=== PATIENT | female | born 1970 | race Caucasian/White ===

== ENCOUNTER → 2019-06-20 14:32 | Outpatient (BNVA) | payer MEDICAID, SELFPAY | PROVIDERS: Family Provider Nurse Practitioner Family; PCP Nurse Practitioner Family; Visit Provider Specialist | DX: G43.719 Chronic migraine without aura, intractable, without status migrainosus (principal) | CPT/HCPCS: 99213 ==

== ENCOUNTER 2019-08-07 13:11 | Outpatient (CLI) | payer MEDICAID, SELFPAY ==
--- NOTE | 2019-08-07 09:00 | CT_ITS ---
WS: [id number] CT CERVICAL SPINE TECHNIQUE: Noncontrast CT of the cervical spine with coronal and sagittal reformatted images. CLINICAL INFORMATION: Neck pain. HX fusion/fixation COMPARISON: MRI November 17, 2018 DLP: 1461.[address] scans at [facility] use at least one of these dose optimization techniques: automat ed exposure control; mA and/or kV adjustment per patient size (includes targeted exams where dose is matched to clinical indication); or iterative reconstruction. FINDINGS: Straightening with reversal of the normal cervical lordosis. Prior postoperative changes anterior int erbody cervical fusion C6-7. No evidence of bony bridging beyond the confines of the interbody fusion graft. Mild subsidence. Hardware appears grossly intact. C2-C3: Normal. C3-C4: Slight anterolisthesis C3 on C4. Moderate right facet arthropathy. Mild right bony foraminal n arrowing. Left foramen is patent. Tiny central protrusion with mild central canal stenosis. C4-C5: No significant disc bulging. Spinal canal and foramen are patent. C5-C6: Tiny shallow central protrusion. Mild central canal stenosis. Mild facet arthropathy. Mild rig ht and no significant left foraminal narrowing. C6-C7: Postoperative changes anterior interbody cervical fusion. Mild left and no significant right f oraminal narrowing. Mild to moderate facet arthropathy. Spinal canal is patent. C7-T1: Endplate osteophytic ridging. Spinal canal and foramen are patent. Visualized posterior nasopharynx: Normal. Prevertebral soft tissues: Normal. CT/CT cervical spin wo con* [id number] IMPRESSION: 1. Straightening with slight reversal of the normal cervical lordosis. 2. Slight anterolisthesis C3 on C4 unchanged from previous. 3. Anterior interbody cervical fusion C6-C7 with mild subsidence along the int erbody fusion graft. No significant bony bridging beyond the confines of the gr aft. 4. Mild central canal stenosis C3-C4 and C5-C6. 5. Mild bony foraminal narrowing right C3-C4 and left C6-C7. 6. Moderate facet arthropathy right C3-C4.
--- NOTE | 2019-08-07 09:15 | CT_ITS ---
WS: [id number] CT LUMBAR SPINE TECHNIQUE: Noncontrast CT of the lumbar spine with coronal and sagittal reformatted images. CLINICAL INFORMATION: Low back pain COMPARISON: August 11, 2018 DLP: 1666.[address] scans at [facility] use at least one of these dose optimization techniques: automat ed exposure control; mA and/or kV adjustment per patient size (includes targeted exams where dose is matched to clinical indication); or iterative reconstruction. FINDINGS: 5 lumbar type vertebral bodies. Stable anterolisthesis L4 on L5 measuring 7 mm. Postoperative changes L4-5 pedicle screw fixation with dorsolateral bony fusion. Hardware appears intact. Disc space narro wing L4-L5 and L5-S1. L1-L2: Normal. L2-L3: No significant disc bulging. Mild facet arthropathy. Spinal canal and foramen are patent. L3-L4: Tiny left foraminal protrusion with mild left foraminal narrowing. Right foramen is patent. Mo derate facet arthropathy. Spinal canal is patent. L4-L5: Grade 1 anterolisthesis L4 on L5. Laminectomy defects. Spinal canal and foramen are patent. L5-S1: Prior postoperative changes left hemilaminectomy. Tiny shallow central protrusion. No signific ant nerve root impingement. Spinal canal and foramen are patent. Moderate facet arthropathy. IVC filter. CT/CT lumbar spine wo con* [id number] IMPRESSION: 1. Mild lumbar curve. Stable grade 1 anterolisthesis L4 on L5. 2. Postoperative changes pedicle screw fixation L4-5 with dorsolateral bony fu eliud. Hardware appears intact. 3. Tiny left foraminal protrusion L3-4 with mild left foraminal narrowing. 4. Tiny shallow central protrusion L5-S1 without significant nerve root imping ement. Spinal canal and foramen are patent. Left L5-S1 hemilaminectomy. 5. Moderate facet arthropathy L3-L5.
== END 2019-08-07 13:12 | disposition home or self-care (01) ==
LOC: RADWPI 13:13
PROVIDERS: Family Provider Nurse Practitioner Family; PCP Nurse Practitioner Family; Visit Provider Licensed Practical Nurse
DX: Z98.890 Other specified postprocedural states (principal); Z98.1 Arthrodesis status; M51.26 Other intervertebral disc displacement, lumbar region; M47.816 Spondylosis without myelopathy or radiculopathy, lumbar region
CPT/HCPCS: 72125; 72131

== ENCOUNTER → 2019-12-20 16:11 | Outpatient (BNVA) | payer MEDICAID, SELFPAY | PROVIDERS: Family Provider Nurse Practitioner Family; PCP Nurse Practitioner Family; Referring Provider Nurse Practitioner Family; Visit Provider Dermatology | DX: R21 Rash and other nonspecific skin eruption (principal); L65.8 Other specified nonscarring hair loss; F42.4 Excoriation (skin-picking) disorder | CPT/HCPCS: 11102; 88305; 99203; 99204 ==

== ENCOUNTER → 2020-01-03 14:00 | Outpatient (BNVA) | payer SELFPAY | PROVIDERS: Family Provider Nurse Practitioner Family; PCP Nurse Practitioner Family; Visit Provider Dermatology | DX: F22 Delusional disorders (principal) | CPT/HCPCS: 99213 ==

== ENCOUNTER 2020-02-20 17:56 | Emergency (ER) | payer MEDICAID, SELFPAY ==
[2020-02-20 18:00] VITALS: BP 111/76; PULSE 84; RESP 16; TEMP 36.3; O2SAT 99; BMI 26.6
[2020-02-20 20:42] LABS: Basophils # 0.1 10^3/uL (0.0-0.1); Basophils % 0.7 %; Eosinophils # 0.2 10^3/uL (0.0-0.8); Eosinophils % 2.6 %; Hematocrit 40.9 % (37.0-47.0); Hemoglobin 12.7 g/dL (11.5-15.3); Lymphocytes # 2.1 10^3/uL (0.8-4.8); Lymphocytes % 29.2 %; Mean Corpuscular HGB Conc 31.1 g/dL (30.0-36.0); Mean Corpuscular Hemoglobin 30.8 pg (28.0-34.0); Mean Platelet Volume 10.7 fL (7.4-10.4); Monocytes # 0.8 10^3/uL (0.2-0.9); Monocytes % 11.3 %; Neutrophils # 4.05 10^3/uL (1.8-7.7); Neutrophils % 55.6 %; Nucleated Red Blood Cells % 0 %; Platelet Count 269 10^3/cmm (130-400); Red Blood Count 4.13 10^6/uL (4.1-5.3); Red Cell Distribution Width 13.1 % (12.1-15.1); White Blood Count 7.3 10^3/uL (4.0-10.0)
--- NOTE | 2020-02-20 20:47 | ED_ITS ---
HPI - General Adult General: Chief complaint: General Medical Stated complaint: POSS BLOOD CLOT Time Seen by Provider: 02/20/20 20:43 Source: patient Mode of arrival: ambulatory Limitations: no limitations History of Present Illness: HPI narrative: 49-year-old female states she has a history of alpha gal along with chronic Lyme disease. Patient states she saw a new doctor this week and needed lab work on her and they called her today and informed her that her D-dimer was elevated. He told her come to ER. She states she has had no shortness of breath or chest pain. She states she does have bilateral lower leg pain but that is chronic in nature and has been going on for years and is not new. She states she currently feels at her baseline. Denies any worsening improving factors. Denies any fever cough. Associated symptoms: Deny chest pain, dyspnea, headache(s), nausea, rash or vomiting Review of Systems Const: Denies: fever(s), chills, body aches or change in appetite Eyes: Denies: blurry vision or eye discomfort ENMT: Denies: throat pain or dental pain Card: Denies: chest pain Resp: Denies: dyspnea GI: Denies: abdominal pain, nausea, vomiting or diarrhea : Denies: dysuria Musc: Denies: neck pain or back pain Skin/Breast: Denies: rash Neuro: Denies: headache(s) Psych: Denies: depression Andres/Lymph: Denies: easy bruising All/Imm: Denies: urticaria PFSH ED PFSH: Medical History Allergy to alpha-gal Cervical disc disorder with myelopathy of mid-cervical region Diabetes Spondylolisthesis of cervical region Thyroid disease Surgical History [place] filter in place 2001 H/O gastric bypass History of back surgery Dr. Richter 08/08/17 L4-L5 laminectomy/fusion/fixation 2008 [facility] Lumbar decompression History of carpal tunnel surgery of left wrist Dr. Orlando Richter 11/18/2016 History of carpal tunnel surgery of right wrist Dr. Richter 01/13/2017 History of neck surgery Dr. Richter 06/29/2018 C6-C7 ACDFF Family History Grandfather CAD (coronary artery disease) Stroke Grandmother CAD (coronary artery disease) Sister CAD (coronary artery disease) Hypertension Family/Other Cancer Mother Hypertension Father Hypertension Brother Hypertension Other Diabetes Social History Smoking and tobacco status: never smoked Alcohol intake: never Household members: family Marital status: Single Current occupational status: disabled History of recent travel: No Physical Exam Const: COMMON NORMALS: no acute distress, patient oriented x3 and healthy appearing HENMT: COMMON NORMALS: normocephalic and atraumatic HEAD & SCALP: norm ocephalic and atraumatic Eye: COMMON NORMALS: Equal, round and reactive pupils present and EOMs intact bilaterally PUPIL: Yes Equal, round and reactive pupils present Neck/C-Spine: COMMON NORMALS: full ROM and supple Chest: COMMONS NORMALS: normal inspection of the chest and normal palpation of entire chest wall Resp: COMMON NORMALS: normal respiratory effort, No retractions, No use of accessory muscles and clear to auscultation bilaterally AUSCULTATION: clear to auscultation bilaterally Cardio: COMMON NORMALS: regular rate, regular rhythm and No murmurs present (Cardio) RATE: regular rate RHYTHM: regular rhythm GI: COMMON NORMALS: Normal to inspection, nondistended, normoactive bowel sounds present, Soft to palpation, non-tender and no masses PALPATION: Yes Soft to palpation Extremity: COMMON NORMALS: normal to inspection and full ROM Neuro: COMMON NORMALS: patient oriented x3, moves all extremities and no focal motor deficits Psych: COMMON NORMALS: mental status grossly normal, Normal thought process present and cooperative THOUGHT PROCESS: Normal thought process present Skin: COMMON NORMALS: no rashes or lesions noted and no wounds GENERAL SKIN EXAM: no rashes or lesions noted Course Vital Signs: Vital signs: Vital Signs Temperature 97.3 F L 02/20/20 18:00 Pulse Rate 84 02/20/20 18:00 Respiratory Rate 18 02/20/20 21:14 Blood Pressure 111/76 02/20/20 18:00 Pulse Oximetry 99 02/20/20 18:00 MDM - General Adult MDM Narrative: Medical decision making narrative: Patient presents here wanting to have a D-dimer checked as she stated her PCP said it was elevated. She has no symptoms except for chronic leg pain and she has no leg swelling on exam. Her D-dimer here is negative she has no signs of pulmonary embolism or blood clot. Patient is stable for discharge and is to follow-up with PCP in 3 to 5 days return if worsening. She understands agrees to plan. Lab Data: Labs: Lab Results 02/20/20 02/20/20 02/20/20 Range/Units 20:18 20:18 21:04 WBC 7.3 (4.0-10.0) 10^3/ uL RBC 4.13 (4.1-5.3) 10^6/u L Hgb 12.7 (11.5-15.3) g/dL Hct 40.9 (37.0-47.0) % MCV 99.0 (81-99) fL MCH 30.8 (28.0-34.0) pg MCHC 31.1 (30.0-36.0) g/dL RDW 13.1 (12.1-15.1) % Plt Count 269 (130-400) 10^3/c mm MPV 10.7 H (7.4-10.4) fL Neut % (Auto) 55.6 % Lymph % (Auto) 29.2 % [place] % (Auto) 11.3 % Eos % (Auto) 2.6 % Baso % (Auto) 0.7 % Neut # (Auto) 4.05 (1.8-7.7) 10^3/u L Lymph # (Auto) 2.1 (0.8-4.8) 10^3/u L [place] # (Auto) 0.8 (0.2-0.9) 10^3/u L Eos # (Auto) 0.2 (0.0-0.8) 10^3/u L Baso # (Auto) 0.1 (0.0-0.1) 10^3/u L Nucleated RBC % (a uto) 0 % Nucleated RBCs # 0.0 /100WBC D-Dimer 0.33 (0-0.59) ug/mIFE U Sodium 138 (136-145) mmol/L Potassium 5.7 H (3.5-5.1) mmol/L Chloride 103 (98-107) mmol/L Carbon Dioxide 22 (22-29) mmol/L Anion Gap 18.7 (5-19) BUN 31 H (6-20) mg/dL Creatinine 1.6 H (0.5-0.9) mg/dL GFR Calculation 34.0 L (90-130) mL/min Glucose 81 (65-115) mg/dL Calculated Osmolal ity 292 (285-295) mOsm/k g Calcium 10.2 (8.5-10.5) mg/dL Total Bilirubin 0.2 (0.15-1.2) mg/dL AST 82 H (0-32) U/L ALT 59 H (0-33) U/L Alkaline Phosphata se 91 (35-105) IU/L Total Protein 6.8 (6.6-8.7) g/dL Albumin 4.4 (3.5-5.2) g/dL Globulin 2.4 (1.3-4.6) g/dL Discharge Plan Discharge Patient Disposition: Home Clinical Impression: Bilateral leg pain Condition: Stable Prescriptions: No Action venlafaxine [Effexor XR] 150 mg capsule,extended release 24hr 150 mg PO .COMPLEX RF: 0 Emgality Pen 120 mg/mL pen injector See Rx Instructions SUBCUT .COMPLEX RF: 0 lorazepam 1 mg tablet 1 mg PO TID PRNRF: 0 ranitidine HCl [Zantac] 150 mg tablet 150 mg PO DAILY RF: 0 ferrous sulfate [iron] 325 mg (65 mg iron) tablet 325 mg PO DAILY RF: 0 cholecalciferol (vitamin D3) [Vitamin D3] 2,000 unit tablet 2,000 unit PO DAILY RF: 0 levocetirizine [Xyzal] 5 mg tablet 5 mg PO BID RF: 0 tramadol 50 mg tablet 50 mg PO Q8H PRNRF: 0 aspirin [Aspir-81] 81 mg tablet,delayed release (DR/EC) 81 mg PO DAILY RF: 0 levothyroxine 50 mcg capsule 50 mcg PO DAILY RF: 0 vitamin [id number] B1 100-1 mg/mL solution See Rx Instructions IM .COMPLEX RF: 0 pantoprazole [Protonix] 40 mg tablet,delayed release (DR/EC) 40 mg PO DAILY RF: 0 metoprolol tartrate [Lopressor] 50 mg tablet 50 mg PO BID RF: 0 metformin 500 mg tablet 500 mg PO BID RF: 0 sumatriptan succinate [Imitrex] 100 mg tablet 100 mg PO Q2H PRNRF: 0 hydroxyzine pamoate [Vistaril] 25 mg capsule 25 mg PO .prn RF: 0 permethrin 5 % cream 1 applic TOPICAL Q14D Qty: 60 RF: 1 mupirocin 2 % ointment 1 applic TOPICAL BID Qty: 22 RF: 3 mupirocin 2 % ointment 1 applic TOPICAL BID Qty: 22 RF: 1 Discharge Orders: Discharge Order (Routine); Ordered 02/20/20 Ordered By: Zoe Bai Referrals: Susan Whaley [Primary Care Provider] - 1-3 days Discharge Diet: Advance as tolerated Discharge Activity: Resume usual activity Patient Instructions: Arthralgia (ED) Coding Level of Care Code ED Furnace Utility Operator for Kiet Fwd Exam Comprehensive
--- NOTE | 2020-02-20 20:47 | ECG_ITS ---
[facility] Test Date: 2020-02-20 Pat Name: Marcie Youssef Department: Room: Gender: Female [employer]: : 1970 Requested By: Zoe Bai Order Number: [id number] Dejesus MD: José Guerrero M.D. Measurements Intervals [place] Rate: 83 P: 68 SC: 150 QRS: 65 QRSD: 85 T: 50 QT: 359 QTc: 422 Interpretive Statements SINUS RHYTHM WITH SINUS ARRHYTHMIA Compared to ECG 09/30/2017 00:52:45 Sinus bradycardia no longer present Electronically Signed On 02-21-2020 9:39:35 CDT by José Guerrero M.D. [email or web address] Eclectic Edibles & [email or web address]/[id number]
[2020-02-20 20:55] LABS: Alanine Aminotransferase 59 U/L (0-33); Albumin Level 4.4 g/dL (3.5-5.2); Alkaline Phosphatase 91 IU/L (35-105); Blood Urea Nitrogen 31 mg/dL (6-20); Calcium 10.2 mg/dL (8.5-10.5); Carbon Dioxide 22 mmol/L (22-29); Chloride 103 mmol/L (98-107); Globulin 2.4 g/dL (1.3-4.6); Glucose 81 mg/dL (65-115); Osmolality Calculated 292 mOsm/kg (285-295); Sodium 138 mmol/L (136-145); Total Bilirubin 0.2 mg/dL (0.15-1.2); Total Protein 6.8 g/dL (6.6-8.7)
[2020-02-20 20:56] LABS: Anion Gap 18.7 (5-19); Aspartate Amino Transferase 82 U/L (0-32); Potassium 5.7 mmol/L (3.5-5.1)
[2020-02-20] MEDS: sodium chloride 0.9% 1,000 ML 999 ML IV (21:13)
[2020-02-20 21:14] VITALS: RESP 18
[2020-02-20 21:21] LABS: D Dimer 0.33 ug/mIFEU (0-0.59)
[2020-02-20 21:49] VITALS: RESP 18
== END 2020-02-20 21:49 | disposition home or self-care (01) ==
PROVIDERS: Emergency Provider Emergency Medicine; Family Provider Nurse Practitioner Family; PCP Nurse Practitioner Family
DX: M79.605 Pain in left leg (principal); M79.604 Pain in right leg; Z79.84 Long term (current) use of oral hypoglycemic drugs; Z79.82 Long term (current) use of aspirin; E11.9 Type 2 diabetes mellitus without complications
CPT/HCPCS: 12345; 36415; 80053; 85025; 85378; 93005; 96360; 99283; J7030

== ENCOUNTER → 2020-03-14 09:31 | Outpatient (BNVA) | payer MEDICAID, SELFPAY | PROVIDERS: Family Provider Nurse Practitioner Family; PCP Nurse Practitioner Family; Visit Provider Orthopaedic Surgery | DX: M50.020 Cervical disc disorder with myelopathy, mid-cervical region, unspecified level (principal); M47.816 Spondylosis without myelopathy or radiculopathy, lumbar region | CPT/HCPCS: 72050 ==

== ENCOUNTER → 2020-05-23 11:04 | Outpatient (BNVA) | payer MEDICAID, SELFPAY | PROVIDERS: Family Provider Nurse Practitioner Family; PCP Nurse Practitioner Family; Visit Provider Orthopaedic Surgery | DX: M53.3 Sacrococcygeal disorders, not elsewhere classified (principal); R10.2 Pelvic and perineal pain | CPT/HCPCS: 72170; 72220 ==

== ENCOUNTER → 2020-05-28 13:04 | Outpatient (BNVA) | payer MEDICAID, SELFPAY | PROVIDERS: Family Provider Nurse Practitioner Family; PCP Nurse Practitioner Family; Referring Provider Nurse Practitioner Family; Visit Provider Internal Medicine | DX: N18.32 Chronic kidney disease, stage 3b (principal); N25.81 Secondary hyperparathyroidism of renal origin | CPT/HCPCS: 99204 ==

== ENCOUNTER → 2020-06-16 15:11 | Outpatient (BNVA) | payer MEDICAID, SELFPAY | PROVIDERS: Family Provider Nurse Practitioner Family; PCP Nurse Practitioner Family; Visit Provider Orthopaedic Surgery | DX: M43.12 Spondylolisthesis, cervical region (principal); Z98.1 Arthrodesis status | CPT/HCPCS: 87635 ==

== ENCOUNTER 2020-06-23 06:19 | Day surgery (SDC) | payer MEDICAID, SELFPAY ==
[2020-06-20 11:57] VITALS: BMI 25.4
--- NOTE | 2020-06-20 12:56 | ANES.PREANE2 ---
Pre-Anesthetic Assessment Pre-Anesthetic Assessment: Height/Weight: Height 1.55 m Weight 61.235 kg Preop Diagnosis: Cervical Spondylolisthesis Proposed Procedure: Operation Date: 06/23/20 07:00 Proposed Procedures p Anterior Cervical Discectomy & Fusion C3-4 35727 [id number] [id number] M43.12(Not Applicable) - Ruiz Allen Micki, DO Was Beta Stuart taken within 24 hours: N/A Social: Social History: No alcohol and No tobacco Exam: Pre-Anes Outpt Exam: alert, oriented x 3, clear to auscultation bilaterally and regular rate & rhythm Airway: Submandibular: WNL Cervical ROM: WNL MP: 2 Dentition: False Pulmonary: Pulmonary: COPD CV/HEM: CV/HEM: Anemia GI: GI: GERD Metabolic: Metabolic: DM and Thyroid Musc/skel: Musc/skel: Lower Back Pain Neuropsych: Neuropsych: Anxiety and ACEVEDO Anesthetic Plan: ASA status: 3 Anesthesia: General PFSH Anesthesia PFSH: Medical History Allergy to alpha-gal Cervical disc disorder with myelopathy of mid-cervical region Diabetes Spondylolisthesis of cervical region Thyroid disease Surgical History [place] filter in place 2001 H/O gastric bypass History of back surgery Dr. Richter 08/08/17 L4-L5 laminectomy/fusion/fixation 2008 [facility] Lumbar decompression History of carpal tunnel surgery of left wrist Dr. Orlando Richter 11/18/2016 History of carpal tunnel surgery of right wrist Dr. Richter 01/13/2017 History of neck surgery Dr. Richter 06/29/2018 C6-C7 ACDFF Family History Grandfather CAD (coronary artery disease) Stroke Grandmother CAD (coronary artery disease) Sister CAD (coronary artery disease) Hypertension Family/Other Cancer Mother Hypertension Father Hypertension Brother Hypertension Other Diabetes Social History Smoking and tobacco status: never smoked Alcohol intake: never Household members: family Marital status: Single Current occupational status: disabled History of recent travel: No Female Reproductive History: Date of last menstrual period: 10/21/04 Data Anesthesia Cardiac Studies: No Data to Display
[2020-06-23] VITALS (11 sets, daily range): BP systolic 117–157; BP diastolic 84–96; PULSE 94–109; RESP 12–20; TEMP 36.3–36.9; O2SAT 98–100
--- NOTE | 2020-06-23 | SCC_ITS ---
Procedure Done: 1. Anterior diskectomy C3/4 2. Insertion of cage C3/4 3. Instrumentation with anterior plate from C3-4 4. Use of allograft 27.5 seconds of fluoroscopic guidance, for a cumulative dose of 1.42 mGy, was provided to Dr. Sweet by the radiology department. C-arm images of the cervical spine were saved for the patient's permanent record. [facility] PSYCHIATR[facility] CENTERMouna
--- NOTE | 2020-06-23 06:38 | P.ANESUD_ITS ---
Pre-Anesthetic Update Pre-Anesthetic Assessment: Date of Surgery/Procedure: 06/23/20 Preop Emelyn gnosis: Cervical Spondylolisthesis Proposed Procedure: Operation Date: 06/23/20 07:00 Proposed Procedures p Anterior Cervical Discectomy & Fusion C3-4 40438 [id number] M43.12(Not Applicable) - Ruiz Sweet, DO Any changes to Pre-Anesthetic Assessment?: No Last Intake: NPO > 8hrs Vitals: Temperature 98.5 F 06/23/20 06:37 Temperature Source Temporal Artery S can 06/23/20 06:37 Pulse Rate 100 06/23/20 06:37 Respiratory Rate 18 06/23/20 06:37 Blood Pressure 117/86 06/23/20 06:37 Blood Pressure Leny n 96 06/23/20 06:37 Pulse Oximetry 100 06/23/20 06:37 Oxygen Delivery Me thod 06/23/20 06:37 Exam: Pre-Anes Outpt Exam: alert, oriented x 3, clear to auscultation bilaterally and regular rate & rhythm Cardiac Studies: No Data to Display
--- NOTE | 2020-06-23 06:47 | W.PM.OPSUD ---
Surgery/Procedure H&P Update DATE OF PROCEDURE: June 23, 2020 DATE H&P PERFORMED: 05/23/20 H&P UPDATE INFORMATION: I have reviewed H&P completed within last 30 days and I have examined patient prior to procedure PREOP DIAGNOSIS: Cervical Spondylolisthesis PLANNED PROCEDURE: Operation Date: 06/23/20 07:00 Proposed Procedures p Anterior Cervical Discectomy & Fusion C3-4 [id number] M43.12(Not Applicable) - Ruiz Sweet DO
[2020-06-23] MEDS: sodium chloride 0.9% 1,000 ML 30 ML IV (07:05)
[2020-06-23 07:06] LABS: Glucose Point of Care 59 mg/dL (70-110)
[2020-06-23] MEDS: midazolam 1 mg/mL INJ 5 ML 5 MG IVP (07:18)
[2020-06-23] MEDS: dextrose 50% syringe 50 mL 25 ML IVP (07:24)
[2020-06-23 07:53] LABS: Glucose Point of Care 116 mg/dL (70-110)
--- NOTE | 2020-06-23 10:34 | XR_ITS ---
WS: [id number] C-ARM RADIOGRAPHS CERVICAL SPINE; 3 IMAGES HISTORY: ANTERIOR CERVICAL DISCECTOMY COMPARISON: 03/14/2020. Anterior cervical plate and interbody spacer have been placed at C3-4. There is an additional prior p late at C6-7. XR/XR cervical spine 3V* [id number] IMPRESSION: Intraoperative imaging during anterior cervical fusion at C3-4.
--- NOTE | 2020-06-23 10:36 | P.OP_ITS ---
Operative Report Date of procedure: June 23, 2020 Pre-op Diagnosis: Cervical Spondylolisthesis C3/4 Post-op diagnosis: same Procedure Done: 1. Anterior diskectomy C3/4 2. Insertion of cage C3/4 3. Instrumentation with anterior plate from C3-4 4. Use of allograft Surgeon: Ruiz Sweet Anesthesia: General Estimated blood loss (mL): 5 Condition: stable Disposition: PACU Procedure: The patient was taken to the operating room, where he underwent general endotracheal anesthesia without complications. He was then positioned supine on the operating table, and all areas of impingement were well padded. The arms were carefully padded and tucked at his sides. A roll was placed between the shoulder blades.. An x-ray was done to determine the appropriate level for the skin incision. The entire neck was then sterilely prepped and draped in the usual fashion. Neuromonitoring was attached prior to prepping. A transverse skin incision was made and carried down to the platysma muscle. This was then split in line with its fibers. Blunt dissection was carried down medial to the carotid sheath and lateral to the trachea and esophagus until the anterior cervical spine was visualized. A needle was placed into a disc and an x-ray was done to determine its location. The longus colli muscles were then elevated bilaterally with the electrocautery unit. Self-retaining retractors were placed deep to the longus colli muscle. Attention was brought to the C3/4 level that was confirmed on x-ray. The microscope was then brought in. A radical anterior discectomies were performed at C3/4. This included complete removal of the anterior annulus, nucleus, and posterior annulus. The posterior longitudinal ligament was removed as were the posterior osteophytes. Foraminotomies were then accomplished bilaterally. This was done using a high speed anya, kerrison rongeurs and curretes Once all of this was accomplished, the curved currette was used to check for any residual compression. The central canal was wide open as were the foramen. A high-speed bur was used to remove the cartilaginous endplates above and below the interspace. Bleeding cancellous bone was exposed. The disc space were measured and appropriate size cage were placed sterilely onto the field. Allo graft graft was packed into the cages. The cage was then placed and there was good juxtaposition against the bleeding decorticated surfaces and good distraction of each interspace. The appropriate size anterior cervical locking plate was chosen and bent into gentle lordosis. Two screws were then placed into each of the vertebral bodies at C3 and C4. There was excellent purchase. A final x-ray was done confirming good position of the hardware and Cages. The locking screws were then applied, also with excellent purchase. Following a final copious irrigation, there was good hemostasis and no dural leaks. The carotid pulse was strong. The wounds were then closed in layers using 2-0 Vicryl suture for the platysma muscle, 2-0 Vicryl suture for the subcutaneous tissue, and 4-0 monocryl suture in a subcuticular skin closure. Glue was placed followed by application of a sterile dressing. The drain was hooked to bulb suction. A soft collar was applied. The patient was then carefully returned to the supine position on his hospital bed where he was reversed and extubated and taken to the recovery room having tolerated the procedure well.
--- NOTE | 2020-06-23 10:47 | P.PCN_ITS ---
PACU note PACU note: VSS, Good respiratory effort, report to MUSIC LIBRARIAN Post-Anesthesia Exam: awake
--- NOTE | 2020-06-23 10:47 | PM.PACU ---
PACU note PACU note: VSS, Good respiratory effort, report to ELECTRIC TRUCK CRANE OPERATOR Post-Anesthesia Exam: awake
--- NOTE | 2020-06-23 10:57 | SUR.PHASEI ---
1054- ORAL AIRWAY REMOVED, SIMPLE MASK IN PLACE AT 6LPM SAT 100%
[2020-06-23] MEDS: ondansetron 2 mg/ML SDV 2 mL 4 MG IVP (10:58)
--- NOTE | 2020-06-23 11:06 | SUR.PHASEI ---
1057- PATIENT REPORTS NAUSEA, REPORTS PREVIOUS USE OF ZOFRAN WITH NO ADVERSE EFFECTS.
[2020-06-23] MEDS: HYDROcodone-acetaminophen 5-325 mg Tablet 1 TAB PO (11:55)
--- NOTE | 2020-06-23 15:46 | ANE.PACU2 ---
Inpatient post-anesthesia follow up: Airway intact: Yes Vital signs: Temperature 97.7 F Pulse Rate 101 Respiratory Rate 18 Blood Pressure 142/84 Pulse Oximetry 100 Oxygen Delivery Me thod Room Air Oxygen Flow Rate 6 Fraction of Inspir ed Oxygen Hydration adequate: Yes Nausea and vomiting: No Pain level: 3 Mental status: Baseline
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
== END 2020-06-23 13:15 | disposition home or self-care (01) ==
PROVIDERS: PCP Nurse Practitioner Family; Visit Provider Orthopaedic Surgery
PROC: 0RB30ZZ Excision of Cervical Vertebral Disc, Open Approach (ICD-10-PCS; CPT 22551; principal; 2020-06-23 07:00)
DX: M43.12 Spondylolisthesis, cervical region (principal); J44.9 Chronic obstructive pulmonary disease, unspecified; K21.9 Gastro-esophageal reflux disease without esophagitis; E11.9 Type 2 diabetes mellitus without complications; F41.9 Anxiety disorder, unspecified; Z98.84 Bariatric surgery status
CPT/HCPCS: 20930; 22551; 22845; 22853; 36416; 72040; 76000; 82962; 96374; 96375; C1713; C9359; J0330; J0690; J1100; J2250; J2405; J2704; J3010; J3490; J7030

== ENCOUNTER → 2020-08-07 15:01 | Outpatient (BNVA) | payer MEDICAID, SELFPAY | PROVIDERS: PCP Nurse Practitioner Family; Visit Provider Orthopaedic Surgery | DX: Z48.89 Encounter for other specified surgical aftercare (principal); M54.9 Dorsalgia, unspecified | CPT/HCPCS: 72040; 72110 ==

== ENCOUNTER 2020-08-19 14:36 | Outpatient (CLI) | payer MEDICAID, SELFPAY ==
--- NOTE | 2020-08-19 14:53 | MR_ITS ---
WS: [id number] MRI LUMBAR SPINE NONCONTRAST TECHNIQUE: Sagittal T1, T2 and STIR imaging. Axial T1 and T2 imaging. CLINICAL INFORMATION: Z98.890 - Other specified postprocedural states COMPARISON: CT August 07, 2019 FINDINGS: Mild lumbar curve. No acute compression. Pedicle screw fixation L4-5 laminectomy defects. No high-gra de central canal stenosis. Grade 1 anterolisthesis L4 on L5. Disc space narrowing worse L4-L5 and L5- S1. L1-L2: Normal. L2-L3: No significant disc bulging. Mild facet arthropathy. Spinal canal and foramen are patent. L3-L4: Mild annular bulging with slight effacement of the ventral thecal sac. Small left foraminal pr otrusion with mild left foraminal narrowing. Right foramen is patent. Mild facet arthropathy. L4-L5: Pedicle screw fixation with laminectomy defects. Grade 1 anterolisthesis. Spinal canal is dugan nt. Mild right bony foraminal narrowing. Left foramen is patent. L5-S1: Disc desiccation with disc space narrowing. Mild facet arthropathy. Spinal canal and foramen a re patent. Pedicle screw fixation L5. Normal bone marrow signal in the sacral bony structures. Prior extensive postoperative changes in the cervical spine with susceptibility artifact. Small right renal cysts. MR/MR lumbar spine wo con* [id number] IMPRESSION: 1. Mild lumbar curve. No acute compression. Grade 1 anterolisthesis L4 on L5. 2. Prior postoperative changes pedicle screw fixation L4-5 with dorsolateral b pedro pablo fusion. Laminectomy defects. 3. Prior left L5-S1 hemilaminectomy. 4. Mild annular bulging L3-4 with a small left foraminal protrusion. This slig htly contacts the exiting left L3 nerve root with mild left foraminal narrowing . 5. Mild right L4-5 bony foraminal narrowing. 6. Mild to moderate facet arthropathy L2-3, L3-4, and L5-S1.
== END 2020-08-19 14:37 | disposition home or self-care (01) ==
LOC: RADWPI 14:42
PROVIDERS: PCP Nurse Practitioner Family; Visit Provider Orthopaedic Surgery
DX: Z98.890 Other specified postprocedural states (principal); M47.816 Spondylosis without myelopathy or radiculopathy, lumbar region
CPT/HCPCS: 72148

== ENCOUNTER → 2020-08-21 13:50 | Outpatient (BNVA) | payer MEDICAID, SELFPAY | PROVIDERS: PCP Nurse Practitioner Family; Visit Provider Orthopaedic Surgery | DX: Z98.890 Other specified postprocedural states (principal); M50.90 Cervical disc disorder, unspecified, unspecified cervical region | CPT/HCPCS: 72040; 72110 ==

== ENCOUNTER → 2020-09-17 11:09 | Outpatient (BNVA) | payer MEDICAID, SELFPAY | PROVIDERS: PCP Nurse Practitioner Family; Visit Provider Specialist | DX: G43.711 Chronic migraine without aura, intractable, with status migrainosus (principal); F40.298 Other specified phobia | CPT/HCPCS: 99214 ==

== ENCOUNTER → 2020-09-18 15:07 | Outpatient (BNVA) | payer MEDICAID, SELFPAY | PROVIDERS: PCP Nurse Practitioner Family; Visit Provider Orthopaedic Surgery | DX: M54.2 Cervicalgia (principal); Z98.1 Arthrodesis status; M43.12 Spondylolisthesis, cervical region; Z48.89 Encounter for other specified surgical aftercare | CPT/HCPCS: 72040 ==

== ENCOUNTER → 2020-11-06 14:57 | Outpatient (BNVA) | payer MEDICAID, SELFPAY | PROVIDERS: PCP Nurse Practitioner Family; Visit Provider Orthopaedic Surgery | DX: Z48.89 Encounter for other specified surgical aftercare (principal); Z98.890 Other specified postprocedural states; M43.12 Spondylolisthesis, cervical region; M48.061 Spinal stenosis, lumbar region without neurogenic claudication | CPT/HCPCS: 72040 ==

== ENCOUNTER 2020-12-03 09:35 | Outpatient (CLI) | payer MEDICAID, SELFPAY ==
--- NOTE | 2020-12-03 09:30 | MR_ITS ---
WS: [id number] MRI LUMBAR SPINE NONCONTRAST TECHNIQUE: Sagittal T1, T2 and STIR imaging. Axial T1 and T2 imaging. CLINICAL INFORMATION: N39.41 - Urge incontinence COMPARISON: MRI August 2020 FINDINGS: Mild lumbar curve. No acute compression. Grade 1 anterolisthesis L4 on L5. Pedicle screw fixation L4- 5 with laminectomy defects. Disc space narrowing worse L4-L5 and L5-S1. Alignment is unchanged from A pril 2020. L1-L2: Normal. L2-L3: No significant disc bulging. Mild facet arthropathy. Spinal canal and foramen are patent. L3-L4: Mild annular bulging with slight effacement of ventral thecal sac. Mild facet arthropathy. Sma ll left foraminal protrusion with mild left foraminal narrowing. L4-L5: Grade [address] able. Laminectomy defects with pedicle screw fixation. Mild right and no significant left foraminal n arrowing. Spinal canal is patent. L5-S1: Disc desiccation. Osteophytic ridging. Spinal canal and foramen are patent. Mild facet arthrop athy. Small right renal cysts Overall no significant changes since August 2020 MR/MR lumbar spine wo con* [id number] IMPRESSION: 1. Mild lumbar curve. No acute compression. Pedicle screw fixation L4-5 jacy ctomy defects. This is stable from previous. Grade 1 anterolisthesis L4 on L5 i s unchanged. 2. Mild annular bulging L3-4 with slight effacement of ventral thecal sac. Mil d left L3-4 foraminal narrowing with a tiny foraminal protrusion. 3. Mild right L4-5 foraminal narrowing. 4. Mild to moderate facet arthropathy L3-L5.
--- NOTE | 2020-12-03 11:00 | MR_ITS ---
WS: [id number] MRI CERVICAL SPINE NONCONTRAST TECHNIQUE: Sagittal T1, T2 and STIR imaging. Axial T2, gradient, and fiesta imaging. CLINICAL INFORMATION: Z48.89 - Encounter for other specified surgical aftercare COMPARISON: MRI 2019 FINDINGS: Some images degraded by motion. Straightening of the normal cervical lordosis. ACDF C3-4 and C6-7 with associated susceptibility mukul fact. Straightening of the normal cervical lordosis. Cord signal is normal. No high-grade central can al narrowing. Cervical fusion at C3-C4 is new from the prior examination. Disc bulging at C5-6 appear s slightly progressed. Stable C6-7 fusion. C2-C3: Normal. C3-C4: Anterior cervical fusion new from previous. Slight anterolisthesis C3 on C4. Mild to moderate central canal stenosis with effacement of ventral thecal sac. Mild bilateral foraminal narrowing. C4-C5: Minimal disc bulging. Spinal canal and foramen are patent. Mild facet arthropathy. C5-C6: Mild disc bulging with a shallow central protrusion. Mild central canal stenosis. Slight conta ct of the cervical cord. Foramen are patent. C6-C7: Postoperative changes ACDF appears stable. Mild left and no significant right foraminal narrow ing. Spinal canal is patent. C7-T1: Normal. Visualized brain stem structures: Normal. Prevertebral soft tissues: Normal. MR/MR cervical spin wo con* [id number] IMPRESSION: 1. Straightening of the normal cervical lordosis. ACDF C3-C4 is new from previ ous with slight anterolisthesis C3 on C4. Stable C6-7 ACDF. 2. Disc bulging C5-C6 is slightly progressed with a shallow small central prot rusion with mild central canal stenosis. 3. Mild to moderate central canal narrowing C3-C4 with mild bilateral foramina l narrowing. 4. No other significant changes from previous.
== END 2020-12-03 09:36 | disposition home or self-care (01) ==
LOC: RADSHAW 09:40
PROVIDERS: PCP Nurse Practitioner Family; Visit Provider Orthopaedic Surgery
DX: Z48.89 Encounter for other specified surgical aftercare (principal); N39.41 Urge incontinence; Z98.890 Other specified postprocedural states; M50.222 Other cervical disc displacement at C5-C6 level; M51.26 Other intervertebral disc displacement, lumbar region; M47.816 Spondylosis without myelopathy or radiculopathy, lumbar region
CPT/HCPCS: 72141; 72148

== ENCOUNTER → 2021-02-13 13:09 | Outpatient (BNVA) | payer MEDICAID, SELFPAY | PROVIDERS: PCP Nurse Practitioner Family; Visit Provider Orthopaedic Surgery | DX: Z01.812 Encounter for preprocedural laboratory examination (principal); Z20.822 Contact with and (suspected) exposure to COVID-19 | CPT/HCPCS: 87635 ==

== ENCOUNTER → 2021-02-18 09:49 | Day surgery (SDC) | payer MEDICAID, SELFPAY ==
[2021-02-13 11:54] VITALS: BMI 23.0
--- NOTE | 2021-02-13 13:23 | ANES.PREANE2 ---
Pre-Anesthetic Assessment Pre-Anesthetic Assessment: Height/Weight: Height 1.52 m Weight 53.524 kg Preop Diagnosis: lumbar stenosis with neurogenic claudication Proposed Procedure: Operation Date: 02/18/21 07:00 Proposed Procedures p Posterior Lumbar Interbody Fusion L4-S1 L5-S1(Not Applicable) - Ruiz Sweet, DO Was Beta Stuart taken within 24 hours: N/A Was Clonidine taken within 24 hours: N/A Social: Social History: No alcohol and No tobacco Exam: Pre-Anes Outpt Exam: alert, oriented x 3, clear to auscultation bilaterally and regular rate & rhythm Airway: Submandibular: WNL Cervical ROM: WNL MP: 2 Dentition: False CV/HEM: CV/HEM: Anemia and HTN GI: GI: GERD Metabolic: Metabolic: DM and Thyroid Comments: Gastric sleeve Neuropsych: Neuropsych: Anxiety and ACEVEDO Anesthetic Plan: ASA status: 3 Anesthesia: General Other: A.line Risk of > 500 ml blood loss (7ml/kg in children): No PFSH Anesthesia PFSH: Medical History Allergy to alpha-gal Cervical disc disorder with myelopathy of mid-cervical region Diabetes Spondylolisthesis of cervical region Thyroid disease Surgical History [place] filter in place 2001 H/O gastric bypass History of back surgery Dr. Richter 08/08/17 L4-L5 laminectomy/fusion/fixation 2008 [facility] Lumbar decompression History of carpal tunnel surgery of left wrist Dr. Orlando Richter 11/18/2016 History of carpal tunnel surgery of right wrist Dr. Richter 01/13/[address] History of neck surgery Dr. Richter 06/29/2018 C6-C7 ACDFF Family History Grandfather CAD (coronary artery disease) Stroke Grandmother CAD (coronary artery disease) Sister CAD (coronary artery disease) Hypertension Family/Other Cancer Mother Hypertension Father Hypertension Brother Hypertension Other Diabetes Social History Smoking and tobacco status: never smoked Alcohol intake: never Household members: family Marital status: Single Current occupational status: disabled History of recent travel: No Female Reproductive History: Date of last menstrual period: 10/21/04 Data Anesthesia Cardiac Studies: No Data to Display
[2021-02-18 10:12] VITALS: BP 130/93; PULSE 86; RESP 18; TEMP 37.1; O2SAT 98
[2021-02-18 10:22] VITALS: BP 130/93; PULSE 86; RESP 18; TEMP 37.1; O2SAT 98
[2021-02-18 10:59] LABS: Glucose Point of Care 102 mg/dL (70-110)
[2021-02-18] MEDS: sodium chloride 0.9% 1,000 ML 30 ML IV (11:00)
--- NOTE | 2021-02-18 11:02 | P.ANESUD_ITS ---
Pre-Anesthetic Update Pre-Anesthetic Assessment: Date of Surgery/Procedure: 02/18/21 Preop Emelyn gnosis: lumbar stenosis with neurogenic claudication Proposed Procedure: Operation Date: 02/18/21 11:05 Proposed Procedures p Posterior Lumbar Interbody Fusion L4-S1 L5-S1(Not Applicable) - Ruiz Sweet, DO Any changes to Pre-Anesthetic Assessment?: No Last Intake: Intake Last Liquid Date 02/17/21 Last Liquid Time 23:30 Last Solid Date 02/17/21 Last Solid Time 23:30 Labs Last 48hrs: Laboratory Results - last 48 hr 02/18/21 10:54 POC Glucose 102 Vitals: Temperature 98.7 F 02/18/21 10:22 Temperature Source Temporal Artery S can 02/18/21 10:22 Pulse Rate 86 02/18/21 10:22 Respiratory Rate 18 02/18/21 10:22 Blood Pressure 130/93 02/18/21 10:22 Blood Pressure Leny n 105 02/18/21 10:22 Pulse Oximetry 98 02/18/21 10:22 Oxygen Delivery Me thod 02/18/21 10:22 Exam: Pre-Anes Outpt Exam: alert, oriented x 3, clear to auscultation bilaterally and regular rate & rhythm Other Pertinent Information: Other Pertinent Information: awaiting pharmacy approval for anesthesia drugs Cardiac Studies: No Data to Display
[2021-02-18 11:22] LABS: Basophils % 0.4 %; Eosinophils # 0.1 10^3/uL (0.0-0.8); Eosinophils % 2.2 %; Hematocrit 36.6 % (37.0-47.0); Hemoglobin 11.7 g/dL (11.5-15.3); Lymphocytes % 18.9 %; Mean Corpuscular Hemoglobin 30.2 pg (28.0-34.0); Mean Corpuscular Volume 94.3 fl (81-99); Monocytes # 0.5 10^3/uL (0.2-0.9); Monocytes % 9.9 %; Neutrophils # 3.47 10^3/uL (1.8-7.7); Neutrophils % 68.4 %; Nucleated Red Blood Cells % 0 %; Platelet Count 296 10^3/cmm (130-400); Red Blood Count 3.88 10^6/uL (4.1-5.3); Red Cell Distribution Width 11.9 % (12.1-15.1); White Blood Count 5.1 10^3/uL (4.0-10.0)
[2021-02-18 11:46] LABS: Anion Gap 14.1 (5-19); Blood Urea Nitrogen 23 mg/dL (6-20); Calcium 8.9 mg/dL (8.5-10.5); Carbon Dioxide 25 mmol/L (22-29); Chloride 103 mmol/L (98-107); Glomerular Filtration Rate 75.3 mL/min (90-130); Glucose 87 mg/dL (65-115); Osmolality Calculated 289 mOsm/kg (285-295); Potassium 4.1 mmol/L (3.5-5.1); Sodium 138 mmol/L (136-145)
--- NOTE | 2021-02-18 14:04 | PC.NURSE ---
pt discharged and is being rescheduled for a later date due to potential complications of preexisting alpha gal allergy
== END | disposition home or self-care (01) ==
PROVIDERS: PCP Nurse Practitioner Family; Visit Provider Orthopaedic Surgery
DX: Z53.9 Procedure and treatment not carried out, unspecified reason (principal); I10 Essential (primary) hypertension; E11.9 Type 2 diabetes mellitus without complications; F41.9 Anxiety disorder, unspecified; Z98.84 Bariatric surgery status; Z82.49 Family history of ischemic heart disease and other diseases of the circulatory system
CPT/HCPCS: 36415; 36416; 80048; 82962; 85025; 86850; 86900; J1100; J1170; J2405; J2704; J3010; J3490; J7030

== ENCOUNTER → 2021-02-20 16:05 | Outpatient (BNVA) | payer MEDICAID, SELFPAY | PROVIDERS: PCP Nurse Practitioner Family; Visit Provider Orthopaedic Surgery | DX: Z01.812 Encounter for preprocedural laboratory examination (principal); Z20.822 Contact with and (suspected) exposure to COVID-19 | CPT/HCPCS: 87635 ==

== ENCOUNTER 2021-02-26 13:36 | Observation (INO) | payer MEDICAID, SELFPAY ==
[2021-02-25 18:50] VITALS: BP 109/63; PULSE 62; RESP 20; TEMP 36.9; O2SAT 94
[2021-02-25 19:30] VITALS: BP 157/76; PULSE 67; RESP 19; TEMP 36.4; O2SAT 92
[2021-02-25 20:00] VITALS: BP 138/72; PULSE 81; RESP 18; TEMP 36.5; O2SAT 91
[2021-02-25 21:00] VITALS: BP 135/71; PULSE 68; RESP 19; TEMP 36.6; O2SAT 95
[2021-02-25 22:00] VITALS: BP 155/74; PULSE 64; RESP 18; TEMP 36.9; O2SAT 94
[2021-02-26] VITALS (28 sets, daily range): BP systolic 126–166; BP diastolic 63–118; PULSE 76–117; RESP 10–108; TEMP 36.2–36.9; O2SAT 94–108; BMI 22.4; BMI 15.1
--- NOTE | 2021-02-26 | SCC_ITS ---
Procedure Done: 1. L5/S1 Interbody fusion with posterolateral fusion 2. Instrumentation L3 to S1 3. Cage at L5/S1 4. Laminectomy L5 5. use of autograft from same incision 6. allograft 7. Bone marrow aspirate from right iliac crest 8. Use of computer navigation/ stereotactic of spine 9. removal of hardware from spine 35 seconds of fluoroscopic guidance, for a cumulative dose of 47.5 mGy, was provided to Dr. Sweet by the radiology department. C-arm images of the lumbar spine were saved for the patient's permanent record. BRITTON
--- NOTE | 2021-02-26 06:47 | W.PM.OPSUD ---
Surgery/Procedure H&P Update DATE OF PROCEDURE: February 26, 2021 DATE H&P PERFORMED: 02/26/21 PREOP DIAGNOSIS: Lumbar stenosis with neurogenic claudication PLANNED PROCEDURE: Operation Date: 02/26/21 07:00 Proposed Procedures p Posterior Lumbar Interbody Fusion L5-S1(Not Applicable) - Ruiz Sweet DO
--- NOTE | 2021-02-26 06:48 | PM.HP ---
Providers/Chief Complaint Primary Care Provider: Susan Whaley Chief Complaint: psf History of Present Illness Marcie Youssef is a 50 year old female evaluation of back pain. She is post operative ACDF C3/4. DOS : 06/23/20. She describes incontince of bladder that has been on going for the last two months. Patient is here today discuss her MRI. Chief Complaint: back pain Onset: 10 years Duration: years Characteristics: shooting, hot burning pain tingling Severity: 8/10 Location: low back Radiating symptoms: left leg and buttocks Aggravating factors: sitting for long periods, walking Alleviating factors: heat, ice, tylenol with no relief Neuro deficits: denies numbness, tingling, weakness, incontinence of bowel saddle anesthesia. Prior tx: injections with no relief, previous spine surgery with Dr. Richter. Review of Systems Narrative: General ROS: negative for weight changes, fever ENT ROS: negative for nasal congestion, drainage or bleeding, sore throat, dysphagia or ear pain Eyes: PERRL Hematological and Lymphatic ROS: negative for swollen glands or abnormal bleeding Endocrine ROS: negative for polyuria/polydpsia or new changes in weight Respiratory ROS: negative for cough, shortness of breath, or wheezing Cardiovascular ROS: negative for chest pain or dyspnea on exertion Gastrointestinal ROS: negative for reflux, abdominal pain, change in bowel habits, or black or bloody stools Musculoskeletal ROS: negative for back pain, neck pain, or joint pain or swelling except for current problem Neurological ROS: negative for TIA or stoke symptoms Skin: no rashes Medications/Allergies Home Medications Medication Instructions Recorded Confirmed Last Taken Type aspirin 81 mg tablet,delayed 81 mg PO DAILY PRN 06/20/19 02/13/21 Unknown History release cholecalciferol (vitamin D3) 50 See Rx Instructions .ROUTE .COMPLEX 06/20/19 02/18/21 02/09/21 History mcg (2,000 unit) tablet ferrous sulfate 325 mg (65 mg 325 mg PO DAILY 06/20/19 02/18/21 02/17/21 History iron) tablet levocetirizine 5 mg tablet 5 mg PO BEDTIME tab 06/20/19 02/18/21 02/17/21 History lorazepam 1 mg tablet 1 mg PO TID PRN 06/20/19 02/18/21 02/18/21 History tramadol 50 mg tablet 50 mg PO Q8H PRN 06/20/19 02/18/21 02/17/21 History venlafaxine 150 mg 150 mg PO DAILY 06/20/19 02/18/21 02/17/21 History capsule,extended release 24 hr metformin 500 mg tablet 500 mg PO BID tab 07/25/19 02/18/21 02/17/21 History sumatriptan succinate 100 mg tablet 100 mg PO Q2H PRN tab 07/25/19 02/13/21 06/19/20 History mupirocin 2 % topical ointment 1 applic TOPICAL BID #22 gm 01/21/20 02/18/21 02/17/21 Rx ceftriaxone 1 gram solution for 1 g IM .weekly ea 05/28/20 02/13/21 06/19/20 History injection levothyroxine 50 mcg tablet 50 mcg PO DAILY 05/28/20 02/18/21 02/18/21 History progesterone micronized 06/20/20 12/23/20 Unknown History amlodipine [Norvasc] 5 mg PO DAILY 06/23/20 02/18/21 02/17/21 History cyanocobalamin (vitamin B-12) See Rx Instructions .ROUTE .COMPLEX 06/23/20 02/18/21 02/13/21 History estradiol [Estrace] 1 mg PO DAILY 06/23/20 02/18/21 02/17/21 History oxycodone 5 mg tablet 5 mg PO Q6H PRN 7 Days #30 tab 12/05/20 02/13/21 Unknown Rx estrogen compound See Rx Instructions TOPICAL 12/23/20 02/18/21 02/17/21 Rx DIRECTED #1 applic nystatin 500,000 unit tablet unit PO DAILY tab 12/23/20 12/23/20 Unknown History testosterone compound 1% See Rx Instructions .ROUTE 12/23/20 02/18/21 02/18/21 Rx .COMPLEX #1 applic [id number] Bone growth stimulator #1 ea 02/06/21 Unknown Rx diazepam [Valium] 10 mg PO TID PRN 02/13/21 02/13/21 Unknown History Allergies Allergy/AdvReac Type Severity Reaction Status Date / Time NSAIDS (Non-Steroidal Allergy Mild Unknown Verified 02/13/21 11:37 Anti-Inflamma Sulfa (Sulfonamide Allergy Mild Unknown Verified 02/13/21 11:37 Antibiotics) Beef Containing Products Allergy ALGY-Anaphy Verified 02/13/21 11:37 laxis Pork/Porcine Containing Allergy nausea and Verified 02/13/21 11:37 Products vomiting PFSH Acute PFSH: Medical History Allergy to alpha-gal Cervical disc disorder with myelopathy of mid-cervical region Diabetes Spondylolisthesis of cervical region Thyroid disease Surgical History [facility] filter in place 2001 H/O gastric bypass History of back surgery Dr. Richter 08/08/17 L4-L5 laminectomy/fusion/fixation 2008 [facility] Lumbar decompression History of carpal tunnel surgery of left wrist Dr. Orlando Richter 11/18/2016 History of carpal tunnel surgery of right wrist Dr. Richter 01/13/[address] History of neck surgery Dr. Richter 06/29/2018 C6-C7 ACDFF Family History Grandfather CAD (coronary artery disease) Stroke Grandmother CAD (coronary artery disease) Sister CAD (coronary artery disease) Hypertension Family/Other Cancer Mother Hypertension Father Hypertension Brother Hypertension Other Diabetes Social History Smoking and tobacco status: never smoked Alcohol intake: never Household members: family Marital status: Single Current occupational status: disabled History of recent travel: No Female Reproductive History: Date of last menstrual period: 10/21/04 Physical Exam Narrative: EXAM NARRATIVE: CONSTITUTIONAL: The patient is a normal appearing [] in no apparent distress. GENERAL: Patient in no acute distress. CARDIAC: Regular rate and rhythm. CHEST: Normal inspiratory effort, normal respiratory rate. ABDOMEN: Soft and nontender. SKIN: Clear, warm and intact. NEURO?PSYCH: The patient is alert and oriented to person, place and time. Sensorv /SILT Motor StrengthShoulder abduction C5 5/5Wrist extension C6 5/5Elbow extension C7 5/5Hand Net Programmer Analyst C8 5/5Finger abduction T15/5 Radial/ Ulnar/ Median n intact LowerSensory (SILT)Motor StrengthHin flexion L2/3Ant/inner thigh 5/5Hip adduction L2/3 5/5Knee extension L4 Lat thigh, 5/5Toe dorsiflexion L5 5/5Ankle dorsiflexion L5/ [id number] flexion S1 5/5 DTRBleeps 2+Triceps 2+Brachioradialis 2+Patellar 2+Achilles 2+ MUSCULOSKELETAL: [] UPPEREXTREMITIES: The patient had full active ROM in fingers, wrist, elbow, and shoulder. The patient demonstrated ability to fully flex/extend/abduct/adduct fingers, make ok sign, cross 2nd/3rd digits, extend 1st digit fully.. Radial pulse 2+, CR<2 seconds. LOWER EXTREMITIES: Pt has full, active ROM of toes, ankle, knee, and hip. Dorsalis pedis/posterior tibialis pulses 2+, CR<2 seconds. SPINE: Skin warm, dry, intact. A&P Assessment and plan (1) Lumbar stenosis with neurogenic claudication: L4-S1 revision fusion Status: Acute Attestations Medical Necessity Statement*: failed conservative tx Coding Level of Care Code Acute Surgical Oncologist for [facility] Diagnoses Lumbar stenosis with neurogenic claudication M48.062
[2021-02-26 07:20] LABS: Glucose Point of Care 91 mg/dL (70-110)
[2021-02-26] MEDS: sodium chloride 0.9% 1,000 ML 30 ML IV (07:20)
[2021-02-26] MEDS: sodium chloride 0.9% 1,000 ML 30 ML (07:25)
[2021-02-26] MEDS: diphenhydrAMINE 50 mg/mL SDV 1mL 25 MG IVP ×2 (07:28→14:30)
--- NOTE | 2021-02-26 08:07 | P.ANESUD_ITS ---
Pre-Anesthetic Update Pre-Anesthetic Assessment: Date of Surgery/Procedure: 02/26/21 Preop Emelyn gnosis: Lumbar stenosis with neurogenic claudication Proposed Procedure: Operation Date: 02/26/21 07:00 Proposed Procedures p Posterior Lumbar Interbody Fusion L5-S1(Not Applicable) - Ruiz Sweet, DO Any changes to Pre-Anesthetic Assessment?: No Last Intake: Intake Last Liquid Date 02/25/21 Last Liquid Time 23:59 Last Solid Date 02/25/21 Last Solid Time 22:00 Labs Last 48hrs: Laboratory Results - last 48 hr 02/26/21 07:17 POC Glucose 91 Exam: Pre-Anes Outpt Exam: alert, oriented x 3, clear to auscultation bilaterally and regular rate & rhythm Other Pertinent Information: Other Pertinent Information: GETA, pretreat with benadryl Cardiac Studies: No Data to Display
[2021-02-26] MEDS: vancomycin 1,000 MG SDV 1000 MG XX (09:15)
[2021-02-26] MEDS: heparin, porcine 1,000 unit/mL INJ 10 mL 10000 UNIT XX (09:16)
--- NOTE | 2021-02-26 11:04 | XR_ITS ---
WS: [id number] Lumbar spine, C-arm fluoroscopy, 02/26/2021 Clinical Data: OR PICS Comparison: Lumbar spine, 08/21/2020. Findings: Dr. Sweet inserted bilateral pedicle screws into the lumbar spine. XR/XR lumbar spine 2-3V* [id number] Impression: Posterior lumbar fusion.
--- NOTE | 2021-02-26 11:13 | P.OP_ITS ---
Operative Report Date of procedure: February 26, 2021 Pre-op Diagnosis: Lumbar stenosis with neurogenic claudication Post-op diagnosis: same Procedure Done: 1. L5/S1 Interbody fusion with posterolateral fusion 2. Instrumentation L3 to S1 3. Cage at L5/S1 4. Laminectomy L5 5. use of autograft from same incision 6. allograft 7. Bone marrow aspirate from right iliac crest 8. Use of computer navigation/ stereotactic of spine 9. removal of hardware from spine Surgeon: Ruiz Sweet Blasting Clay Miner: Aftab Burt Blasting Clay Miner: The surgical elastic knitter hand frame, Aftab Burt, PAC was needed for his expertise under the microscope. He was important and necessary throughout the procedure to complete in a safe and timely manner. He assisted with patient positioning prepping and draping tissue retraction suctioning of the operative field protection of the dural sac and tissue closure Anesthesia: General Estimated blood loss (mL): 150 Condition: stable Disposition: PACU Procedure: Patient is brought to the operative suite. After undergoing anesthesia, the patient had neuro monitoring attached. Patient was then placed in the prone position on the Ramon table. All areas of impingement were well- padded. Patient was then prepped and draped in the normal sterile fashion. Skin incision was then made over the L3- S1 level. Subperiosteal dissection was made out to the transverse processes of L3 to S1 ala. Once the exposure was complete attention was then brought to removing the harware that is currently in. The L4 and L5 screws were identified the screw caps were removed. The jose with a connector was then removed. And then the L4 and L5 screws were removed bilaterally. 1 screws removed there felt with the pedicle feeler. And then the same length screw was placed with a 1 mm diameters increased size from Gabriela. This was done at L4 and L5 bilaterally. The attention was then brought to getting bone marrow aspirate from the right iliac crest. The [employer] bone marrow aspirate kit was used to aspirate bone marrow aspirate right iliac crest. This was done by using the sharp probe to open up the bone. Aspiration was performed and then the blunt probe was then used to dissect down to through the bone tunnel. An aspirating well drawn back a millimeter approximately 20 cc of bone marrow aspirate was used. Admixed with the allograft and autograft bone that will be used. Next attention was brought to placing the fiducial into the right iliac crest. 2 pins were placed followed by attaching the fiducial. The C-arm was then used to take imagings of the spine. This information was loaded into the computer which was linked to the fiducial. The technique for placing the pedicle screws was to use a drill followed by the gearshift probe with navigation. Followed by the ball probe to feel the superior inferior medial lateral carpenter of the pedicles. Then placement of the screws with navigation. Was done at each pedicle. Screws were placed at L3 bilaterally and S1 bilateraly. Next attention was brought to performing the laminectomy of L5. This was done using the high-speed bur Kerrisons and curettes. Once the lamina was removed and then attention was brought to performing a partial facetectomy on the contralateral side. This was done again using the high-speed bur curettes and Kerrisons. The ligamentum flavum was taken down bilaterally from L5 to S1. Attention was then brought to the facet on the ipsilateral side. The facet was taken down. The S1 nerve was decompressed as it passed around the S1 pedicle. The laminectomy was done for purposes of decompressing the nerve as well as placement of the cage. The L5 nerve was identified as it traversed through the L5/S1 foramen. The thecal sac was identified and retracted. The L5/S1 disc base was identified. Using a knife the disc base was opened. And then sequential paula were placed. The first shaver was a 6 and the last shaver was a 8. Using a pituitary and down going curette the endplates were scraped and disc material was removed from the space. Once adequate decompression of the disc base was felt to be had. Osteoamp sponge was packed into the anterior aspect of the disc base. Then a size 8 cage from [employer] was placed after packing osteoamp into the cage. While placing the cage the thecal sac and S1 nerve was protected. C arm was used to ensure that the cages placed in the appropriate position. Attention was then brought to attaching the rods to the screws placed in the L3- S1 bilaterally. Caps were torqued into position. Locking the construct in place. Wound was copiously irrigated and then attention was brought to decorticating the facets and transverse processes laterally. Bone that was taken down from the lamina was used along with osteoamp fibers and sponges were packed into the lateral gutters along the facet joints. This was done bilaterally. Wound was then closed in a layered fashion starting with the thoracolumbar fascia. 0-vicryl was used the sub cutaneous tissue was closed with 2-0 vicryl and skin with 4-0 monocryl. Glue was then used to seal the skin and a steril dressing was applied. Patient was then placed in the supine position. The en dotracheal tube was removed and patient was transferred to the PACU in stable condition.
--- NOTE | 2021-02-26 11:23 | PM.HP ---
Providers/Chief Complaint Primary Care Provider: Susan Whaley Chief Complaint: psf History of Present Illness Marcie Youssef is a 50 year old female with history of chronic low back pain who presented today for surgery for revision of L4 S1 secondary to lumbar stenosis with claudication. I am being consulted for medical management secondary to diabetes, chronic kidney disease, and other medical problems. Review of Systems General: Reports: ROS unobtainable due to mental status (Patient directly postoperative, still with some effects of sedation) Medications/Allergies Home Medications Medication Instructions Recorded Confirmed Last Taken Type aspirin 81 mg tablet,delayed 81 mg PO DAILY PRN 06/20/19 02/26/21 02/19/21 History release cholecalciferol (vitamin D3) 50 See Rx Instructions .ROUTE .COMPLEX 06/20/19 02/26/21 02/25/21 History mcg (2,000 unit) tablet ferrous sulfate 325 mg (65 mg 325 mg PO DAILY 06/20/19 02/26/21 02/25/21 History iron) tablet levocetirizine 5 mg tablet 5 mg PO BEDTIME tab 06/20/19 02/26/21 02/25/21 History lorazepam 1 mg tablet 1 mg PO TID PRN 06/20/19 02/26/21 02/26/21 History tramadol 50 mg tablet 50 mg PO Q8H PRN 06/20/19 02/26/21 02/17/21 History venlafaxine 150 mg 150 mg PO DAILY 06/20/19 02/26/21 02/24/21 History capsule,extended release 24 hr metformin 500 mg tablet 500 mg PO BID tab 07/25/19 02/26/21 02/25/21 History sumatriptan succinate 100 mg tablet 100 mg PO Q2H PRN tab 07/25/19 02/26/21 06/19/20 History mupirocin 2 % topical ointment 1 applic TOPICAL BID #22 gm 01/21/20 02/26/21 02/25/21 Rx levothyroxine 50 mcg tablet 50 mcg PO DAILY 05/28/20 02/26/21 02/25/21 History progesterone micronized 06/20/20 12/23/20 Unknown History amlodipine [Norvasc] 5 mg PO DAILY 06/23/20 02/26/21 02/25/21 History cyanocobalamin (vitamin B-12) See Rx Instructions .ROUTE .COMPLEX 06/23/20 02/26/21 02/19/21 History estradiol [Estrace] 1 mg PO DAILY 06/23/20 02/26/21 02/25/21 History oxycodone 5 mg tablet 5 mg PO Q6H PRN 7 Days #30 tab 12/05/20 02/26/21 02/25/21 Rx estrogen compound See Rx Instructions TOPICAL 12/23/20 02/26/21 02/25/21 Rx DIRECTED #1 applic nystatin 500,000 unit tablet 500,000 unit PO DAILY tab 12/23/20 02/26/21 02/25/21 History testosterone compound 1% See Rx Instructions .ROUTE 12/23/20 02/26/21 02/18/21 Rx .COMPLEX #1 applic E0748 Bone growth stimulator #1 ea 02/06/21 Unknown Rx diazepam [Valium] 10 mg PO TID PRN 02/13/21 02/26/21 02/12/21 History Allergies Allergy/AdvReac Type Severity Reaction Status Date / Time NSAIDS (Non-Steroidal Allergy Mild Unknown Verified 02/26/21 07:09 Anti-Inflamma Sulfa (Sulfonamide Allergy Mild Unknown Verified 02/26/21 07:09 Antibiotics) Beef Containing Products Allergy ALGY-Anaphy Verified 02/26/21 07:09 laxis Pork/Porcine Containing Allergy nausea and Verified 02/26/21 07:09 Products vomiting PFSH Acute PFSH: Medical History (Updated 02/26/21 @ 11:26 by Rafat Ward MD) 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 Richter 08/08/17 L4-L5 laminectomy/fusion/fixation 2008 [facility] Lumbar decompression History of carpal tunnel surgery of left wrist Dr. Orlando Richter 11/18/2016 History of carpal tunnel surgery of right wrist Dr. Richter 01/13/[address] neck surgery [address] Richter 06/29/2018 C6-C7 ACDFF Family History Grandfather CAD (coronary artery disease) Stroke Grandmother CAD (coronary artery disease) Sister CAD (coronary artery disease) Hypertension Family/Other Cancer Mother Hypertension Father Hypertension Brother Hypertension Other Diabetes Social History Smoking and tobacco status: never smoked Alcohol intake: never Household members: family Marital status: Single Current occupational status: disabled History of recent travel: No Female Reproductive History: Date of last menstrual period: 10/21/04 Vitals/I&O/Wt 02/25/21 02/26/21 02/26/21 22:59 06:59 14:59 Intake Total 1050 / 1050 Balance 1050 / 1050 Weight last 48 hrs Weight 52.163 kg Physical Exam Narrative: EXAM NARRATIVE: General exam is a sedated female, no distress HEENT: Pupils equally round. Oropharynx with oral airway N. Neck is supple no lymphadenopathy, thyromegaly Cardiovascular regular rate and rhythm, no murmur Lungs clear no wheezing or crackles Abdomen is soft, abdominal binder in place Extremities no cyanosis clubbing or edema, cap refill brisk Neurologic: Currently sedated but no obvious focal deficits Skin some areas of scarring on her upper extremities most consistent with neurodermatitis. Urinary Catheter Management^: Gabriel: Cath Placed During This Visit: yes, but has since been removed by the nurse Urinary Catheter Date of Insertion: 02/26/21 Urinary Catheter Time of Insertion: 08:00 Date Urinary Catheter Removed: 02/26/21 Time Urinary Catheter Discontinued: 11:22 Data Other data: Recent laboratory reviewed, done preoperatively. No obvious concerns. EKG preoperative sinus arrhythmia, heart rate of 83, normal axis and normal EKG. A&P Assessment and plan (1) Lumbar stenosis with neurogenic claudication: Status post revision and fusion L4 S1. No complications during surgery. Estimated blood loss around 150 cc. Primary management per orthopedic spine surgery Status: Acute (2) Diabetes: Hold Metformin currently Sliding scale, mild Consistent carb diet, will have to make adjustments secondary to alpha gal Status: Acute (3) Thyroid disease: Continue thyroid hormone Status: Acute (4) Chronic kidney disease, stage 3b: Creatinine normal. This is the best it has been in quite some time. Avoid renal toxic medication. Status: Acute Additional A&P Information Full code Ginax for DVT prophylaxis Thank you for this consultation. Attestations Medical Necessity Statement*: As per primary Time Spent in Patient Care: Greater than 35 minutes Coding Level of Care Code Acute Rest Room Maid for Chg Fwd Diagnoses Lumbar stenosis with neurogenic claudication M48.062 Diabetes E11.9 Thyroid disease E07.9 Chronic kidney disease, stage 3b N18.32
[2021-02-26] MEDS: fentaNYL 50 mcg/mL INJ 2mL IVP ×2 (11:43→11:48)
[2021-02-26] MEDS: morphine 4 mg/mL SDV 1 mL 2 MG IVP ×5 (11:53→12:30)
--- NOTE | 2021-02-26 12:26 | ANE.PACU2 ---
Inpatient post-anesthesia follow up: Airway intact: Yes Vital signs: Temperature 97.2 F Pulse Rate 101 Respiratory Rate 16 Blood Pressure 133/82 Pulse Oximetry 100 Oxygen Delivery Me thod Room Air Oxygen Flow Rate Fraction of Inspir ed Oxygen Hydration adequate: Yes Nausea and vomiting: No Pain level: 4 Mental status: Baseline
[2021-02-26] MEDS: ondansetron 2 mg/ML SDV 2 mL 4 MG IVP (12:55)
[2021-02-26] MEDS: diphenhydrAMINE 50 mg/mL SDV 1mL 12.5 MG IVP (13:00)
[2021-02-26] MEDS: lactated ringers 1,000 ML 90 ML IV (15:43)
[2021-02-26] MEDS: oxyCODONE-APAP 5-325 mg Tablet PO ×2 (15:57→21:53)
[2021-02-26 17:23] LABS: Glucose Point of Care 143 mg/dL (70-110)
[2021-02-26] MEDS: insulin lispro 100 unit/1 mL SUBCUT ×2 (17:52→21:04)
[2021-02-26] MEDS: TRAMadol 50 mg Tablet PO (17:52)
[2021-02-26] MEDS: mupirocin oint 22 gm 1 APPLIC TOPICAL (17:53)
[2021-02-26] MEDS: docusate sodium 100 mg Capsule PO (17:53)
[2021-02-26] MEDS: acetaminophen 325 mg Tablet 650 MG PO ×2 (19:07→23:54)
[2021-02-26 20:51] LABS: Glucose Point of Care 196 mg/dL (70-110)
[2021-02-26] MEDS: LORazepam 1 mg Tablet PO (21:54)
[2021-02-27] VITALS (15 sets, daily range): BP systolic 114–147; BP diastolic 68–98; PULSE 91–164; RESP 16–24; TEMP 36.5–37; O2SAT 94–100
[2021-02-27] MEDS: TRAMadol 50 mg Tablet 100 MG PO ×3 (01:50→18:28)
[2021-02-27] MEDS: lactated ringers 1,000 ML 90 ML IV ×2 (01:51→15:58)
[2021-02-27] MEDS: oxyCODONE 5 mg IR Tab/Cap PO ×4 (03:38→23:38)
[2021-02-27] MEDS: ondansetron 2 mg/ML SDV 2 mL 4 MG IVP ×2 (03:51→13:39)
[2021-02-27] MEDS: LORazepam 1 mg Tablet PO ×2 (04:22→10:55)
[2021-02-27] MEDS: HYDROmorphone 1 mg/mL INJ 1 mL IVP ×5 (05:00→20:10)
[2021-02-27] MEDS: enoxaparin 40 mg/0.4 mL Syringe SUBCUT (05:21)
[2021-02-27 07:16] LABS: Glucose Point of Care 109 mg/dL (70-110)
--- NOTE | 2021-02-27 07:34 | PM.PN ---
Subjective Subjective: Interval history: Pod 1 Patient reports having a difficult night with pain but is under control and appears comfortable this morning. She is walking the halls walking to the bathroom and indicates that her leg pain is changed and improved. She denies any chest pain shortness of breath or headaches. Vitals/I&O/Wt Last Vital Signs Temp 98.6 F 02/27/21 07:29 Pulse 100 02/27/21 07:29 Resp 16 02/27/21 07:29 BP 136/82 02/27/21 07:29 Pulse Ox 97 02/27/21 07:29 02/26/21 02/27/21 02/27/21 22:59 06:59 14:59 Intake Total 60 / 1610 1212 / 2822 Output Total 350 / 800 1125 / 1925 Balance -290 / 810 87 / 897 Weight last 48 hrs Weight 108 lb 9.6 oz Weight 115 lb Physical Exam Narrative: EXAM NARRATIVE: She is alert oriented x3 with good general appearance appears comfortable this morning. Wiggles all digits they are warm to the touch dorsalis pedis posterior pulses are palpable calves are supple. Incision clean and dry. Hemovac present Urinary Catheter Management^: Gabriel: Cath Placed During This Visit: yes, but has since been removed by the nurse Urinary Catheter Date of Insertion: 02/26/21 Urinary Catheter Time of Insertion: 08:00 Date Urinary Catheter Removed: 02/26/21 Time Urinary Catheter Discontinued: 11:22 A&P Assessment and plan (1) Status post lumbar spinal fusion: Encourage her to continue walking program with no bending lifting or twisting. Recommend discontinuing the Hemovac drain. Encourage her to ice her back. Work towards sending her home this evening with oxycodone and Ativan. We will see her back in the office in 1 week's time for reevaluation. She will call if she is having problems. Status: Acute Attestations Medical Necessity Statement*: Revision Lumbar Fusion with hopes of going home later today Coding Level of Care Code Acute Gate Services Supervisor for Kiet Pardo Diagnoses Status post lumbar spinal fusion Z98.1
--- NOTE | 2021-02-27 08:29 | P.DS_ITS ---
Discharge Providers Date of Admission: 02/26/21 13:36 Date of Discharge: February 27, 2021 Attending Provider at Admission: Ruiz Sweet DO Attending Provider at Discharge: Ruiz Sweet DO Primary Care Provider: Susan Whaley Diagnoses at Discharge Discharge Diagnosis (1) Status post lumbar spinal fusion: Status: Acute Reason for Visit Reason for Visit: psf Hospital Course Hospital Course Patient is admitted on 02/26/2021 for a revision L3-S1 posterior spine fusion. She will be discharged on 02/27/2021. Her hospital course was uneventful Physical Exam Urinary Catheter Management^: Gabriel: Cath Placed During This Visit: yes, but has since been removed by the nurse Urinary Catheter Date of Insertion: 02/26/21 Urinary Catheter Time of Insertion: 08:00 Date Urinary Catheter Removed: 02/26/21 Time Urinary Catheter Discontinued: 11:22 Discharge Data Data Completed and Pending: Completed Studies During Hospitalization Category Date Time Status XR lumbar spine 2 -3V* 29627 Routine Exams 02/26/21 11:04 Completed Labs from last 24 hours 02/27/21 02/26/21 02/26/21 06:37 20:43 17:19 POC Glucose 109 196 H 143 H Antibody Screen 02/26/21 07:34 POC Glucose Antibody Screen Negative Vitals: Last Vital Signs Temp 98.6 F 02/27/21 07:29 Pulse 100 02/27/21 07:29 Resp 16 02/27/21 07:29 BP 136/82 02/27/21 07:29 Pulse Ox 97 02/27/21 07:29 Discharge Plan Discharge Patient Disposition: Home Condition: Stable Prescriptions: New oxycodone 10 mg tablet,oral only,ext.rel.12 hr 10 mg PO Q12H 7 Days Qty: 14 RF: 0 oxycodone 5 mg tablet 5 - 10 mg PO Q4H PRN (Reason: pain) 7 Days Qty: 40 RF: 0 Continued venlafaxine [Effexor XR] 150 mg capsule,extended release 24hr 150 mg PO DAILY RF: 0 lorazepam 1 mg tablet 1 mg PO TID PRN (Reason: Anxiety) RF: 0 ferrous sulfate [iron] 325 mg (65 mg iron) tablet 325 mg PO DAILY RF: 0 cholecalciferol (vitamin D3) [Vitamin D3] 2,000 unit tablet See Rx Instructions .ROUTE .COMPLEX RF: 0 levocetirizine [Xyzal] 5 mg tablet 5 mg PO BEDTIME RF: 0 tramadol 50 mg tablet 50 mg PO Q8H PRN (Reason: Pain) RF: 0 aspirin [Aspir-81] 81 mg tablet,delayed release (DR/EC) 81 mg PO DAILY PRN (Reason: Analgesia) RF: 0 metformin 500 mg tablet 500 mg PO BID RF: 0 sumatriptan succinate [Imitrex] 100 mg tablet 100 mg PO Q2H PRN (Reason: Headache) RF: 0 mupirocin 2 % ointment 1 applic TOPICAL BID Qty: 22 RF: 1 levothyroxine [Synthroid] 50 mcg tablet 50 mcg PO DAILY RF: 0 testosterone compound 1% cream See Rx Instructions .ROUTE .COMPLEX Qty: 1 RF: 0 estrogen compound See Rx Instructions topical DIRECTED Qty: 1 RF: 0 oxycodone 5 mg tablet 5 mg PO Q6H PRN (Reason: pain) 7 Days Qty: 30 RF: 0 (DME) E0748 Bone growth stimulator See Rx Instructions .Route .MEDSUPPLY Qty: 1 RF: 0 progesterone micronized RF: 0 amlodipine [Norvasc] 5 mg tablet 5 mg PO DAILY RF: 0 estradiol [Estrace] 1 mg tablet 1 mg PO DAILY RF: 0 cyanocobalamin (vitamin B-12) 1,000 mcg/mL solution See Rx Instructions .ROUTE .COMPLEX RF: 0 nystatin 500,000 unit tablet 500,000 unit PO DAILY RF: 0 diazepam [Valium] 5 mg tablet 10 mg PO TID PRN (Reason: anxiety) RF: 0 carisoprodol 350 mg 350 mg PO BID RF: 0 Discharge Orders: Discharge Order (Routine); Ordered 02/27/21 Ordered By: Ruiz Sweet Discharge Diet: Advance as tolerated Discharge Activity: Limit activity as instructed Patient Instructions: Diabetes and Diet, Oxycodone, Rapid Release (By mouth), Oxycodone, Slow Release (By mouth), Lumbar Spinal Fusion (DC), Opioid Safety Activity Restrictions/Additional Instructions: Thank you for [facility] for your care! The following is a list of instructions, from your provider, to follow upon your discharge to ensure you have the optimal recovery from your recent injury orsurgery. Follow-up care is a duff part of your treatment and safety. Be sure to make and go to all appointments, and call your doctor if you are having problems. If you do not already have a follow-up appointment made, call Dr. Sweet office in the next 1-3 days to make follow up appointment for 1 weeks at [phone]. It is also a good idea to know your test results and keep a list of the medicines you take. Medications will be prescribed for you at your provider's discretion. These medications are to be used as instructed; if they are taken more often that prescribed they will not be refilled early and in most cases will not be refilled at all. > When a refill is needed,you should contact phill case 2-3 business days before your prescription runs out. Medications will NOT be refilled by electronics maintenance technician providers after hours! > Many pain medications contain Tylenol (Acetaminophen). Do not consume more than 4,000 mg of Tylenol per day in total with any combination ofmedications. > Pain medications can cause constipation. Please use an over the counter stool softener as directed, while taking pain medications. Consulty our local pharmacist with questions or recommendations on stool softeners. If constipation persists, contact our office or your primary care provider. > While under our care,you are not to receive pain medications or other controlled substances from any other provider unless our office is notified and approves. Any attempts to do so will result in refusal to prescribe any further pain medications and possible dismissal from our practice. ? Keep dressing on at all times until seen in clinic in 1 week ? Walking is essential for the healing process after surgery. We would like you to slowly advance your walking. This should be done on relativel y flat clear ground (inside or out) or can be done on a treadmill. Remember this goal does not have to happen all at once, slowly increase your distance and duration. This can be broken into more more than one walk per day as tolerated. Patients who walk as directed after surgery rarely require Physical Therapy. In the unlikely event this issue arises your provider will direct hospital staff to make the appropriate arrangements. ? No lifting over 5 pounds {a gallon of milk) or bending/twisting until further notice. Each of these activities places an unnecessary amount of stress onto the body and can impede the delicate healing process. > Instead of bending at the waist, keep your back straight and bend at the knees. > Instead of twisting your torso, keep your back straight and turn your entire body with your feet. ? You may sleep in any position which makes you comfortable. Many patients find comfort sleeping in a reclining chair. It is not abnormal to have difficulty sleeping for the first several weeks following your surgery. We recommend trying Benadry! or Tylenol PM as directed to help with your sleeping difficulties. Both medications are over the counter and available withoutprescription. ? NO SMOKING!!! Smoking dramatically increases the probability of developing postoperative wound infections. ? Common complaints after lumbar and/or thoracic spine surgery include, but are not limited to: numbness and/or tingling in the legs, pain around the incision and surrounding tissues, muscle spasms, or stiffness of the middle to low back. Contact our office if these symptoms persist or if an acute change occurs. ? No driving for the first 3-5days, and not while taking narcotics [] until seen at your follow-up appointment and cleared. There are no restrictions for riding on short trips, however if you take a longer trip, arrangements should be made to make regular stops to get out of the vehicle and stretch . ? Swelling is an unfortunate event that will take place with any surgery and is the primary source of your postoperative discomfort. While walking and regular approved activities helps control inflammation, there are additional steps you can take to minimizeswelling. > Place ice over the surgical site and surrounding tissue for twenty minutes, followed by applying a low/medium heat (heating pad) for an additional twenty minutes every 1-2 hours as needed for painrelief. > You may use of over the counter anti-inflammatory medications (Ibuprofen, Motrin, Aleve, Advil, etc) as directed on the package label. These types of medicines wm significantly reduce the amount of discomfort you experience after surgery from swelling. It should be noted that if you have and allergy to any of these medications, or a history of ulcers or kidney disease you should consult you primary care provider prior to starting these medications. Discharge Attestations Time Spent in Discharge Care*: less than 30 min Quality Metrics Clinical Quality Measures During this hospital stay, did patient experience: None Coding Level of Care Code Acute g [facility] note Diagnoses Status post lumbar spinal fusion Z98.1
[2021-02-27] MEDS: docusate sodium 100 mg Capsule PO ×2 (09:08→17:14)
[2021-02-27] MEDS: amlodipine 5 mg Tablet PO (09:08)
[2021-02-27] MEDS: levothyroxine 50 mcg Tablet PO (09:08)
[2021-02-27] MEDS: ferrous sulfate EC 325 mg Tablet PO (09:08)
[2021-02-27] MEDS: mupirocin oint 22 gm 1 APPLIC TOPICAL ×2 (09:09→17:14)
--- NOTE | 2021-02-27 10:44 | PC.NUTR ---
Nutrition note: Received call from dietary staff stating pt reports following a gluten-free diet. No consult received for this pt, but noted alpha-gal allergy. Have added gluten free diet and No red meat to dietary plan. Recommend changing actual diet order in EMR.
[2021-02-27 12:05] LABS: Glucose Point of Care 162 mg/dL (70-110)
[2021-02-27] MEDS: acetaminophen 325 mg Tablet 650 MG PO (12:39)
[2021-02-27] MEDS: insulin lispro 100 unit/1 mL SUBCUT ×2 (12:40→18:29)
--- NOTE | 2021-02-27 13:50 | PC.CHAP ---
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 [] Patient/Family/Request visit [] Outpatient visit [] Follow-up visit [] Physician referral [] Code/Alert [xx] Routine visit [] Staff referral [] Actively dying [] Patient sleeping [] Family support [] [] Out of room [] Palliative care [] [] Receiving care in room [] Pre-surgical visit [] Trauma [] Long length of stay [] ICU visit [] Other: Relational/Emotional Strength [xx] Patient feels connected with others/family/visitors/staff [] Distress [] Loneliness/isolation [] Abandonment Spirituality of Patient [xx] Person of Hillary [] Attends Moravian of their Hillary [xx] Believes in Prayer [] Reads Bible or Jew materials [] There are Spiritual issues to be addressed 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 [xx] Prayer [xx] Active listening [] Non-anxious presence [] Spiritual/emotional support [] Crisis/trauma care [] Spiritual counseling [] Bereavement support [] Provided bereavement packet [] Provided Bible/devotional materials [] Provided toy/stuffed animal, coloring book to patient or family member [] Provided Communion [] Anointing/[place] [] Salvation [x] Completed spiritual assessment [] Other: Impact on Illness or Injury [] Angry [] Fearful [xx] Anxious [xx] Often cries [] Exhaustion [] Unable to work [] Unable to attend rastafarian [xx] Unable to walk/stand [] Unable to read [] Unable to drive [] Unable to eat/drink [xx] Unable to sleep [] Unable to be with family [] Patient intubated [] Other: Summary Patient was in extreme pain from yesterday's spinal surgery and can't stop crying from the pain. Nurses arrived with more meds, pain bandage and to help her get more comfortable in a chair. Patient is in great need of sympathy, empathy and compassion which the nurses were great in providing. 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 Her crying subsided soon after the nurses and I left her room. Time spent with patient 8 minutes
[2021-02-27] MEDS: diazePAM 5 mg Tablet 10 MG PO ×2 (14:55→23:38)
[2021-02-27 18:02] LABS: Glucose Point of Care 156 mg/dL (70-110)
[2021-02-27 21:09] LABS: Glucose Point of Care 111 mg/dL (70-110)
[2021-02-28] VITALS (7 sets, daily range): BP systolic 128–134; BP diastolic 75–84; PULSE 106–126; RESP 16–20; TEMP 36.4–36.9; O2SAT 94–100
[2021-02-28] MEDS: HYDROmorphone 1 mg/mL INJ 1 mL IVP (01:22)
[2021-02-28] MEDS: lactated ringers 1,000 ML 90 ML IV (02:06)
[2021-02-28] MEDS: acetaminophen 325 mg Tablet 650 MG PO (04:25)
[2021-02-28] MEDS: enoxaparin 40 mg/0.4 mL Syringe SUBCUT (05:47)
[2021-02-28] MEDS: oxyCODONE 5 mg IR Tab/Cap PO ×2 (05:50→11:56)
[2021-02-28 06:49] LABS: Glucose Point of Care 126 mg/dL (70-110)
[2021-02-28] MEDS: mupirocin oint 22 gm 1 APPLIC TOPICAL (08:33)
[2021-02-28] MEDS: estradiol 1 mg Tablet PO (08:33)
[2021-02-28] MEDS: ferrous sulfate EC 325 mg Tablet PO (08:33)
[2021-02-28] MEDS: docusate sodium 100 mg Capsule PO (08:33)
[2021-02-28] MEDS: levothyroxine 50 mcg Tablet PO (08:33)
[2021-02-28] MEDS: amlodipine 5 mg Tablet PO (08:33)
[2021-02-28] MEDS: TRAMadol 50 mg Tablet 100 MG PO (10:08)
[2021-02-28] MEDS: diazePAM 5 mg Tablet 10 MG PO (10:58)
[2021-02-28] MEDS: lanolin oint 7 gm 1 APPLIC TOPICAL (13:06)
== END 2021-02-28 13:36 | disposition home or self-care (01) ==
LOC: MEDSURG 13:36
PROVIDERS: Admitting Provider Orthopaedic Surgery; PCP Nurse Practitioner Family; Visit Provider Orthopaedic Surgery
PROC: (CPT 22612; principal; 2021-02-26 07:00)
DX: M48.062 Spinal stenosis, lumbar region with neurogenic claudication (principal); R32 Unspecified urinary incontinence; E11.22 Type 2 diabetes mellitus with diabetic chronic kidney disease; N18.32 Chronic kidney disease, stage 3b; E03.9 Hypothyroidism, unspecified; Z98.1 Arthrodesis status; F32.A Depression, unspecified; F41.9 Anxiety disorder, unspecified; Z79.84 Long term (current) use of oral hypoglycemic drugs; Z79.82 Long term (current) use of aspirin; Z79.891 Long term (current) use of opiate analgesic
CPT/HCPCS: 20930; 20936; 20939; 22614; 22633; 22842; 22853; 61783; 63047; 36415; 36416; 51702; 72100; 76000; 82962; 86850; 86900; 96372; 97116; 97161; 97530; C1713; G0378; J0690; J1170; J1200; J1644; J1650; J1815; J2270; J2405; J3010; J3370; J7030; J8499

== ENCOUNTER → 2021-03-26 15:52 | Outpatient (BNVA) | payer MEDICAID, SELFPAY | PROVIDERS: PCP Nurse Practitioner Family; Visit Provider Orthopaedic Surgery | DX: M48.062 Spinal stenosis, lumbar region with neurogenic claudication (principal) | CPT/HCPCS: 72100 ==

== ENCOUNTER → 2021-05-12 15:45 | Outpatient (BNVA) | payer MEDICAID, SELFPAY | PROVIDERS: PCP Nurse Practitioner Family; Visit Provider Orthopaedic Surgery | DX: Z98.1 Arthrodesis status (principal); M43.26 Fusion of spine, lumbar region | CPT/HCPCS: 72100 ==

== ENCOUNTER → 2021-06-18 16:03 | Outpatient (BNVA) | payer MEDICAID, SELFPAY | PROVIDERS: PCP Nurse Practitioner Family; Visit Provider Orthopaedic Surgery | DX: Z98.1 Arthrodesis status (principal) | CPT/HCPCS: 72100 ==

== ENCOUNTER 2021-07-15 14:17 | Outpatient (CLI) | payer MEDICAID, SELFPAY | END 2021-07-15 14:18 | disposition home or self-care (01) | LOC: LAB 14:21 | PROVIDERS: PCP Nurse Practitioner Family; Visit Provider Surgery | DX: R19.7 Diarrhea, unspecified (principal); Z11.52 Encounter for screening for COVID-19 | CPT/HCPCS: 83630; 87177; 87209; 87493; 87506 ==

== ENCOUNTER → 2021-07-16 10:41 | Outpatient (BNVA) | payer MEDICAID, SELFPAY | PROVIDERS: PCP Nurse Practitioner Family; Visit Provider Orthopaedic Surgery | DX: M50.020 Cervical disc disorder with myelopathy, mid-cervical region, unspecified level (principal); Z98.1 Arthrodesis status | CPT/HCPCS: 72050 ==

== ENCOUNTER 2021-08-26 06:18 | Day surgery (SDC) | payer MEDICAID, SELFPAY ==
[2021-08-24 13:49] VITALS: BMI 20.2
[2021-08-26 06:41] VITALS: BP 126/88; PULSE 114; RESP 20; TEMP 36.9; O2SAT 100
[2021-08-26] MEDS: sodium chloride 0.9% 1,000 ML 30 ML IV (07:10)
--- NOTE | 2021-08-26 07:20 | ANES.PREANE2 ---
Pre-Anesthetic Assessment Height/Weight: Height 1.55 m Weight 48.534 kg Temp Pulse Resp BP Pulse Ox 98.5 F 114 H 20 H 126/88 100 08/26/21 06:41 08/26/21 06:41 08/26/21 06:41 08/26/21 06:41 08/26/21 06:41 Preop Diagnosis: upper gi symptoms Operation Date: 08/26/21 07:30 Proposed Procedures p Colonoscopy 24904/r19.7/r63.4/r11.2/r10.9(Not Applicable) - Rad Duque MD s EGD(Not Applicable) - Rad Duque MD Was Beta Stuart taken within 24 hours: N/A Was Clonidine taken within 24 hours: N/A Last intake: Intake Last Liquid Date 08/25/21 Last Liquid Time 20:00 Last Solid Date 08/24/21 Last Solid Time 19:00 Social No alcohol and No tobacco THC Exam alert, oriented x 3, clear to auscultation bilaterally and regular rate & rhythm Airway Submandibular: within normal limits Cervical ROM: within normal limits Mallampati: Class II Dentition: false History/ROS No significant history except as noted and No significant complaints Pulmonary None reported CV/HEM Deep Vein Thrombosis Mcleod filter None reported Hepatic Hepatitis GI Gastroesophageal Reflux Disease (Hx gastric bypass) Metabolic Diabetes Mellitus and Thyroid Disease Musc/skel Lower Back Pain and Osteoarthritis/DJD Neuropsych Anxiety Anesthetic Plan ASA status: 3 Anesthesia: Anesthesia Evaluation and MAC Risk of > 500 ml blood loss (7ml/kg in children): No Medications/Allergies Home Medications Medication Instructions Recorded Confirmed Last Taken Type aspirin 81 mg tablet,delayed 81 mg PO DAILY PRN 06/20/19 08/26/21 08/25/21 History release (Aspir-) cholecalciferol (vitamin D3) 50 See Rx Instructions .ROUTE .COMPLEX 06/20/19 08/26/21 08/25/21 History mcg (2,000 unit) tablet (Vitamin D3) ferrous sulfate 325 mg (65 mg 325 mg PO DAILY 06/20/19 08/26/21 08/25/21 History iron) tablet (iron) levocetirizine 5 mg tablet (Xyzal) 5 mg PO BEDTIME tab 06/20/19 08/26/21 08/25/21 History lorazepam 1 mg tablet 1 mg PO TID PRN 06/20/19 08/26/21 08/26/21 History venlafaxine 150 mg 150 mg PO DAILY 06/20/19 08/26/21 08/25/21 History capsule,extended release 24 hr (Effexor XR) metformin 500 mg tablet 500 mg PO BID tab 07/25/19 08/26/21 08/25/21 History sumatriptan succinate 100 mg 100 mg PO Q2H PRN tab 07/25/19 08/26/21 08/25/21 History tablet (Imitrex) mupirocin 2 % topical ointment 1 applic TOPICAL BID #22 gm 01/21/20 08/26/21 08/25/21 Rx levothyroxine 50 mcg tablet 50 mcg PO DAILY 05/28/20 08/26/21 08/26/21 History (Synthroid) progesterone micronized 06/20/20 07/16/21 08/25/21 History amlodipine 5 mg tablet (Norvasc) 5 mg PO DAILY 06/23/20 08/26/21 08/25/21 History cyanocobalamin (vitamin B-12) See Rx Instructions .ROUTE .COMPLEX 06/23/20 08/26/21 08/25/21 History 1,000 mcg/mL injection solution estradiol 1 mg tablet (Estrace) 1 mg PO DAILY 06/23/20 08/26/21 08/25/21 History estrogen compound See Rx Instructions TOPICAL 12/23/20 08/26/21 08/25/21 Rx DIRECTED #1 applic nystatin 500,000 unit tablet 500,000 unit PO DAILY tab 12/23/20 08/26/21 08/25/21 History testosterone compound 1% See Rx Instructions .ROUTE 12/23/20 08/26/21 08/25/21 Rx .COMPLEX #1 applic E0748 Bone growth stimulator #1 ea 02/06/21 08/26/21 08/25/21 Rx diazepam 5 mg tablet (Valium) 10 mg PO TID PRN 02/13/21 08/26/21 08/25/21 History carisoprodol 350 mg PO BID 02/26/21 08/26/21 08/25/21 History tramadol 50 mg tablet 50 mg PO Q6H PRN #40 tab 02/17/22 04/20/22 04/19/22 Rx diazepam 5 mg tablet (Valium) 5 mg PO BID PRN 14 Days #14 tab 08/18/21 08/26/21 08/25/21 Rx oxycodone 5 mg tablet 5 mg PO Q4H PRN 7 Days #40 tab 08/25/21 08/26/21 08/25/21 Rx Allergies Allergy/AdvReac Type Severity Reaction Status Date / Time NSAIDS (Non-Steroidal Allergy Mild Unknown Verified 08/26/21 06:32 Anti-Inflamma Sulfa (Sulfonamide Allergy Mild Unknown Verified 08/26/21 06:32 Antibiotics) Beef Containing Products Allergy ALGY-Anaphy Verified 08/26/21 06:32 laxis Pork/Porcine Containing Allergy nausea and Verified 08/26/21 06:32 Products vomiting Current Medications Generic Name Dose Route Start Last Admin Trade Name Freq PRN Reason Stop Dose Admin Sodium Chloride 1,000 mls @ 30 mls/hr 08/26/21 06:30 08/26/21 07:10 Sodium Chloride 0.9% IV 08/27/21 06:29 30 mls/hr .Q24H PAUL Administration PFSH Anesthesia Medical History Allergy to alpha-gal Cervical disc disorder with myelopathy of mid-cervical region Chronic kidney disease, stage 3b Chronic migraine without aura, intractable, with status migrainosus Depression with anxiety Diabetes Hypothyroidism Spondylolisthesis of cervical region Thyroid disease Surgical History Mcleod filter in place 2001 H/O gastric bypass History of back surgery Dr. Richter 08/08/17 L4-L5 laminectomy/fusion/fixation 2008 [facility] Lumbar decompression History of carpal tunnel surgery of left wrist Dr. Orlando Richter 11/18/2016 History of carpal tunnel surgery of right wrist Dr. Richter 01/13/2017 History of colonoscopy 2018 History of esophagogastroduodenoscopy (EGD) 2018 History of neck surgery Dr. Richter 06/29/2018 C6-C7 ACDFF Hx of hysterectomy Family History Grandfather CAD (coronary artery disease) Stroke Grandmother CAD (coronary artery disease) Sister CAD (coronary artery disease) Hypertension Family/Other Cancer Mother Hypertension Father Hypertension Brother Hypertension Other Diabetes Social History Smoking and tobacco status: never smoked Alcohol intake: never Household members: family Marital status: Single Current occupational status: disabled History of recent travel: No Female Reproductive History Date of last menstrual period: 10/21/04 Data Anesthesia Cardiac Studies: No Data to Display
--- NOTE | 2021-08-26 07:30 | W.PM.OPSFHP ---
Same Day Surgery H&P Indication for Procedure/HPI DATE OF PROCEDURE: August 26, 2021 CHIEF COMPLAINT/INDICATIONFOR SURGICAL PROCEDURE: egd/colon PREOP DIAGNOSIS: upper gi symptoms PLANNED PROCEDURE: Operation Date: 08/26/21 07:30 Proposed Procedures p Colonoscopy 18726/r19.7/r63.4/r11.2/r10.9(Not Applicable) - Rad Duque MD s EGD(Not Applicable) - Rad Duque MD Medications/Allergies* Home Medications Medication Instructions Recorded Confirmed Type aspirin 81 mg tablet,delayed 81 mg PO DAILY PRN 06/20/19 08/26/21 History release (Aspir-) cholecalciferol (vitamin D3) 50 See Rx Instructions .ROUTE .COMPLEX 06/20/19 08/26/21 History mcg (2,000 unit) tablet (Vitamin D3) ferrous sulfate 325 mg (65 mg 325 mg PO DAILY 06/20/19 08/26/21 History iron) tablet (iron) levocetirizine 5 mg tablet (Xyzal) 5 mg PO BEDTIME tab 06/20/19 08/26/21 History lorazepam 1 mg tablet 1 mg PO TID PRN 06/20/19 08/26/21 History venlafaxine 150 mg 150 mg PO DAILY 06/20/19 08/26/21 History capsule,extended release 24 hr (Effexor XR) metformin 500 mg tablet 500 mg PO BID tab 07/25/19 08/26/21 History sumatriptan succinate 100 mg 100 mg PO Q2H PRN tab 07/25/19 08/26/21 History tablet (Imitrex) levothyroxine 50 mcg tablet 50 mcg PO DAILY 05/28/20 08/26/21 History (Synthroid) progesterone micronized 06/20/20 07/16/21 History amlodipine 5 mg tablet (Norvasc) 5 mg PO DAILY 06/23/20 08/26/21 History cyanocobalamin (vitamin B-12) See Rx Instructions .ROUTE .COMPLEX 06/23/20 08/26/21 History 1,000 mcg/mL injection solution estradiol 1 mg tablet (Estrace) 1 mg PO DAILY 06/23/20 08/26/21 History nystatin 500,000 unit tablet 500,000 unit PO DAILY tab 12/23/20 08/26/21 History diazepam 5 mg tablet (Valium) 10 mg PO TID PRN 02/13/21 08/26/21 History carisoprodol 350 mg PO BID 02/26/21 08/26/21 History Allergies/Adverse Reactions Allergy/AdvReac Type Severity Reaction Status Date / Time NSAIDS (Non-Steroidal Allergy Mild Unknown Verified 08/26/21 06:32 Anti-Inflamma Sulfa (Sulfonamide Allergy Mild Unknown Verified 08/26/21 06:32 Antibiotics) Beef Containing Products Allergy ALGY-Anaphy Verified 08/26/21 06:32 laxis Pork/Porcine Containing Allergy nausea and Verified 08/26/21 06:32 Products vomiting Current Medications: Generic Name Dose Route Start Last Admin Trade Name Freq PRN Reason Stop Dose Admin Sodium Chloride 1,000 mls @ 30 mls/hr 08/26/21 06:30 08/26/21 07:10 Sodium Chloride 0.9% IV 08/27/21 06:29 30 mls/hr .Q24H PAUL Administration Pertinent History/Comorbid Conditions* Medical History (Updated 07/16/21 @ 11:03 by Ruiz Sweet DO) Allergy to alpha-gal Cervical disc disorder with myelopathy of mid-cervical region Chronic kidney disease, stage 3b Chronic migraine without aura, intractable, with status migrainosus Depression with anxiety Diabetes Hypothyroidism Spondylolisthesis of cervical region Thyroid disease Surgical History (Updated 07/13/21 @ 10:50 by Rad Duque MD) Maribel filter in place 2001 H/O gastric bypass History of back surgery Dr. Richter 08/08/17 L4-L5 laminectomy/fusion/fixation 2008 [facility] Lumbar decompression History of carpal tunnel surgery of left wrist Dr. Orlando Richter 11/18/2016 History of carpal tunnel surgery of right wrist Dr. Richter 01/13/2017 History of colonoscopy 2018 History of esophagogastroduodenoscopy (EGD) 2018 History of neck surgery Dr. 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
[2021-08-26 07:55] VITALS: BP 104/78; PULSE 108; RESP 16; TEMP 36.8; O2SAT 97
[2021-08-26 08:12] VITALS: BP 100/76; PULSE 104; RESP 18; O2SAT 99
--- NOTE | 2021-08-26 17:37 | ANE.PACU2 ---
Inpatient post-anesthesia follow up: Airway intact: Yes Vital signs: Temperature 98.3 F Pulse Rate 104 Respiratory Rate 18 Blood Pressure 100/76 Pulse Oximetry 99 Oxygen Delivery Me thod Room Air Oxygen Flow Rate Fraction of Inspir ed Oxygen Hydration adequate: Yes Nausea and vomiting: No Pain level: 1 Mental status: Baseline
== END 2021-08-26 08:50 | disposition home or self-care (01) ==
PROVIDERS: PCP Nurse Practitioner Family; Visit Provider Surgery
PROC: 0DJD8ZZ Inspection of Lower Intestinal Tract, Via Natural or Artificial Opening Endoscopic (ICD-10-PCS; CPT 45378; principal; 2021-08-26 07:30)
PROC: 0DJ08ZZ Inspection of Upper Intestinal Tract, Via Natural or Artificial Opening Endoscopic (ICD-10-PCS; CPT 43235; 2021-08-26 07:30)
DX: R19.7 Diarrhea, unspecified (principal); R63.4 Abnormal weight loss; R11.2 Nausea with vomiting, unspecified; R10.9 Unspecified abdominal pain; K63.89 Other specified diseases of intestine; Z98.84 Bariatric surgery status; K52.9 Noninfective gastroenteritis and colitis, unspecified; Z86.718 Personal history of other venous thrombosis and embolism; Z86.19 Personal history of other infectious and parasitic diseases; K21.9 Gastro-esophageal reflux disease without esophagitis; M19.90 Unspecified osteoarthritis, unspecified site; F41.9 Anxiety disorder, unspecified; Z79.82 Long term (current) use of aspirin; Z79.84 Long term (current) use of oral hypoglycemic drugs; E11.22 Type 2 diabetes mellitus with diabetic chronic kidney disease; N18.32 Chronic kidney disease, stage 3b; Z82.49 Family history of ischemic heart disease and other diseases of the circulatory system; Z83.3 Family history of diabetes mellitus
CPT/HCPCS: 43235; 45380; 82274; 83630; 87493; 87506; 88305; J0330; J1100; J1200; J2704; J7030

== ENCOUNTER → 2021-09-08 10:50 | Outpatient (BNVA) | payer MEDICAID, SELFPAY | PROVIDERS: PCP Nurse Practitioner Family; Visit Provider Surgery | DX: A04.72 Enterocolitis due to Clostridium difficile, not specified as recurrent (principal) | CPT/HCPCS: 99212 ==

== ENCOUNTER → 2021-10-27 13:20 | Outpatient (BNVA) | payer MEDICAID, SELFPAY | PROVIDERS: PCP Nurse Practitioner Family; Visit Provider Orthopaedic Surgery | DX: M47.22 Other spondylosis with radiculopathy, cervical region (principal) | CPT/HCPCS: 99214 ==

== ENCOUNTER → 2021-11-19 10:19 | Outpatient (BNVA) | payer MEDICAID, SELFPAY | PROVIDERS: PCP Nurse Practitioner Family; Visit Provider Orthopaedic Surgery | DX: M54.2 Cervicalgia (principal) | CPT/HCPCS: 99214 ==

== ENCOUNTER 2021-12-03 22:43 | Emergency (ER) | payer MEDICAID, SELFPAY ==
[2021-12-03 23:04] VITALS: BP 141/95; PULSE 104; RESP 18; TEMP 36.6; O2SAT 100; BMI 21.7
--- NOTE | 2021-12-04 00:12 | ECG_ITS ---
[facility] Test Date: 2021-12-03 Pat Name: Marcie Youssef Department: Room: Gender: Female General Studies Program Chair: : 1970 Requested By: Zoe Bai Order Number: [id number] Anjelica MD: Carol Wiggins M.D. Measurements Intervals [place] Rate: 106 P: 67 [place]: 140 QRS: 63 QRSD: 84 T: 47 QT: 336 QTc: 447 Interpretive Statements SINUS TACHYCARDIA NONSPECIFIC T-WAVE ABNORMALITY Compared to ECG 02/20/2020 20:51:52 T-wave abnormality now present Sinus rhythm no longer present Sinus arrhythmia no longer present Electronically Signed On 12-04-2021 10:33:29 CDT by Carol Wiggins M.D. [email or web address]
--- NOTE | 2021-12-04 00:12 | XRR_ITS ---
PROCEDURE INFORMATION: Exam: XR Chest Exam date and time: 12/04/2021 1:48 AM Age: 51 years old Clinical indication: Chest pressure; Prior surgery; Surgery type: Cervial fusion. Gastric bypass. Patient HX: C/O chest pain with dyspnea. ; Additional info: Cp TECHNIQUE: Imaging protocol: Radiologic exam of the chest. Views: 1 view. COMPARISON: CR Chest 1 [place] [id number] 09/29/2017 7:21 PM FINDINGS: Lungs: There are normal lung volumes without interstitial or airspace opacities. Unchanged left lower lobe 1 x 1.2 cm calcified granuloma is seen. Pleural spaces: There are no pleural effusions or pneumothorax. Heart/Mediastinum: The heart size is normal. The mediastinal contour is normal. The trachea is in the midline. Bones/joints: No acute abnormalities. The patient is status post prior lower cervical disc fusion. Unchanged multiple surgical clips are seen in the visualized upper abdomen. XR/XR chest 1V portable [id number] IMPRESSION: No chest radiographic evidence of acute cardiopulmonary disease.
--- NOTE | 2021-12-04 02:04 | W.ED.GENADLT ---
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 States her symptoms have improved slightly she denies any chest pain denies any worsening improving factors denies any vomiting or diarrhea. Patient is in no distress at this time. Associated symptoms: Reports dyspnea; Deny chest pain, headache(s), nausea or vomiting Review of Systems Const: Denies: fever(s), chills, body aches or change in appetite Eyes: Denies: blurry vision or eye discomfort ENMT: Denies: throat pain or dental pain Card: Denies: chest pain Resp: Reports: dyspnea GI: Denies: abdominal pain, nausea, vomiting or diarrhea : Denies: dysuria Musc: Denies: neck pain or back pain Skin/Breast: Reports: pruritus Neuro: Denies: headache(s) Psych: Denies: depression Andres/Lymph: Denies: easy bruising All/Imm: Denies: urticaria PFSH ED PFSH: Medical History Allergy to alpha-gal C. difficile diarrhea Cervical disc disorder with myelopathy of mid-cervical region Chronic kidney disease, stage 3b Chronic migraine without aura, intractable, with status migrainosus Depression with anxiety Diabetes Hypothyroidism Spondylolisthesis of cervical region Thyroid disease Surgical History Katherin filter in place 2001 H/O gastric bypass History of back surgery Dr. Richter 08/08/17 L4-L5 laminectomy/fusion/fixation 2008 [facility] Lumbar decompression History of carpal tunnel surgery of left wrist Dr. Orlando Richter 11/18/2016 History of carpal tunnel surgery of right wrist Dr. Richter 01/13/2017 History of colonoscopy 2018 History of esophagogastroduodenoscopy (EGD) (08/26/21) [address] History of neck surgery Dr. Richter 06/29/2018 C6-C7 ACDFF Hx of hysterectomy Status post colonoscopy (08/26/21) Family History Grandfather CAD (coronary artery disease) Stroke Grandmother CAD (coronary artery disease) Sister CAD (coronary artery disease) Hypertension Family/Other Cancer Mother Hypertension Father Hypertension Brother Hypertension Other Diabetes Social History Smoking and tobacco status: never smoked Alcohol intake: never Household members: family Marital status: Single Current occupational status: disabled History of recent travel: No Female Reproductive History: Date of last menstrual period: 10/21/04 Physical Exam Const: COMMON NORMALS: no acute distress, patient oriented x3 and healthy appearing HENMT: COMMON NORMALS: normocephalic and atraumatic HEAD & SCALP: normocephalic and atraumatic Eye: COMMON NORMALS: Equal, round and reactive pupils present and EOMs intact bilaterally PUPIL: Yes Equal, round and reactive pupils present Neck/C-Spine: COMMON NORMALS: full ROM and supple Chest: COMMONS NORMALS: normal inspection of the chest and normal palpation of entire chest wall Resp: COMMON NORMALS: normal respiratory effort, No retractions, No use of accessory muscles and clear to auscultation bilaterally AUSCULTATION: clear to auscultation bilaterally Cardio: COMMON NORMALS: regular rate, regular rhythm and No murmurs present (Cardio) RATE: regular rate RHYTHM: regular rhythm GI: COMMON NORMALS: Normal to inspection, nondistended, normoactive bowel sounds present, Soft to palpation, non-tender and no masses PALPATION: Yes Soft to palpation Extremity: COMMON NORMALS: normal to inspection and full ROM Neuro: COMMON NORMALS: patient oriented x3, moves all extremities and no focal motor deficits Psych: COMMON NORMALS: mental status grossly normal, Normal thought process present and cooperative THOUGHT PROCESS: Normal thought process present Skin: COMMON NORMALS: no rashes or lesions noted and no wounds GENERAL SKIN EXAM: no rashes or lesions noted Course Vital Signs: Vital signs: Vital Signs Temperature 97.9 F 12/03/21 23:04 Pulse Rate 100 12/04/21 02:37 Respiratory Rate 15 12/04/21 02:37 Blood Pressure 155/94 12/04/21 02:37 Pulse Oximetry 100 12/04/21 02:37 Oxygen Delivery Me thod 12/03/21 23:04 [facility] - General Adult Medical Decision Making Patient presents here with allergic reaction likely from exposure to the chemical cleaning she is well-appearing here blood work is all normal she is stable for discharge at this time. Lab Data : 12/04/21 02:45 12/04/21 02:45 Radiology Impressions Chest X-Ray 12/04/21 00:12 IMPRESSION: No chest radiographic evidence of acute cardiopulmonary disease. Laboratory Results WBC 6.7 10^3/uL (4.0-10.0) 12/04/21 02:45 RBC 3.85 10^6/uL (4.1-5.3) L 12/04/21 02:45 Hgb 10.9 g/dL (11.5-15.3) L 12/04/21 02:45 Hct 34.1 % (37.0-47.0) L 12/04/21 02:45 MCV 88.6 fl (81-99) 12/04/21 02:45 MCH 28.3 pg (28.0-34.0) 12/04/21 02:45 MCHC 32.0 g/dL (30.0-36.0) 12/04/21 02:45 RDW 14.2 % (12.1-15.1) 12/04/21 02:45 Plt Count 329 10^3/cmm (130-400) 12/04/21 02:45 MPV 9.7 fL (7.4-10.4) 12/04/21 02:45 Neut % (Auto) 70.2 % 12/04/21 02:45 Lymph % (Auto) 19.4 % 12/04/21 02:45 [place] % (Auto) 7.2 % 12/04/21 02:45 Eos % (Auto) 2.5 % 12/04/21 02:45 Baso % (Auto) 0.6 % 12/04/21 02:45 Neut # (Auto) 4.70 10^3/uL (1.8-7.7) 12/04/21 02:45 Lymph # (Auto) 1.3 10^3/uL (0.8-4.8) 12/04/21 02:45 [place] # (Auto) 0.5 10^3/uL (0.2-0.9) 12/04/21 02:45 Eos # (Auto) 0.2 10^3/uL (0.0-0.8) 12/04/21 02:45 Baso # (Auto) 0.0 10^3/uL (0.0-0.1) 12/04/21 02:45 Nucleated RBC % (auto) 0 % 12/04/21 02:45 Nucleated RBCs # 0.0 /100WBC 12/04/21 02:45 Sodium 139 mmol/L (136-145) 12/04/21 02:45 Potassium 3.4 mmol/L (3.5-5.1) L 12/04/21 02:45 Chloride 105 mmol/L (98-107) 12/04/21 02:45 Carbon Dioxide 24 mmol/L (22-29) 12/04/21 02:45 Anion Gap 13.4 (5-19) 12/04/21 02:45 BUN 18 mg/dL (6-20) 12/04/21 02:45 Creatinine 0.9 mg/dL (0.5-0.9) 12/04/21 02:45 GFR Calculation 65.5 mL/min (90-130) L 12/04/21 02:45 Glucose 100 mg/dL (65-115) 12/04/21 02:45 Calculated Osmolality 290 mOsm/kg (285-295) 12/04/21 02:45 Calcium 8.7 mg/dL (8.5-10.5) 12/04/21 02:45 Total Bilirubin 0.2 mg/dL (0.15-1.2) 12/04/21 02:45 AST 24 U/L (0-32) 12/04/21 02:45 ALT 20 U/L (0-33) 12/04/21 02:45 Alkaline Phosphatase 99 IU/L (35-105) 12/04/21 02:45 Troponin T Baseline 11 ng/L (0-10) H 12/04/21 02:45 Total Protein 6.2 g/dL (6.6-8.7) L 12/04/21 02:45 Albumin 3.7 g/dL (3.5-5.2) 12/04/21 02:45 Globulin 2.5 g/dL (1.3-4.6) 12/04/21 02:45 SARS-CoV-2 Ag (Rapid) Negative (Negative) 12/04/21 02:45 Discharge Plan Discharge Patient Disposition: Home Clinical Impression: Allergic reaction Qualifiers: Encounter type: initial encounter Qualified Code(s): T78.40XA - Allergy, unspecified, initial encounter Condition: Stable Prescriptions: No Action venlafaxine [Effexor XR] 150 mg capsule,extended release 24hr 150 mg PO DAILY lorazepam 1 mg tablet 1 mg PO TID ferrous sulfate [iron] 325 mg (65 mg iron) tablet 325 mg PO DAILY cholecalciferol (vitamin D3) [Vitamin D3] 2,000 unit tablet See Rx Instructions .ROUTE .COMPLEX Rx Instructions: 2,000 unit orally each week levocetirizine [Xyzal] 5 mg tablet 5 mg PO BEDTIME aspirin [Aspir-81] 81 mg tablet,delayed release (DR/EC) 81 mg PO DAILY PRN (Reason: Analgesia) metformin 500 mg tablet 500 mg PO BID mupirocin 2 % ointment 1 applic TOPICAL BID Qty: 22 1RF levothyroxine [Synthroid] 50 mcg tablet 50 mcg PO DAILY testosterone compound 1% cream See Rx Instructions .ROUTE .COMPLEX Qty: 1 0RF Rx Instructions: 1 click on days 1-25 of the month estrogen compound See Rx Instructions topical DIRECTED Qty: 1 0RF Rx Instructions: 1 click at bedtime on days 1-25 of the month topical as directed; 1 click at bedtime on days 1-25 of the month (DME) [id number] Bone growth stimulator See Rx Instructions .Route .MEDSUPPLY Qty: 1 0RF Rx Instructions: As directed nystatin 500,000 unit tablet 500,000 unit PO TID 14 Days Qty: 42 0RF oxycodone 5 mg tablet 5 mg PO Q4H PRN (Reason: pain) 7 Days Qty: 40 0RF tramadol 50 mg tablet 50 mg PO Q6H PRN (Reason: Pain) Qty: 40 0RF progesterone micronized 1 gel PO DAILY amlodipine [Norvasc] 5 mg tablet 5 mg PO DAILY cyanocobalamin (vitamin B-12) 1,000 mcg/mL solution See Rx Instructions .ROUTE .COMPLEX Rx Instructions: injection EVERY WEEK diazepam [Valium] 5 mg tablet 10 mg PO TID PRN (Reason: anxiety) carisoprodol 350 mg 350 mg PO BID hydroxyzine pamoate 50 mg capsule 50 mg PO TID lovastatin 20 mg tablet 20 mg PO DAILY Probiotic 3 billion cell Capsule 3,000 mmu cells PO DAILY Rx Instructions: administer with a meal promethazine 25 mg Tablet 25 mg PO QID PRN (Reason: Nausea) Singulair 10 mg Tablet 10 mg PO DAILY azithromycin 250 mg Tablet 250 mg PO BID Rx Instructions: start on day 2 of therapy Ceftin 125 mg/5 mL Suspension For Reconstitution 125 mg PO DIRECTED Rx Instructions: injection given with B-12 on Fridays Discharge Orders: Discharge ED (Routine); Ordered 12/04/21 Ordered By: Zoe Bai Referrals: Susan Whaley [Primary Care Provider] - Discharge Diet: Advance as tolerated Discharge Activity: Resume usual activity Patient Instructions: General Allergic Reaction (ED) Coding Level of Care Code ED Laboratory Animal Care Veterinarian for Kiet Fwd Exam Comprehensive
--- NOTE | 2021-12-04 02:12 | ECG_ITS ---
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 Measurements Intervals [place] Rate: 76 P: 75 DE: 139 QRS: 71 QRSD: 86 T: 59 QT: 385 QTc: 435 Interpretive Statements SINUS RHYTHM Compared to ECG 12/03/2021 23:15:52 Sinus tachycardia no longer present T-wave abnormality no longer present Electronically Signed On 12-04-2021 10:36:21 CDT by Carol Wiggins M.D. [id number]
[2021-12-04 02:37] VITALS: BP 155/94; PULSE 100; RESP 15; O2SAT 100
[2021-12-04] MEDS: diphenhydrAMINE 50 mg/mL SDV 1mL IVP (02:40)
[2021-12-04 03:01] LABS: Basophils % 0.6 %; Eosinophils # 0.2 10^3/uL (0.0-0.8); Eosinophils % 2.5 %; Hematocrit 34.1 % (37.0-47.0); Hemoglobin 10.9 g/dL (11.5-15.3); Lymphocytes # 1.3 10^3/uL (0.8-4.8); Lymphocytes % 19.4 %; Mean Corpuscular Hemoglobin 28.3 pg (28.0-34.0); Mean Corpuscular Volume 88.6 fl (81-99); Mean Platelet Volume 9.7 fL (7.4-10.4); Monocytes # 0.5 10^3/uL (0.2-0.9); Monocytes % 7.2 %; Neutrophils % 70.2 %; Nucleated Red Blood Cells % 0 %; Platelet Count 329 10^3/cmm (130-400); Red Blood Count 3.85 10^6/uL (4.1-5.3); Red Cell Distribution Width 14.2 % (12.1-15.1); White Blood Count 6.7 10^3/uL (4.0-10.0)
[2021-12-04 03:13] LABS: Alanine Aminotransferase 20 U/L (0-33); Albumin Level 3.7 g/dL (3.5-5.2); Alkaline Phosphatase 99 IU/L (35-105); Anion Gap 13.4 (5-19); Aspartate Amino Transferase 24 U/L (0-32); Blood Urea Nitrogen 18 mg/dL (6-20); Calcium 8.7 mg/dL (8.5-10.5); Carbon Dioxide 24 mmol/L (22-29); Chloride 105 mmol/L (98-107); Globulin 2.5 g/dL (1.3-4.6); Glomerular Filtration Rate 65.5 mL/min (90-130); Glucose 100 mg/dL (65-115); Osmolality Calculated 290 mOsm/kg (285-295); Potassium 3.4 mmol/L (3.5-5.1); Sodium 139 mmol/L (136-145); Total Bilirubin 0.2 mg/dL (0.15-1.2); Total Protein 6.2 g/dL (6.6-8.7)
[2021-12-04 03:14] LABS: Troponin(5th) Baseline 11 ng/L (0-10)
[2021-12-04 03:23] LABS: SARS Covid-2 Antigen Negative (Negative)
[2021-12-04 03:34] VITALS: BP 149/90; PULSE 100; RESP 16; O2SAT 98
== END 2021-12-04 03:36 | disposition home or self-care (01) ==
PROVIDERS: Emergency Provider Emergency Medicine; PCP Nurse Practitioner Family
DX: T78.40XA Allergy, unspecified, initial encounter (principal); Z79.82 Long term (current) use of aspirin; Z79.84 Long term (current) use of oral hypoglycemic drugs; E11.22 Type 2 diabetes mellitus with diabetic chronic kidney disease; N18.32 Chronic kidney disease, stage 3b; Z20.822 Contact with and (suspected) exposure to COVID-19
CPT/HCPCS: 71045; 80053; 84484; 85025; 87426; 93005; 96374; 99285; J1200

== ENCOUNTER 2021-12-04 16:29 | Inpatient (IN) | payer MEDICAID, SELFPAY ==
[2021-12-02 12:07] VITALS: BMI 21.7
[2021-12-02 12:54] LABS: Basophils % 0.4 %; Eosinophils # 0.2 10^3/uL (0.0-0.8); Hemoglobin 11.9 g/dL (11.5-15.3); Lymphocytes # 0.8 10^3/uL (0.8-4.8); Lymphocytes % 14.3 %; Mean Corpuscular HGB Conc 31.3 g/dL (30.0-36.0); Mean Corpuscular Hemoglobin 28.3 pg (28.0-34.0); Mean Corpuscular Volume 90.3 fl (81-99); Mean Platelet Volume 9.9 fL (7.4-10.4); Monocytes # 0.4 10^3/uL (0.2-0.9); Monocytes % 6.7 %; Neutrophils # 3.96 10^3/uL (1.8-7.7); Neutrophils % 75.4 %; Nucleated Red Blood Cells % 0 %; Platelet Count 336 10^3/cmm (130-400); Red Blood Count 4.21 10^6/uL (4.1-5.3); Red Cell Distribution Width 14.3 % (12.1-15.1); White Blood Count 5.3 10^3/uL (4.0-10.0)
[2021-12-02 13:30] LABS: Anion Gap 15.7 (5-19); Blood Urea Nitrogen 20 mg/dL (6-20); Calcium 9.4 mg/dL (8.5-10.5); Carbon Dioxide 26 mmol/L (22-29); Chloride 104 mmol/L (98-107); Glucose 168 mg/dL (65-115); Osmolality Calculated 298 mOsm/kg (285-295); Potassium 4.7 mmol/L (3.5-5.1); Sodium 141 mmol/L (136-145)
--- NOTE | 2021-12-02 14:48 | ANES.PREANE2 ---
Pre-Anesthetic Assessment Height/Weight: Height 1.55 m Weight 52.163 kg Preop Diagnosis: Cervical spondylosis with radiculopathy Operation Date: 12/04/21 09:55 Proposed Procedures p Spinal Fusion Posterior Spinal Fusion C2-T2 W/DECOMPRESSION C3-C7 98172/2260/64970U1/47948M6/27076/95152/M47.22(Not Applicable) - Ruiz Sweet, DO Familial anesthetic complications: none Was Beta Stuart taken within 24 hours: N/A Was Clonidine taken within 24 hours: N/A Social No alcohol and No tobacco Uses cannabis Exam alert, oriented x 3, clear to auscultation bilaterally and regular rate & rhythm Airway Submandibular: within normal limits Cervical ROM: Other (Pain in flexion ) Mallampati: Class I Dentition: false Pulmonary Asthma [place] filter filter Hoarseness Odynophagia CV/HEM METS > 4 Chronic Renal Failure Secondary hyperparathyroidism Hepatic None reported GI Gastroesophageal Reflux Disease and Hiatal Hernia S/P gastric bypass Metabolic Diabetes Mellitus and Thyroid Disease Musc/skel Osteoarthritis/DJD (Chronic cervical pain ) Neuropsych Anxiety, Depression and Headache Lumbar stenosis with claudication Anesthetic Plan ASA status: 3 Anesthesia: Anesthesia Evaluation and General Other: We discussed risk and benefits of general anesthesia including PONV, sore throat (sometimes severe), corneal abrasion, positioning and peripheral nerve injuries, life threatening allergic reaction, post operative ICU admission requiring prolonged intubation, aspiration, stroke, heart attack, , and rare incidences of recall. Patient consents to proceed with general anesthesia. Plan GETA possible arterial line Risk of > 500 ml blood loss (7ml/kg in children): No Other Pertinent Information Hx of alpha syndrome Medications/Allergies Home Medications Medication Instructions Recorded Confirmed Last Taken Type aspirin 81 mg tablet,delayed 81 mg PO DAILY PRN Analgesia 06/20/19 12/02/21 08/25/21 History release (Aspir-) cholecalciferol (vitamin D3) 50 See Rx Instructions .Route .COMPLEX 06/20/19 12/02/21 11/30/21 History mcg (2,000 unit) tablet (Vitamin D3) ferrous sulfate 325 mg (65 mg 325 mg PO DAILY 06/20/19 12/02/21 08/25/21 History iron) tablet (iron) levocetirizine 5 mg tablet (Xyzal) 5 mg PO BEDTIME 06/20/19 12/02/2108/25/22 History lorazepam 1 mg tablet 1 mg PO TID 06/20/19 12/02/21 08/26/21 History venlafaxine 150 mg 150 mg PO DAILY 06/20/19 12/02/21 08/25/21 History capsule,extended release 24 hr (Effexor XR) metformin 500 mg tablet 500 mg PO BID 07/25/19 12/02/21 08/25/21 History mupirocin 2 % topical ointment 1 applic topical BID #22 grams 01/21/20 12/02/21 08/25/21 Rx levothyroxine 50 mcg tablet 50 mcg PO DAILY 05/28/20 12/02/21 08/26/21 History (Synthroid) progesterone micronized 1 gel PO DAILY 06/20/20 12/02/21 08/25/21 History amlodipine 5 mg tablet (Norvasc) 5 mg PO DAILY 06/23/20 12/02/21 08/25/21 History cyanocobalamin (vitamin B-12) See Rx Instructions .Route .COMPLEX 06/23/20 12/02/21 11/27/21 History 1,000 mcg/mL injection solution estrogen compound See Rx Instructions topical 12/23/20 12/02/21 08/25/21 Rx DIRECTED #1 applic testosterone compound 1% See Rx Instructions .Route 12/23/20 12/02/21 08/25/21 Rx .COMPLEX #1 applic [id number] Bone growth stimulator #1 ea 02/06/21 11/19/21 08/25/21 Rx diazepam 5 mg tablet (Valium) 10 mg PO TID PRN anxiety 02/13/21 12/02/21 08/25/21 History carisoprodol 350 mg PO BID 02/26/21 12/02/21 08/25/21 History nystatin 500,000 unit tablet 500,000 unit PO TID 14 days #42 08/27/21 12/02/21 Unknown Rx tabs oxycodone 5 mg tablet 5 mg PO Q4H PRN pain 7 days #40 09/10/21 12/02/21 Unknown Rx tabs tramadol 50 mg tablet 50 mg PO Q6H PRN Pain #40 tabs 09/16/21 12/02/21 Unknown Rx azithromycin 250 mg tablet 250 mg PO BID 12/02/21 12/02/21 Unknown History cefuroxime axetil 125 mg/5 mL oral 125 mg PO DIRECTED 12/02/21 12/02/21 Unknown History suspension hydroxyzine pamoate 50 mg capsule 50 mg PO TID 12/02/21 12/02/21 Unknown History lactobacillus combination no.4 3 3,000 mmu cells PO DAILY 12/02/21 12/02/21 Unknown History billion cell capsule (Probiotic) lovastatin 20 mg tablet 20 mg PO DAILY 12/02/21 12/02/21 Unknown History montelukast 10 mg tablet 10 mg PO DAILY 12/02/21 12/02/21 Unknown History (Singulair) promethazine 25 mg tablet 25 mg PO QID PRN Nausea 12/02/21 12/02/21 Unknown History Allergies Allergy/AdvReac Type Severity Reaction Status Date / Time NSAIDS (Non-Steroidal Allergy Mild Unknown Verified 12/02/21 11:56 Anti-Inflamma Sulfa (Sulfonamide Allergy Mild Unknown Verified 12/02/21 11:56 Antibiotics) Beef Containing Products Allergy ALGY-Anaphy Verified 12/02/21 11:56 laxis Pork/Porcine Containing Allergy nausea and Verified 12/02/21 11:56 Products vomiting PFSH Anesthesia Medical History Allergy to alpha-gal C. difficile diarrhea Cervical disc disorder with myelopathy of mid-cervical region Chronic kidney disease, stage 3b Chronic migraine without aura, intractable, with status migrainosus Depression with anxiety Diabetes Hypothyroidism Spondylolisthesis of cervical region Thyroid disease Surgical History Katherin filter in place 2001 H/O gastric bypass History of back surgery Dr. Richter 08/08/17 L4-L5 laminectomy/fusion/fixation 2008 [facility] Lumbar decompression History of carpal tunnel surgery of left wrist Dr. Orlando Richter 11/18/2016 History of carpal tunnel surgery of right wrist Dr. Richter 01/13/2017 History of colonoscopy 2018 History of esophagogastroduodenoscopy (EGD) (08/26/21) [address] History of neck surgery Dr. Richter 06/29/2018 C6-C7 ACDFF Hx of hysterectomy Status post colonoscopy (08/26/21) Family History Grandfather CAD (coronary artery disease) Stroke Grandmother CAD (coronary artery disease) Sister CAD (coronary artery disease) Hypertension Family/Other Cancer Mother Hypertension Father Hypertension Brother Hypertension Other Diabetes Social History Smoking and tobacco status: never smoked Alcohol intake: never Household members: family Marital status: Single Current occupational status: disabled History of recent travel: No Female Reproductive History Date of last menstrual period: 10/21/04 Data Anesthesia : 12/02/21 12:30 12/02/21 12:30 Short CBC 12/02/21 Range/Units 12:30 WBC 5.3 (4.0-10.0) 10^3/uL Hgb 11.9 (11.5-15.3) g/dL Hct 38.0 (37.0-47.0) % MCV 90.3 (81-99) fl Plt Count 336 (130-400) 10^3/cmm Neut % (Auto) 75.4 % Neut # (Auto) 3.96 (1.8-7.7) 10^3/uL BMP 12/02/21 12:30 Sodium 141 Potassium 4.7 Chloride 104 Carbon Dioxide 26 BUN 20 Creatinine 1.0 H Glucose 168 H Calcium 9.4 Cardiac Studies: No Data to Display
[2021-12-04] VITALS (24 sets, daily range): BP systolic 111–178; BP diastolic 68–97; PULSE 60–104; RESP 7–20; TEMP 36.6–37.2; O2SAT 94–100; BMI 21.9
--- NOTE | 2021-12-04 | XR_ITS ---
WS: [id number] Exam: XR cervical spine 1V [id number] Date/Time of Exam: 12/04/2021 2:19 PM Reason For Exam: OR PICS Intraoperative AP and lateral C-arm images of the cervical spine are submitted for evaluation. Anterior fusion with plate and screw fixation again noted at C3-4 and C6-7. Additional pedicle screws have been placed from C2 to T3. Surgical retractors are noted in the posterior soft tissues. An endo tracheal tube is seen in the airway. No other significant finding on this limited study.
--- NOTE | 2021-12-04 | SCC_ITS ---
Procedure done: 1. C2-T2 posterior spine fusion 2. C2 - T2 instrumentation 3. C3/4 laminectomy with partial facetectomies 4. C4/5 laminectomy with partial facetectomies 5. C5/6 laminectomy with partial facetectomies 6. C6/7 laminectomy with partial facetectomies 7. C7T1 laminectomy with partial facetectomies 8. use of autograft 9. Use of autograft 45.3 seconds of fluoroscopic guidance, for a cumulative dose of 3.14 mGy, was provided to Dr. Sweet by the radiology department. C-arm images of the cervical spine were saved for the patient's permanent record. [facility]
--- NOTE | 2021-12-04 08:00 | P.ANESUD_ITS ---
Pre-Anesthetic Update Pre-Anesthetic Assessment: Date of Surgery/Procedure: 12/04/21 Preop Emelyn gnosis: Cervical spondylosis with radiculopathy Proposed Procedure: Operation Date: 12/04/21 09:55 Proposed Procedures p Spinal Fusion Posterior Spinal Fusion C2-T2 W/DECOMPRESSION C3-C7 [id number]/M47.22(Not Applicable) - Ruiz Sweet, Changes from Pre-Anesthetic Assessment: Seen in ED for allergic reaction, no SOB or other allergic symptoms today . Labs Last 48hrs: Short CBC 12/02/21 Range/Units 12:30 WBC 5.3 (4.0-10.0) 10^3/ uL Hgb 11.9 (11.5-15.3) g/dL Hct 38.0 (37.0-47.0) % MCV 90.3 (81-99) fl Plt Count 336 (130-400) 10^3/c mm Neut % (Auto) 75.4 % Neut # (Auto) 3.96 (1.8-7.7) 10^3/u L BMP 12/02/21 12:30 Sodium 141 Potassium 4.7 Chloride 104 Carbon Dioxide 26 BUN 20 Creatinine 1.0 H Glucose 168 H Calcium 9.4 Exam: Pre-Anes Outpt Exam: alert, oriented x 3, clear to auscultation bilaterally and regular rate & rhythm Cardiac Studies: No Data to Display
[2021-12-04 09:44] LABS: Glucose Point of Care 104 mg/dL (70-110)
[2021-12-04] MEDS: sodium chloride 0.9% 1,000 ML 30 ML IV (09:57)
[2021-12-04] MEDS: scopolamine 1.5 Patch 1 PATCH TRANSDERMA (09:58)
--- NOTE | 2021-12-04 10:37 | W.PM.OPSUD ---
Surgery/Procedure H&P Update DATE OF PROCEDURE: December 04, 2021 DATE H&P PERFORMED: 11/19/21 H&P UPDATE INFORMATION: I have reviewed H&P completed within last 30 days, I have examined patient prior to procedure and No changes to prior documentation PREOP DIAGNOSIS: Cervical spondylosis with radiculopathy PLANNED PROCEDURE: Operation Date: 12/04/21 09:55 Proposed Procedures p Spinal Fusion Posterior Spinal Fusion C2-T2 W/DECOMPRESSION C3-C7 [id number]/M47.22(Not Applicable) - Ruiz Sweet DO
[2021-12-04] MEDS: ceFAZolin 2,000 MG in sodium chloride 0.9% (plus) 50 ML 100 MG IV ×2 (10:46→18:34)
[2021-12-04] MEDS: vancomycin 1,000 MG SDV 1000 MG XX (12:19)
--- NOTE | 2021-12-04 12:31 | PC.NURSE ---
CALLED AND LEFT VOICEMAIL UPDATE OF PROCEDURE STARTING AND PT'S VSS.
--- NOTE | 2021-12-04 14:19 | XR_ITS ---
WS: [id number] Exam: XR cervical spine 1V [id number] Date/Time of Exam: 12/04/2021 2:19 PM Reason For Exam: OR PICS Intraoperative AP and lateral C-arm images of the cervical spine are submitted for evaluation. Anterior fusion with plate and screw fixation again noted at C3-4 and C6-7. Additional pedicle screws have been placed from C2 to T3. Surgical retractors are noted in the posterior soft tissues. An endo tracheal tube is seen in the airway. No other significant finding on this limited study.
--- NOTE | 2021-12-04 15:12 | P.OP_ITS ---
Operative Report Date of procedure: December 04, 2021 Pre-op diagnosis: Preop Diagnosis Cervical spondylosis with radiculopathy Post-op diagnosis: same Procedure done: 1. C2-T2 posterior spine fusion 2. C2 - T2 instrumentation 3. C3/4 laminectomy with partial facetectomies 4. C4/5 laminectomy with partial facetectomies 5. C5/6 laminectomy with partial facetectomies 6. C6/7 laminectomy with partial facetectomies 7. C7T1 laminectomy with partial facetectomies 8. use of autograft 9. Use of autograft Surgeon: Ruiz Sweet Acoustic Intelligence Specialist: Aftab Burt Acoustic Intelligence Specialist: The certified surgical assistant, Aftab Burt, PAC was needed for his expertise under the microscope. He was important and necessary throughout the procedure to complete in a safe and timely manner. He assisted with patient positioning prepping and draping tissue retraction suctioning of the operative field protection of the dural sac and tissue closure Estimated blood loss (mL): 250 Procedure: 1. C2-T2 posterior spine fusion 2. C2 - T2 instrumentation 3. C3/4 laminectomy with partial facetectomies 4. C4/5 laminectomy with partial facetectomies 5. C5/6 laminectomy with partial facetectomies 6. C6/7 laminectomy with partial facetectomies 7. C7T1 laminectomy with partial facetectomies 8. use of autograft 9. Use of autograft After undergoing anesthesia neuro monitoring lines were hooked up there is no issues with the neuro monitoring throughout the entire case. Patient was then flipped into the prone position all areas impingement were well-padded. Patient was then prepped and draped in the normal sterile fashion. It was made from C2 down to T2. Subperiosteal dissection was made out to the lateral masses of C2- C7. And then out to the transverse processes of T1 and T2. Once exposure was complete attention was brought to placing screws. Attention was first brought to the C2 pars screws. Using C-arm imaging a high- speed bur was then used to start the pest control pilot hole. And then going to millimeter increments a drill was used to play screws. A size 18 screws placed in the left side and a size 22 screws placed in the right side. Next attention was brought to placing lateral mass screws. Lateral mass screws were placed at C3-C6. Technique for placing was to use a high-speed bur for the pest control pilot hole. And then using a drill drill was set at 12 and 40 mm screws were used. The drill was aimed at the upper outer quadrant of the lateral mass. There were to facilitate missing the vertebral artery. The high-speed drill was first used to start a pest control pilot hole in the center position of the lateral mass. Then a drill was used to drill the hole set at 12 mm up into the upper outer corner of the lateral mass. And then a pedicle feeler was used to review and ensure that there was no breach of the bone. And then a size 14 lateral mass screw was placed. This was repeated bilaterally at C3, C4, C5, and C6. Next attention was placed on getting pedicle screws in the T1 and T2. AP fluoroscopy was brought in and the pedicles were identified. A high-speed bur was used at the upper outer corner of the pedicles and then the awl was used. Followed by the pedicle feeler followed by placing the screws. 24 mm screws were placed at T1 bilaterally and 30 mm screws were placed bilaterally at T2. Attension was brought to performing the laminectomy C7. And partial facetectomies. This was done using a high-speed bur. The lamina C7 was cut bilaterally with a high-speed bur. And then the then the ligamentum flavum was taken down inferiorly. And then the C7-T1 facet joint was taken down medially with a Kerrison rongeur. And the facet was felt to be adequate decompressed and the curved curette was used to feel that the nerve roots were completely free going out the C8 nerve root was completely free bilaterally. Attension was brought to performing the laminectomy C6. And partial facetectomies. This was done using a high-speed bur. The lamina C6 was cut bilaterally with a high-speed bur. And then the then the ligamentum flavum was taken down inferiorly. And then the C6/7 facet joint was taken down medially with a Kerrison rongeur. And the facet was felt to be adequate decompressed and the curved curette was used to feel that the nerve roots were completely free going out the C7 nerve root was completely free bilaterally. Attension was brought to performing the laminectomy C5. And partial facetectomies. This was done using a high-speed bur. The lamina C5/6 was cut bilaterally with a high-speed bur. And then the then the ligamentum flavum was taken down inferiorly. And then the C5/6 facet joint was taken down medially with a Kerrison rongeur. And the facet was felt to be adequate decompressed and the curved curette was used to feel that the nerve roots were completely free going out the C6 nerve root was completely free bilaterally. Attension was brought to performing the laminectomy C4. And partial facetectomies. This was done using a high-speed bur. The lamina C4 was cut bilaterally with a high-speed bur. And then the then the ligamentum flavum was taken down inferiorly. And then the C4/5 facet joint was taken down medially with a Kerrison rongeur. And the facet was felt to be adequate decompressed and the curved curette was used to feel that the nerve roots were completely free going out the C5 nerve root was completely free bilaterally. Attension was brought to performing the laminectomy C3. And partial facetectomies. This was done using a high-speed bur. The lamina C3 was cut bilaterally with a high-speed bur. And then the then the ligamentum flavum was taken down inferiorly. And then the C3/4 facet joint was taken down medially with a Kerrison rongeur. And the facet was felt to be adequate decompressed and the curved curette was used to feel that the nerve roots were completely free going out the C4 nerve root was completely free bilaterally. Once all the laminectomies were completed. The edges were clean and double checked. Wound was irrigated. And then the lateral masses and lamina of T1 into were decorticated. This was decorticated from C2 down to T2. And then the autograft from the laminectomies were packed in the lateral gutters along with the [employer] bone graft. Once all the graft was packed then the retractors were removed and vancomycin powder was placed along with deep drain. The wound was then closed in layered fashion with 0 Vicryl 2-0 Vicryl and Monocryl suture. Sterile dressings were applied and patient was transferred to the PACU in stable condition.
[2021-12-04] MEDS: fentaNYL 50 mcg/mL INJ 2mL IVP ×2 (15:14→15:33)
[2021-12-04] MEDS: acetaminophen 1,000 MG/100 ML PIGGYBACK 400 MG IV (15:42)
[2021-12-04] MEDS: magnesium sulfate premix 2 GM/50 ML PIGGYBACK IV (15:44)
[2021-12-04] MEDS: HYDROmorphone 1 mg/mL INJ 1 mL 0.5 MG IVP ×2 (15:49→16:00)
--- NOTE | 2021-12-04 16:09 | ANE.PACU2 ---
Inpatient post-anesthesia follow up: Airway intact: Yes Vital signs: Temperature 98.1 F Pulse Rate 63 Respiratory Rate 20 Blood Pressure 158/89 Pulse Oximetry 100 Oxygen Delivery Me thod Room Air Oxygen Flow Rate 8 Fraction of Inspir ed Oxygen Hydration adequate: Yes Nausea and vomiting: No Pain level: 4 Mental status: Baseline
[2021-12-04] MEDS: morphine 4 mg/mL SDV 1 mL IVP (16:40)
[2021-12-04] MEDS: lactated ringers 1,000 ML 90 ML IV (16:40)
[2021-12-04] MEDS: HYDROcodone-acetaminophen 10-325 mg Tablet PO (16:41)
[2021-12-04] MEDS: docusate sodium 100 mg Capsule PO (18:36)
[2021-12-04] MEDS: diphenhydrAMINE 25 mg Capsule PO (18:36)
[2021-12-04] MEDS: metformin 500 mg Tablet PO (18:36)
[2021-12-04] MEDS: ketorolac 30 mg/mL INJ IVP (18:38)
[2021-12-04] MEDS: mupirocin oint 22 gm 1 APPLIC TOPICAL (18:39)
[2021-12-04] MEDS: hyDROXYzine 25 mg Capsule 50 MG PO (21:12)
[2021-12-04] MEDS: LORazepam 1 mg Tablet PO (21:12)
[2021-12-04] MEDS: oxyCODONE 5 mg IR Tab/Cap PO (23:16)
[2021-12-05] VITALS (12 sets, daily range): BP systolic 111–160; BP diastolic 68–93; PULSE 62–109; RESP 13–18; TEMP 36.8–37.2; O2SAT 96–100
[2021-12-05] MEDS: ceFAZolin 2,000 MG in sodium chloride 0.9% (plus) 50 ML 100 MG IV ×2 (03:30→11:31)
[2021-12-05] MEDS: acetaminophen 325 mg Tablet 650 MG PO (03:49)
[2021-12-05] MEDS: ketorolac 30 mg/mL INJ IVP (03:50)
[2021-12-05] MEDS: lactated ringers 1,000 ML 90 ML IV ×2 (04:35→15:42)
[2021-12-05] MEDS: levothyroxine 50 mcg Tablet PO (07:55)
[2021-12-05] MEDS: montelukast sodium 10 mg Tablet PO (07:55)
[2021-12-05] MEDS: venlafaxine ER (24HR) 150 mg Capsule PO (07:55)
[2021-12-05] MEDS: LORazepam 1 mg Tablet PO ×3 (07:56→20:28)
[2021-12-05] MEDS: atorvastatin 40 mg Tablet 20 MG PO (07:56)
[2021-12-05] MEDS: amlodipine 5 mg Tablet PO (07:57)
[2021-12-05] MEDS: hyDROXYzine 25 mg Capsule 50 MG PO ×3 (07:57→20:27)
[2021-12-05] MEDS: oxyCODONE 5 mg IR Tab/Cap PO (07:58)
[2021-12-05] MEDS: metformin 500 mg Tablet PO ×2 (07:59→17:38)
[2021-12-05] MEDS: ferrous sulfate EC 325 mg Tablet PO (07:59)
[2021-12-05] MEDS: docusate sodium 100 mg Capsule PO ×2 (07:59→17:38)
[2021-12-05] MEDS: mupirocin oint 22 gm 1 APPLIC TOPICAL ×2 (08:05→17:40)
--- NOTE | 2021-12-05 09:00 | P.PN_ITS ---
Subjective Subjective: Patient rates her pain as a 9 out of 10. Which is good for her. This point she is resting in bed. I helped her take her call off surgically. She can take the collar off while she eats. Vitals/I&O/Wt Last Vital Signs Temp 98.4 F 12/05/21 07:32 Pulse 75 12/05/21 07:32 Resp 18 12/05/21 07:58 BP 148/80 12/05/21 07:32 Pulse Ox 100 12/05/21 07:32 O2 Del Method 12/05/21 07:32 O2 Flow Rate 8 12/04/21 15:55 12/04/21 12/05/21 12/05/21 22:59 06:59 14:59 Intake Total 2380 / 2403.333 1110 / 3513.333 Output Total 1180 / 1180 300 / 1480 Balance 1200 / 1223.333 810 / 2033.333 Weight last 48 hrs Weight 116 lb 3.2 oz Physical Exam Narrative: Sitting in bed eating breakfast. I help to take the collar off the wound is dry through the dressing. Urinary Catheter Management: Gabriel: Cath Placed During This Visit: yes Reason for Continuing Indwelling Catheter: Perioperative Use in Selected Surgeries Urinary Catheter Date of Insertion: 12/04/21 Urinary Catheter Time of Insertion: 10:55 Data : 12/02/21 12:30 12/02/21 12:30 A&P Assessment and plan (1) Encounter for postoperative care: Patient is postop day #1 from a C2-T2 posterior spine fusion. It is okay for her to take her collar off in bed to eat she should wear it when she is up and about. She should work with physical therapy. Anticipate discharge planning for Tuesday. Status: Acute Attestations Medical Necessity Statement*: Pain control Coding Level of Care Code Acute Wood Last Maker for Kiet Pardo Diagnoses Encounter for postoperative care Z48.89
[2021-12-05] MEDS: oxyCODONE 10 mg ER (12 HR) Tablet PO ×2 (09:59→17:38)
[2021-12-05] MEDS: ondansetron 2 mg/ML SDV 2 mL 4 MG IVP (10:00)
[2021-12-05] MEDS: morphine 4 mg/mL SDV 1 mL IVP ×3 (11:23→20:24)
[2021-12-05] MEDS: diazePAM 5 mg Tablet 10 MG PO (17:43)
[2021-12-05] MEDS: promethazine 25 mg Tablet PO (20:47)
[2021-12-06] VITALS (11 sets, daily range): BP systolic 128–160; BP diastolic 71–94; PULSE 91–116; RESP 14–20; TEMP 35.8–36.8; O2SAT 97–99
--- NOTE | 2021-12-06 01:27 | PC.NURSE ---
pt pill bag pt had been acting erratic all shift. getting out of bed while hooked to iv, stretching the tubing taunt, and having forgotten she was connected to it when reminded. pt would speak with nurse in a rambling pressured manner with eyelids half open about subjects of no relevance to what she had been asked after stating yes/no. pt would continue to ask for pain/anxiety medication before it was due and then complaining as to the scheduling of the prn medications. nurse was notified by lorrainee that while doing vs she found a pill bottle cap on the floor, this nurse went to pt room and found a medium sized purse filled with different prescription bottles. on the top of the pile of bottles was one empty bottle with the lid missing, which was a bottle of 50mg tramadol. nurse informed pt that bag would be placed in the locked pyxis for safety and as this nurse was leaving the room pt asked to see the purse again, when asked for what, pt stated so i can take a benadryl . this nurse informed pt that home medications could not be taken without being approved and on the pt mar. pt stated that she knew that and then commenced to ramble on about a man in [place] who almost drowned after falling out of his canoe. this nurse went through the pt bag for inventory and assessment and found one bottle of Soma 350mg BID 60 count that was filled 11/14/21 which was empty, one bottle of tramadol 50mg 1-2 tabs TID prn 180 count that was filled 11/14/21 which was empty, and one bottle of lorazepam 1mg TID prn 90 count that was filled 11/14/21 which was empty. pt meds labeled and locked in pyxis, will continue to monitor.
[2021-12-06] MEDS: diazePAM 5 mg Tablet 10 MG PO ×3 (03:14→22:40)
[2021-12-06] MEDS: morphine 4 mg/mL SDV 1 mL IVP ×4 (03:16→20:48)
[2021-12-06] MEDS: lactated ringers 1,000 ML 90 ML IV ×2 (04:10→15:08)
[2021-12-06] MEDS: promethazine 25 mg Tablet PO (07:46)
[2021-12-06] MEDS: amlodipine 5 mg Tablet PO (09:05)
[2021-12-06] MEDS: atorvastatin 40 mg Tablet 20 MG PO (09:05)
[2021-12-06] MEDS: docusate sodium 100 mg Capsule PO ×2 (09:06→18:05)
[2021-12-06] MEDS: hyDROXYzine 25 mg Capsule 50 MG PO ×3 (09:06→20:37)
[2021-12-06] MEDS: ferrous sulfate EC 325 mg Tablet PO (09:06)
[2021-12-06] MEDS: levothyroxine 50 mcg Tablet PO (09:07)
[2021-12-06] MEDS: oxyCODONE 10 mg ER (12 HR) Tablet PO ×2 (09:07→18:06)
[2021-12-06] MEDS: LORazepam 1 mg Tablet PO ×3 (09:07→20:37)
[2021-12-06] MEDS: montelukast sodium 10 mg Tablet PO (09:07)
[2021-12-06] MEDS: metformin 500 mg Tablet PO ×2 (09:07→18:05)
[2021-12-06] MEDS: venlafaxine ER (24HR) 150 mg Capsule PO (09:08)
[2021-12-06] MEDS: mupirocin oint 22 gm 1 APPLIC TOPICAL ×2 (09:11→18:07)
[2021-12-06] MEDS: acetaminophen 325 mg Tablet 650 MG PO (11:58)
--- NOTE | 2021-12-06 15:33 | P.PN_ITS ---
Subjective Subjective: I woke patient up and said she was sleeping very well so I let her go back to sleep. Vitals/I&O/Wt Last Vital Signs Temp 98.3 F 12/06/21 15:00 Pulse 112 H 12/06/21 15:00 Resp 14 12/06/21 15:00 BP 128/84 12/06/21 15:00 Pulse Ox 98 12/06/21 15:00 O2 Del Method 12/06/21 15:00 O2 Flow Rate 8 12/06/21 08:00 12/06/21 12/06/21 12/06/21 06:59 14:59 22:59 Intake Total 1201.5 / 3551.5 987 / 987 Output Total 700 / 1945 Balance 501.5 / 1606.5 987 / 987 Weight last 48 hrs Weight 116 lb 3.2 oz Physical Exam Narrative: Resting comfortably in bed Urinary Catheter Management: Gabriel: Cath Placed During This Visit: yes Reason for Continuing Indwelling Catheter: Perioperative Use in Selected Surgeries Urinary Catheter Date of Insertion: 12/04/21 Urinary Catheter Time of Insertion: 10:55 Data : 12/02/21 12:30 12/02/21 12:30 A&P Assessment and plan (1) Encounter for postoperative care: Postop day #2 for posterior cervical fusion. This point plan will be discharge planning for tomorrow. Status: Acute Attestations Medical Necessity Statement*: Pain control Coding Level of Care Code Acute Supervisor Assembly Stock for Kiet Pardo Diagnoses Encounter for postoperative care Z48.89
[2021-12-07] VITALS: BP 134/87; PULSE 105; RESP 14; TEMP 36.8; O2SAT 98
[2021-12-07] MEDS: lactated ringers 1,000 ML 90 ML IV (01:51)
[2021-12-07 02:47] VITALS: RESP 24
[2021-12-07] MEDS: morphine 4 mg/mL SDV 1 mL IVP (02:47)
[2021-12-07] MEDS: acetaminophen 325 mg Tablet 650 MG PO (02:54)
[2021-12-07] MEDS: ondansetron 2 mg/ML SDV 2 mL 4 MG IVP (03:02)
[2021-12-07 04:00] VITALS: BP 143/83; PULSE 85; RESP 17; TEMP 36.4; O2SAT 97
[2021-12-07] MEDS: promethazine 25 mg Tablet PO (06:25)
--- NOTE | 2021-12-07 06:52 | PM.PN ---
Subjective Subjective: POD 1 Patient resting comfortably. Denies any arm pain. Reports neck pain. Denies any shortness of breath chest pain. Vitals/I&O/Wt Last Vital Signs Temp 97.5 F L 12/07/21 04:00 Pulse 85 12/07/21 04:00 Resp 17 12/07/21 04:00 BP 143/83 12/07/21 04:00 Pulse Ox 97 12/07/21 04:00 O2 Del Method 12/06/21 15:00 O2 Flow Rate 8 12/06/21 08:00 12/06/21 12/06/21 12/07/21 14:59 22:59 06:59 Intake Total 240 / 240 1467 / 1707 964.5 / 2671.5 Output Total 1575 / 1575 30 / 1605 60 / 1665 Balance -1335 / -1335 1437 / 102 904.5 / 1006.5 Physical Exam Narrative: Patient is alert and oriented x3 with a good general appearance normal mood and affect. Moderately tender with palpation about the incisional site. Incision appears to be healing nicely without signs of erythema or drainage. No signs of infection. Good motor strength throughout both upper extremities. Appears to fire in all motor groups with 5/5 strength. Hands are warm good cap refill in all digits. Normal sensation to light touch in all dermatomal areas. Urinary Catheter Management: Gabriel: Cath Placed During This Visit: yes Reason for Continuing Indwelling Catheter: Perioperative Use in Selected Surgeries Urinary Catheter Date of Insertion: 12/04/21 Urinary Catheter Time of Insertion: 10:55 Data : 12/02/21 12:30 12/02/21 12:30 A&P Assessment and plan (1) Encounter for postoperative care: Discontinue Hemovac drain. Physical therapy to mobilize. Discharge home this morning. Continue incentive spirometry at home. We will see her back in the office in 1 week's time for wound check. No bending lifting or twisting. 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
[2021-12-07 08:00] VITALS: BP 139/89; PULSE 106; RESP 16; TEMP 36.8; O2SAT 97
[2021-12-07 08:01] VITALS: RESP 16
[2021-12-07] MEDS: docusate sodium 100 mg Capsule PO (08:01)
[2021-12-07] MEDS: levothyroxine 50 mcg Tablet PO (08:01)
[2021-12-07] MEDS: atorvastatin 40 mg Tablet 20 MG PO (08:01)
[2021-12-07] MEDS: montelukast sodium 10 mg Tablet PO (08:01)
[2021-12-07] MEDS: venlafaxine ER (24HR) 150 mg Capsule PO (08:01)
[2021-12-07] MEDS: hyDROXYzine 25 mg Capsule 50 MG PO (08:01)
[2021-12-07] MEDS: ferrous sulfate EC 325 mg Tablet PO (08:01)
[2021-12-07] MEDS: LORazepam 1 mg Tablet PO (08:01)
[2021-12-07] MEDS: oxyCODONE 10 mg ER (12 HR) Tablet PO (08:01)
[2021-12-07] MEDS: amlodipine 5 mg Tablet PO (08:02)
[2021-12-07] MEDS: metformin 500 mg Tablet PO (08:02)
[2021-12-07] MEDS: mupirocin oint 22 gm 1 APPLIC TOPICAL (08:15)
--- NOTE | 2021-12-08 16:21 | P.DS_ITS ---
Discharge Providers Date of Admission: 12/04/21 16:29 Date of Discharge: December 07, 2021 Attending Provider at Admission: Ruiz Sweet DO Attending Provider at Discharge: Ruiz Sweet DO Primary Care Provider: Susan Whaley Diagnoses at Discharge Discharge Diagnosis (1) Encounter for postoperative care: Status: Acute (2) Status post cervical spinal fusion: Status: Acute Reason for Visit Reason for Visit: C2-T2 SPF W/DECOMPRESION C3-C7 Hospital Course Hospital Course uneventful Physical Exam Urinary Catheter Management: Gabriel: Cath Placed During This Visit: yes Reason for Continuing Indwelling Catheter: Perioperative Use in Selected Surgeries Urinary Catheter Date of Insertion: 12/04/21 Urinary Catheter Time of Insertion: 10:55 Discharge Data Studies Completed and Pending Completed Studies During Hospitalization Category Date Time Status XR cervical spine 3V* [id number] Routine Exams 12/04/21 Completed Laboratory Results WBC 5.3 10^3/uL (4.0-10.0) 12/02/21 12:30 RBC 4.21 10^6/uL (4.1-5.3) 12/02/21 12:30 Hgb 11.9 g/dL (11.5-15.3) 12/02/21 12:30 Hct 38.0 % (37.0-47.0) 12/02/21 12:30 MCV 90.3 fl (81-99) 12/02/21 12:30 MCH 28.3 pg (28.0-34.0) 12/02/21 12:30 MCHC 31.3 g/dL (30.0-36.0) 12/02/21 12:30 RDW 14.3 % (12.1-15.1) 12/02/21 12:30 Plt Count 336 10^3/cmm (130-400) 12/02/21 12:30 MPV 9.9 fL (7.4-10.4) 12/02/21 12:30 Neut % (Auto) 75.4 % 12/02/21 12:30 Lymph % (Auto) 14.3 % 12/02/21 12:30 [place] % (Auto) 6.7 % 12/02/21 12:30 Eos % (Auto) 3.0 % 12/02/21 12:30 Baso % (Auto) 0.4 % 12/02/21 12:30 Neut # (Auto) 3.96 10^3/uL (1.8-7.7) 12/02/21 12:30 Lymph # (Auto) 0.8 10^3/uL (0.8-4.8) 12/02/21 12:30 [place] # (Auto) 0.4 10^3/uL (0.2-0.9) 12/02/21 12:30 Eos # (Auto) 0.2 10^3/uL (0.0-0.8) 12/02/21 12:30 Baso # (Auto) 0.0 10^3/uL (0.0-0.1) 12/02/21 12:30 Nucleated RBC % (auto) 0 % 12/02/21 12:30 Nucleated RBCs # 0.0 /100WBC 12/02/21 12:30 Sodium 141 mmol/L (136-145) 12/02/21 12:30 Potassium 4.7 mmol/L (3.5-5.1) 12/02/21 12:30 Chloride 104 mmol/L (98-107) 12/02/21 12:30 Carbon Dioxide 26 mmol/L (22-29) 12/02/21 12:30 Anion Gap 15.7 (5-19) 12/02/21 12:30 BUN 20 mg/dL (6-20) 12/02/21 12:30 Creatinine 1.0 mg/dL (0.5-0.9) H 12/02/21 12:30 GFR Calculation 58.0 mL/min (90-130) L 12/02/21 12:30 Glucose 168 mg/dL (65-115) H 12/02/21 12:30 POC Glucose 104 mg/dL (70-110) 12/04/21 09:42 Calculated Osmolality 298 mOsm/kg (285-295) H 12/02/21 12:30 Calcium 9.4 mg/dL (8.5-10.5) 12/02/21 12:30 Vitals Last Vital Signs Temp 98.3 F 12/07/21 08:00 Pulse 106 H 12/07/21 08:00 Resp 16 12/07/21 08:01 BP 139/89 12/07/21 08:00 Pulse Ox 97 12/07/21 08:00 O2 Del Method 12/07/21 08:00 O2 Flow Rate 8 12/07/21 08:00 Discharge Plan Discharge Patient Disposition: Home Condition: Stable Prescriptions: New OxyContin 10 mg tablet,oral only,ext.rel.12 hr 10 mg PO Q12H 7 Days Qty: 14 0RF Continued lorazepam 1 mg tablet 1 mg PO TID ferrous sulfate [iron] 325 mg (65 mg iron) tablet 325 mg PO DAILY levocetirizine [Xyzal] 5 mg tablet 5 mg PO BEDTIME metformin 500 mg tablet 500 mg PO DAILY mupirocin 2 % ointment 1 applic TOPICAL BID Qty: 22 1RF levothyroxine [Synthroid] 50 mcg tablet 50 mcg PO DAILY testosterone compound 1% cream See Rx Instructions .ROUTE .COMPLEX Qty: 1 0RF Rx Instructions: 1 click on days -25 of the month estrogen compound See Rx Instructions topical DIRECTED Qty: 1 0RF Rx Instructions: 1 click at bedtime on days -25 of the month topical as directed; 1 click at bedtime on days -25 of the month ([facility] [place]) [id number] Bone growth stimulator See Rx Instructions .Route .MEDSUPPLY Qty: 1 0RF Rx Instructions: As directed nystatin 500,000 unit tablet 500,000 unit PO TID 14 Days Qty: 42 0RF oxycodone 5 mg tablet 5 mg PO Q4H PRN (Reason: pain) 7 Days Qty: 40 0RF tramadol 50 mg tablet 50 mg PO Q6H PRN (Reason: Pain) Qty: 40 0RF progesterone micronized 1 gel PO DAILY amlodipine [Norvasc] 5 mg tablet 5 mg PO DAILY cyanocobalamin (vitamin B-12) 1,000 mcg/mL solution See Rx Instructions .ROUTE .COMPLEX Rx Instructions: injection EVERY WEEK diazepam [Valium] 5 mg tablet 10 mg PO TID PRN (Reason: anxiety) carisoprodol 350 mg Tablet 350 mg PO BID Qty: 0 hydroxyzine pamoate 50 mg capsule 50 mg PO QID PRN (Reason: Anxiety) lovastatin 20 mg tablet 20 mg PO DAILY Probiotic 3 billion cell Capsule 3,000 mmu cells PO DAILY Rx Instructions: administer with a meal promethazine 25 mg Tablet 25 mg PO QID PRN (Reason: Nausea) montelukast [Singulair] 10 mg Tablet 10 mg PO DAILY azithromycin 250 mg Tablet 500 mg PO DAILY Rx Instructions: start on day 2 of therapy cefuroxime axetil 125 mg/5 mL Suspension For Reconstitution 125 mg PO DIRECTED Rx Instructions: injection given with B-12 on Fridays aspirin 81 mg Tablet,Chewable 81 mg PO DAILY Vitamin D2 1,250 mcg (50,000 unit) Capsule 50,000 unit PO Q7D Rx Instructions: On Tuesday venlafaxine 75 mg Tablet Extended Release 24hr 75 mg PO DAILY baclofen 10 mg Tablet 10 mg PO BID No Action oxycodone 5 mg tablet 5 mg PO Q4H PRN (Reason: pain) 7 Days Qty: 42 0RF Discharge Orders: Discharge Order (Routine); Ordered 12/07/21 Ordered By: Aftab Burt Other Ambulatory Orders: DME: Cane/ Crutches (Order) Location: None Selected Ordered By: Ruiz Sweet Referrals: Ruiz Sweet, [Physician] - 12/15/21 9:15 am Discharge Diet: Advance as tolerated Discharge Activity: Limit activity as instructed Patient Instructions: Oxycodone, Rapid Release (By mouth), Oxycodone, Slow Release (By mouth), Anterior Posterior Spinal Fusion (DC), Opioid Safety Activity Restrictions/Additional Instructions: Thank you for choosing [facility] for your care! The following is a list of instructions, from your provider, to follow upon your discharge to ensure you have the optimal recovery from your recent injury or surgery. Posterior cervical fusion: What to Expect at Home Your Recovery Follow-up care is a duff part of your treatment and safety. Be sure to make and go to all appointments, and call your doctor if you are having problems. If you do not already have a follow-up appointment made, call office in the next 1-3 days to make follow up appointment for 1 weeks at [phone]. It is also a good idea to know your test results and keep a list of the medicines you take. You can expect your neck to feel stiff or sore after surgery. This should improve in the weeks after surgery. But it may take 4 to 6 months for you to get better completely. You may have trouble sitting or standing in one position for very long and may need pain medicine in the weeks after your surgery. It may take 4 to 6 weeks to get back to your usual activities, but it may depend on what kind of surgery you had. Your throat will feel sore and it may be difficult to swallow for the first 3 days after your surgery. As long as you can get liquids down without difficulty, this should slowly improve, otherwise call our office or seek medical attention if it becomes increasingly difficult to get anything down including liquids. Avoid hot liquids for first 3-5 days. Soothing foods/liquids such as jello, pudding, and luke warm soups are recommended until swallowing improves. Staying elevated will also help, it's advised you keep propped up at while sleeping to help reduce the swelling. You may use an ice pack directly on your incision or around it on the front of your neck, using a cloth to protect your skin; and a heating pad to the back of your neck as needed. Do not use over the counter anti-inflammatory medications (Ibuprofen, Motrin, Aleve, Advil, etc) Taking these meds after having a fusion can delay fusion rates, we recommend you avoid them for the first 3 [address] your surgery[address]. Sweet may advise you to work with a physical therapist to strengthen the muscles around your neck and back - this will be discussed at your follow - up appointments. The pain or numbness you were having in your arms before surgery should get better or go away completely. This care sheet gives you a general idea about how long it will take for you to recover. But each person recovers at a different pace. Follow the steps below to get better as quickly as possible. How can you care for yourself at home? Activity ? Rest when you feel tired. Getting enough sleep will help you recover. ? Try to walk each day. Start by walking a little more than you did the day before. Bit by bit, increase the amount you walk. Walking boosts blood flow and helps prevent pneumonia and constipation. Walking may also decrease your muscle soreness after surgery. ? No lifting anything that is more that 5 pounds. This may include heavy grocery bags and milk containers, a heavy briefcase or backpack, cat litter or dog food bags, a child, or a vacuum tank cleaner. ? Avoid strenuous activities, such as bicycle riding, jogging, weightlifting, or aerobic exercise, until your doctor says it is okay. ? Do not drive until your follow-up visit after your surgery, or until your doctor says it isokay. ? Avoid taking long car trips for 2 to 4 weeks after surgery. Your neck may become tired and painful from sitting too long in one position. ? You will probably need to take 4 to 6 weeks off from work. It depends on the type of work you do and how you feel. ? You may have sex as soon as you feel able, but avoid positions that put stress on your neck or cause pain. Diet ? You can eat your normal diet. If your stomach is upset, try bland, low-fat foods like plain rice, broiled chicken, toast, and yogurt ? Drink plenty of fluids. If you have kidney, heart, or liver disease and have to limit fluids, talk with your doctor before you increase the amount of fluids you drink. ? You may notice that your bowel movements are not regular right after your surgery. This is common. Try to avoid constipation and straining with bowel movements. You may want to take a fiber supplement every day. If you have not h ad a bowel movement after a couple of days, ask your doctor about taking a mild laxative. Medicines ? Take pain medicines exactly as directed. 1. If Dr. Sweet gave you a prescription medicine for pain, take lt as prescribed. 2. Do not take two or more pain medicines at the same time unless the doctor told you to. Many pain medicines have acetaminophen, which is Tylenol. Too much acetaminophen {Tylenol) can be harmful. 3. If you think your pain pill is making you sick to your stomach: 4. Take your pills after meals (unless your doctor has told you not to). 5. Ask your Dr. for a different pain pill. Incisioncare ? Remove your dressing 48 hours after your surgery. Ok to shower and get the incision wet. Do not overtly wash your incision. When done, pad dry, leave open to air thereafter. Avoid creams and ointments directly on your incision. ? Your sutures in the incision will dissolve and fall out on their own. ? Keep the area clean and dry. You may cover it with a gauze bandage if it weeps or rubs against clothing; if you choose to do this, change the dressing everyday. Other instructions ? Use a heating pad, hot water bottle, or gentle massage on your back to reduce stiffness. Avoid putting heat on your incision When should you call for help? ? Call 911 anytime you think you may need emergency care. For example, call if: ? You pass out (lose consciousness). ? You have sudden chest pain and shortness of breath, or you cough upblood. ? You cannot swallow. ? You have severe pain in your neck or back. ? Call your Dr. or seek immediate medical care if: ? You have pain that does not get better after you take pain pills. ? You have loose stitches, or your incision comes open. ? You have blood or fluid draining from the incision. ? You have signs of infection, such as: 1. Increased pain, swelling, warmth, or redness. 2. Red streaks leading from the site. 3. Pus draining from the site. 4. Swollen lymph nodes in your neck or armpits. 5. A fever. ? You have severe pain in your arms. ? You have new or increased weakness or numbness in your arms. ? Watch closely for any changes in your health, and be sure to contact your doctor if: ? You do not have a bowel movement after taking a laxative. Discharge Attestations Time Spent in Discharge Care*: less than 30 min Quality Metrics Clinical Quality Measures [ No reported AMI, CVA or VTE this stay] Coding Level of Care Code Acute Chg FW DC note Diagnoses Encounter for postoperative care Z48.89 Status post cervical spinal fusion Z98.1
== END 2021-12-07 10:30 | disposition home or self-care (01) | DRG 460 ==
LOC: MEDSURG 16:54
PROVIDERS: Anesthesiology; Admitting Provider Orthopaedic Surgery; PCP Nurse Practitioner Family; Visit Provider Orthopaedic Surgery
PROC: 0RG6071 Fusion of Thoracic Vertebral Joint with Autologous Tissue Substitute, Posterior Approach, Posterior Column, Open Approach (ICD-10-PCS; principal; 2021-12-04 09:55)
DX: M47.22 Other spondylosis with radiculopathy, cervical region (principal); E11.22 Type 2 diabetes mellitus with diabetic chronic kidney disease; N18.32 Chronic kidney disease, stage 3b; Z88.2 Allergy status to sulfonamides; Z88.8 Allergy status to other drugs, medicaments and biological substances; Z79.82 Long term (current) use of aspirin; Z79.891 Long term (current) use of opiate analgesic; F41.8 Other specified anxiety disorders; E03.9 Hypothyroidism, unspecified; Z98.1 Arthrodesis status; Z98.84 Bariatric surgery status; Z79.84 Long term (current) use of oral hypoglycemic drugs
CPT/HCPCS: 36415; 36416; 51702; 72020; 72040; 76000; 80048; 82962; 85025; 97116; 97161; 97530; 97760; C1713; J1100; J1170; J1200; J1885; J2250; J2270; J2405; J2704; J2710; J3010; J3370; J3475; J3490; J7030; L0174; Q0169

== ENCOUNTER → 2021-12-15 09:38 | Outpatient (BNVA) | payer MEDICAID, SELFPAY | PROVIDERS: PCP Nurse Practitioner Family; Visit Provider Orthopaedic Surgery | DX: Z47.89 Encounter for other orthopedic aftercare (principal); Z98.1 Arthrodesis status | CPT/HCPCS: 99024 ==

== ENCOUNTER → 2022-01-14 10:02 | Outpatient (BNVA) | payer MEDICAID, SELFPAY | PROVIDERS: PCP Nurse Practitioner Family; Visit Provider Orthopaedic Surgery | DX: Z98.1 Arthrodesis status (principal) | CPT/HCPCS: 72040; 99024; 99214 ==

== ENCOUNTER → 2022-02-18 15:38 | Outpatient (BNVA) | payer MEDICAID, SELFPAY | PROVIDERS: PCP Nurse Practitioner Family; Visit Provider Orthopaedic Surgery | DX: Z47.89 Encounter for other orthopedic aftercare (principal); Z98.1 Arthrodesis status | CPT/HCPCS: 72040; 99024; 99213 ==

== ENCOUNTER 2022-03-01 11:36 | Emergency (ER) | payer MEDICAID, SELFPAY ==
[2022-03-01 11:38] VITALS: BP 161/98; PULSE 109; RESP 18; O2SAT 97; BMI 20.9
--- NOTE | 2022-03-01 11:53 | W.ED.ABDPA2 ---
HPI - Abdominal Pain General: Chief Complaint: Abdominal Pain Stated Complaint: abdominal pain Time Seen by Provider: 03/01/22 11:38 History of Present Illness: 51-year-old female who presents with right lower quadrant abdominal pain.. Patient reports that the pain started throughout the night last night and is just worsened. Patient reports she had a painful bowel movement. Patient reports that she passed some gas and got little bit better. She has some nausea but no vomiting. She denies any fevers, chills or dysuria. Associated Symptoms: Reports constipation and nausea; Denies chills, fever(s) and vomiting Related Data: Date of Last Menstrual Period: 10/21/04 Review of Systems Const: Denies: fever(s) or chills Card: Denies: chest pain or palpitations Resp: Denies: productive cough or stridor GI: Reports: abdominal pain, nausea and constipation; Denies: vomiting : Denies: flank pain or difficulty voiding Skin/Breast: Denies: rash or pruritus Neuro: Denies: headache(s) or dizziness PFSH ED PFSH: Medical History Allergy to alpha-gal C. difficile diarrhea Cervical disc disorder with myelopathy of mid-cervical region Chronic kidney disease, stage 3b Chronic migraine without aura, intractable, with status migrainosus Depression with anxiety Diabetes Hypothyroidism Spondylolisthesis of cervical region Thyroid disease Surgical History [place] filter in place 2001 H/O gastric bypass History of back surgery Dr. Richter 08/08/17 L4-L5 laminectomy/fusion/fixation 2008 [facility] Lumbar decompression History of carpal tunnel surgery of left wrist Dr. Orlando Richter 11/18/2016 History of carpal tunnel surgery of right wrist Dr. Richter 01/13/2017 History of colonoscopy 2018 History of esophagogastroduodenoscopy (EGD) (08/26/21) [address] History of neck surgery Dr. Richter 06/29/2018 C6-C7 ACDFF Hx of hysterectomy Status post colonoscopy (08/26/21) Family History Grandfather CAD (coronary artery disease) Stroke Grandmother CAD (coronary artery disease) Sister CAD (coronary artery disease) Hypertension Family/Other Cancer Mother Hypertension Father Hypertension Brother Hypertension Other Diabetes Social History Smoking and tobacco status: never smoked Alcohol intake: never Household members: family Marital status: Single Current occupational status: disabled History of recent travel: No Female Reproductive History: Date of last menstrual period: 10/21/04 Physical Exam Const: COMMON NORMALS: patient oriented x3 GENERAL APPEARANCE: cooperative and frail appearing HENMT: HEAD & SCALP: normal to inspection Chest: CHEST: Yes Symmetrical chest wall rise Resp: COMMON NORMALS: normal respiratory effort and No use of accessory muscles EFFORT & INSPECTION: Yes able to speak in complete sentences Cardio: COMMON NORMALS: regular rhythm RATE: tachycardic RHYTHM: regular rhythm GI: PALPATION: Yes Tenderness to palpation present (GI) Details: RLQ and Yes Guarding due to palpation present (GI) in the RLQ Extremity: COMMON NORMALS: full ROM and capillary refill normal Neuro: COMMON NORMALS: patient oriented x3, no focal motor deficits and no sensory deficits noted Psych: COMMON NORMALS: mental status grossly normal, cooperative and speech normal SPEECH: Yes normal speech Skin: COMMON NORMALS: no rashes or lesions noted GENERAL SKIN EXAM: no rashes or lesions noted Course Vital Signs: Vital signs: Vital Signs Pulse Rate 109 H 03/01/22 16:35 Respiratory Rate 14 03/01/22 16:35 Blood Pressure 133/71 03/01/22 16:35 Pulse Oximetry 97 03/01/22 16:35 Oxygen Delivery Me thod 03/01/22 13:12 MDM - Abdominal Pain Medical Decision Making Patient's symptoms are consistent with significant fecal retention. Patient is on opioids and is only been taking Dulcolax once daily. Discussed findings with patient. Recommend she take MiraLAX 3-4 times daily. Patient stable and discharged home Lab Data : 03/01/22 12:00 03/01/22 12:00 Labs/Radiology: Radiology Impressions Abdomen/Pelvis CT 03/01/22 12:53 IMPRESSION: 1. Marked fecal retention and constipation throughout the colon but most significant in the distal colon. 2. Normal appendix. 3. Fluid filled small bowel loops in the LEFT abdomen but no obstructive pattern at this time. 4. Prior gastric bypass and prior hysterectomy. 5. No free air. No free fluid. Laboratory Results WBC 4.7 10^3/uL (4.0-10.0) 03/01/22 12:00 RBC 3.63 10^6/uL (4.1-5.3) L 03/01/22 12:00 Hgb 9.9 g/dL (11.5-15.3) L 03/01/22 12:00 Hct 32.4 % (37.0-47.0) L 03/01/22 12:00 MCV 89.3 fl (81-99) 03/01/22 12:00 MCH 27.3 pg (28.0-34.0) L 03/01/22 12:00 MCHC 30.6 g/dL (30.0-36.0) 03/01/22 12:00 RDW 14.3 % (12.1-15.1) 03/01/22 12:00 Plt Count 439 10^3/cmm (130-400) H 03/01/22 12:00 MPV 9.5 fL (7.4-10.4) 03/01/22 12:00 Neut % (Auto) 69.6 % 03/01/22 12:00 Lymph % (Auto) 16.3 % 03/01/22 12:00 Gregg % (Auto) 10.3 % 03/01/22 12:00 Eos % (Auto) 2.8 % 03/01/22 12:00 Baso % (Auto) 0.6 % 03/01/22 12:00 Neut # (Auto) 3.25 10^3/uL (1.8-7.7) 03/01/22 12:00 Lymph # (Auto) 0.8 10^3/uL (0.8-4.8) 03/01/22 12:00 Gregg # (Auto) 0.5 10^3/uL (0.2-0.9) 03/01/22 12:00 Eos # (Auto) 0.1 10^3/uL (0.0-0.8) 03/01/22 12:00 Baso # (Auto) 0.0 10^3/uL (0.0-0.1) 03/01/22 12:00 Nucleated RBC % (auto) 0 % 03/01/22 12:00 Nucleated RBCs # 0.0 /100WBC 03/01/22 12:00 Sodium 137 mmol/L (136-145) 03/01/22 12:00 Potassium 4.5 mmol/L (3.5-5.1) 03/01/22 12:00 Chloride 105 mmol/L (98-107) 03/01/22 12:00 Carbon Dioxide 24 mmol/L (22-29) 03/01/22 12:00 Anion Gap 12.5 (5-19) 03/01/22 12:00 BUN 22 mg/dL (6-20) H 03/01/22 12:00 Creatinine 0.8 mg/dL (0.5-0.9) 03/01/22 12:00 GFR Calculation 75.0 mL/min (90-130) L 03/01/22 12:00 Glucose 100 mg/dL (65-115) 03/01/22 12:00 Calculated Osmolality 287 mOsm/kg (285-295) 03/01/22 12:00 Calcium 8.9 mg/dL (8.5-10.5) 03/01/22 12:00 Magnesium 1.6 mg/dL (1.7-2.3) L 03/01/22 12:00 Total Bilirubin 0.2 mg/dL (0.15-1.2) 03/01/22 12:00 AST 22 U/L (0-32) 03/01/22 12:00 ALT 20 U/L (0-33) 03/01/22 12:00 Alkaline Phosphatase 124 U/L (35-105) H 03/01/22 12:00 C-Reactive Protein 3.0 mg/L (0.0-4.9) 03/01/22 12:00 Total Protein 6.6 g/dL (6.6-8.7) 03/01/22 12:00 Albumin 3.3 g/dL (3.5-5.2) L 03/01/22 12:00 Globulin 3.3 g/dL (1.3-4.6) 03/01/22 12:00 Lipase 27 U/L (13-60) 03/01/22 12:00 HCG, Qual Negative (Negative) 03/01/22 12:35 Urine Color Yellow (Yellow) 03/01/22 12:35 Urine Appearance Clear (CLEAR) 03/01/22 12:35 Urine pH 5 (5-7) 03/01/22 12:35 Ur Specific [place] 1.015 (1.005-1.030) 03/01/22 12:35 Urine Protein Trace (Negative) 03/01/22 12:35 Urine Glucose (UA) Norm (Normal) 03/01/22 12:35 Urine Ketones Negative (Negative) 03/01/22 12:35 Urine Blood Neg (Negative) 03/01/22 12:35 Urine Nitrate Negative (Negative) 03/01/22 12:35 Urine Bilirubin Neg (Negative) 03/01/22 12:35 Urine Urobilinogen Neg mg/dL (Negative) 03/01/22 12:35 Ur Leukocyte Esterase Negative (Negative) 03/01/22 12:35 Urine RBC Rare /hpf (0-2) 03/01/22 12:35 Urine WBC None /hpf (0-5) 03/01/22 12:35 Ur Squamous Epith Cells 0-4 /hpf (0-5) H 03/01/22 12:35 Amorphous Sediment Not Reportable 03/01/22 12:35 Urine Bacteria None /hpf (NONE) 03/01/22 12:35 Discharge Plan Discharge Patient Disposition: Home Clinical Impression: Constipation by delayed colonic transit Condition: Stable Prescriptions: No Action lorazepam 1 mg tablet 1 mg PO TID levocetirizine [Xyzal] 5 mg tablet 5 mg PO BEDTIME mupirocin 2 % ointment 1 applic TOPICAL BID Qty: 22 1RF testosterone compound 1% cream See Rx Instructions .ROUTE .COMPLEX Qty: 1 0RF Rx Instructions: 1 click on days 1-25 of the month estrogen compound See Rx Instructions topical DIRECTED Qty: 1 0RF Rx Instructions: 1 click at bedtime on days 1-25 of the month topical as directed; 1 click at bedtime on days 1-25 of the month oxycodone-acetaminophen 2.5-325 mg tablet 1 tab PO Q6H PRN (Reason: pain) 7 Days Qty: 30 0RF oxycodone 5 mg tablet 5 mg PO Q4H PRN (Reason: pain) 7 Days Qty: 40 0RF (DME) [id number] Bone growth stimulator See Rx Instructions .Route .MEDSUPPLY Qty: 1 0RF Rx Instructions: As directed nystatin 500,000 unit tablet 500,000 unit PO TID 14 Days Qty: 42 0RF tramadol 50 mg tablet 50 mg PO Q6H PRN (Reason: Pain) Qty: 40 0RF hydrocodone-acetaminophen 5-325 mg tablet 1 tab PO Q4H PRN (Reason: pain) 7 Days Qty: 40 0RF amlodipine [Norvasc] 5 mg tablet 5 mg PO DAILY cyanocobalamin (vitamin B-12) 1,000 mcg/mL solution See Rx Instructions .ROUTE .COMPLEX Rx Instructions: injection EVERY WEEK diazepam [Valium] 5 mg tablet 10 mg PO TID PRN (Reason: anxiety) carisoprodol 350 mg Tablet 350 mg PO BID Qty: 0 hydroxyzine pamoate 50 mg capsule 50 mg PO QID PRN (Reason: Anxiety) lovastatin 20 mg tablet 20 mg PO DAILY Probiotic 3 billion cell Capsule 3,000 mmu cells PO DAILY Rx Instructions: administer with a meal promethazine 25 mg Tablet 25 mg PO QID PRN (Reason: Nausea) montelukast [Singulair] 10 mg Tablet 10 mg PO DAILY cefuroxime axetil 125 mg/5 mL Suspension For Reconstitution 125 mg PO DIRECTED Rx Instructions: injection given with B-12 on Fridays aspirin 81 mg Tablet,Chewable 81 mg PO DAILY ergocalciferol (vitamin D2) [Vitamin D2] 1,250 mcg (50,000 unit) Capsule 50,000 unit PO Q7D Rx Instructions: On Tuesday baclofen 10 mg Tablet 10 mg PO BID levothyroxine 137 mcg tablet 137 mcg PO DAILY pantoprazole 40 mg tablet,delayed release (DR/EC) 40 mg PO DAILY estradiol 0.5 mg Tablet 0.5 mg PO DAILY Discharge Orders: Discharge ED (Routine); Ordered 03/01/22 Ordered By: Adria Tafoya Referrals: Susan Whaley [Primary Care Provider] - Discharge Diet: Advance as tolerated Discharge Activity: Resume usual activity Patient Instructions: Opioid Safety, Pain Management Activity Restrictions/Additional Instructions: MiraLAX 1 capful 4 times daily until soft daily stool then as needed for daily soft stool Increase your fiber in your diet Increase your activity. Follow-up with your primary care provider if symptoms or not improved over the next 3 to 4 days. Coding Level of Care Code ED Security Flex Utility Officer for Chg Fwd Exam Comprehensive
[2022-03-01 12:14] VITALS: RESP 14
[2022-03-01 12:14] LABS: Basophils % 0.6 %; Eosinophils # 0.1 10^3/uL (0.0-0.8); Eosinophils % 2.8 %; Hematocrit 32.4 % (37.0-47.0); Hemoglobin 9.9 g/dL (11.5-15.3); Lymphocytes # 0.8 10^3/uL (0.8-4.8); Lymphocytes % 16.3 %; Mean Corpuscular HGB Conc 30.6 g/dL (30.0-36.0); Mean Corpuscular Hemoglobin 27.3 pg (28.0-34.0); Mean Corpuscular Volume 89.3 fl (81-99); Mean Platelet Volume 9.5 fL (7.4-10.4); Monocytes # 0.5 10^3/uL (0.2-0.9); Monocytes % 10.3 %; Neutrophils # 3.25 10^3/uL (1.8-7.7); Neutrophils % 69.6 %; Nucleated Red Blood Cells % 0 %; Platelet Count 439 10^3/cmm (130-400); Red Blood Count 3.63 10^6/uL (4.1-5.3); Red Cell Distribution Width 14.3 % (12.1-15.1); White Blood Count 4.7 10^3/uL (4.0-10.0)
[2022-03-01] MEDS: fentaNYL 50 mcg/mL INJ 2mL IVP ×2 (12:14→14:45)
[2022-03-01] MEDS: sodium chloride 0.9% 1,000 ML 999 ML IV (12:14)
[2022-03-01] MEDS: ondansetron 2 mg/ML SDV 2 mL 4 MG IVP (12:14)
[2022-03-01 12:37] LABS: Alanine Aminotransferase 20 U/L (0-33); Albumin Level 3.3 g/dL (3.5-5.2); Alkaline Phosphatase 124 U/L (35-105); Anion Gap 12.5 (5-19); Aspartate Amino Transferase 22 U/L (0-32); Blood Urea Nitrogen 22 mg/dL (6-20); Calcium 8.9 mg/dL (8.5-10.5); Carbon Dioxide 24 mmol/L (22-29); Chloride 105 mmol/L (98-107); Globulin 3.3 g/dL (1.3-4.6); Glucose 100 mg/dL (65-115); Lipase 27 U/L (13-60); Magnesium 1.6 mg/dL (1.7-2.3); Osmolality Calculated 287 mOsm/kg (285-295); Potassium 4.5 mmol/L (3.5-5.1); Sodium 137 mmol/L (136-145); Total Bilirubin 0.2 mg/dL (0.15-1.2); Total Protein 6.6 g/dL (6.6-8.7)
[2022-03-01 12:47] LABS: HCG Qualitative Urine. Negative (Negative)
[2022-03-01 12:50] LABS: Add Urine Microscopic? YES; Bilirubin Urine Neg (Negative); Blood Urine Neg (Negative); Glucose Urine UA Norm (Normal); Ketones Urine Negative (Negative); Leukocyte Esterase Urine Negative (Negative); Nitrate Urine Negative (Negative); Protein Urine Trace (Negative); Specific Gravity, Urine 1.015 (1.005-1.030); Urine Appearance Clear (CLEAR); Urine Color Yellow (Yellow); Urobilinogen Urine Neg (Negative); pH Urine 5 (5-7)
--- NOTE | 2022-03-01 12:53 | CT_ITS ---
WS: [id number] CT ABDOMEN AND PELVIS WITH CONTRAST HISTORY: RIGHT lower quadrant and abdominal pain. TECHNIQUE: Imaging performed of the abdomen and pelvis with IV contrast. Single phase imaging of the abdomen. Coronal and sagittal reformats are submitted. All CT scans at [facility] use at [address] one of these dose optimization techniques: automated exposure control; mA and/or kV adjustment per patient size (includes targeted exams where dose is matched to clinical indication); or iterative re construction. IV CONTRAST: Omnipaque 350; 75 mL IV. Oral contrast: No DLP: 467.60 mGy.cm COMPARISON: 08/03/2015 Lower thorax: Lung bases are clear. Heart is normal size. Postsurgical changes near the GE junction f rom a gastric bypass. Liver/biliary system: Normal size with no intrahepatic dilatation. Gallbladder: Status post cholecystectomy. Pancreas: Atrophied pancreas. No duct dilatation. Pancreas is poorly visualized. Spleen: Granulomatous. Normal size. Adrenal glands: Normal. Right kidney: Lobulated cortex. No obstruction. Left kidney: Lobulated cortex. No obstruction. Aorta: Mild atherosclerosis with no aneurysm. Mild narrowing of the celiac axis. IVC filter. Lymphadenopathy: None. Free fluid: None. GI tract: Gastric bypass changes. Small bowel loops in the LEFT lower quadrant and pelvis are mildly fluid distended with mild wall thickening. No obstructive pattern. Diffuse fecal retention and consti pation. The appendix is nearly completely visualized and normal. Abdominal wall: Unremarkable abdominal wall. No hernia. Pelvis: Nondistended urinary bladder. Prior hysterectomy. Bones: L4 anterolisthesis by 5 mm. Posterior fusion hardware from L3 to S1. Focal osteonecrosis RIGHT femoral head. CT/CT abdomen pelvis w con* [id number] IMPRESSION: 1. Marked fecal retention and constipation throughout the colon but most signi ficant in the distal colon. 2. Normal appendix. 3. Fluid filled small bowel loops in the LEFT abdomen but no obstructive patte rn at this time. 4. Prior gastric bypass and prior hysterectomy. 5. No free air. No free fluid.
[2022-03-01 13:00] LABS: Add Urine Culture? No; RBC Urine RARE /hpf (0-2); Squamous Epithelial Cell Urine 0-4 /hpf (0-5)
[2022-03-01 13:12] VITALS: BP 133/71; PULSE 109; RESP 14; O2SAT 97
[2022-03-01] MEDS: iohexol 350 mg/mL 100 mL Btl IV (15:02)
[2022-03-01] MEDS: lactulose oral liq 20 gm/30 mL UDC 30 GM PO (16:34)
[2022-03-01] MEDS: ketorolac 30 mg/mL INJ 15 MG IVP (16:34)
[2022-03-01 16:35] VITALS: BP 133/71; PULSE 109; RESP 14; O2SAT 97
== END 2022-03-01 16:36 | disposition home or self-care (01) ==
PROVIDERS: Emergency Provider Student in an Organized Health Care Education/Training Program; PCP Nurse Practitioner Family
DX: K59.01 Slow transit constipation (principal); Z79.82 Long term (current) use of aspirin; E11.22 Type 2 diabetes mellitus with diabetic chronic kidney disease; N18.32 Chronic kidney disease, stage 3b
CPT/HCPCS: 74177; 80053; 81001; 81025; 83690; 83735; 85025; 86140; 96361; 96374; 96375; 96376; 99285; J1885; J2405; J3010; J7030; Q9967

== ENCOUNTER → 2022-03-05 08:01 | Outpatient (BNVA) | payer MEDICAID, SELFPAY | PROVIDERS: PCP Nurse Practitioner Family; Visit Provider Surgery | DX: K59.00 Constipation, unspecified (principal) | CPT/HCPCS: 99213 ==

== ENCOUNTER → 2022-03-09 08:59 | Outpatient (BNVA) | payer MEDICAID, SELFPAY | PROVIDERS: PCP Nurse Practitioner Family; Visit Provider Orthopaedic Surgery | DX: Z47.89 Encounter for other orthopedic aftercare (principal); Z98.1 Arthrodesis status | CPT/HCPCS: 72040; 99024; 99213 ==

== ENCOUNTER 2022-03-12 11:44 | Outpatient (CLI) | payer MEDICAID, SELFPAY ==
--- NOTE | 2022-03-12 12:00 | MM_ITS ---
WS: [id number] Bilateral screening 3D tomosynthesis digital mammogram, 03/12/2022 Clinical Data: SCREENING Comparison: 06/29/2017. Findings: The breast parenchymal pattern shows fat replacement. No spiculated masses or clustered calcification s are seen. There are no secondary signs of carcinoma. The left breast is smaller than the right [address] [place] MM/[place] [id number] Impression: 1. Negative bilateral mammogram unchanged. 2. Recommend annual screening mammograms. BIRADS: 1-Negative FOLLOW UP: 1 Year Follow-up The CAD installment account checker was used.
== END 2022-03-12 11:45 | disposition home or self-care (01) ==
LOC: RAD 11:44
PROVIDERS: PCP Nurse Practitioner Family; Visit Provider Nurse Practitioner Family
DX: Z12.31 Encounter for screening mammogram for malignant neoplasm of breast (principal)
CPT/HCPCS: 77063; 77067

== ENCOUNTER 2022-03-18 06:00 | Outpatient (RCR) | payer MEDICAID, SELFPAY | END 2022-04-07 23:59 | disposition home or self-care (01) | LOC: SPT 06:00 | PROVIDERS: PCP Nurse Practitioner Family; Visit Provider Orthopaedic Surgery | DX: M54.2 Cervicalgia (principal); G89.29 Other chronic pain | CPT/HCPCS: 97110; 97161 ==

== ENCOUNTER → 2022-04-06 14:34 | Outpatient (BNVA) | payer MEDICAID, SELFPAY | PROVIDERS: PCP Nurse Practitioner Family; Visit Provider Surgery | DX: K59.00 Constipation, unspecified (principal) | CPT/HCPCS: 99213 ==

== ENCOUNTER 2022-04-08 06:00 | Outpatient (RCR) | payer MEDICAID, SELFPAY | END 2022-05-08 23:59 | disposition home or self-care (01) | LOC: SPT 06:00 | PROVIDERS: PCP Nurse Practitioner Family; Visit Provider Orthopaedic Surgery | DX: M54.2 Cervicalgia (principal); G89.29 Other chronic pain | CPT/HCPCS: 97110 ==

== ENCOUNTER 2022-05-09 06:00 | Outpatient (RCR) | payer MEDICAID, SELFPAY | END 2022-06-08 23:59 | disposition home or self-care (01) | LOC: SPT 06:00 | PROVIDERS: PCP Nurse Practitioner Family; Visit Provider Orthopaedic Surgery | DX: M54.2 Cervicalgia (principal); G89.29 Other chronic pain | CPT/HCPCS: 97110 ==

== ENCOUNTER → 2022-05-18 11:13 | Outpatient (BNVA) | payer MEDICAID, SELFPAY | PROVIDERS: PCP Nurse Practitioner Family; Visit Provider Surgery | DX: K59.00 Constipation, unspecified (principal); R11.0 Nausea; R10.9 Unspecified abdominal pain | CPT/HCPCS: 99213 ==

== ENCOUNTER → 2022-06-29 15:52 | Outpatient (BNVA) | payer MEDICAID, SELFPAY | PROVIDERS: PCP Nurse Practitioner Family; Visit Provider Orthopaedic Surgery | DX: Z98.1 Arthrodesis status (principal); Z47.89 Encounter for other orthopedic aftercare | CPT/HCPCS: 72040; 99213 ==

== ENCOUNTER → 2022-07-13 11:41 | Outpatient (BNVA) | payer MEDICAID, SELFPAY | PROVIDERS: PCP Nurse Practitioner Family; Visit Provider Surgery | DX: R10.31 Right lower quadrant pain (principal); Z98.890 Other specified postprocedural states | CPT/HCPCS: 99024 ==

== ENCOUNTER → 2022-08-04 10:34 | Outpatient (BNVA) | payer MEDICAID, SELFPAY | PROVIDERS: PCP Nurse Practitioner Family; Visit Provider Internal Medicine Rheumatology | DX: R76.8 Other specified abnormal immunological findings in serum (principal); M19.90 Unspecified osteoarthritis, unspecified site; Z79.899 Other long term (current) drug therapy; M19.071 Primary osteoarthritis, right ankle and foot; M47.892 Other spondylosis, cervical region; M19.041 Primary osteoarthritis, right hand; M19.042 Primary osteoarthritis, left hand; F22 Delusional disorders | CPT/HCPCS: 36415; 72040; 73070; 73130; 73562; 73630; 80076; 81001; 82310; 82565; 82570; 83735; 84132; 84156; 85025; 85651; 86140; 86200; 86431; 99204 ==

== ENCOUNTER 2022-10-10 11:29 | Emergency (ER) | payer MEDICAID, SELFPAY ==
[2022-10-10 11:39] VITALS: BP 125/87; PULSE 99; RESP 18; TEMP 37.3; O2SAT 97
--- NOTE | 2022-10-10 12:07 | ED_ITS ---
HPI - Extremity Problem General: Chief complaint: Extremity Problem,Nontraumatic Stated complaint: body rash, nausea Time Seen by Provider: 10/10/22 11:43 History of Present Illness: Patient is a 51-year-old female that presents to the emergency department with concerns for parasites in her skin. Patient states that she has had this skin eruption for 4-6 years. She is currently seen a specialist but is not satisfied with his recommendations Patient has a diagnosis of delusions of parasitosis. Associated symptoms: Reports rash; Deny chest pain or fever(s) Review of Systems General: Reports: 10 or more systems reviewed and unremarkable except in HPI and below Const: Denies: fever(s), chills, change in appetite, change in weight, fatigue or malaise Eyes: Denies: change in vision, eye discomfort, eye discharge or eye redness ENMT: Denies: throat pain, enlarged tonsils, odynophagia, hoarseness, ear or mastoid pain, ear discharge, change in hearing, tinnitus, nasal discharge, nasal congestion, post nasal drip or sinus pain Card: Denies: chest pain, palpitations, irregular heart rhythm, edema, dyspnea on exertion, orthopnea or leg pain with exertion Resp: Denies: dyspnea, productive cough, non-productive cough, wheezing, stridor or chest congestion GI: Denies: abdominal pain, nausea, vomiting, dysphagia, diarrhea, constipation, bloating, GI cramping or hematochezia : Denies: flank pain, difficulty voiding, dysuria, urinary frequency, urinary urgency, urinary hesitancy, oliguria or hematuria Musc: Denies: neck pain, back pain, extremity pain, joint pain, joint swelling, joint redness, joint warmth or muscle weakness Skin/Breast: Reports: rash and pruritus; Denies: erythema, photosensitivity or new lesions Neuro: Denies: headache(s), numbness in extremities, weakness in extremities, sensory changes, lack of coordination, difficulty walking, frequent falls, dizziness, confusion, Slurred speech present, difficulty communicating thoughts, seizure-like activity or involuntary movements Endo: Denies: polyuria, polydipsia or tired all the time Andres/Lymph: Denies: easy bruising or easy bleeding PFS ED PFSH: Medical History Allergy to alpha-gal C. difficile diarrhea Cervical disc disorder with myelopathy of mid-cervical region Chronic idiopathic constipation Chronic kidney disease, stage 3b Chronic migraine without aura, intractable, with status migrainosus Delusions of parasitosis Depression with anxiety Diabetes Hypothyroidism Inflammatory arthritis Osteoarthritis of hands, bilateral Positive ANTONETTE (antinuclear antibody) Spondylolisthesis of cervical region Thyroid disease Surgical History [place] filter in place 2001 H/O gastric bypass History of back surgery Dr. Richter 08/08/17 L4-L5 laminectomy/fusion/fixation 2008 [facility] Lumbar decompression History of carpal tunnel surgery of left wrist Dr. Orlando Richter 11/18/2016 History of carpal tunnel surgery of right wrist Dr. Richter 01/13/2017 History of colonoscopy 2018 History of esophagogastroduodenoscopy (EGD) (08/26/21) [address] History of neck surgery Dr. Richter 06/29/2018 C6-C7 ACDFF Hx of hernia repair Hx of hysterectomy Status post colonoscopy (08/26/21) Family History Grandfather CAD (coronary artery disease) Stroke Grandmother CAD (coronary artery disease) Sister CAD (coronary artery disease) Hypertension Family/Other Cancer Mother Hypertension Father Hypertension Brother Hypertension Other Diabetes Social History Smoking and tobacco status: never smoked Alcohol intake: never Substance/Drug Use: never Household members: family Marital status: Single Current occupational status: disabled Physical Exam Const: COMMON NORMALS: no acute distress, patient oriented x3 and alert GENERAL APPEARANCE: cooperative ORIENTATION/CONSCIOUSNESS: Yes awake, Yes oriented to person, Yes oriented to place and Yes oriented to time HENMT: COMMON NORMALS: normocephalic and atraumatic HEAD & SCALP: normocephalic and atraumatic FACE & SINUS: normal facial exam MOUTH: Normal oral and palatal mucosa present THROAT: posterior oropharynx normal Eye: COMMON NORMALS: Equal, round and reactive pupils present, EOMs intact bilaterally, conjunctivae normal and no scleral icterus GENERAL EYE: appearance normal, both eyes and all related structures ALIGNMENT: Yes alignment normal PERIORBITAL: periorbital findings normal CONJUNCTIVA: Yes conjunctivae normal PUPIL: Yes Equal, round and reactive pupils present Neck/C-Spine: COMMON NORMALS: full ROM GENERAL: Yes normal visual inspection Lymph: LYMPHATIC: no lymphadenopathy noted Chest: COMMONS NORMALS: normal inspection of the chest Breast/axilla inspection: Yes no chest deformity, asymmetry, normal contours, no nodules, masses, tenderness Resp: COMMON NORMALS: normal respiratory effort, No retractions, No use of accessory muscles and clear to auscultation bilaterally EFFORT & INSPECTION: Yes able to speak in complete sentences and Yes symmetric chest movement AUSCULTATION: clear to auscultation bilaterally Cardio: COMMON NORMALS: regular rate, regular rhythm and Peripheral pulses 2+ throughout RATE: regular rate RHYTHM: regular rhythm PERIPHERAL PULSES: Peripheral pulses 2+ throughout GI: COMMON NORMALS: Normal to inspection, nondistended, normoactive bowel sounds present, Soft to palpation, non-tender and No hepatosplenomegaly present INSPECTION: Yes normal to inspection AUSCULTATION: Yes normoactive bowel sounds PALPATION: Yes Soft to palpation and Yes No hepatosplenomegaly present RECTAL EXAM: deferred Extremity: COMMON NORMALS: normal to inspection GENERAL: Yes normal exam except as noted Neuro: COMMON NORMALS: patient oriented x3 SENSORIUM/ORIENTATION: Yes alert, Yes oriented to person, Yes oriented to place and Yes oriented to time CRANIAL NERVES: Yes CN normal except as noted Psych: COMMON NORMALS: mental status grossly normal, Normal thought process present, cooperative, activity/motor behavior normal, denies homicidal ideation and denies suicidal ideation THOUGHT PROCESS: Normal thought process present Skin: COMMON NORMALS: no rashes or lesions noted, no wounds and turgor normal GENERAL SKIN EXAM: no rashes or lesions noted and turgor normal Course Vital Signs: Vital signs: Vital Signs Temperature 99.1 F 10/10/22 11:39 Pulse Rate 93 10/10/22 12:09 Respiratory Rate 16 10/10/22 12:09 Blood Pressure 137/81 10/10/22 12:09 Pulse Oximetry 99 10/10/22 12:09 Oxygen Delivery Me thod Room Air 10/10/22 12:09 MDM - Extremity (Nontraumatic) Medical Decision Making Patient presents to the emergency department with a 4 to 6-year history of lesions to bilateral upper extremity. Patient reports that these lesions are unchanged from baseline lesions. She is currently using her prescribed medications as directed. She is also being treated for delusions of parasite infestation. I am unable to treat her with Vistaril or Benadryl due to her current alpha-gal allergy list. I gave her a dose of Decadron for her itching and complaints of swelling. Patient also reported some nausea so she was given a dose of Zofran. Patient is to follow-up with her primary care provider on Tuesday. All questions answered Discharge Plan Discharge Patient Disposition: Home Clinical Impression: Rash and nonspecific skin eruption, Delusions of parasitosis Condition: Stable Prescriptions: No Action lorazepam 1 mg tablet 1 mg PO TID levocetirizine [Xyzal] 5 mg tablet 5 mg PO BEDTIME testosterone compound 1% cream See Rx Instructions .ROUTE .COMPLEX Qty: 1 0RF Rx Instructions: 1 click on days -25 of the month estrogen compound See Rx Instructions topical DIRECTED Qty: 1 0RF Rx Instructions: 1 click at bedtime on days - of the month topical as directed; 1 click at bedtime on days - of the month ondansetron 8 mg tablet,disintegrating 8 mg PO BID PRN (Reason: nausea and vomiting) Qty: 30 1RF hydroxychloroquine 200 mg tablet See Rx Instructions PO .COMPLEX Qty: 45 3RF Rx Instructions: Alternate taking 1 tab today then 2 tabs tomorrow. PO; Linzess 145 mcg capsule 290 mcg PO DAILY 30 Days Qty: 30 5RF mupirocin 2 % ointment 1 applic TOPICAL BID Qty: 22 3RF Rx Instructions: BSA 27% supply enough to apply BID to affected areas. peg 3350-electrolytes [Golytely] 236-22.74-6.74 -5.86 gram recon soln 240 ml PO Q10M Qty: 4000 0RF Rx Instructions: until fecal effluent is clear triamcinolone acetonide 0.1 % ointment 1 applic topical BID Qty: 80 2RF Rx Instructions: Apply to affected areas until healed. avoid face and folds (DME) E0748 Bone growth stimulator See Rx Instructions .Route .MEDSUPPLY Qty: 1 0RF Rx Instructions: As directed nystatin 500,000 unit tablet 500,000 unit PO TID 14 Days Qty: 42 0RF tramadol 50 mg tablet 50 mg PO Q6H PRN (Reason: Pain) Qty: 40 0RF ondansetron HCl 4 mg tablet 4 mg PO Q6H PRN (Reason: nausea and vomiting) Qty: 20 0RF (DME) Aquatic Therapy See Rx Instructions .Route .MEDSUPPLY Qty: 1 0RF Rx Instructions: As directed dicyclomine 20 mg tablet 40 mg PO QID 30 Days Qty: 240 11RF Rx Instructions: Take only 1 tab 4 times daily for the first 2 weeks and then increase to 2 tabs 4 times per day amlodipine [Norvasc] 5 mg tablet 5 mg PO DAILY cyanocobalamin (vitamin B-12) 1,000 mcg/mL solution See Rx Instructions .ROUTE .COMPLEX Rx Instructions: injection EVERY WEEK diazepam [Valium] 5 mg tablet 10 mg PO TID PRN (Reason: anxiety) carisoprodol 350 mg Tablet 350 mg PO BID Qty: 0 hydroxyzine pamoate 50 mg capsule 50 mg PO QID PRN (Reason: Anxiety) lovastatin 20 mg tablet 20 mg PO DAILY Probiotic 3 billion cell Capsule 3,000 mmu cells PO DAILY Rx Instructions: administer with a meal promethazine 25 mg Tablet 25 mg PO QID PRN (Reason: Nausea) montelukast [Singulair] 10 mg Tablet 10 mg PO DAILY cefuroxime axetil 125 mg/5 mL Suspension For Reconstitution 125 mg PO DIRECTED Rx Instructions: injection given with B-12 on Fridays aspirin 81 mg Tablet,Chewable 81 mg PO DAILY ergocalciferol (vitamin D2) [Vitamin D2] 1,250 mcg (50,000 unit) Capsule 50,000 unit PO Q7D Rx Instructions: On Tuesday baclofen 10 mg Tablet 10 mg PO BID levothyroxine 137 mcg tablet 137 mcg PO DAILY pantoprazole 40 mg tablet,delayed release (DR/EC) 40 mg PO DAILY estradiol 0.5 mg Tablet 0.5 mg PO DAILY Discharge Orders: Discharge ED (Routine); Ordered 10/10/22 Ordered By: Choco Norton Referrals: Susan Whaley [Primary Care Provider] - Discharge Diet: Advance as tolerated Discharge Activity: Resume usual activity Patient Instructions: Pain Management Activity Restrictions/Additional Instructions: Please follow-up with your primary care provider and trust manager assistant as planned Continue using the medications they have prescribed Turn to the emergency department for new concerning or worsening symptoms Coding Level of Care Code ED Casting Finisher for Kiet Pardo
[2022-10-10 12:09] VITALS: BP 137/81; PULSE 93; RESP 16; O2SAT 99
[2022-10-10] MEDS: dexamethasone 10 mg/mL INJ IM (12:59)
[2022-10-10] MEDS: ondansetron 4 MG Tablet PO (12:59)
== END 2022-10-10 12:57 | disposition home or self-care (01) ==
PROVIDERS: Emergency Provider Nurse Practitioner; PCP Nurse Practitioner Family
DX: R21 Rash and other nonspecific skin eruption (principal); F22 Delusional disorders
CPT/HCPCS: 96372; 99284; J1100; Q0162

== ENCOUNTER → 2022-10-19 14:27 | Outpatient (BNVA) | payer MEDICAID, SELFPAY | PROVIDERS: PCP Nurse Practitioner Family; Visit Provider Orthopaedic Surgery | DX: Z98.1 Arthrodesis status (principal) | CPT/HCPCS: 72040; 72100; 99214 ==

== ENCOUNTER 2022-12-04 12:44 | Emergency (ER) | payer MEDICAID, SELFPAY ==
--- NOTE | 2022-12-04 12:52 | ED_ITS ---
HPI - Abdominal Pain General: Stated Complaint: ABD pain Time Seen by Provider: 12/04/22 12:46 [facility] ED PFS: Medical History (Updated 12/02/22 @ 15:56 by Kali Coffey MD) Allergy to alpha-gal Anemia C. difficile diarrhea Cervical disc disorder with myelopathy of mid-cervical region Chronic idiopathic constipation Chronic kidney disease, stage 3b Chronic migraine without aura, intractable, with status migrainosus Delusions of parasitosis Depression with anxiety Diabetes Hypothyroidism Inflammatory arthritis Osteoarthritis of hands, bilateral Positive ANTONETTE (antinuclear antibody) Spondylolisthesis of cervical region Thyroid disease Surgical History Katherin filter in place 2001 H/O gastric bypass History of back surgery Dr. Richter 08/08/17 L4-L5 laminectomy/fusion/fixation 2008 [facility] Lumbar decompression History of carpal tunnel surgery of left wrist Dr. Orlando Richter 11/18/2016 History of carpal tunnel surgery of right wrist Dr. Richter 01/13/2017 History of colonoscopy 2018 History of esophagogastroduodenoscopy (EGD) (08/26/21) 2019 History of neck surgery Dr. Richter 06/29/2018 C6-C7 ACDFF Hx of hernia repair Hx of hysterectomy Status post colonoscopy (08/26/21) Family History Grandfather CAD (coronary artery disease) Stroke Grandmother CAD (coronary artery disease) Sister CAD (coronary artery disease) Hypertension Family/Other Cancer Mother Hypertension Father Hypertension Brother Hypertension Other Diabetes Social History Smoking and tobacco status: never smoked Alcohol intake: never Substance/Drug Use: never Household members: family Marital status: Single Current occupational status: disabled Discharge Plan Discharge Condition: Stable Prescriptions: No Action levocetirizine [Xyzal] 5 mg tablet 5 mg PO BEDTIME testosterone compound 1% cream See Rx Instructions .ROUTE .COMPLEX Qty: 1 0RF Rx Instructions: 1 click on days 1-25 of the month estrogen compound See Rx Instructions topical DIRECTED Qty: 1 0RF Rx Instructions: 1 click at bedtime on days 1-25 of the month topical as directed; 1 click at bedtime on days 1-25 of the month ondansetron 8 mg tablet,disintegrating 8 mg PO BID PRN (Reason: nausea and vomiting) Qty: 30 1RF Linzess 145 mcg capsule 290 mcg PO DAILY 30 Days Qty: 30 5RF mupirocin 2 % ointment 1 applic TOPICAL BID Qty: 22 3RF Rx Instructions: BSA 27% supply enough to apply BID to affected areas. hydroxychloroquine 200 mg tablet See Rx Instructions PO .COMPLEX Qty: 45 3RF Rx Instructions: Alternate taking 1 tab today then 2 tabs tomorrow. PO; prednisone 10 mg tablet 10 mg PO DAILY PRN (Reason: for flares) Qty: 30 0RF peg 3350-electrolytes [Golytely] 236-22.74-6.74 -5.86 gram recon soln 240 ml PO Q10M Qty: 4000 0RF Rx Instructions: until fecal effluent is clear triamcinolone acetonide 0.1 % ointment 1 applic topical BID Qty: 80 2RF Rx Instructions: Apply to affected areas until healed. avoid face and folds (DME) E0748 Bone growth stimulator See Rx Instructions .Route .MEDSUPPLY Qty: 1 0RF Rx Instructions: As directed nystatin 500,000 unit tablet 500,000 unit PO TID 14 Days Qty: 42 0RF ondansetron HCl 4 mg tablet 4 mg PO Q6H PRN (Reason: nausea and vomiting) Qty: 20 0RF (DME) Aquatic Therapy See Rx Instructions .Route .MEDSUPPLY Qty: 1 0RF Rx Instructions: As directed dicyclomine 20 mg tablet 40 mg PO QID 30 Days Qty: 240 11RF Rx Instructions: Take only 1 tab 4 times daily for the first 2 weeks and then increase to 2 tabs 4 times per day lorazepam 1 mg tablet 1 mg PO TID Qty: 90 1RF metformin 500 mg tablet 500 mg PO BID Qty: 180 3RF ceftriaxone 1 gram recon soln See Rx Instructions .ROUTE .COMPLEX Qty: 4 1RF Dose Instruction: RECONSTITUE WITH 2.1 ML OF LIDOCAINE 1%. INJECT INTO A LARGE MUSCLE CONTENTS OF ONE VIAL (1 GRAM) ONCE A WEEK (PHARMACIST MAY ADMINISTER) Rx Instructions: RECONSTITUE WITH 2.1 ML OF LIDOCAINE 1%. INJECT INTO A LARGE MUSCLE CONTENTS OF ONE VIAL (1 GRAM) ONCE A WEEK (PHARMACIST MAY ADMINISTER) hydroxyzine pamoate 50 mg capsule See Rx Instructions .ROUTE .COMPLEX Qty: 120 2RF Dose Instruction: TAKE 1 CAPSULE BY MOUTH FOUR TIMES A DAY (KAREN WHITE BUSINESS DATA ANALYST) Rx Instructions: TAKE 1 CAPSULE BY MOUTH FOUR TIMES A DAY (KAREN WHITE BUSINESS DATA ANALYST) fluconazole [Diflucan] 150 mg tablet 150 mg PO ONCE 1 Days Qty: 1 0RF tramadol 50 mg tablet 50 - 100 mg PO TID PRN (Reason: Pain) Qty: 180 0RF amlodipine [Norvasc] 5 mg tablet 5 mg PO DAILY cyanocobalamin (vitamin B-12) 1,000 mcg/mL solution See Rx Instructions .ROUTE .COMPLEX Rx Instructions: injection EVERY WEEK diazepam [Valium] 5 mg tablet 10 mg PO TID PRN (Reason: anxiety) carisoprodol 350 mg Tablet 350 mg PO BID Qty: 0 lovastatin 20 mg tablet 20 mg PO DAILY Probiotic 3 billion cell Capsule 3,000 mmu cells PO DAILY Rx Instructions: administer with a meal promethazine 25 mg Tablet 25 mg PO QID PRN (Reason: Nausea) montelukast [Singulair] 10 mg Tablet 10 mg PO DAILY cefuroxime axetil 125 mg/5 mL Suspension For Reconstitution 125 mg PO DIRECTED Rx Instructions: injection given with B-12 on Fridays aspirin 81 mg Tablet,Chewable 81 mg PO DAILY ergocalciferol (vitamin D2) [Vitamin D2] 1,250 mcg (50,000 unit) Capsule 50,000 unit PO Q7D Rx Instructions: On Tuesday baclofen 10 mg Tablet 10 mg PO BID levothyroxine 137 mcg tablet 137 mcg PO DAILY pantoprazole 40 mg tablet,delayed release (DR/EC) 40 mg PO DAILY estradiol 0.5 mg Tablet 0.5 mg PO DAILY Referrals: Syed Landaverde DO [Primary Care Provider] - Coding Level of Care Code ED Sport Intern for Kiet Pardo
[2022-12-04 12:56] VITALS: BP 117/60; PULSE 105; RESP 14; TEMP 36.9; O2SAT 99
--- NOTE | 2022-12-04 12:58 | PC.NURSE ---
PT also reports falling two nights ago and hitting head with LOC.
--- NOTE | 2022-12-04 13:07 | CTR_ITS ---
PROCEDURE INFORMATION: Exam: CT Head Without Contrast Exam date and time: 12/04/2022 1:49 PM Age: 52 years old Clinical indication: Injury or trauma; Fall; Concussion/head injury; Without loss of consciousness; Injury date: 12/04/2022; Additional info: Fall/struck head/loc TECHNIQUE: Imaging protocol: Computed tomography of the head without contrast. Radiation optimization: All CT scans at this facility use at least one of these dose optimization techniques: automated exposure control; mA and/or kV adjustment per patient size (includes targeted exams where dose is matched to clinical indication); or iterative reconstruction. REPORTING DATA: Count of CT and Cardiac NM exams in prior 12 months: This patient has received [address] and 0 known cardiac nuclear medicine studies in the 12 months prior to the current study. COMPARISON: MR cervical spin wo con* [id number] 12/03/2020 9:53 AM RADIATION DOSE METRICS: Total DLP (mGy-cm): 1108.68 FINDINGS: Brain: Normal. No hemorrhage. Unremarkable white matter. No mass effect. Cerebral ventricles: No ventriculomegaly. Paranasal sinuses: Visualized sinuses are unremarkable. No fluid levels. Mastoid air cells: Visualized mastoid air cells are well aerated. Bones/joints: Unremarkable. No acute fracture. Soft tissues: Unremarkable. CT/CT head wo con* [id number] IMPRESSION: No acute intracranial abnormality.
--- NOTE | 2022-12-04 13:08 | XRR_ITS ---
PROCEDURE INFORMATION: Exam: XR Chest Exam date and time: 12/04/2022 1:11 PM Age: 52 years old Clinical indication: Other: Dizziness; Additional info: Dizzy TECHNIQUE: Imaging protocol: Radiologic exam of the chest. Views: 1 view. COMPARISON: 1. CR XR chest 1V portable [id number] 12/04/2021 1:48 AM 2. CR XR cervical spine 3V* [id number] 10/19/2022 2:34 PM FINDINGS: Lungs: Stable 1.2 cm left lung calcified granuloma. No consolidation. Pleural spaces: Unremarkable. No pleural effusion. No pneumothorax. Heart/Mediastinum: Unremarkable. No cardiomegaly. Bones/joints: Partially visualized cervical and lumbar spine fusion hardware. Stable fractured right inferior most screw. Intraperitoneal space: Upper abdominal surgical changes. XR/XR chest 1V portable [id number] IMPRESSION: No acute findings.
--- NOTE | 2022-12-04 13:09 | W.ED.GENADLT ---
HPI - General Adult General: Chief complaint: Abdominal Pain Stated complaint: ABD pain Time Seen by Provider: 12/04/22 12:46 Source: patient Mode of arrival: ambulatory Limitations: no limitations History of Present Illness: Patient is a 52-year-old female presents to ED today stating she was called and told to urgently go to the nearest emergency department for a blood transfusion. Patient states she had labs drawn several days ago prior to an EGD/colonoscopy performed at [facility]. Patient states she had EKG/colonoscopy performed stating the surgeon was looking for parasites. She states she has had a 50 pound unintentional weight loss over the past 6 months. Patient states several several years ago she had a Edwardo-en-Y and initially lost quite a bit of weight following the procedure but states weight had been stable over the past few years. She states following the Edwarod-en-Y she subsequently developed an incisional hernia which required an abdominal mesh. She states she has had several complications in regards to the abdominal mesh and has had to be removed/repaired 2-3 times. Additional abdominal surgeries include a cholecystectomy that was removed at the time of the Edwardo-en-Y as well as a hysterectomy that was removed at a later date. She states she suffers from chronic abdominal pains-this is stable today. She states a few days ago she was walking and fell and struck her head. She currently complains of a headache. She currently denies dizziness/lightheadedness/SOB. She ambulates to her room well and without assistance. Relieving factors: none Exacerbating factors: none Associated symptoms: Reports headache(s); Deny chest pain, confusion, dyspnea, malaise, nausea, rash, palpitations, syncope or vomiting Treatments prior to arrival: none Review of Systems Const: Reports: change in weight (reports she has lost 50 lbs over the past 6 months); Denies: fever(s), chills, body aches, fatigue or malaise Eyes: Denies: change in vision or blurry vision Card: Denies: chest pain, palpitations, irregular heart rhythm, lightheadedness, syncope or dyspnea on exertion Resp: Denies: dyspnea, productive cough or pain on inspiration GI: Reports: abdominal pain (chronic); Denies: nausea, vomiting, hematemesis, heartburn, diarrhea, hematochezia or melena : Denies: flank pain, difficulty voiding, dysuria, urinary frequency or urinary urgency Musc: Denies: neck pain, back pain, extremity pain, extremity swelling or joint pain Skin/Breast: Denies: rash Neuro: Reports: headache(s); Denies: numbness in extremities, weakness in extremities, sensory changes, lack of coordination, difficulty walking, dizziness, vertigo, confusion, behavioral changes, Slurred speech present or seizure-like activity PFSH ED PFSH: Medical History Allergy to alpha-gal Anemia C. difficile diarrhea Cervical disc disorder with myelopathy of mid-cervical region Chronic idiopathic constipation Chronic kidney disease, stage 3b Chronic migraine without aura, intractable, with status migrainosus Delusions of parasitosis Depression with anxiety Diabetes Hypothyroidism Inflammatory arthritis Osteoarthritis of hands, bilateral Positive ANTONETTE (antinuclear antibody) Spondylolisthesis of cervical region Thyroid disease Surgical History Drive filter in place 2001 H/O gastric bypass History of back surgery Dr. Richter 08/08/17 L4-L5 laminectomy/fusion/fixation 2008 [facility] Lumbar decompression History of carpal tunnel surgery of left wrist Dr. Orlando Richter 11/18/2016 History of carpal tunnel surgery of right wrist Dr. Richter 01/13/2017 History of colonoscopy 2018 History of esophagogastroduodenoscopy (EGD) (08/26/21) [address] Richter 06/29/2018 C6-C7 ACDFF Hx of hernia repair Hx of hysterectomy Status post colonoscopy (08/26/21) Family History Grandfather CAD (coronary artery disease) Stroke Grandmother CAD (coronary artery disease) Sister CAD (coronary artery disease) Hypertension Family/Other Cancer Mother Hypertension Father Hypertension Brother Hypertension Other Diabetes Social History Smoking and tobacco status: never smoked Alcohol intake: never Substance/Drug Use: never Household members: family Marital status: Single Current occupational status: disabled Physical Exam Const: COMMON NORMALS: patient oriented x3, no limitations and alert GENERAL APPEARANCE: cooperative and other (appears chronically ill) ORIENTATION/CONSCIOUSNESS: Yes awake, Yes oriented to person, Yes oriented to place and Yes oriented to time HENMT: COMMON NORMALS: normocephalic and atraumatic HEAD & SCALP: normal to inspection, normocephalic and atraumatic Eye: COMMON NORMALS: no scleral icterus Neck/C-Spine: COMMON NORMALS: full ROM, no lymphadenopathy and supple Resp: COMMON NORMALS: normal respiratory effort and clear to auscultation bilaterally AUSCULTATION: clear to auscultation bilaterally Cardio: COMMON NORMALS: regular rate and regular rhythm RATE: regular rate RHYTHM: regular rhythm GI: COMMON NORMALS: Normal to inspection, nondistended, normoactive bowel sounds present, Soft to palpation, No hepatosplenomegaly present and no masses INSPECTION: Yes normal to inspection AUSCULTATION: Yes normoactive bowel sounds PALPATION: Yes Soft to palpation, Yes Tenderness to palpation present (GI) (across mid/lower abdomen), No Guarding due to palpation present (GI), No Rigid due to palpation and Yes No hepatosplenomegaly present : COMMON NORMALS: Yes no CVA tenderness BLADDER/KIDNEY EXAM: Yes no CVA tenderness Back/Pelvis: COMMON NORMALS: no CVA tenderness and thoracic and lumbar spine normal to inspection Extremity: COMMON NORMALS: normal to inspection GENERAL: Yes normal exam except as noted Neuro: NADIA COMA SCALE: document GCS findings Nadia coma scale eye opening: Spontaneous Nadia coma scale verbal response: Orientated Nadia coma scale motor response: Obey commands [place] coma scale total score: 15 COMMON NORMALS: patient oriented x3 SENSORIUM/ORIENTATION: Yes alert, Yes oriented to person, Yes oriented to place and Yes oriented to time Skin: COMMON NORMALS: no rashes or lesions noted GENERAL SKIN EXAM: no rashes or lesions noted Course Vital Signs: Vital signs: Vital Signs Temperature 98.4 F 12/04/22 12:56 Pulse Rate 80 12/04/22 14:45 Respiratory Rate 14 12/04/22 12:56 Blood Pressure 121/73 12/04/22 13:34 Pulse Oximetry 99 12/04/22 14:45 Oxygen Delivery Me thod Room Air 12/04/22 12:56 [facility] - General Adult Medical Decision Making Patient is a 52-year-old female who presents to ED today stating she was told to come to the emergency department for emergent blood transfusion. 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 Records from [place] obtained and shows impression from her EGD shows iron deficiency anemia, anatomy consistent with gastric bypass, and gastritis. It recommended Pepcid daily but she states she is currently taking Protonix. Findings on her colonoscopy were a slightly tortuous colon with trace hemorrhoids. Impression was iron deficiency anemia. No bleeding was identified anywhere. Patient's hemoglobin was 8.5 on 08/04/22 by our records. It was 8.0 on the day of the EGD/colonoscopy on 12/01/22 and it is 8.1 on today's labs (12/04/22). Patient currently is not complaining of dizziness/lightheadedness or SOB. She is not orthostatic positive. At this time patient is stable for discharge from ED. She needs to begin iron supplementation if she hasn't already. Her PCP can speak to her about best formulation/best absorption options given her history of a Edwardo-en-Y. Return to ED precautions given. Lab Data 12/04/22 13:09 12/04/22 13:[address] 12/04/22 13:07 IMPRESSION: No acute intracranial abnormality. Chest X-Ray 12/04/22 13:08 IMPRESSION: No acute findings. Laboratory Results WBC 4.5 10^3/uL (4.0-10.0) 12/04/22 13:09 RBC 3.62 10^6/uL (4.1-5.3) L 12/04/22 13:09 Hgb 8.1 g/dL (11.5-15.3) L 12/04/22 13:09 Hct 28.0 % (37.0-47.0) L 12/04/22 13:09 MCV 77.3 fl (81-99) L 12/04/22 13:09 MCH 22.4 pg (28.0-34.0) L 12/04/22 13:09 MCHC 28.9 g/dL (30.0-36.0) L 12/04/22 13:09 RDW 18.3 % (12.1-15.1) H 12/04/22 13:09 Plt Count 277 10^3/cmm (130-400) 12/04/22 13:09 MPV 10.0 fL (7.4-10.4) 12/04/22 13:09 Neut % (Auto) 58.5 % 12/04/22 13:09 Lymph % (Auto) 27.7 % 12/04/22 13:09 [place] % (Auto) 10.5 % 12/04/22 13:09 Eos % (Auto) 2.0 % 12/04/22 13:09 Baso % (Auto) 1.1 % 12/04/22 13:09 Neut # (Auto) 2.61 10^3/uL (1.8-7.7) 12/04/22 13:09 Lymph # (Auto) 1.2 10^3/uL (0.8-4.8) 12/04/22 13:09 [place] # (Auto) 0.5 10^3/uL (0.2-0.9) 12/04/22 13:09 Eos # (Auto) 0.1 10^3/uL (0.0-0.8) 12/04/22 13:09 Baso # (Auto) 0.1 10^3/uL (0.0-0.1) 12/04/22 13:09 Nucleated RBC % (auto) 0 % 12/04/22 13:09 Nucleated RBCs # 0.0 /100WBC 12/04/22 13:09 Sodium 135 mmol/L (136-145) L 12/04/22 13:09 Potassium 4.2 mmol/L (3.5-5.1) 12/04/22 13:09 Chloride 103 mmol/L (98-107) 12/04/22 13:09 Carbon Dioxide 17 mmol/L (22-29) L 12/04/22 13:09 Anion Gap 19.2 (5-19) H 12/04/22 13:09 BUN 20 mg/dL (6-20) 12/04/22 13:09 Creatinine 1.1 mg/dL (0.5-0.9) H 12/04/22 13:09 GFR Calculation 51.8 mL/min (90-130) L 12/04/22 13:09 Glucose 114 mg/dL (65-115) 12/04/22 13:09 Calculated Osmolality 283 mOsm/kg (285-295) L 12/04/22 13:09 Calcium 8.7 mg/dL (8.5-10.5) 12/04/22 13:09 Total Bilirubin 0.2 mg/dL (0.15-1.2) 12/04/22 13:09 AST 26 U/L (0-32) 12/04/22 13:09 ALT 24 U/L (0-33) 12/04/22 13:09 Alkaline Phosphatase 98 U/L (35-105) 12/04/22 13:09 Total Protein 6.2 g/dL (6.6-8.7) L 12/04/22 13:09 Albumin 3.5 g/dL (3.5-5.2) 12/04/22 13:09 Globulin 2.7 g/dL (1.3-4.6) 12/04/22 13:09 Lipase 21 U/L (13-60) 12/04/22 13:09 Discharge Plan Discharge Patient Disposition: Home Clinical Impression: Chronic iron deficiency anemia Condition: Stable Prescriptions: No Action ondansetron 8 mg tablet,disintegrating 8 mg PO BID PRN (Reason: nausea and vomiting) Qty: 30 1RF mupirocin 2 % ointment 1 applic TOPICAL BID Qty: 22 3RF Rx Instructions: BSA 27% supply enough to apply BID to affected areas. hydroxychloroquine 200 mg tablet See Rx Instructions PO .COMPLEX Qty: 45 3RF Rx Instructions: Alternate taking 1 tab today then 2 tabs tomorrow. PO; triamcinolone acetonide 0.1 % ointment 1 applic topical BID Qty: 80 2RF Rx Instructions: Apply to affected areas until healed. avoid face and folds (DME) E0748 Bone growth stimulator See Rx Instructions .Route .MEDSUPPLY Qty: 1 0RF Rx Instructions: As directed (DME) Aquatic Therapy See Rx Instructions .Route .MEDSUPPLY Qty: 1 0RF Rx Instructions: As directed dicyclomine 20 mg tablet 40 mg PO QID 30 Days Qty: 240 11RF Rx Instructions: Take only 1 tab 4 times daily for the first 2 weeks and then increase to 2 tabs 4 times per day lorazepam 1 mg tablet 1 mg PO TID Qty: 90 1RF metformin 500 mg tablet 500 mg PO BID Qty: 180 3RF tramadol 50 mg tablet 50 - 100 mg PO TID PRN (Reason: Pain) Qty: 180 0RF diazepam [Valium] 5 mg tablet 10 mg PO TID PRN (Reason: anxiety) promethazine 25 mg Tablet 25 mg PO QID PRN (Reason: Nausea) montelukast [Singulair] 10 mg Tablet 10 mg PO DAILY ergocalciferol (vitamin D2) [Vitamin D2] 1,250 mcg (50,000 unit) Capsule 50,000 unit PO Q7D Rx Instructions: On Tuesday levothyroxine 137 mcg tablet 137 mcg PO DAILY pantoprazole 40 mg tablet,delayed release (DR/EC) 40 mg PO DAILY estradiol 0.5 mg Tablet 0.5 mg PO DAILY hydroxyzine pamoate 50 mg capsule 50 mg PO QID Discharge Orders: Discharge ED (Routine); Ordered 12/04/22 Ordered By: Deborah Ayala Referrals: Syed Landaverde DO [Primary Care Provider] - Patient Instructions: Iron Rich Diet (ED) Coding Level of Care Code ED Automotive Metalsmith for Kiet Pardo
[2022-12-04 13:21] LABS: Basophils # 0.1 10^3/uL (0.0-0.1); Basophils % 1.1 %; Eosinophils # 0.1 10^3/uL (0.0-0.8); Hemoglobin 8.1 g/dL (11.5-15.3); Lymphocytes # 1.2 10^3/uL (0.8-4.8); Lymphocytes % 27.7 %; Mean Corpuscular HGB Conc 28.9 g/dL (30.0-36.0); Mean Corpuscular Hemoglobin 22.4 pg (28.0-34.0); Mean Corpuscular Volume 77.3 fl (81-99); Monocytes # 0.5 10^3/uL (0.2-0.9); Monocytes % 10.5 %; Neutrophils # 2.61 10^3/uL (1.8-7.7); Neutrophils % 58.5 %; Nucleated Red Blood Cells % 0 %; Platelet Count 277 10^3/cmm (130-400); Red Blood Count 3.62 10^6/uL (4.1-5.3); Red Cell Distribution Width 18.3 % (12.1-15.1); White Blood Count 4.5 10^3/uL (4.0-10.0)
[2022-12-04 13:34] VITALS: BP 107/85; BP 120/88; BP 121/73; PULSE 109; PULSE 93; PULSE 95
[2022-12-04 13:47] LABS: Alanine Aminotransferase 24 U/L (0-33); Albumin Level 3.5 g/dL (3.5-5.2); Alkaline Phosphatase 98 U/L (35-105); Anion Gap 19.2 (5-19); Aspartate Amino Transferase 26 U/L (0-32); Blood Urea Nitrogen 20 mg/dL (6-20); Calcium 8.7 mg/dL (8.5-10.5); Carbon Dioxide 17 mmol/L (22-29); Chloride 103 mmol/L (98-107); Creatinine Clr Calc Pharmacy 43.2833; Globulin 2.7 g/dL (1.3-4.6); Glomerular Filtration Rate 51.8 mL/min (90-130); Glucose 114 mg/dL (65-115); Lipase 21 U/L (13-60); Osmolality Calculated 283 mOsm/kg (285-295); Potassium 4.2 mmol/L (3.5-5.1); Sodium 135 mmol/L (136-145); Total Bilirubin 0.2 mg/dL (0.15-1.2); Total Protein 6.2 g/dL (6.6-8.7)
[2022-12-04 14:45] VITALS: PULSE 80; O2SAT 99
== END 2022-12-04 14:49 | disposition home or self-care (01) ==
PROVIDERS: Emergency Provider Physician Assistant; PCP Family Medicine
DX: D50.9 Iron deficiency anemia, unspecified (principal); D50.8 Other iron deficiency anemias; Z79.84 Long term (current) use of oral hypoglycemic drugs; E11.22 Type 2 diabetes mellitus with diabetic chronic kidney disease; N18.32 Chronic kidney disease, stage 3b
CPT/HCPCS: 36415; 70450; 71045; 80053; 83690; 85025; 99285

== ENCOUNTER → 2022-12-20 13:53 | Outpatient (BNVA) | payer MEDICAID, SELFPAY | PROVIDERS: PCP Family Medicine; Visit Provider Family Medicine | DX: B88.2 Other arthropod infestations (principal); F22 Delusional disorders | CPT/HCPCS: 88304 ==

== ENCOUNTER → 2022-12-23 13:31 | Outpatient (BNVA) | payer MEDICAID, SELFPAY | PROVIDERS: PCP Family Medicine; Visit Provider Orthopaedic Surgery | DX: M54.2 Cervicalgia; T84.216A Breakdown (mechanical) of internal fixation device of vertebrae, initial encounter; V49.9XXA Car occupant (driver) (passenger) injured in unspecified traffic accident, initial encounter; Y79.8 Miscellaneous orthopedic devices associated with adverse incidents, not elsewhere classified | CPT/HCPCS: 72040; 99214 ==

== ENCOUNTER 2023-01-17 16:20 | Outpatient (CLI) | payer MEDICAID, SELFPAY ==
--- NOTE | 2023-01-17 16:30 | CT_ITS ---
WS: [id number] CT CERVICAL SPINE HISTORY: neck pain TECHNIQUE: Contiguous 2.0 mm axial imaging performed through the entire cervical spine. Sagittal and coronal reformats also performed. All CT scans at [facility] use at least one of these dose o ptimization techniques: automated exposure control; mA and/or kV adjustment per patient size (include s targeted exams where dose is matched to clinical indication); or iterative reconstruction. DLP: 321.97 mGy.cm COMPARISON: 08/07/2019 Mild straightening of the normal cervical lordosis. Anterior C6-7 fusion with interbody spacer is sta ble. Intact fusion across the disc. New anterior cervical fusion at C3-4 with interbody spacer. There does appear to be fusion across the disc space also. New since the prior study is posterior fusion e xtending from C2-T2. Vertical rods and facet screws are identified. No facet screws at C7. Craniocervical junction is normally aligned. No acute fractures. The hardware appears intact. There is a large posterior laminectomy defect extending from C3-C7. Hardware obscuring detail of the soft tissue within the central canal. No central stenosis or disc protrusions are identified. No high -grade foraminal stenosis. IMPRESSION: 1. No acute cervical spine fracture. 2. Anterior cervical fusions at C3-4 and C6-7 with interbody spacers are intact. No lucency surroundi ng the screws. Complete fusion across the disc spacers. 3. Posterior fusion hardware with vertical rods and facet screws extends from C2-T2. 4. Large posterior laminectomy defects from C3-C7. 5. No cervical stenosis identified.
== END 2023-01-17 16:21 | disposition home or self-care (01) ==
LOC: RAD 16:21
PROVIDERS: PCP Family Medicine; Visit Provider Orthopaedic Surgery
DX: M54.2 Cervicalgia (principal); Z98.1 Arthrodesis status
CPT/HCPCS: 72125

== ENCOUNTER → 2023-01-20 15:43 | Outpatient (BNVA) | payer MEDICAID, SELFPAY | PROVIDERS: PCP Family Medicine; Visit Provider Orthopaedic Surgery | DX: Z98.1 Arthrodesis status; M54.6 Pain in thoracic spine | CPT/HCPCS: 99214 ==

== ENCOUNTER → 2023-02-07 10:25 | Outpatient (BNVA) | payer MEDICAID, SELFPAY | PROVIDERS: PCP Family Medicine; Visit Provider Family Medicine | DX: L29.9 Pruritus, unspecified (principal); F22 Delusional disorders; M19.90 Unspecified osteoarthritis, unspecified site; D64.9 Anemia, unspecified; Z23 Encounter for immunization | CPT/HCPCS: 82607 ==

== ENCOUNTER → 2023-03-11 10:04 | Outpatient (BNVA) | payer MEDICAID, SELFPAY | PROVIDERS: PCP Family Medicine; Visit Provider Nurse Practitioner Family | DX: L30.8 Other specified dermatitis (principal); F42.4 Excoriation (skin-picking) disorder; L57.0 Actinic keratosis; L57.8 Other skin changes due to chronic exposure to nonionizing radiation | CPT/HCPCS: 17000; 99213 ==

== ENCOUNTER → 2023-03-21 15:43 | Outpatient (BNVA) | payer MEDICAID, SELFPAY | PROVIDERS: PCP Family Medicine; Visit Provider Dermatology | DX: S50.862A Insect bite (nonvenomous) of left forearm, initial encounter (principal); S50.861A Insect bite (nonvenomous) of right forearm, initial encounter; S00.86XA Insect bite (nonvenomous) of other part of head, initial encounter; X58.XXXA Exposure to other specified factors, initial encounter; L30.8 Other specified dermatitis; F42.4 Excoriation (skin-picking) disorder | CPT/HCPCS: 99213 ==

== ENCOUNTER 2023-04-22 14:41 | Outpatient (CLI) | payer MEDICAID, SELFPAY ==
[2023-04-22 15:08] LABS: Basophils # 0.1 10^3/uL (0.0-0.1); Basophils % 0.6 %; Eosinophils # 0.2 10^3/uL (0.0-0.8); Eosinophils % 1.8 %; Hematocrit 25.1 % (36-47); Lymphocytes # 1.3 10^3/uL (0.8-4.8); Lymphocytes % 15.3 %; Mean Corpuscular HGB Conc 27.5 g/dL (30-55); Mean Corpuscular Hemoglobin 19.2 pg (27-33); Mean Corpuscular Volume 69.9 fl (85-98); Mean Platelet Volume 9.2 fL (7.4-10.4); Monocytes # 0.8 10^3/uL (0.2-0.9); Monocytes % 9.1 %; Neutrophils # 6.37 10^3/uL (1.8-7.7); Neutrophils % 72.9 %; Nucleated Red Blood Cells % 0 %; Platelet Count 482 10^3/cmm (157-399); Red Blood Count 3.59 10^6/uL (3.85-5.65); Red Cell Distribution Width 19.3 % (12.1-15.1); White Blood Count 8.75 10^3/uL (3.29-11.43)
[2023-04-22 15:25] LABS: Creatinine Urine, Random 137 mg/dL (28-217); Microalbumin Random Urine 11 ug/dL (0-20)
[2023-04-22 15:26] LABS: Microalbum Creatinine Ratio Ur 80 mg/dL (0-20)
[2023-04-22 15:33] LABS: Calcium 8.7 mg/dL (8.5-10.5)
[2023-04-22 15:34] LABS: Albumin Level 3.7 g/dL (3.5-5.2); Anion Gap 13.9 (5-19); Blood Urea Nitrogen 24 mg/dL (6-20); Calcium 8.6 mg/dL (8.5-10.5); Carbon Dioxide 29 mmol/L (22-29); Chloride 100 mmol/L (98-107); Glomerular Filtration Rate 46.8 mL/min (90-130); Glucose 64 mg/dL (65-115); Phosphorus 4.5 mg/dL (2.5-4.5); Potassium 3.9 mmol/L (3.5-5.1); Sodium 139 mmol/L (136-145)
[2023-04-22 15:50] LABS: 25 Hydroxy Vitamin D 69 ng/mL (30-100)
== END 2023-04-22 14:42 | disposition home or self-care (01) ==
PROVIDERS: PCP Family Medicine; Visit Provider Internal Medicine
DX: D63.1 Anemia in chronic kidney disease (principal); E11.22 Type 2 diabetes mellitus with diabetic chronic kidney disease; I10 Essential (primary) hypertension; N18.32 Chronic kidney disease, stage 3b
CPT/HCPCS: 36415; 80069; 82044; 82306; 82310; 83970; 85025

== ENCOUNTER → 2023-05-19 11:41 | Outpatient (BNVA) | payer MEDICAID, SELFPAY | PROVIDERS: PCP Family Medicine; Visit Provider Dermatology | DX: S50.862A Insect bite (nonvenomous) of left forearm, initial encounter (principal); S50.861A Insect bite (nonvenomous) of right forearm, initial encounter; S00.86XA Insect bite (nonvenomous) of other part of head, initial encounter; X58.XXXA Exposure to other specified factors, initial encounter; L30.8 Other specified dermatitis; F42.4 Excoriation (skin-picking) disorder; K13.0 Diseases of lips; L98.8 Other specified disorders of the skin and subcutaneous tissue; L28.1 Prurigo nodularis | CPT/HCPCS: 99214 ==

== ENCOUNTER 2023-05-20 14:09 | Outpatient (CLI) | payer MEDICAID, SELFPAY ==
[2023-05-20 14:41] LABS: Basophils % 0.3 %; Eosinophils # 0.1 10^3/uL (0.0-0.8); Eosinophils % 0.7 %; Hematocrit 24.3 % (36-47); Lymphocytes # 0.8 10^3/uL (0.8-4.8); Lymphocytes % 6.7 %; Mean Corpuscular HGB Conc 27.6 g/dL (30-55); Mean Corpuscular Hemoglobin 18.7 pg (27-33); Mean Corpuscular Volume 67.9 fl (85-98); Mean Platelet Volume 8.9 fL (7.4-10.4); Monocytes # 0.5 10^3/uL (0.2-0.9); Monocytes % 3.9 %; Neutrophils # 10.17 10^3/uL (1.8-7.7); Neutrophils % 87.7 %; Nucleated Red Blood Cells % 0 %; Platelet Count 434 10^3/cmm (157-399); Red Blood Count 3.58 10^6/uL (3.85-5.65); Red Cell Distribution Width 19.7 % (12.1-15.1); White Blood Count 11.59 10^3/uL (3.29-11.43)
[2023-05-20 15:17] LABS: Alanine Aminotransferase 49 U/L (0-33); Albumin Level 3.6 g/dL (3.5-5.2); Alkaline Phosphatase 80 U/L (35-105); Anion Gap 15.2 (5-19); Aspartate Amino Transferase 36 U/L (0-32); Blood Urea Nitrogen 24 mg/dL (6-20); Calcium 8.7 mg/dL (8.5-10.5); Carbon Dioxide 25 mmol/L (22-29); Chloride 102 mmol/L (98-107); Globulin 2.8 g/dL (1.3-4.6); Glomerular Filtration Rate 57.8 mL/min (90-130); Glucose 180 mg/dL (65-115); Osmolality Calculated 295 mOsm/kg (285-295); Potassium 4.2 mmol/L (3.5-5.1); Sodium 138 mmol/L (136-145); Thyroid Stimulating Hormone 0.54 uIU/mL (0.27-4.20); Total Bilirubin 0.2 mg/dL (0.15-1.2); Total Protein 6.4 g/dL (6.6-8.7); Vitamin B12 315 pg/mL (232-1245)
[2023-05-20 15:22] LABS: Folate Level 18.2 ng/mL (4.8-37.3)
[2023-05-20 15:23] LABS: Hepatitis A Antibody IgM Non-Reactive (Nonreactive); Hepatitis B Core AB, Total Non-Reactive (Nonreactive); Hepatitis B Surface AB < 3.5 (11.5-1000); Hepatitis B Surface Antigen Non-Reactive (Nonreactive); Hepatitis C Virus Antibody Reactive (Nonreactive)
[2023-05-20 15:59] LABS: Free T4 Free Thyroxine 1.35 ng/dL (0.82-1.77)
[2023-05-21 17:49] LABS: HEP C RNA Viral Load Quant <1.18 NOT DETECTED Log IU/mL (NOT DETECTED); HEP C RNA Viral Load Quant <15 NOT DETECTED IU/mL (NOT DETECTED)
== END 2023-05-20 14:10 | disposition home or self-care (01) ==
LOC: LAB 14:11
PROVIDERS: PCP Family Medicine; Visit Provider Dermatology
DX: F42.4 Excoriation (skin-picking) disorder (principal)
CPT/HCPCS: 36415; 80048; 80076; 82607; 82746; 84439; 84443; 85025; 86705; 86706; 86709; 86803; 87340; 87522

== ENCOUNTER 2023-06-13 14:38 | Observation (INO) | payer MEDICAID, SELFPAY ==
[2023-06-13 14:42] VITALS: BP 154/85; PULSE 118; TEMP 36.6; O2SAT 100; BMI 18.9
--- NOTE | 2023-06-13 14:51 | XR_ITS ---
WS: [id number] XR chest 1V portable [id number] REASON FOR EXAM: sob FINDINGS: Thoracic aorta and mediastinum are within normal limits. Heart is at the upper limits of normal in size. Calcified granulomatous disease in both hemithoraces. Minimal reticular interstitial lung opacities in both lower lung garnett. Possibly due to poor inspira tory effort. Bony thorax intact without significant focal abnormality. IMPRESSION: Apparent lower lung field interstitial densities may be due to lack of good inspiratory effort. Follow-up as clinically warranted.
--- NOTE | 2023-06-13 14:51 | ECG_ITS ---
[facility] Test Date: 2023-06-13 Pat Name: Marcie Youssef Department: Room: Gender: Female Advertising Vice President: : 1970 Requested By: Zoe Bai Order Number: [id number] Anjelica MD: José Guerrero M.D. Measurements Intervals [place] Rate: 115 P: 75 MS: 120 QRS: 70 QRSD: 84 T: 48 QT: 332 QTc: 460 Interpretive Statements SINUS TACHYCARDIA WITH OCCASIONAL SUPRAVENTRICULAR PREMATURE COMPLEXES Compared to ECG 12/04/2021 02:39:37 Sinus rhythm no longer present Electronically Signed On 06-13-2023 23:09:28 SHEET CUTTER by José Guerrero M.D. [email or web address] centerDynamo Mediauniversity hospitals lake west medical centerCognitive Code/store/NU/[id number]
--- NOTE | 2023-06-13 14:55 | ED_ITS ---
HPI - SOB/Dyspnea 2 General: Chief Complaint: Shortness of Breath/Dyspnea Stated Complaint: syncope Time Seen by Provider: 06/13/23 14:46 Source: patient Mode of arrival: ambulatory Limitations: no limitations History of Present Illness: HPI Narrative: 52-year-old female states she has had an emia set up for an outpatient transfusion had a rapid response called the transfusion center patient got very short of breath felt like her heart was burning feeling she is going to pass out she did start her transfusion roughly 30 minutes ago. She denies any fevers. Associated symptoms: Reports chest pain; Deny abdominal pain, fever(s), nausea or vomiting Review of Systems 2 Const: Denies: fever(s), chills, body aches or change in appetite Eyes: Denies: blurry vision or eye discomfort ENMT: Denies: throat pain or dental pain Card: Reports: chest pain and pre-syncope Resp: Reports: dyspnea GI: Denies: abdominal pain, nausea, vomiting or diarrhea Musc: Denies: neck pain or back pain Skin/Breast: Denies: rash Neuro: Denies: headache(s) PFSH ED 2 PFSH: Medical History Hypertension Anemia Delusions of parasitosis Osteoarthritis of hands, bilateral Positive ANTONETTE (antinuclear antibody) Inflammatory arthritis Chronic idiopathic constipation C. difficile diarrhea Depression with anxiety Hypothyroidism Chronic kidney disease, stage 3b Cervical disc disorder with myelopathy of mid-cervical region Spondylolisthesis of cervical region Diabetes Allergy to alpha-gal Thyroid disease Chronic migraine without aura, intractable, with status migrainosus Surgical History Hx of hernia repair Status post colonoscopy (08/26/21) History of colonoscopy 2019 History of esophagogastroduodenoscopy (EGD) (08/26/21) 2019 Hx of hysterectomy H/O gastric bypass [place] filter in place 2001 History of carpal tunnel surgery of left wrist Dr. Orlando Richter 11/18/2016 History of carpal tunnel surgery of right wrist Dr. Richter 01/13/2017 History of back surgery Dr. Richter 08/08/17 L4-L5 laminectomy/fusion/fixation 2008 [facility] Lumbar decompression History of neck surgery Dr. Richter 06/29/2018 C6-C7 ACDFF Family History Grandfather CAD (coronary artery disease) Stroke Grandmother CAD (coronary artery disease) Sister CAD (coronary artery disease) Hypertension Family/Other Cancer Mother Hypertension Father Hypertension Brother Hypertension Other Diabetes Social History Smoking and tobacco/nicotine status: never used tobacco/nicotine Alcohol intake: never Substance/Drug Use: never Household members: family Marital status: Single Current occupational status: disabled Physical Exam 2 Const: COMMON NORMALS: patient oriented x3 HENMT: COMMON NORMALS: normocephalic and atraumatic HEAD & SCALP: n ormocephalic and atraumatic Neck/C-Spine: COMMON NORMALS: full ROM and supple Chest: COMMONS NORMALS: normal inspection of the chest and normal palpation of entire chest wall Resp: EFFORT & INSPECTION: Yes tachypneic and Yes labored Cardio: COMMON NORMALS: regular rhythm and No murmurs present (Cardio) R ATE: tachycardic RHYTHM: regular rhythm GI: COMMON NORMALS: Normal to inspection, nondistended, normoactive bowel sounds present, Soft to palpation, non-tender and no masses PALPATION: Yes Soft to palpation Extremity: COMMON NORMALS: normal to inspection and full ROM Neuro: COMMON NORMALS: patient oriented x3, moves all extremities and no focal motor deficits Psych: COMMON NORMALS: mental status grossly normal, Normal thought process present and cooperative THOUGHT PROCESS: Normal thought process present Skin: COMMON NORMALS: no rashes or lesions noted and no wounds GENERAL SKIN EXAM: no rashes or lesions noted Course 2 Vital Signs: Vital signs: Vital Signs Temperature 97.8 F 06/13/23 14:42 Pulse Rate 118 H 06/13/23 14:42 Respiratory Rate 17 06/13/23 15:53 Blood Pressure 154/85 06/13/23 14:42 Pulse Oximetry 96 06/13/23 15:53 Oxygen Delivery Me thod Room Air 06/13/23 14:42 MDM - SOB/Dyspnea Medical Decision Making Patient presents here with a near syncopal event along with transfusion reaction came here from outpatient transfusion she originally did require oxygen since improved I spoke to hospitalist and will admit at this time. Medical Records I reviewed the patient's medical records. Lab Data I reviewed the patient's lab results. 06/13/23 15:26 06/13/23 15:26 Labs/Radiology: Laboratory Results WBC 8.05 10^3/uL (3.29-11.43) 06/13/23 15: RBC 3.22 10^6/uL (3.85-5.65) L 06/13/23 15:26 Hgb 6.00 g/dL (11.27-16.99) L* 06/13/23 15:26 Hct 23.1 % (36-47) L 06/13/23 15:26 MCV 71.7 fl (85-98) L 06/13/23 15:26 MCH 18.6 pg (27-33) L 06/13/23 15: MCHC 26.0 g/dL (30-55) L 06/13/23 15: RDW 19.1 % (12.1-15.1) H 06/13/23 15:26 Plt Count 444 10^3/cmm (157-399) H 06/13/23 15:26 MPV 9.7 fL (7.4-10.4) 06/13/23 15: Neut % (Auto) 76.1 % 06/13/23 15:26 Lymph % (Auto) 12.9 % 06/13/23 15:26 [place] % (Auto) 9.6 % 06/13/23 15:26 Eos % (Auto) 0.5 % 06/13/23 15:26 Baso % (Auto) 0.2 % 06/13/23 15:26 Neut # (Auto) 6.12 10^3/uL (1.8-7.7) 06/13/23 15:26 Lymph # (Auto) 1.0 10^3/uL (0.8-4.8) 06/13/23 15:26 [place] # (Auto) 0.8 10^3/uL (0.2-0.9) 06/13/23 15: Eos # (Auto) 0.0 10^3/uL (0.0-0.8) 06/13/23 15:26 Baso # (Auto) 0.0 10^3/uL (0.0-0.1) 06/13/23 15:26 Nucleated RBC % (auto) 0.2 % 06/13/23 15:26 Nucleated RBCs # 0.0 /100WBC 06/13/23 15:26 PT 12.20 SECONDS (12.1-14.9) 06/13/23 15:26 INR 0.88 (0.8-1.2) 06/13/23 15:26 D-Dimer 0.66 ug/mLFEU (0-0.59) H 06/13/23 15:26 Sodium 138 mmol/L (136-145) 06/13/23 15:26 Potassium 3.3 mmol/L (3.5-5.1) L 06/13/23 15:26 Chloride 103 mmol/L (98-107) 06/13/23 15:26 Carbon Dioxide 23 mmol/L (22-29) 06/13/23 15:26 Anion Gap 15.3 (5-19) 06/13/23 15:26 BUN 26 mg/dL (6-20) H 06/13/23 15:26 Creatinine 0.9 mg/dL (0.5-0.9) 06/13/23 15:26 GFR Calculation 65.2 mL/min (90-130) L 06/13/23 15:26 Glucose 106 mg/dL (65-115) 06/13/23 15:26 Calculated Osmolality 291 mOsm/kg (285-295) 06/13/23 15:26 Calcium 8.6 mg/dL (8.5-10.5) 06/13/23 15:26 Total Bilirubin 0.2 mg/dL (0.15-1.2) 06/13/23 15:26 AST 31 U/L (0-32) 06/13/23 15:26 ALT 28 U/L (0-33) 06/13/23 15:26 Alkaline Phosphatase 73 U/L (35-105) 06/13/23 15:26 Troponin T Baseline 16 ng/L (0-10) H 06/13/23 15:26 NT-Pro-B Natriuret Pep 696 pg/mL (0-125) H 06/13/23 15:26 Total Protein 5.8 g/dL (6.6-8.7) L 06/13/23 15:26 Albumin 3.3 g/dL (3.5-5.2) L 06/13/23 15:26 Globulin 2.5 g/dL (1.3-4.6) 06/13/23 15:26 Reaction Clerical Check No discrepancy 06/13/23 15:26 Pre-Trans Blood Type Apos 06/13/23 15:26 Pre-Trans Urine RBC Not Reportable 06/13/23 15:26 Post-Trans Blood Type A Positive 06/13/23 15:26 Post-Tx Visible Hemolys No hemolysis 06/13/23 15:26 Post-Trans SRAVANI Negative 06/13/23 15:26 All radiology interpretation(s) finalized by discharge EKG Data EKG 1: I personally reviewed and interpreted this EKG as follows: EKG Interpretation Date: 06/13/23 EKG interpretation time: 14:41 Interpretation: sinus tach hr [address] or t wave abnormalities qrs 84 qtc 400 Discharge Plan Discharge Patient Disposition: Admitted As Inpatient Clinical Impression: Near syncope, Transfusion reaction Condition: Stable Coding Level of Care Code ED Industrial Electrical Technician for Kiet Pardo
--- NOTE | 2023-06-13 14:56 | PC.NURSE ---
Per Dr. Bai I turned the blood transfusion off and unhooked it from the patient's IV.
[2023-06-13] MEDS: sodium chloride 0.9% 1,000 ML 999 ML IV (15:21)
[2023-06-13 15:41] LABS: Basophils % 0.2 %; Eosinophils % 0.5 %; Hematocrit 23.1 % (36-47); Lymphocytes % 12.9 %; Mean Corpuscular Hemoglobin 18.6 pg (27-33); Mean Corpuscular Volume 71.7 fl (85-98); Mean Platelet Volume 9.7 fL (7.4-10.4); Monocytes # 0.8 10^3/uL (0.2-0.9); Monocytes % 9.6 %; Neutrophils # 6.12 10^3/uL (1.8-7.7); Neutrophils % 76.1 %; Nucleated Red Blood Cells % 0.2 %; Platelet Count 444 10^3/cmm (157-399); Red Blood Count 3.22 10^6/uL (3.85-5.65); Red Cell Distribution Width 19.1 % (12.1-15.1); White Blood Count 8.05 10^3/uL (3.29-11.43)
[2023-06-13 15:53] VITALS: RESP 17; O2SAT 96
[2023-06-13] MEDS: morphine 4 mg/mL SDV 1 mL IVP ×2 (15:53→22:07)
[2023-06-13] MEDS: ondansetron 2 mg/ML SDV 2 mL 4 MG IVP ×2 (15:53→23:53)
[2023-06-13 15:58] LABS: INR 0.88 (0.8-1.2)
[2023-06-13 16:00] LABS: D Dimer 0.66 ug/mLFEU (0-0.59)
[2023-06-13 16:12] LABS: Troponin(5th) Baseline 16 ng/L (0-10)
[2023-06-13 17:00] LABS: Alanine Aminotransferase 28 U/L (0-33); Albumin Level 3.3 g/dL (3.5-5.2); Alkaline Phosphatase 73 U/L (35-105); Anion Gap 15.3 (5-19); Aspartate Amino Transferase 31 U/L (0-32); Blood Urea Nitrogen 26 mg/dL (6-20); Calcium 8.6 mg/dL (8.5-10.5); Carbon Dioxide 23 mmol/L (22-29); Chloride 103 mmol/L (98-107); Globulin 2.5 g/dL (1.3-4.6); Glomerular Filtration Rate 65.2 mL/min (90-130); Glucose 106 mg/dL (65-115); NT Pro B Type Natriuretic Pept 696 pg/mL (0-125); Osmolality Calculated 291 mOsm/kg (285-295); Potassium 3.3 mmol/L (3.5-5.1); Sodium 138 mmol/L (136-145); Total Bilirubin 0.2 mg/dL (0.15-1.2); Total Protein 5.8 g/dL (6.6-8.7)
--- NOTE | 2023-06-13 17:35 | PM.HP ---
Providers/Chief Complaint Primary Care Provider: ySed Landaverde DO Chief Complaint: syncope History of Present Illness Marcie Youssef is a 52 year old female who has had EGD colonoscopy lately 3 months ago without any significant findings, history of anemia without any etiology for now patient is taking iron and B12, takes multiple medications, also has significant anxiety lately her 10 medications have been cut off at the time of evaluation patient is stating that she has burning sensation in her chest. She is on room air saturating well hemodynamically stable. Rapid response was called in and will be for her symptoms which were related to her transfusion. Patient had only received a few mL of blood when she start experiencing burning sensation in her chest when blood transfusion was stopped. No history of bone marrow disorder stating that she has history of [place] spotted fever or Lyme disease and multiple tick bites for years ago but nothing recent. She has seen Dr. Rodarte as well No history of cancer, her father had [place] at age 36 Review of Systems Const: Denies: fever(s) Eyes: Denies: change in vision ENMT: Denies: throat pain Card: Denies: chest pain Resp: Reports: dyspnea GI: Denies: abdominal pain : Denies: flank pain Musc: Denies: neck pain Medications/Allergies Home Medications Medication Instructions Recorded Confirmed Last Taken Type [id number] Bone growth stimulator #1 ea 02/06/21 06/13/23 08/25/21 Rx estradiol 0.5 mg tablet 0.5 mg PO DAILY 03/01/22 06/13/23 06/13/23 History pantoprazole 40 mg tablet,delayed 40 mg PO DAILY 03/01/22 06/13/23 06/13/23 History release Aquatic Therapy #1 ea 05/17/22 06/13/23 Unknown Rx ondansetron 8 mg disintegrating 8 mg PO BID PRN nausea and 05/18/22 06/13/23 Unknown Rx tablet vomiting #30 tabs mupirocin 2 % topical ointment 1 applic topical BID #22 grams 08/10/22 06/13/23 06/13/23 Rx dicyclomine 20 mg tablet 40 mg (2 x 20 mg) PO QID 30 days 10/01/22 06/13/23 06/13/23 Rx #240 tabs levothyroxine 137 mcg tablet 137 mcg PO DAILY #90 tabs 09/11/2806/13/23 06/13/23 Rx metformin 500 mg tablet 500 mg PO BID DM #180 tabs 01/13/23 06/13/23 06/13/23 Rx lidocaine 4 % topical cream 1 applic topical BID PRN hand pain 03/02/23 06/13/23 Unknown Rx #30 grams prednisone 10 mg tablet See Rx Instructions PO .COMPLEX 05/03/23 06/13/23 Unknown Rx PRN joint pain #30 tabs hydroxychloroquine 200 mg tablet See Rx Instructions .Route 05/10/23 06/13/23 06/13/23 Rx .COMPLEX #45 tabs lorazepam 1 mg tablet 1 mg PO TID anxiety/stress #90 tabs 05/21/23 06/13/23 Unknown Rx fluticasone propionate 44 1 puff inhalation BID asthma #10.6 05/28/23 06/13/23 06/13/23 Rx mcg/actuation HFA aerosol inhaler grams gabapentin 100 mg capsule 200 mg (2 x 100 mg) PO TID 05/31/23 06/13/23 06/13/23 Rx neurodermatosis #180 caps tramadol 50 mg tablet 50 - 100 mg (1 - 2 x 50 mg) PO TID 06/05/23 06/13/23 Unknown Rx PRN Pain #180 tabs ergocalciferol (vitamin D2) 1,250 1,250 mcg PO Q7D 06/13/23 06/13/23 06/13/23 History mcg (50,000 unit) capsule hydroxyzine pamoate 50 mg capsule 50 mg PO QID 06/13/23 06/13/23 06/13/23 History Allergies Allergy/AdvReac Type Severity Reaction Status Date / Time NSAIDS (Non-Steroidal Allergy Mild Unknown Verified 06/13/23 14:46 Anti-Inflamma Sulfa (Sulfonamide Allergy Mild Unknown Verified 06/13/23 14:46 Antibiotics) Beef Containing Products Allergy ALGY-Anaphy Verified 06/13/23 14:46 laxis Pork/Porcine Containing Allergy nausea and Verified 06/13/23 14:46 Products vomiting PFSH Acute PFSH: Medical History (Updated 06/13/23 @ 19:35 by Sammy Aguilar MD) TRALI (transfusion related acute lung injury) Hypertension Anemia Delusions of parasitosis Osteoarthritis of hands, bilateral Positive ANTONETTE (antinuclear antibody) Inflammatory arthritis Chronic idiopathic constipation C. difficile diarrhea Depression with anxiety Hypothyroidism Chronic kidney disease, stage 3b Cervical disc disorder with myelopathy of mid-cervical region Spondylolisthesis of cervical region Diabetes Allergy to alpha-gal Thyroid disease Chronic migraine without aura, intractable, with status migrainosus Surgical History Hx of hernia repair Status post colonoscopy (08/26/21) History of colonoscopy 2019 History of esophagogastroduodenoscopy (EGD) (08/26/21) 2019 Hx of hysterectomy H/O gastric bypass [place] filter in place 2001 History of carpal tunnel surgery of left wrist Dr. Orlando Richter 11/18/2016 History of carpal tunnel surgery of right wrist Dr. Richter 01/13/2017 History of back surgery Dr. Richter 08/08/17 L4-L5 laminectomy/fusion/fixation 2008 [facility] Lumbar decompression History of neck surgery Dr. Richter 06/29/2018 C6-C7 ACDFF Family History Grandfather CAD (coronary artery disease) Stroke Grandmother CAD (coronary artery disease) Sister CAD (coronary artery disease) Hypertension Family/Other Cancer Mother Hypertension Father Hypertension Brother Hypertension Other Diabetes Social History Smoking and tobacco/nicotine status: never used tobacco/nicotine Alcohol intake: never Substance/Drug Use: never Household members: family Marital status: Single Current occupational status: disabled Vitals/I&O/Wt Last Vital Signs Temp 97.8 F 06/13/23 14:42 Pulse 118 H 06/13/23 14:42 Resp 17 06/13/23 15:53 BP 154/85 06/13/23 14:42 Pulse Ox 96 06/13/23 15:53 O2 Del Method Room Air 06/13/23 14:42 Weight last 48 hrs Weight 43.998 kg Physical Exam Narrative: Currently on room air Pleasant cooperative GCS 15 Complaining of burning sensation Doing well on room air Nonfocal neuroexam S1, S2 sinus tachycardia Appears anxious No sign of swelling Data 06/13/23 15:26 06/13/23 15:26 A&P Assessment and plan (1) Allergy to alpha-gal: (2) Transfusion reaction: (3) Delusions of parasitosis: (4) Stress: (5) [place] filter in place: (6) Diabetes: (7) Thyroid disease: (8) Secondary hyperparathyroidism: (9) Chronic kidney disease, stage 3b: (10) Anemia: (11) Positive ANTONETTE (antinuclear antibody): Plan Transfusion associated reaction Will give her Benadryl, Decadron Patient appears very anxious Sinus tachycardia She is history of autoimmune disease with ANTONETTE positive History of anemia may need bone marrow biopsy she is taking multivitamins including iron and B12 Recently had EGD and colonoscopy with unremarkable findings Patient is full code She can have regular diet D-dimer unremarkable does not need thromboembolic rule out study study I will give her GI cocktail Protonix Very anxious she takes Ativan 1 mg 3 times a day Will give her Lasix as well doing well on room air Plan to discharge her tomorrow Attestations Medical Necessity Statement*: Plan to discharge her by tomorrow Diagnoses Allergy to alpha-gal Z91.018 Transfusion reaction T80.92XA Delusions of parasitosis F22 Stress F43.[address] [address] Z95.828 Diabetes E11.9 Thyroid disease E07.9 Secondary hyperparathyroidism N25.81 Chronic kidney disease, stage 3b N18.32 Anemia D64.9 Positive ANTONETTE (antinuclear antibody) R76.8
[2023-06-13 17:56] LABS: Troponin 5 2HR 19.67 ng/L (0-10); Troponin 5 2HR Delta 3.67 ABS# (0-10)
[2023-06-13] MEDS: potassium chloride ER 20 mEq Tablet 40 MEQ PO (20:12)
[2023-06-13] MEDS: TRAMadol 50 mg Tablet PO (20:13)
[2023-06-13] MEDS: lidocaine 2% viscous 15 ML, aluminum-mag hydrox-simethicon 30 ML, sucralfate oral liq 1 GM PO (20:14)
[2023-06-13] MEDS: dexamethasone 10 mg/mL INJ IVP (20:14)
[2023-06-13] MEDS: FUROsemide 10 mg/mL SDV 4mL 40 MG IVP (20:14)
[2023-06-13] MEDS: cyanocobalamin 1,000 mcg/mL SDV 1000 MCG IM (20:14)
[2023-06-13 20:32] VITALS: BP 136/75; PULSE 102; RESP 18; TEMP 36.8; O2SAT 98
[2023-06-13] MEDS: sucralfate 1 gm Tablet PO (20:42)
[2023-06-13] MEDS: LORazepam 1 mg Tablet PO (20:42)
[2023-06-13] MEDS: iron sucrose 200 MG in sodium chloride 0.9% (100 ml) 100 ML 220 MG IV (20:43)
[2023-06-13 21:45] LABS: Troponin 5 6HR 17.44 ng/L (0-10); Troponin 5 6HR Delta 1.44 ng/L (0-12)
[2023-06-13 22:07] VITALS: RESP 16
[2023-06-13 23:16] VITALS: BMI 18.9
--- NOTE | 2023-06-13 23:45 | ECG_ITS ---
[facility] Test Date: 2023-06-13 Pat Name: Marcie Youssef Department: Room: 254 Gender: Female Hand Candy Cutter: : 1970 Requested By: Sammy Aguilar Order Number: [id number] Anjelica MD: José Guerrero M.D. Measurements Intervals [place] Rate: 145 P: 76 CO: 116 QRS: 71 QRSD: 80 T: 2 QT: 274 QTc: 426 Interpretive Statements SINUS TACHYCARDIA WITH SHORT CO INTERVAL, POSSIBLE ATRIAL FLUTTER NONSPECIFIC ST & T-WAVE ABNORMALITY ABNORMAL RHYTHM ECG Compared to ECG 06/13/2023 14:41:27 T-wave abnormality now present Electronically Signed On 06-14-2023 9:56:35 RESEARCH ASSOCIATE POLICY by José Guerrero M.D. [id number]
[2023-06-13 23:55] VITALS: RESP 24
[2023-06-13] MEDS: HYDROmorphone 1 mg/mL INJ 1 mL 0.5 MG IVP (23:55)
[2023-06-14] VITALS (17 sets, daily range): BP systolic 120–200; BP diastolic 73–110; PULSE 100–140; RESP 14–25; TEMP 36.6–37.1; O2SAT 93–100
[2023-06-14 00:04] LABS: Glucose Point of Care 542 mg/dL (70-110)
[2023-06-14 00:04] LABS: Glucose Point of Care 590 mg/dL (70-110)
[2023-06-14] MEDS: diphenhydrAMINE 50 mg/mL SDV 1mL IVP (00:14)
[2023-06-14 00:36] LABS: Alanine Aminotransferase 48 U/L (0-33); Albumin Level 3.7 g/dL (3.5-5.2); Alkaline Phosphatase 93 U/L (35-105); Anion Gap 22.1 (5-19); Aspartate Amino Transferase 64 U/L (0-32); Blood Urea Nitrogen 26 mg/dL (6-20); Calcium 8.4 mg/dL (8.5-10.5); Carbon Dioxide 20 mmol/L (22-29); Chloride 99 mmol/L (98-107); Glomerular Filtration Rate 51.8 mL/min (90-130); Osmolality Calculated 311 mOsm/kg (285-295); Potassium 5.1 mmol/L (3.5-5.1); Sodium 136 mmol/L (136-145); Total Bilirubin 0.2 mg/dL (0.15-1.2); Total Protein 6.7 g/dL (6.6-8.7)
[2023-06-14 00:45] LABS: Glucose 542 mg/dL (65-115)
[2023-06-14 01:08] LABS: Glucose Point of Care 384 mg/dL (70-110)
[2023-06-14] MEDS: insulin lispro 100 unit/1 mL SUBCUT ×2 (01:14→12:14)
[2023-06-14 02:11] LABS: Glucose Point of Care 256 mg/dL (70-110)
--- NOTE | 2023-06-14 03:37 | PC.NURSE ---
At 2338 patient began showing sinus tachycardia on the vehicle monitor technician. This nurse to room to assess patient. Patient was found resting in bed, diaphoretic, tachypneic, pale, and shaking. The patient complained of severe chest pain which she describes as burning. Vitals at this time were heart rate 151, RR 25, manual blood pressure 200/110, spo2 98 on room air. EKG completed at 2345 showed sinus tachycardia at a rate of 145. Patient complained nausea and began dry heaving. Zofran 4mg IVP PRN was administered. This nurse contacted Dr Romero who gave orders for dilaudid 0.5mg IVP. Dilaudid was administered while patient was placed on 2L nasal cannula for comfort. Fingerstick blood sugar at 2359 was 590, repeat fingerstick at [address] Romero via phonecall once more and received orders to have lab confirm blood sugar. Critical blood sugar of 542 reported to this nurse at 0045. Dr Romero gave orders for the patient to be a Q6H fingerstick glucose check and for humalog subcut sliding scale Q6H.
[2023-06-14] MEDS: HYDROmorphone 1 mg/mL INJ 1 mL 0.5 MG IVP ×2 (04:08→14:29)
[2023-06-14 05:16] LABS: Basophils % 0.1 %; Hematocrit 25.8 % (36-47); Lymphocytes # 0.2 10^3/uL (0.8-4.8); Lymphocytes % 1.9 %; Mean Corpuscular HGB Conc 26.7 g/dL (30-55); Mean Corpuscular Hemoglobin 18.3 pg (27-33); Mean Corpuscular Volume 68.4 fl (85-98); Monocytes # 0.3 10^3/uL (0.2-0.9); Monocytes % 2.9 %; Neutrophils # 10.69 10^3/uL (1.8-7.7); Neutrophils % 94.3 %; Nucleated Red Blood Cells % 0.2 %; Platelet Count 504 10^3/cmm (157-399); Red Blood Count 3.77 10^6/uL (3.85-5.65); Red Cell Distribution Width 18.8 % (12.1-15.1); White Blood Count 11.33 10^3/uL (3.29-11.43)
[2023-06-14 05:33] LABS: Anion Gap 17.7 (5-19); Blood Urea Nitrogen 28 mg/dL (6-20); C Reactive Protein 4.8 mg/L (0.0-4.9); Calcium 9.7 mg/dL (8.5-10.5); Carbon Dioxide 27 mmol/L (22-29); Chloride 103 mmol/L (98-107); Glomerular Filtration Rate 65.2 mL/min (90-130); Glucose 80 mg/dL (65-115); Osmolality Calculated 300 mOsm/kg (285-295); Potassium 4.7 mmol/L (3.5-5.1); Sodium 143 mmol/L (136-145)
[2023-06-14 06:43] LABS: Glucose Point of Care 114 mg/dL (70-110)
[2023-06-14] MEDS: levothyroxine 137 mcg Tablet PO (08:04)
[2023-06-14] MEDS: sucralfate 1 gm Tablet PO ×4 (08:04→20:24)
[2023-06-14] MEDS: pantoprazole DR 40 mg Tablet PO ×2 (08:04→18:21)
[2023-06-14] MEDS: folic acid 1 mg Tablet PO (08:05)
[2023-06-14] MEDS: dilTIAZem 30 mg Tablet PO (08:06)
--- NOTE | 2023-06-14 09:35 | PC.CHAP ---
Pastoral Care Encounter/Spiritual Assessment Type of Contact [] Declined custom stock maker visit [] Patient/Family/Request visit [] Outpatient visit [] Follow-up visit [] Physician referral [] Code/Alert [x] Routine visit [] Staff referral [] Actively dying [] Patient sleeping [] Family support [] [] Out of room [] Palliative care [] [] Receiving care in room [] Pre-surgical visit [] Trauma [] Long length of stay [] ICU visit [] Other: Relational/Emotional Strength [x] Patient feels connected with others/family/visitors/staff [] Distress [] Loneliness/isolation [] Abandonment Spirituality of Patient [x] Person of Hillary [x] Attends Mandaeism of their Hillary [x] Believes in Prayer [x] Reads Bible or Presybeterian materials [] There are Spiritual issues to be addressed Cemetery Manager Interventions [x] Prayer [x] Active listening [] Non-anxious presence [] Spiritual/emotional support [] Crisis/trauma care [] Spiritual counseling [] Bereavement support [] Provided bereavement packet [] Provided Bible/devotional materials [] Provided toy/stuffed animal, coloring book to patient or family member [] Provided Communion [] Anointing/Encinal [] Salvation [x] Completed spiritual assessment [] Other: Impact on Illness or Injury [] Angry [] Fearful [] Anxious [] Often cries [] Exhaustion [] Unable to work [] Unable to attend moravian [] Unable to walk/stand [] Unable to read [] Unable to drive [] Unable to eat/drink [] Unable to sleep [] Unable to be with family [] Patient intubated [] Other: Summary Time spent with patient 5 min
--- NOTE | 2023-06-14 10:22 | PM.DCS ---
Discharge Providers Date of Admission: 06/13/23 18:06 Date of Discharge: June 14, 2023 Attending Provider at Admission: Sammy Aguilar MD Attending Provider at Discharge: Sammy Aguilar MD Primary Care Provider: Syed Landaverde DO Diagnoses at Discharge Discharge Diagnosis (1) Allergy to alpha-gal: Status: Acute (2) Transfusion reaction: Status: Acute (3) Delusions of parasitosis: Status: Acute (4) Stress: Status: Acute (5) [place] filter in place: Status: Acute Permanent problem details: 2001 (6) Diabetes: Status: Acute (7) Thyroid disease: Status: Acute (8) Secondary hyperparathyroidism: Status: Acute (9) Chronic kidney disease, stage 3b: Status: Acute (10) Anemia: Status: Acute (11) Positive ANTONETTE (antinuclear antibody): Status: Acute Reason for Visit Reason for Visit: syncope Hospital Course Hospital Course 53 female with history of significant anxiety, depression, delusional disorder she thinks she has parasites in her blood causing anemia, had EGD and colonoscopy 3 months ago we did not show any ulcer or active bleeding, she has low iron with low B12 folate is normal, she is due to see senior behavioral scientist, she was getting blood transfusion yesterday when rapid response was called, the patient was related to chest discomfort which she described as burning sensation. On further investigation it seems like she has been having this burning sensation for years and this is not new she did not require oxygen at all, there was concern for transfusion related acute lung injury but her lungs are did not show any acute pathological changes, no sign of fluid overload bilateral infiltrates, she remained afebrile, did not require oxygen at all. I will give her 1 bag of iron. She may resume her iron and B12 supplementation. Will give her 1 unit of blood before discharge. She seems very anxious, her D-dimer is not remarkable to request thromboembolic rule out study. I do believe her symptoms of sinus tachycardia are related to her anxiety. Please note patient was trying to induce vomiting by putting her finger in back of her throat, this was witnessed by the nursing staff. Patient is already on sucralfate and Protonix which I would resume at discharge. Physical Exam Narrative: Awake and alert GCS 15 Currently on room air Pleasant cooperative Anxious Nonfocal neuroexam Discharge Data Studies Completed and Pending Completed Studies During Hospitalization Category Date Time Status XR chest 1V portable [id number] Stat Exams 06/13/23 14:51 Completed Pending at discharge Category Date Time Status Copper Level Routine Lab 06/13/23 00:07 Received PACKED CELLS [Leukocyte Reduced RBC] Routine Lab 06/14/23 09:47 Received Type and Screen Routine Lab 06/14/23 09:47 Received Zinc Level, Serum or Plasma Routine Lab 06/13/23 00:07 Received Laboratory Results WBC 11.33 10^3/uL (3.29-11.43) 06/14/23 04:13 RBC 3.77 10^6/uL (3.85-5.65) L 06/14/23 04:13 Hgb 6.90 g/dL (11.27-16.99) L 06/14/23 04:13 Hct 25.8 % (36-47) L 06/14/23 04:13 MCV 68.4 fl (85-98) L 06/14/23 04:13 MCH 18.3 pg (27-33) L 06/14/23 04:13 MCHC 26.7 g/dL (30-55) L 06/14/23 04:13 RDW 18.8 % (12.1-15.1) H 06/14/23 04:13 Plt Count 504 10^3/cmm (157-399) H 06/14/23 04:13 MPV 10.0 fL (7.4-10.4) 06/14/23 04:13 Neut % (Auto) 94.3 % 06/14/23 04:13 Lymph % (Auto) 1.9 % 06/14/23 04:13 Mchenry % (Auto) 2.9 % 06/14/23 04:13 Eos % (Auto) 0.0 % 06/14/23 04:13 Baso % (Auto) 0.1 % 06/14/23 04:13 Neut # (Auto) 10.69 10^3/uL (1.8-7.7) H 06/14/23 04:13 Lymph # (Auto) 0.2 10^3/uL (0.8-4.8) L 06/14/23 04:13 [place]henry # (Auto) 0.3 10^3/uL (0.2-0.9) 06/14/23 04:13 Eos # (Auto) 0.0 10^3/uL (0.0-0.8) 06/14/23 04:13 Baso # (Auto) 0.0 10^3/uL (0.0-0.1) 06/14/23 04:13 Nucleated RBC % (auto) 0.2 % 06/14/23 04:13 Nucleated RBCs # 0.0 /100WBC 06/14/23 04:13 PT 12.20 SECONDS (12.1-14.9) 06/13/23 15:26 INR 0.88 (0.8-1.2) 06/13/23 15:26 D-Dimer 0.66 ug/mLFEU (0-0.59) H 06/13/23 15:26 Sodium 143 mmol/L (136-145) 06/14/23 04:13 Potassium 4.7 mmol/L (3.5-5.1) 06/14/23 04:13 Chloride 103 mmol/L (98-107) 06/14/23 04:13 Carbon Dioxide 27 mmol/L (22-29) 06/14/23 04:13 Anion Gap 17.7 (5-19) 06/14/23 04:13 BUN 28 mg/dL (6-20) H 06/14/23 04:13 Creatinine 0.9 mg/dL (0.5-0.9) 06/14/23 04:13 GFR Calculation 65.2 mL/min (90-130) L 06/14/23 04:13 Glucose 80 mg/dL (65-115) 06/14/23 04:13 POC Glucose 114 mg/dL (70-110) H 06/14/23 06:03 Calculated Osmolality 300 mOsm/kg (285-295) H 06/14/23 04:13 Calcium 9.7 mg/dL (8.5-10.5) 06/14/23 04:13 Magnesium 2.0 mg/dL (1.7-2.3) 06/14/23 04:13 Total Bilirubin 0.2 mg/dL (0.15-1.2) 06/14/23 00:07 AST 64 U/L (0-32) H 06/14/23 00:07 ALT 48 U/L (0-33) H 06/14/23 00:07 Alkaline Phosphatase 93 U/L (35-105) 06/14/23 00:07 Troponin T Baseline 16 ng/L (0-10) H 06/13/23 15:26 Troponin T 120 Minute 19.67 ng/L (0-10) H 06/13/23 17:32 Delta Troponin T 3.67 ABS# (0-10) 06/13/23 17:32 Troponin T Hi Sens 6Hr 17.44 ng/L (0-10) H 06/13/23 21:10 Troponin T Hi Sens 6Hr Delta 1.44 ng/L (0-12) 06/13/23 21:10 C-Reactive Protein 4.8 mg/L (0.0-4.9) 06/14/23 04:13 NT-Pro-B Natriuret Pep 696 pg/mL (0-125) H 06/13/23 15:26 Total Protein 6.7 g/dL (6.6-8.7) 06/14/23 00:07 Albumin 3.7 g/dL (3.5-5.2) 06/14/23 00:07 Globulin 3.0 g/dL (1.3-4.6) 06/14/23 00:07 Crossmatch See Detail 06/14/23 09:47 Reaction Clerical Check No discrepancy 06/13/23 15:26 Pre-Trans Blood Type Apos 06/13/23 15:26 Pre-Trans Urine RBC Not Reportable 06/13/23 15:26 Post-Trans Blood Type A Positive 06/13/23 15:26 Post-Tx Visible Hemolys No hemolysis 06/13/23 15:26 Post-Trans SRAVANI Negative 06/13/23 15:26 Vitals Last Vital Signs Temp 97.8 F 06/14/23 07:30 Pulse 108 H 06/14/23 08:24 Resp 16 06/14/23 08:24 BP 151/82 06/14/23 07:30 Pulse Ox 98 06/14/23 08:24 O2 Del Method Room Air 06/14/23 08:24 Discharge Plan Discharge Patient Disposition: Home Condition: Stable Prescriptions: Continued ondansetron 8 mg tablet,disintegrating 8 mg PO BID PRN (Reason: nausea and vomiting) Qty: 30 1RF mupirocin 2 % ointment 1 applic TOPICAL BID Qty: 22 3RF lidocaine 4 % cream 1 applic topical BID PRN (Reason: hand pain) Qty: 30 1RF (DME) [id number] Bone growth stimulator See Rx Instructions .Route .MEDSUPPLY Qty: 1 0RF Rx Instructions: As directed (DME) Aquatic Therapy See Rx Instructions .Route .MEDSUPPLY Qty: 1 0RF Rx Instructions: As directed dicyclomine 20 mg tablet 40 mg PO QID 30 Days Qty: 240 11RF Rx Instructions: Take only 1 tab 4 times daily for the first 2 weeks and then increase to 2 tabs 4 times per day levothyroxine 137 mcg tablet 137 mcg PO DAILY Qty: 90 1RF metformin 500 mg tablet 500 mg PO BID Qty: 180 3RF prednisone 10 mg tablet See Rx Instructions PO .COMPLEX PRN (Reason: joint pain) Qty: 30 0RF Rx Instructions: take 1 tab daily for 3-7 days prn joint pain flare PO PRN; hydroxychloroquine 200 mg tablet See Rx Instructions .ROUTE .COMPLEX Qty: 45 0RF Dose Instruction: alternate taking ONE TABLET BY MOUTH today, THEN take TWO TABLETS BY MOUTH tomorrow Rx Instructions: alternate taking ONE TABLET BY MOUTH today, THEN take TWO TABLETS BY MOUTH tomorrow lorazepam 1 mg tablet 1 mg PO TID Qty: 90 1RF fluticasone propionate 44 mcg/actuation HFA aerosol inhaler 1 puff inhalation BID Qty: 10.6 0RF gabapentin 100 mg capsule 200 mg PO TID Qty: 180 1RF tramadol 50 mg tablet 50 - 100 mg PO TID PRN (Reason: Pain) Qty: 180 0RF hydroxyzine pamoate 50 mg capsule 50 mg PO QID ergocalciferol (vitamin D2) 1,250 mcg (50,000 unit) capsule 1,250 mcg PO Q7D Rx Instructions: ON TUESDAY pantoprazole 40 mg tablet,delayed release (DR/EC) 40 mg PO DAILY estradiol 0.5 mg Tablet 0.5 mg PO DAILY Discharge Orders: Discharge Order (Routine); Ordered 06/14/23 Ordered By: Sammy Aguilar Referrals: Syed Landaverde DO [Primary Care Provider] - Jesse Hand MD [Hospitalist] - 2 weeks Patient Instructions: Opioid Safety Discharge Attestations Time Spent in Discharge Care*: greater than 30 min Quality Metrics Clinical Quality Measures [ No reported AMI, CVA or VTE this stay] Coding Level of Care Code Acute Code for Chg Fwd Diagnoses Allergy to alpha-gal Z91.018 Transfusion reaction T80.92XA Delusions of parasitosis F22 Stress F43.[address] [address] Z95.828 Diabetes E11.9 Thyroid disease E07.9 Secondary hyperparathyroidism N25.81 Chronic kidney disease, stage 3b N18.32 Anemia D64.9 Positive ANTONETTE (antinuclear antibody) R76.8
[2023-06-14] MEDS: LORazepam 1 mg Tablet PO ×2 (10:51→18:25)
--- NOTE | 2023-06-14 11:14 | PC.NURSE ---
Patient will not be discharged until after transfusion per Dr. Aguilar.
--- NOTE | 2023-06-14 11:16 | PC.NURSE ---
Patients bag of medications were left at bedside since admit. Belongings at bedside was not completed. Patient stated she took three gabapetins sometime this morning. Medications sealed and put in pixis in patients personal bag.
[2023-06-14 11:53] LABS: Glucose Point of Care 260 mg/dL (70-110)
--- NOTE | 2023-06-14 13:37 | PC.NURSE ---
Went to [facility] blood for patient. Blood Bank had old Type and X impersonator character blood and wrong sheet with blood. Blood bank to fix blood call floor.
--- NOTE | 2023-06-14 14:15 | ECG_ITS ---
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 Measurements Intervals [place] Rate: 134 P: 69 DC: 88 QRS: 82 QRSD: 78 T: 19 QT: 280 QTc: 419 Interpretive Statements SINUS TACHYCARDIA WITH SHORT DC INTERVAL MODERATE ST DEPRESSION [0.05+ mV ST DEPRESSION] Compared to ECG 06/13/2023 23:45:39 ST (T wave) deviation now present T-wave abnormality no longer present Electronically Signed On 06-14-2023 16:43:20 DERRICK FOLLOWER by José Guerrero M.D. [id number]
--- NOTE | 2023-06-14 14:21 | PC.NURSE ---
Notified Dr. Aguilar of Patient receiving blood. Prior to transfusion 134/69, Heart Rate 117. After 15 min HR is 136 blood pressure is 178/90. Dr. Aguilar ordered an EKG and stated this is not caused by the transfusion. Blood is running at 100.
[2023-06-14] MEDS: sodium chloride 0.9% (100 ml) 100 ML (14:30)
[2023-06-14 16:42] LABS: Glucose Point of Care 111 mg/dL (70-110)
[2023-06-14] MEDS: metoprolol tartrate 25 mg Tablet PO ×2 (18:21→20:24)
[2023-06-14] MEDS: dicyclomine 20 mg Tablet PO (21:05)
[2023-06-14] MEDS: TRAMadol 50 mg Tablet PO (21:05)
[2023-06-14] MEDS: gabapentin 100 mg Capsule 200 MG PO (21:05)
[2023-06-14 21:07] LABS: Glucose Point of Care 256 mg/dL (70-110)
[2023-06-15 00:37] LABS: Glucose Point of Care 154 mg/dL (70-110)
[2023-06-15 00:49] VITALS: BP 135/81; PULSE 85; RESP 16; TEMP 36.9; O2SAT 98
[2023-06-15 05:20] VITALS: BP 128/84; PULSE 90; RESP 17; TEMP 36.9; O2SAT 96
[2023-06-15] MEDS: sucralfate 1 gm Tablet PO ×2 (06:10→12:05)
[2023-06-15] MEDS: TRAMadol 50 mg Tablet PO (06:12)
[2023-06-15 06:38] LABS: Glucose Point of Care 127 mg/dL (70-110)
[2023-06-15 08:00] VITALS: BP 137/83; PULSE 82; RESP 15; TEMP 36.9; O2SAT 98
[2023-06-15] MEDS: metoprolol tartrate 25 mg Tablet PO (08:50)
[2023-06-15] MEDS: levothyroxine 137 mcg Tablet PO (08:50)
[2023-06-15] MEDS: dicyclomine 20 mg Tablet PO ×2 (08:50→12:08)
[2023-06-15] MEDS: folic acid 1 mg Tablet PO (08:51)
[2023-06-15] MEDS: pantoprazole DR 40 mg Tablet PO (08:51)
[2023-06-15] MEDS: gabapentin 100 mg Capsule 200 MG PO (08:51)
[2023-06-15 09:22] VITALS: PULSE 102; RESP 16; O2SAT 95
[2023-06-15] MEDS: LORazepam 1 mg Tablet PO (10:45)
--- NOTE | 2023-06-15 11:14 | P.PN_ITS ---
Subjective 2 Subjective: seen at bedside. pt states she is having a sore throat. otherwise has improved. was anxious this morning, did well after xanax dosage. discharge held y06/10 anxiety and reaction to infusion. hemodynamically stable today Medications: Reviewed: Yes Vitals/I&O/Wt Last Vital Signs Temp 98.5 F 06/15/23 08:00 Pulse 102 H 06/15/23 09:22 Resp 16 06/15/23 09:22 BP 137/83 06/15/23 08:00 Pulse Ox 95 06/15/23 09:22 O2 Del Method Room Air 06/15/23 09:22 06/14/23 06/15/23 06/15/23 22:59 06:59 14:59 Intake Total 480 / 720 580 / 1300 Balance 480 / 720 580 / 1300 Weight last 48 hrs Weight 141 lb Weight 135 lb 8 oz Weight 97 lb Weight 97 lb Physical Exam 2 Narrative: Awake and alert GCS 15 Currently on room air Pleasant cooperative Anxious Nonfocal neuroexam Data 06/14/23 04:13 06/14/23 04:13 A&P Assessment and plan (1) Allergy to alpha-gal: (2) Transfusion reaction: (3) Delusions of parasitosis: (4) Stress: (5) [place] filter in place: (6) Diabetes: (7) Thyroid disease: (8) Secondary hyperparathyroidism: (9) Chronic kidney disease, stage 3b: (10) Anemia: (11) Positive ANTONETTE (antinuclear antibody): Plan Transfusion associated reaction. recovered pt stable to discharge home. discharge summary placed by Dr. Aguilar yesterday will place orders in today Patient is full code She can have regular diet D-dimer unremarkable does not need thromboembolic rule out study study will give zpack at discharge for URTI Attestations 2 Medical Necessity Statement*: discharge today Coding Level of Care Code 50869 Diagnoses Allergy to alpha-gal Z91.018 Transfusion reaction T80.92XA Delusions of parasitosis F22 Stress F43.[address] [address] Z95.828 Diabetes E11.9 Thyroid disease E07.9 Secondary hyperparathyroidism N25.81 Chronic kidney disease, stage 3b N18.32 Anemia D64.9 Positive ANTONETTE (antinuclear antibody) R76.8
[2023-06-15 11:31] LABS: Glucose Point of Care 283 mg/dL (70-110)
[2023-06-15 12:00] VITALS: BP 120/68; PULSE 89; RESP 15; TEMP 36.6; O2SAT 99
[2023-06-15] MEDS: insulin lispro 100 unit/1 mL SUBCUT (12:05)
--- NOTE | 2023-06-15 12:35 | PC.NURSE ---
Patient states she cannot leave until 2pm due to getting Ativan. Feels a little groggy and driving herself. Patient told Dr. Chadwick the same thing.
[2023-06-15 14:53] VITALS: BP 120/68; PULSE 89; RESP 15; TEMP 36.6; O2SAT 99
[2023-06-16 18:20] LABS: Copper Level 150 mcg/dL (70-175)
[2023-06-16 21:40] LABS: Zinc Level, Serum or Plasma 72 mcg/dL (60-130)
== END 2023-06-15 14:55 | disposition home or self-care (01) ==
LOC: ER 17:55 → MEDSURG 19:29 → ER IP 06-14 05:41 → MEDSURG 06-14 05:41
PROVIDERS: Internal Medicine; Admitting Provider Internal Medicine; Emergency Provider Emergency Medicine; PCP Family Medicine; Visit Provider Family Medicine
DX: T80.92XA Unspecified transfusion reaction, initial encounter (principal); Y82.9 Unspecified medical devices associated with adverse incidents; F22 Delusional disorders; Z91.018 Allergy to other foods; F43.9 Reaction to severe stress, unspecified; Z95.828 Presence of other vascular implants and grafts; E11.22 Type 2 diabetes mellitus with diabetic chronic kidney disease; E07.9 Disorder of thyroid, unspecified; N25.81 Secondary hyperparathyroidism of renal origin; N18.32 Chronic kidney disease, stage 3b; D63.1 Anemia in chronic kidney disease; R76.8 Other specified abnormal immunological findings in serum
CPT/HCPCS: 36415; 36416; 36430; 71045; 80048; 80053; 80503; 82525; 82962; 83735; 83880; 84484; 84630; 85025; 85378; 85610; 86140; 86850; 86900; 86920; 93005; 96372; 96374; 96375; 96376; 99285; G0378; J1100; J1170; J1200; J1756; J1815; J1940; J2270; J2405; J3420; J7030; P9040

== ENCOUNTER 2023-06-23 09:17 | Oncology outpatient (recurring) (ONCR) | payer MEDICAID, SELFPAY ==
[2023-06-13 11:58] LABS: Reticulocyte % 1.2 % (0.5-2.0)
[2023-06-13 12:24] LABS: Alanine Aminotransferase 30 U/L (0-33); Albumin Level 3.7 g/dL (3.5-5.2); Alkaline Phosphatase 81 U/L (35-105); Anion Gap 13.3 (5-19); Aspartate Amino Transferase 25 U/L (0-32); Blood Urea Nitrogen 27 mg/dL (6-20); Calcium 8.6 mg/dL (8.5-10.5); Carbon Dioxide 27 mmol/L (22-29); Chloride 102 mmol/L (98-107); Creatinine Clr Calc Pharmacy 63.2853; Ferritin 8 ng/mL (15-150); Globulin 2.9 g/dL (1.3-4.6); Glomerular Filtration Rate 74.7 mL/min (90-130); Glucose 156 mg/dL (65-115); Iron 10 ug/dL (37-145); Osmolality Calculated 296 mOsm/kg (285-295); Percent Saturation 2.3 % (20-50); Potassium 3.3 mmol/L (3.5-5.1); Sodium 139 mmol/L (136-145); Total Bilirubin 0.2 mg/dL (0.15-1.2); Total Iron Binding Capacity 418 mcg/dl; Total Protein 6.6 g/dL (6.6-8.7); Unsaturated Iron Binding 408 ug/dL (112-347)
[2023-06-13 12:27] LABS: Basophils % 0.3 %; Eosinophils % 0.5 %; Hematocrit 24.5 % (36-47); Lymphocytes # 1.1 10^3/uL (0.8-4.8); Lymphocytes % 13.9 %; Mean Corpuscular HGB Conc 26.5 g/dL (30-55); Mean Corpuscular Hemoglobin 18.3 pg (27-33); Mean Platelet Volume 9.7 fL (7.4-10.4); Monocytes # 0.7 10^3/uL (0.2-0.9); Monocytes % 8.2 %; Neutrophils # 6.03 10^3/uL (1.8-7.7); Neutrophils % 76.1 %; Nucleated Red Blood Cells % 0.3 %; Platelet Count 407 10^3/cmm (157-399); Red Blood Count 3.55 10^6/uL (3.85-5.65); Red Cell Distribution Width 18.9 % (12.1-15.1); White Blood Count 7.92 10^3/uL (3.29-11.43)
[2023-06-13 12:35] LABS: Vitamin B12 276 pg/mL (232-1245)
[2023-06-13 12:39] LABS: Folate Level 15.3 ng/mL (4.8-37.3)
[2023-06-13] MEDS: sodium chloride 0.9% 250 mL Bag IV (13:53)
[2023-06-13] MEDS: diphenhydrAMINE 25 mg Capsule PO (13:53)
[2023-06-13] MEDS: acetaminophen 325 mg Tablet 650 MG PO (13:54)
[2023-06-13 14:13] VITALS: BP 181/94; PULSE 132; TEMP 36.8; O2SAT 97
--- NOTE | 2023-06-13 16:03 | PC.NURSE ---
At approx. 1410, pt got up to use restroom and upon arrival back to chair, pt states she is having anxiety and needs to take her valium. Pt states her lungs are burning and is having pain in her chest from anxiety. Pt states she has had this before. Blood started at 1415. Pts anxiety is increasing, pt having difficulty breathing, and having chest pain. Blood stopped at 1420. Pt put on 2L of oxygen. Rapid called for pt to be evaluated at the emergency room. Pt left infusion suite at 1430 via rapid response in wheel chair.
[2023-06-16 13:39] LABS: Soluble Transferrin Receptor 5.41 mg/L (0.76-1.76)
[2023-06-16 16:15] LABS: Methylmalonic Acid 211 nmol/L (87-318)
[2023-06-23 09:37] LABS: Basophils % 0.4 %; Eosinophils # 0.1 10^3/uL (0.0-0.8); Eosinophils % 1.3 %; Hematocrit 30.3 % (36-47); Lymphocytes # 1.1 10^3/uL (0.8-4.8); Lymphocytes % 18.8 %; Mean Corpuscular HGB Conc 28.4 g/dL (30-55); Mean Corpuscular Hemoglobin 21.5 pg (27-33); Mean Corpuscular Volume 75.8 fl (85-98); Mean Platelet Volume 9.8 fL (7.4-10.4); Monocytes # 0.6 10^3/uL (0.2-0.9); Monocytes % 10.2 %; Neutrophils # 3.88 10^3/uL (1.8-7.7); Neutrophils % 69.1 %; Nucleated Red Blood Cells % 0 %; Platelet Count 374 10^3/cmm (157-399); Red Cell Distribution Width 28.5 % (12.1-15.1)
== END 2023-07-07 23:59 | disposition home or self-care (01) ==
PROVIDERS: Internal Medicine; PCP Family Medicine; Visit Provider Family Medicine
DX: D50.8 Other iron deficiency anemias (principal); Z79.899 Other long term (current) drug therapy; Z98.84 Bariatric surgery status; Z53.9 Procedure and treatment not carried out, unspecified reason
CPT/HCPCS: 36415; 36430; 80053; 82607; 82728; 82746; 83540; 83550; 83921; 84238; 85025; 85045; 86850; 86900; 86920; 99204; 99214; J7050; P9040

== ENCOUNTER → 2023-07-13 13:54 | Outpatient (BNVA) | payer MEDICAID, SELFPAY | PROVIDERS: PCP Family Medicine; Visit Provider Internal Medicine Rheumatology | DX: M19.041 Primary osteoarthritis, right hand (principal); M19.042 Primary osteoarthritis, left hand; F22 Delusional disorders; Z98.890 Other specified postprocedural states; M19.90 Unspecified osteoarthritis, unspecified site; D64.9 Anemia, unspecified | CPT/HCPCS: 99214 ==

== ENCOUNTER 2023-07-21 17:57 | Emergency (ER) | payer MEDICAID, SELFPAY ==
[2023-07-21 18:01] VITALS: BP 149/81; PULSE 110; RESP 16; TEMP 36.5; O2SAT 99; BMI 23.4
[2023-07-21 18:43] LABS: Basophils % 0.6 %; Eosinophils # 0.1 10^3/uL (0.0-0.8); Eosinophils % 1.2 %; Hematocrit 31.6 % (36-47); Lymphocytes # 1.2 10^3/uL (0.8-4.8); Lymphocytes % 16.9 %; Mean Corpuscular HGB Conc 29.4 g/dL (30-55); Mean Corpuscular Hemoglobin 23.3 pg (27-33); Mean Platelet Volume 9.8 fL (7.4-10.4); Monocytes # 0.7 10^3/uL (0.2-0.9); Monocytes % 9.6 %; Neutrophils # 5.19 10^3/uL (1.8-7.7); Neutrophils % 71.6 %; Nucleated Red Blood Cells % 0 %; Platelet Count 410 10^3/cmm (157-399); White Blood Count 7.26 10^3/uL (3.29-11.43)
[2023-07-21 18:58] LABS: Alanine Aminotransferase 22 U/L (0-33); Albumin Level 3.9 g/dL (3.5-5.2); Alkaline Phosphatase 95 U/L (35-105); Anion Gap 17.2 (5-19); Aspartate Amino Transferase 36 U/L (0-32); Blood Urea Nitrogen 22 mg/dL (6-20); Calcium 8.8 mg/dL (8.5-10.5); Carbon Dioxide 20 mmol/L (22-29); Chloride 106 mmol/L (98-107); Creatinine Clr Calc Pharmacy 45.2928; Globulin 2.7 g/dL (1.3-4.6); Glomerular Filtration Rate 51.8 mL/min (90-130); Glucose 127 mg/dL (65-115); Lipase 22 U/L (13-60); Osmolality Calculated 293 mOsm/kg (285-295); Potassium 4.2 mmol/L (3.5-5.1); Sodium 139 mmol/L (136-145); Total Bilirubin 0.2 mg/dL (0.15-1.2); Total Protein 6.6 g/dL (6.6-8.7)
--- NOTE | 2023-07-21 19:05 | CTR_ITS ---
PROCEDURE INFORMATION: Exam: CT Abdomen And Pelvis With Contrast Exam date and time: 07/21/2023 8:14 PM Age: 52 years old Clinical indication: Abdominal pain; Generalized; Prior surgery; Surgery date: 6+ months; Surgery type: Gastric bypass 30 years ago with faulty mesh per patient; Additional info: Abd pain TECHNIQUE: Imaging protocol: Computed tomography of the abdomen and pelvis with contrast. Radiation optimization: All CT scans at this facility use at least one of these dose optimization techniques: automated exposure control; mA and/or kV adjustment per patient size (includes targeted exams where dose is matched to clinical indication); or iterative reconstruction. Contrast material: OMNI 350; Contrast volume: 80 ml; Contrast route: INTRAVENOUS (IV); COMPARISON: CT abdomen pelvis w con* [id number] 03/01/2022 3:00 PM RADIATION DOSE METRICS: Total DLP (mGy-cm): 348.06 FINDINGS: Lungs: Right middle and lower lobe atelectasis versus infiltrate. Diaphragm: Small hiatal hernia. Liver: Normal. No mass. Gallbladder and bile ducts: Cholecystectomy. Pancreas: Normal. No ductal dilation. Spleen: Normal. No splenomegaly. Adrenal glands: Normal. No mass. Kidneys and ureters: Normal. No hydronephrosis. Stomach and bowel: Prominent fluid throughout the small bowel wall thickening may reflect an enteritis. Gastric surgical sutures. Appendix: No evidence of appendicitis. Intraperitoneal space: Unremarkable. No free air. No significant fluid collection. Vasculature: Inferior vena cava filter. Lymph nodes: Unremarkable. No enlarged lymph nodes. Urinary bladder: Unremarkable as visualized. Reproductive: Unremarkable as visualized. Bones/joints: Lumbar spine surgical hardware. Soft tissues: Unremarkable. CT/CT abdomen pelvis w con* [id number] IMPRESSION: 1. Prominent fluid throughout the small bowel wall thickening may reflect an enteritis. 2. Lumbar spine surgical hardware. 3. Right middle and lower lobe atelectasis versus infiltrate. 4. Small hiatal hernia. 5. Gastric surgical sutures. 6. Cholecystectomy. 7. Inferior vena cava filter. COMMENTS: For patients with an IVC filter, recommend assessment for a management plan for the patient's IVC filter. If there is no established management plan, recommend referral to an interventional clinician on a nonemergent basis for evaluation.
--- NOTE | 2023-07-21 19:06 | ED_ITS ---
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 States she follows with a GI specialist states she sees her next Tuesday. States pain sharp in nature states she has had some slight diarrhea denies any vomiting she denies any fevers denies any worse improved factors Associated Symptoms: Denies chills, dysuria, fever(s), nausea and vomiting Review of Systems 2 Const: Denies: fever(s), chills, body aches or change in appetite ENMT: Denies: throat pain or dental pain Card: Denies: chest pain Resp: Denies: dyspnea GI: Reports: abdominal pain; Denies: nausea or vomiting : Denies: dysuria Musc: Denies: neck pain or back pain Skin/Breast: Denies: rash Neuro: Denies: headache(s) PFSH ED 2 PFSH: Medical History Iron deficiency anemia Neurodermatitis TRALI (transfusion related acute lung injury) Near syncope Stress Secondary hyperparathyroidism Hypertension Delusions of parasitosis Osteoarthritis of hands, bilateral Positive ANTONETTE (antinuclear antibody) Inflammatory arthritis Chronic idiopathic constipation C. difficile diarrhea Depression with anxiety Hypothyroidism Chronic kidney disease, stage 3b Cervical disc disorder with myelopathy of mid-cervical region Spondylolisthesis of cervical region Diabetes Allergy to alpha-gal Thyroid disease Chronic migraine without aura, intractable, with status migrainosus Surgical History Katherin filter in place 2001 Hx of hernia repair Status post colonoscopy (08/26/21) History of colonoscopy 2019 History of esophagogastroduodenoscopy (EGD) (08/26/21) 2019 Hx of hysterectomy H/O gastric bypass History of carpal tunnel surgery of left wrist Dr. Orlando Richter 11/18/2016 History of carpal tunnel surgery of right wrist Dr. Richter 01/13/2017 History of [address] surgery Dr. Richter 08/08/17 L4-L5 laminectomy/fusion/fixation 2008 [facility] Lumbar decompression History of neck surgery Dr. Richter 06/29/2018 C6-C7 ACDFF Family History Grandfather CAD (coronary artery disease) Stroke Grandmother CAD (coronary artery disease) Sister CAD (coronary artery disease) Hypertension Family/Other Cancer Mother Hypertension Father Hypertension Brother Hypertension Other Diabetes Social History Smoking and tobacco/nicotine status: never used tobacco/nicotine Alcohol intake: never Substance/Drug Use: never Household members: family Marital status: Single Current occupational status: disabled Physical Exam 2 Const: COMMON NORMALS: no acute distress, patient oriented x3 and healthy appearing HENMT: COMMON NORMALS: normocephalic and atraumatic HEAD & SCALP: n ormocephalic and atraumatic Neck/C-Spine: COMMON NORMALS: full ROM and supple Chest: COMMONS NORMALS: normal inspection of the chest Resp: COMMON NORMALS: normal respiratory effort Cardio: COMMON NORMALS: regular rate, regular rhythm and No murmurs present (Cardio) RATE: regular rate RHYTHM: regular rhythm GI: COMMON NORMALS: Normal to inspection, nondistended, normoactive bowel sounds present, Soft to palpation, non-tender and no masses PALPATION: Yes Soft to palpation Extremity: COMMON NORMALS: normal to inspection and full ROM Neuro: COMMON NORMALS: patient oriented x3, moves all extremities and no focal motor deficits Psych: COMMON NORMALS: mental status grossly normal, Normal thought process present and cooperative THOUGHT PROCESS: Normal thought process present Skin: COMMON NORMALS: no rashes or lesions noted and no wounds GENERAL SKIN EXAM: no rashes or lesions noted Course 2 Vital Signs: Vital signs: Vital Signs Temperature 97.7 F 07/21/23 18:01 Pulse Rate 89 07/21/23 20:02 Respiratory Rate 16 07/21/23 20:02 Blood Pressure 132/90 07/21/23 20:02 Pulse Oximetry 99 07/21/23 20:02 Oxygen Delivery Me thod Room Air 07/21/23 20:02 MDM - Abdominal Pain Medical Decision Making Patient presents here with abdominal pain is resolved here exam is benign blood work here looks normal she had no cough or fever CT is likely atelectasis we will start her on Reglan she sees her GI physician next Tuesday she is to follow- up as scheduled she is return if worsening she understands agrees to plan. Medical Records I reviewed the patient's medical records. Lab Data I reviewed the patient's lab results. 07/21/23 18:27 07/21/23 18:27 Labs/Radiology: Radiology Impressions Abdomen/Pelvis CT 07/21/23 19:05 IMPRESSION: 1. Prominent fluid throughout the small bowel wall thickening may reflect an enteritis. 2. Lumbar spine surgical hardware. 3. Right middle and lower lobe atelectasis versus infiltrate. 4. Small hiatal hernia. 5. Gastric surgical sutures. 6. Cholecystectomy. 7. Inferior vena cava filter. COMMENTS: For patients with an IVC filter, recommend assessment for a management plan for the patient's IVC filter. If there is no established management plan, recommend referral to an interventional clinician on a nonemergent basis for evaluation. Laboratory Results WBC 7.26 10^3/uL (3.29-11.43) 07/21/23 18: RBC 4.00 10^6/uL (3.85-5.65) 07/21/23 18: Hgb 9.30 g/dL (11.27-16.99) L 07/21/23 18: Hct 31.6 % (36-47) L 07/21/23 18: MCV 79.0 fl (85-98) L 07/21/23 18: MCH 23.3 pg (27-33) L 07/21/23 18: MCHC 29.4 g/dL (30-55) L 07/21/23 18: RDW 28.0 % (12.1-15.1) H 07/21/23 18: Plt Count 410 10^3/cmm (157-399) H 07/21/23 18: MPV 9.8 fL (7.4-10.4) 07/21/23 18: Neut % (Auto) 71.6 % 07/21/23 18: Lymph % (Auto) 16.9 % 07/21/23 18: [place] % (Auto) 9.6 % 07/21/23 18: Eos % (Auto) 1.2 % 07/21/23 18: Baso % (Auto) 0.6 % 07/21/23 18:27 Neut # (Auto) 5.19 10^3/uL (1.8-7.7) 07/21/23 18: Lymph # (Auto) 1.2 10^3/uL (0.8-4.8) 07/21/23 18: [place] # (Auto) 0.7 10^3/uL (0.2-0.9) 07/21/23 18: Eos # (Auto) 0.1 10^3/uL (0.0-0.8) 07/21/23 18: Baso # (Auto) 0.0 10^3/uL (0.0-0.1) 07/21/23 18: Nucleated RBC % (auto) 0 % 07/21/23 18: Nucleated RBCs # 0.0 /100WBC 07/21/23 18: Sodium 139 mmol/L (136-145) 07/21/23 18: Potassium 4.2 mmol/L (3.5-5.1) 07/21/23 18: Chloride 106 mmol/L (98-107) 07/21/23 18: Carbon Dioxide 20 mmol/L (22-29) L 07/21/23 18: Anion Gap 17.2 (5-19) 07/21/23 18: BUN 22 mg/dL (6-20) H 07/21/23 18: Creatinine 1.1 mg/dL (0.5-0.9) H 07/21/23 18: GFR Calculation 51.8 mL/min (90-130) L 07/21/23 18: Glucose 127 mg/dL (65-115) H 07/21/23 18: Calculated Osmolality 293 mOsm/kg (285-295) 07/21/23 18: Calcium 8.8 mg/dL (8.5-10.5) 07/21/23 18: Total Bilirubin 0.2 mg/dL (0.15-1.2) 07/21/23 18: AST 36 U/L (0-32) H 07/21/23 18: ALT 22 U/L (0-33) 07/21/23 18: Alkaline Phosphatase 95 U/L (35-105) 07/21/23 18: Total Protein 6.6 g/dL (6.6-8.7) 07/21/23 18:27 Albumin 3.9 g/dL (3.5-5.2) 07/21/23 18:27 Globulin 2.7 g/dL (1.3-4.6) 07/21/23 18:27 Lipase 22 U/L (13-60) 07/21/23 18:27 Urine Color Yellow (Yellow) 07/21/23 19:20 Urine Appearance Clear (CLEAR) 07/21/23 19:20 Urine pH 5 (5-7) 07/21/23 19:20 Ur Specific [place] 1.025 (1.005-1.030) 07/21/23 19:20 Urine Protein Neg (Negative) 07/21/23 19:20 Urine Glucose (UA) Norm (Normal) 07/21/23 19:20 Urine Ketones Negative (Negative) 07/21/23 19:20 Urine Blood Neg (Negative) 07/21/23 19:20 Urine Nitrate Negative (Negative) 07/21/23 19:20 Urine Bilirubin Neg (Negative) 07/21/23 19:20 Urine Urobilinogen Norm mg/dL (Negative) 07/21/23 19:20 Ur Leukocyte Esterase Negative (Negative) 07/21/23 19:20 All radiology interpretation(s) finalized by discharge Discharge Plan Discharge Patient Disposition: Home Clinical Impression: Abdominal pain Qualifiers: Abdominal location: generalized Qualified Code(s): R10.84 - Generalized abdominal pain Condition: Stable Prescriptions: New Reglan 10 mg tablet 10 mg PO Q6H PRN (Reason: nausea and vomiting) Qty: 20 0RF No Action ondansetron 8 mg tablet,disintegrating 8 mg PO BID PRN (Reason: nausea and vomiting) Qty: 30 1RF mupirocin 2 % ointment 1 applic TOPICAL BID Qty: 22 3RF gabapentin 100 mg capsule 300 mg PO TID Qty: 180 1RF lidocaine 4 % cream 1 applic topical BID PRN (Reason: hand pain) Qty: 30 1RF medical marijana .Route Rx Instructions: unknown leflunomide 20 mg tablet 20 mg PO DAILY Qty: 30 3RF hydroxychloroquine 200 mg tablet See Rx Instructions .ROUTE .COMPLEX Qty: 45 5RF Dose Instruction: alternate taking ONE TABLET BY MOUTH today, THEN take TWO TABLETS BY MOUTH tomorrow Rx Instructions: alternate taking ONE TABLET BY MOUTH today, THEN take TWO TABLETS BY MOUTH tomorrow pantoprazole 40 mg tablet,delayed release (DR/EC) 40 mg PO BID Qty: 60 5RF prednisone 10 mg tablet See Rx Instructions PO .COMPLEX PRN (Reason: joint pain) Qty: 30 1RF Rx Instructions: take 1 tab daily for 3-7 days prn joint pain flare PO PRN; (DME) E0748 Bone growth stimulator See Rx Instructions .Route .MEDSUPPLY Qty: 1 0RF Rx Instructions: As directed (DME) Aquatic Therapy See Rx Instructions .Route .MEDSUPPLY Qty: 1 0RF Rx Instructions: As directed dicyclomine 20 mg tablet 40 mg PO QID 30 Days Qty: 240 11RF Rx Instructions: Take only 1 tab 4 times daily for the first 2 weeks and then increase to 2 tabs 4 times per day levothyroxine 137 mcg tablet 137 mcg PO DAILY Qty: 90 1RF metformin 500 mg tablet 500 mg PO BID Qty: 180 3RF fluticasone propionate 44 mcg/actuation HFA aerosol inhaler 1 puff inhalation BID Qty: 10.6 0RF lorazepam 1 mg tablet 1 mg PO TID Qty: 90 1RF tramadol 50 mg tablet 50 - 100 mg PO TID PRN (Reason: Pain) Qty: 180 0RF hydroxyzine pamoate 50 mg capsule 50 mg PO QID ergocalciferol (vitamin D2) 1,250 mcg (50,000 unit) capsule 1,250 mcg PO Q7D Rx Instructions: ON TUESDAY azithromycin 250 mg tablet See Rx Instructions .ROUTE .COMPLEX Qty: 6 0RF Rx Instructions: For 250 mg dose pack: take 500 mg today (day 1), then 250 mg for 4 days (days 2-5) estradiol 0.5 mg Tablet 0.5 mg PO DAILY Discharge Orders: Discharge ED (Routine); Ordered 07/21/23 Ordered By: Zoe Bai Referrals: Syed Landaverde DO [Primary Care Provider] - 4-7 days Discharge Diet: Advance as tolerated Discharge Activity: Resume usual activity Patient Instructions: Abdominal Pain (ED) Coding Level of Care Code ED Aws Architect for Kiet Pardo
[2023-07-21] MEDS: sodium chloride 0.9% 1,000 ML 999 ML IV (19:24)
[2023-07-21 19:26] VITALS: RESP 16
[2023-07-21 19:26] LABS: Add Urine Microscopic? NO; Charge for UA Resulting for Rev
[2023-07-21] MEDS: HYDROmorphone 1 mg/mL INJ 1 mL IVP (19:26)
[2023-07-21] MEDS: ondansetron 2 mg/ML SDV 2 mL 4 MG IVP (19:26)
[2023-07-21 19:32] VITALS: BP 136/82; PULSE 85; RESP 16; O2SAT 99
[2023-07-21 19:32] LABS: Bilirubin Urine Neg (Negative); Blood Urine Neg (Negative); Glucose Urine UA Norm (Normal); Ketones Urine Negative (Negative); Leukocyte Esterase Urine Negative (Negative); Nitrate Urine Negative (Negative); Protein Urine Neg (Negative); Specific Gravity, Urine 1.025 (1.005-1.030); Urine Appearance Clear (CLEAR); Urine Color Yellow (Yellow); Urobilinogen Urine Norm (Negative); pH Urine 5 (5-7)
[2023-07-21 20:02] VITALS: BP 132/90; PULSE 89; RESP 16; O2SAT 99
[2023-07-21] MEDS: iohexol 350 mg/mL 500 mL Btl (per mL) IV (20:15)
[2023-07-21] MEDS: metoclopramide 5 mg/mL SDV 2 mL 10 MG IVP (20:42)
[2023-07-21] MEDS: diphenhydrAMINE 50 mg/mL SDV 1mL IVP (20:42)
[2023-07-21 21:35] VITALS: BP 118/64; PULSE 87; RESP 20; O2SAT 97
== END 2023-07-21 21:37 | disposition home or self-care (01) ==
PROVIDERS: Emergency Provider Emergency Medicine; PCP Family Medicine
DX: R10.84 Generalized abdominal pain (principal); I12.9 Hypertensive chronic kidney disease with stage 1 through stage 4 chronic kidney disease, or unspecified chronic kidney disease; E11.22 Type 2 diabetes mellitus with diabetic chronic kidney disease; N18.32 Chronic kidney disease, stage 3b
CPT/HCPCS: 36415; 74177; 80053; 81003; 83690; 85025; 96361; 96374; 96375; 99285; J1170; J1200; J2405; J2765; J7030; Q9967

== ENCOUNTER 2023-07-28 09:00 | Oncology outpatient (recurring) (ONCR) | payer MEDICAID, SELFPAY ==
[2023-07-11 12:53] LABS: Basophils % 0.8 %; Eosinophils # 0.1 10^3/uL (0.0-0.8); Eosinophils % 3.6 %; Hematocrit 30.9 % (36-47); Lymphocytes # 1.1 10^3/uL (0.8-4.8); Lymphocytes % 27.2 %; Mean Corpuscular HGB Conc 29.1 g/dL (30-55); Mean Corpuscular Hemoglobin 22.3 pg (27-33); Mean Corpuscular Volume 76.7 fl (85-98); Mean Platelet Volume 9.1 fL (7.4-10.4); Monocytes # 0.5 10^3/uL (0.2-0.9); Monocytes % 11.7 %; Neutrophils # 2.22 10^3/uL (1.8-7.7); Neutrophils % 56.4 %; Nucleated Red Blood Cells % 0 %; Platelet Count 338 10^3/cmm (157-399); Red Blood Count 4.03 10^6/uL (3.85-5.65); White Blood Count 3.93 10^3/uL (3.29-11.43)
[2023-07-11 13:15] LABS: Alanine Aminotransferase 14 U/L (0-33); Albumin Level 3.5 g/dL (3.5-5.2); Alkaline Phosphatase 84 U/L (35-105); Anion Gap 16.3 (5-19); Aspartate Amino Transferase 20 U/L (0-32); Blood Urea Nitrogen 19 mg/dL (6-20); Calcium 8.2 mg/dL (8.5-10.5); Carbon Dioxide 23 mmol/L (22-29); Chloride 104 mmol/L (98-107); Globulin 2.7 g/dL (1.3-4.6); Glomerular Filtration Rate 51.8 mL/min (90-130); Glucose 221 mg/dL (65-115); Osmolality Calculated 297 mOsm/kg (285-295); Potassium 4.3 mmol/L (3.5-5.1); Sodium 139 mmol/L (136-145); Total Bilirubin 0.2 mg/dL (0.15-1.2); Total Protein 6.2 g/dL (6.6-8.7)
[2023-07-11 13:35] LABS: Slide Review Slide Review Perform
[2023-07-14 09:19] VITALS: BP 113/81; PULSE 83; RESP 18; TEMP 36.4; O2SAT 95
[2023-07-14] MEDS: sodium chloride 0.9% 250 ML 35 ML IV (09:31)
[2023-07-14] MEDS: iron sucrose 500 MG in sodium chloride 0.9% 250 ML 90 MG IV (09:49)
[2023-07-14 13:08] VITALS: BP 121/80; PULSE 115; RESP 18; TEMP 36.9; O2SAT 95
== END 2023-08-07 23:59 | disposition home or self-care (01) ==
PROVIDERS: Internal Medicine; PCP Family Medicine; Visit Provider Family Medicine
DX: Z53.9 Procedure and treatment not carried out, unspecified reason (principal)
CPT/HCPCS: 36415; 80053; 85025; 99213; 99214; J1756; J7050

== ENCOUNTER → 2023-08-03 15:22 | Outpatient (BNVA) | payer MEDICAID, SELFPAY | PROVIDERS: PCP Family Medicine; Visit Provider Nurse Practitioner Family | DX: F45.8 Other somatoform disorders (principal); L28.1 Prurigo nodularis; L81.4 Other melanin hyperpigmentation; D22.5 Melanocytic nevi of trunk; T07.XXXA Unspecified multiple injuries, initial encounter; X58.XXXA Exposure to other specified factors, initial encounter | CPT/HCPCS: 99214 ==

== ENCOUNTER 2023-08-09 11:30 | Outpatient (CLI) | payer MEDICAID, SELFPAY ==
[2023-08-09 12:14] LABS: Basophils % 0.1 %; Eosinophils % 0.1 %; Hematocrit 36.7 % (36-47); Lymphocytes # 0.5 10^3/uL (0.8-4.8); Lymphocytes % 5.8 %; Mean Corpuscular HGB Conc 31.3 g/dL (30-55); Mean Corpuscular Hemoglobin 25.7 pg (27-33); Mean Corpuscular Volume 81.9 fl (85-98); Mean Platelet Volume 9.6 fL (7.4-10.4); Monocytes # 0.5 10^3/uL (0.2-0.9); Monocytes % 5.4 %; Neutrophils # 7.42 10^3/uL (1.8-7.7); Neutrophils % 88.2 %; Nucleated Red Blood Cells % 0 %; Platelet Count 257 10^3/cmm (157-399); Red Blood Count 4.48 10^6/uL (3.85-5.65); Red Cell Distribution Width 27.8 % (12.1-15.1); White Blood Count 8.41 10^3/uL (3.29-11.43)
[2023-08-09 12:39] LABS: Albumin Level 4.1 g/dL (3.5-5.2); Anion Gap 13.2 (5-19); Blood Urea Nitrogen 25 mg/dL (6-20); Calcium 9.2 mg/dL (8.5-10.5); Carbon Dioxide 27 mmol/L (22-29); Chloride 106 mmol/L (98-107); Glomerular Filtration Rate 57.8 mL/min (90-130); Glucose 131 mg/dL (65-115); Phosphorus 2.8 mg/dL (2.5-4.5); Potassium 4.2 mmol/L (3.5-5.1); Sodium 142 mmol/L (136-145)
[2023-08-09 12:40] LABS: Calcium 9.5 mg/dL (8.5-10.5)
[2023-08-09 12:43] LABS: Parathyroid Hormone 70.2 pg/mL (15-65)
[2023-08-09 12:48] LABS: Creatinine Urine, Random 94 mg/dL (28-217)
[2023-08-09 12:51] LABS: 25 Hydroxy Vitamin D 76 ng/mL (30-100)
[2023-08-09 13:00] LABS: Microalbum Creatinine Ratio Ur 1191 mg/dL (0-20); Microalbumin Random Urine 112 ug/dL (0-20)
== END 2023-08-09 11:31 | disposition home or self-care (01) ==
LOC: LAB 11:33
PROVIDERS: PCP Family Medicine; Visit Provider Internal Medicine
DX: E55.9 Vitamin D deficiency, unspecified (principal); N18.32 Chronic kidney disease, stage 3b; D63.1 Anemia in chronic kidney disease
CPT/HCPCS: 80069; 82044; 82306; 82310; 83970; 85025

== ENCOUNTER → 2023-08-22 11:40 | Outpatient (BNVA) | payer MEDICAID, SELFPAY | PROVIDERS: PCP Family Medicine; Visit Provider Family Medicine | DX: N28.9 Disorder of kidney and ureter, unspecified (principal); F22 Delusional disorders; M19.90 Unspecified osteoarthritis, unspecified site; Z79.899 Other long term (current) drug therapy | CPT/HCPCS: 80048 ==

== ENCOUNTER 2023-08-25 11:14 | Oncology outpatient (recurring) (ONCR) | payer MEDICAID, SELFPAY ==
[2023-08-25 11:30] LABS: Basophils # 0.1 10^3/uL (0.0-0.1); Eosinophils # 0.1 10^3/uL (0.0-0.8); Eosinophils % 1.1 %; Hematocrit 39.8 % (36-47); Lymphocytes # 1.6 10^3/uL (0.8-4.8); Lymphocytes % 26.4 %; Mean Corpuscular HGB Conc 28.4 g/dL (30-55); Mean Corpuscular Hemoglobin 25.6 pg (27-33); Mean Corpuscular Volume 90.2 fl (85-98); Mean Platelet Volume 9.7 fL (7.4-10.4); Monocytes # 0.5 10^3/uL (0.2-0.9); Monocytes % 8.4 %; Neutrophils # 3.83 10^3/uL (1.8-7.7); Neutrophils % 62.8 %; Nucleated Red Blood Cells % 0 %; Platelet Count 201 10^3/cmm (157-399); Red Blood Count 4.41 10^6/uL (3.85-5.65); Red Cell Distribution Width 25.2 % (12.1-15.1)
[2023-08-25 11:49] LABS: Alanine Aminotransferase 42 U/L (0-33); Albumin Level 3.7 g/dL (3.5-5.2); Alkaline Phosphatase 88 U/L (35-105); Anion Gap 12.9 (5-19); Aspartate Amino Transferase 45 U/L (0-32); Blood Urea Nitrogen 21 mg/dL (6-20); Calcium 8.8 mg/dL (8.5-10.5); Carbon Dioxide 22 mmol/L (22-29); Chloride 112 mmol/L (98-107); Ferritin 233 ng/mL (15-150); Globulin 2.6 g/dL (1.3-4.6); Glomerular Filtration Rate 65.2 mL/min (90-130); Glucose 96 mg/dL (65-115); Iron 83 ug/dL (37-145); Osmolality Calculated 297 mOsm/kg (285-295); Percent Saturation 30.5 % (20-50); Potassium 4.9 mmol/L (3.5-5.1); Sodium 142 mmol/L (136-145); Total Bilirubin 0.2 mg/dL (0.15-1.2); Total Iron Binding Capacity 272 mcg/dl; Total Protein 6.3 g/dL (6.6-8.7); Unsaturated Iron Binding 189 ug/dL (112-347)
== END 2023-09-06 23:59 | disposition home or self-care (01) ==
PROVIDERS: PCP Family Medicine; Visit Provider Nurse Practitioner Family
DX: D50.8 Other iron deficiency anemias; Z98.84 Bariatric surgery status; R10.13 Epigastric pain; K21.9 Gastro-esophageal reflux disease without esophagitis; R07.9 Chest pain, unspecified; Z79.899 Other long term (current) drug therapy; L60.3 Nail dystrophy; L30.8 Other specified dermatitis; F42.4 Excoriation (skin-picking) disorder
CPT/HCPCS: 36415; 80053; 82728; 83540; 83550; 85025; 99213

== ENCOUNTER 2023-10-07 10:01 | Oncology outpatient (recurring) (ONCR) | payer MEDICAID, SELFPAY ==
[2023-10-07 10:48] LABS: Basophils % 0.5 %; Eosinophils % 0.7 %; Hematocrit 32.8 % (36-47); Lymphocytes # 0.5 10^3/uL (0.8-4.8); Lymphocytes % 12.1 %; Mean Corpuscular HGB Conc 31.7 g/dL (30-55); Mean Corpuscular Hemoglobin 27.7 pg (27-33); Mean Corpuscular Volume 87.2 fl (85-98); Mean Platelet Volume 9.9 fL (7.4-10.4); Monocytes # 0.3 10^3/uL (0.2-0.9); Monocytes % 6.2 %; Neutrophils # 3.53 10^3/uL (1.8-7.7); Neutrophils % 80.3 %; Nucleated Red Blood Cells % 0 %; Platelet Count 198 10^3/cmm (157-399); Red Blood Count 3.76 10^6/uL (3.85-5.65); Red Cell Distribution Width 17.9 % (12.1-15.1); White Blood Count 4.39 10^3/uL (3.29-11.43)
[2023-10-07 11:07] LABS: Alanine Aminotransferase 20 U/L (0-33); Albumin Level 3.8 g/dL (3.5-5.2); Alkaline Phosphatase 73 U/L (35-105); Aspartate Amino Transferase 20 U/L (0-32); Blood Urea Nitrogen 26 mg/dL (6-20); Carbon Dioxide 18 mmol/L (22-29); Chloride 112 mmol/L (98-107); Creatinine Clr Calc Pharmacy 43.7858; Globulin 2.3 g/dL (1.3-4.6); Glomerular Filtration Rate 51.8 mL/min (90-130); Glucose 158 mg/dL (65-115); Iron 98 ug/dL (37-145); Osmolality Calculated 300 mOsm/kg (285-295); Percent Saturation 36.5 % (20-50); Sodium 141 mmol/L (136-145); Total Bilirubin 0.2 mg/dL (0.15-1.2); Total Iron Binding Capacity 268 mcg/dl; Total Protein 6.1 g/dL (6.6-8.7); Unsaturated Iron Binding 170 ug/dL (112-347)
== END 2023-10-07 23:59 | disposition home or self-care (01) ==
LOC: ONCMED 10:02
PROVIDERS: PCP Family Medicine; Visit Provider Nurse Practitioner Family
DX: Z98.84 Bariatric surgery status; Z79.899 Other long term (current) drug therapy; D50.9 Iron deficiency anemia, unspecified; M19.90 Unspecified osteoarthritis, unspecified site; Z98.1 Arthrodesis status; M47.22 Other spondylosis with radiculopathy, cervical region
CPT/HCPCS: 36415; 80053; 83540; 83550; 85025; 99214

== ENCOUNTER → 2023-11-17 14:15 | Outpatient (BNVA) | payer MEDICAID, SELFPAY | PROVIDERS: PCP Family Medicine; Visit Provider Orthopaedic Surgery | DX: Z98.1 Arthrodesis status (principal); M47.22 Other spondylosis with radiculopathy, cervical region | CPT/HCPCS: 72100; 99213 ==

== ENCOUNTER 2024-01-12 13:35 | Outpatient (RCR) | payer MEDICAID, SELFPAY | END 2024-02-06 23:59 | disposition home or self-care (01) | LOC: SPT 13:35 | PROVIDERS: PCP Family Medicine; Visit Provider Orthopaedic Surgery | DX: M54.9 Dorsalgia, unspecified (principal); G89.29 Other chronic pain | CPT/HCPCS: 97110; 97161 ==

== ENCOUNTER 2024-02-07 06:00 | Outpatient (RCR) | payer MEDICAID, SELFPAY | END 2024-03-08 23:59 | disposition home or self-care (01) | LOC: SPT 06:00 | PROVIDERS: PCP Family Medicine; Visit Provider Orthopaedic Surgery | DX: M54.9 Dorsalgia, unspecified (principal); G89.29 Other chronic pain; M19.041 Primary osteoarthritis, right hand; M19.042 Primary osteoarthritis, left hand; M19.90 Unspecified osteoarthritis, unspecified site; F22 Delusional disorders; D64.9 Anemia, unspecified; Z98.890 Other specified postprocedural states | CPT/HCPCS: 97110; 99214 ==

== ENCOUNTER 2024-02-09 15:21 | Outpatient (CLI) | payer MEDICAID, SELFPAY ==
[2024-02-09 15:43] LABS: Basophils % 0.5 %; Eosinophils # 0.1 10^3/uL (0.0-0.8); Eosinophils % 1.5 %; Hematocrit 32.4 % (36-47); Lymphocytes # 1.6 10^3/uL (0.8-4.8); Lymphocytes % 25.2 %; Mean Corpuscular HGB Conc 30.2 g/dL (30-55); Mean Corpuscular Volume 95.9 fl (85-98); Mean Platelet Volume 10.2 fL (7.4-10.4); Monocytes # 0.7 10^3/uL (0.2-0.9); Monocytes % 10.4 %; Neutrophils # 4.02 10^3/uL (1.8-7.7); Neutrophils % 62.1 %; Nucleated Red Blood Cells % 0 %; Platelet Count 264 10^3/cmm (157-399); Red Blood Count 3.38 10^6/uL (3.85-5.65); Red Cell Distribution Width 13.9 % (12.1-15.1); White Blood Count 6.47 10^3/uL (3.29-11.43)
[2024-02-09 16:12] LABS: Glomerular Filtration Rate 36.1 mL/min (90-130)
== END 2024-02-09 15:22 | disposition home or self-care (01) ==
LOC: LAB 15:22
PROVIDERS: PCP Family Medicine; Visit Provider Internal Medicine Rheumatology
DX: M19.90 Unspecified osteoarthritis, unspecified site (principal); M19.041 Primary osteoarthritis, right hand; M19.042 Primary osteoarthritis, left hand; F22 Delusional disorders; D64.9 Anemia, unspecified
CPT/HCPCS: 36415; 82565; 85025; 86140

== ENCOUNTER 2024-03-07 12:45 | Oncology outpatient (recurring) (ONCR) | payer MEDICAID, SELFPAY ==
[2024-02-29 14:01] LABS: Basophils % 0.3 %; Eosinophils # 0.1 10^3/uL (0.0-0.8); Hematocrit 32.6 % (36-47); Lymphocytes # 0.7 10^3/uL (0.8-4.8); Mean Corpuscular HGB Conc 30.4 g/dL (30-55); Mean Corpuscular Hemoglobin 29.6 pg (27-33); Mean Corpuscular Volume 97.3 fl (85-98); Mean Platelet Volume 9.9 fL (7.4-10.4); Monocytes # 0.6 10^3/uL (0.2-0.9); Monocytes % 10.6 %; Neutrophils # 4.36 10^3/uL (1.8-7.7); Neutrophils % 75.9 %; Nucleated Red Blood Cells % 0 %; Platelet Count 277 10^3/cmm (157-399); Red Blood Count 3.35 10^6/uL (3.85-5.65); Red Cell Distribution Width 15.9 % (12.1-15.1); White Blood Count 5.75 10^3/uL (3.29-11.43)
[2024-02-29 14:24] LABS: Phosphorus 4.5 mg/dL (2.5-4.5)
[2024-02-29 14:25] LABS: Alanine Aminotransferase 62 U/L (0-33); Albumin Level 3.9 g/dL (3.5-5.2); Alkaline Phosphatase 74 U/L (35-105); Anion Gap 14.5 (5-19); Aspartate Amino Transferase 32 U/L (0-32); Blood Urea Nitrogen 44 mg/dL (6-20); Calcium 8.4 mg/dL (8.5-10.5); Carbon Dioxide 19 mmol/L (22-29); Chloride 111 mmol/L (98-107); Ferritin 159 ng/mL (15-150); Glomerular Filtration Rate 42.5 mL/min (90-130); Glucose 101 mg/dL (65-115); Iron 102 ug/dL (37-145); Osmolality Calculated 299 mOsm/kg (285-295); Percent Saturation 42.5 % (20-50); Potassium 5.5 mmol/L (3.5-5.1); Sodium 139 mmol/L (136-145); Total Bilirubin 0.2 mg/dL (0.15-1.2); Total Iron Binding Capacity 240 mcg/dl; Total Protein 5.9 g/dL (6.6-8.7); Unsaturated Iron Binding 138 ug/dL (112-347)
[2024-02-29 14:41] LABS: 25 Hydroxy Vitamin D 63 ng/mL (30-100)
[2024-02-29 15:11] LABS: Creatinine Urine, Random 131 mg/dL (28-217); Microalbum Creatinine Ratio Ur 115 mg/dL (0-20); Microalbumin Random Urine 15 ug/dL (0-20)
[2024-02-29 15:13] LABS: Calcium 8.5 mg/dL (8.5-10.5)
[2024-02-29 15:20] LABS: Parathyroid Hormone 65.5 pg/mL (15-65)
== END 2024-03-08 23:59 | disposition home or self-care (01) ==
PROVIDERS: Internal Medicine; PCP Family Medicine; Visit Provider Nurse Practitioner Family
DX: Z53.9 Procedure and treatment not carried out, unspecified reason (principal)
CPT/HCPCS: 36415; 80053; 82044; 82306; 82310; 82728; 83540; 83550; 83970; 84100; 85025; 99214

== ENCOUNTER → 2024-03-08 14:24 | Outpatient (BNVA) | payer MEDICAID, SELFPAY | PROVIDERS: PCP Family Medicine; Visit Provider Orthopaedic Surgery | DX: Z98.1 Arthrodesis status (principal) | CPT/HCPCS: 72040; 72110; 99214 ==

== ENCOUNTER 2024-03-15 11:22 | Outpatient (CLI) | payer MEDICAID, SELFPAY ==
[2024-03-15 12:27] LABS: Anion Gap 13.3 (5-19); Blood Urea Nitrogen 26 mg/dL (6-20); Calcium 8.3 mg/dL (8.5-10.5); Carbon Dioxide 22 mmol/L (22-29); Chloride 111 mmol/L (98-107); Glomerular Filtration Rate 42.5 mL/min (90-130); Glucose 113 mg/dL (65-115); Osmolality Calculated 298 mOsm/kg (285-295); Potassium 5.3 mmol/L (3.5-5.1); Sodium 141 mmol/L (136-145)
== END 2024-03-15 11:23 | disposition home or self-care (01) ==
LOC: LAB 11:24
PROVIDERS: PCP Family Medicine; Visit Provider Nurse Practitioner
DX: N18.32 Chronic kidney disease, stage 3b (principal)
CPT/HCPCS: 36415; 80048

== ENCOUNTER → 2024-03-26 10:07 | Outpatient (BNVA) | payer MEDICAID, SELFPAY | PROVIDERS: PCP Family Medicine; Visit Provider Surgery | DX: R10.84 Generalized abdominal pain (principal) | CPT/HCPCS: 99214 ==

== ENCOUNTER 2024-04-17 15:28 | Outpatient (CLI) | payer MEDICAID, SELFPAY ==
--- NOTE | 2024-04-17 15:38 | CT_ITS ---
WS: [id number] CT ABDOMEN AND PELVIS WITH CONTRAST HISTORY: ABDOMINAL PAIN TECHNIQUE: Imaging performed of the abdomen and pelvis with IV contrast. Single phase imaging of the abdomen. Coronal and sagittal reformats are submitted. All CT scans at [facility] use at [address] one of these dose optimization techniques: automated exposure control; mA and/or kV adjustment per patient size (includes targeted exams where dose is matched to clinical indication); or iterative re construction. IV CONTRAST: Omnipaque 350; 100 mL IV. Oral contrast: Yes. DLP: 226.83 mGy.cm COMPARISON: 03/01/2022, 07/21/2023 Lower thorax: Lung bases are clear. Heart is normal size. Prior gastric bypass. Liver/biliary system: Normal size with no intrahepatic dilatation. Gallbladder: Prior cholecystectomy. Minimal common bile duct dilatation. Pancreas: Normal size pancreas and pancreatic duct. No adjacent inflammation. Spleen: Normal size spleen with granulomata. Adrenal glands: Normal. Right kidney: Mildly lobulated cortex. Small extrarenal pelvis. No renal obstruction or mass. Normal size kidney measuring 9.9 cm in length. Left kidney: Mildly lobulated cortex. Moderate atrophy of the kidney. Kidney measures 7.8 cm in lengt h. No obstruction. Aorta: Aorta is obscured by artifact from extensive lumbar spine fusion surgery. There is at least mi ld atherosclerotic plaque. No dilatation. There is an IVC filter also noted at the level of the renal veins. Lymphadenopathy: None. Free fluid: None. GI tract: Status post gastric bypass. Bowel loops are very tightly compressed within the abdominal ca vity. There is very little fat the loops of bowel. No small bowel obstruction or enteritis is identified. There is at least moderate fecal retention. Increased air throughout the ascending an d transverse colon. No colitis or obstruction. The appendix does appear to be present and normal and filled with air. Abdominal wall: Extensive surgical clips are noted along the intra-abdominal wall from prior surgery. May be from a prior hernia repair. Patient also has given prior history of tummy tuck. Pelvis: Prior hysterectomy. Urinary bladder is negative. Bones: Prior lumbar spine surgery. Fusion hardware from L3-S1. Bilateral femoral head osteonecrosis. No progression since 07/21/2023. CT/CT abdomen pelvis w con* [id number] IMPRESSION: 1. No acute abdomen or pelvic process is identified. 2. There is diffuse constipation with increasing air also in portions of the c olon. No obstructive pattern. 3. Prior gastric bypass. 4. Prior cholecystectomy and hysterectomy. 5. IVC filter remains in good position. 6. No free air or adenopathy. 7. No ascites. 8. Moderate atrophy LEFT kidney, stable.
[2024-04-17] MEDS: iohexol 350 mg/mL 500 mL Btl (per mL) PO (16:05)
[2024-04-17 16:45] LABS: Anion Gap 15.5 (5-19); Blood Urea Nitrogen 27 mg/dL (6-20); Calcium 8.9 mg/dL (8.5-10.5); Carbon Dioxide 19 mmol/L (22-29); Chloride 108 mmol/L (98-107); Glomerular Filtration Rate 46.6 mL/min (90-130); Glucose 262 mg/dL (65-115); Osmolality Calculated 300 mOsm/kg (285-295); Potassium 4.5 mmol/L (3.5-5.1); Sodium 138 mmol/L (136-145)
[2024-04-17] MEDS: iohexol 350 mg/mL 500 mL Btl (per mL) IV (17:01)
== END 2024-04-17 15:29 | disposition home or self-care (01) ==
LOC: RAD 15:28
PROVIDERS: PCP Family Medicine; Visit Provider Surgery
DX: R10.84 Generalized abdominal pain (principal); K59.00 Constipation, unspecified; N26.1 Atrophy of kidney (terminal); Z90.49 Acquired absence of other specified parts of digestive tract; Z90.710 Acquired absence of both cervix and uterus
CPT/HCPCS: 74177; 80048

== ENCOUNTER → 2024-04-23 10:48 | Outpatient (BNVA) | payer MEDICAID, SELFPAY | PROVIDERS: PCP Family Medicine; Visit Provider Surgery | DX: K59.04 Chronic idiopathic constipation (principal) | CPT/HCPCS: 99214 ==

== ENCOUNTER → 2024-05-28 08:55 | Outpatient (BNVA) | payer MEDICAID, SELFPAY | PROVIDERS: PCP Family Medicine; Visit Provider Surgery | DX: K52.9 Noninfective gastroenteritis and colitis, unspecified (principal); R10.84 Generalized abdominal pain; R11.0 Nausea | CPT/HCPCS: 99214 ==

== ENCOUNTER 2024-05-28 10:10 | Outpatient (CLI) | payer MEDICAID, SELFPAY ==
[2024-05-28 10:45] LABS: Bilirubin Urine Negative (Negative); Blood Urine Negative (Negative); Glucose Urine UA Negative (Normal); Ketones Urine Negative (Negative); Leukocyte Esterase Urine Negative (Negative); Nitrate Urine Negative (Negative); Protein Urine Trace (Negative); Specific Gravity, Urine 1.027 (1.005-1.030); Urine Appearance Clear (CLEAR); Urine Color Yellow (Yellow)
[2024-05-28 10:50] LABS: Add Urine Microscopic? YES; Bacteria Urine None Seen /hpf; Hyaline Casts Urine 4.95 /lpf; RBC Urine 0-2 /hpf (0-2); Squamous Epithelial Cell Urine 0-5 /hpf (0-5); WBC Urine 0-5 /hpf (0-5)
[2024-05-28 10:58] LABS: Anion Gap 15.4 (5-19); Blood Urea Nitrogen 29 mg/dL (6-20); Calcium 8.4 mg/dL (8.5-10.5); Carbon Dioxide 24 mmol/L (22-29); Chloride 106 mmol/L (98-107); Glomerular Filtration Rate 51.6 mL/min (90-130); Glucose 112 mg/dL (65-115); Osmolality Calculated 299 mOsm/kg (285-295); Potassium 4.4 mmol/L (3.5-5.1); Sodium 141 mmol/L (136-145)
== END 2024-05-28 10:11 | disposition home or self-care (01) ==
LOC: LAB 10:15
PROVIDERS: PCP Family Medicine; Referring Provider Nurse Practitioner Family; Visit Provider Nurse Practitioner
DX: N18.32 Chronic kidney disease, stage 3b (principal); R31.0 Gross hematuria
CPT/HCPCS: 36415; 80048; 81001

== ENCOUNTER → 2024-05-29 15:16 | Outpatient (BNVA) | payer MEDICAID, SELFPAY | PROVIDERS: PCP Family Medicine; Visit Provider Nurse Practitioner Family | DX: F42.4 Excoriation (skin-picking) disorder (principal); F45.8 Other somatoform disorders; L81.4 Other melanin hyperpigmentation; D22.5 Melanocytic nevi of trunk; M71.341 Other bursal cyst, right hand; T81.89XA Other complications of procedures, not elsewhere classified, initial encounter; X58.XXXA Exposure to other specified factors, initial encounter | CPT/HCPCS: 99214 ==

== ENCOUNTER 2024-06-12 08:34 | Outpatient (CLI) | payer MEDICAID, SELFPAY ==
[2024-06-12 08:57] LABS: Basophils % 0.6 %; Eosinophils # 0.1 10^3/uL (0.0-0.8); Eosinophils % 2.5 %; Lymphocytes # 1.4 10^3/uL (0.8-4.8); Lymphocytes % 30.2 %; Mean Corpuscular HGB Conc 30.6 g/dL (30-55); Mean Corpuscular Hemoglobin 32.1 pg (27-33); Mean Corpuscular Volume 104.9 fl (85-98); Mean Platelet Volume 9.4 fL (7.4-10.4); Monocytes # 0.6 10^3/uL (0.2-0.9); Monocytes % 11.6 %; Neutrophils # 2.59 10^3/uL (1.8-7.7); Neutrophils % 54.9 %; Nucleated Red Blood Cells % 0 %; Platelet Count 233 10^3/cmm (157-399); Red Blood Count 3.24 10^6/uL (3.85-5.65); White Blood Count 4.73 10^3/uL (3.29-11.43)
[2024-06-12 09:19] LABS: Alanine Aminotransferase 52 U/L (0-33); Alkaline Phosphatase 62 U/L (35-105); Anion Gap 15.7 (5-19); Aspartate Amino Transferase 32 U/L (0-32); Blood Urea Nitrogen 41 mg/dL (6-20); Calcium 9.3 mg/dL (8.5-10.5); Carbon Dioxide 23 mmol/L (22-29); Chloride 109 mmol/L (98-107); Ferritin 43 ng/mL (15-150); Glomerular Filtration Rate 46.6 mL/min (90-130); Glucose 85 mg/dL (65-115); Iron 71 ug/dL (37-145); Osmolality Calculated 307 mOsm/kg (285-295); Percent Saturation 26.5 % (20-50); Potassium 3.7 mmol/L (3.5-5.1); Sodium 144 mmol/L (136-145); Total Bilirubin 0.2 mg/dL (0.15-1.2); Total Iron Binding Capacity 267 mcg/dl; Unsaturated Iron Binding 196 ug/dL (112-347)
== END 2024-06-12 08:35 | disposition home or self-care (01) ==
PROVIDERS: PCP Family Medicine; Visit Provider Nurse Practitioner Family
DX: D50.9 Iron deficiency anemia, unspecified (principal)
CPT/HCPCS: 36415; 80053; 82728; 83540; 83550; 85025

== ENCOUNTER 2024-06-20 08:18 | Day surgery (SDC) | payer MEDICAID, SELFPAY ==
[2024-06-20 08:33] VITALS: BP 139/94; PULSE 107; RESP 17; TEMP 36.1; O2SAT 98; BMI 19.1
--- NOTE | 2024-06-20 08:35 | ANES.PREANE2 ---
Pre-Anesthetic Assessment Height/Weight: Height 1.52 m Operation Date: 06/20/24 08:45 Proposed Procedures p colonoscopy with random biopsies, 43672, C99175, K52.9, R10.84(Not Applicable) - Kurt Lopez DO Familial anesthetic complications: None Was Beta Stuart taken within 24 hours: N/A Was Clonidine taken within 24 hours: N/A Social Tobacco (Marijuana) and No alcohol Exam alert, oriented x 3, clear to auscultation bilaterally and regular rate & rhythm Airway Submandibular: within normal limits Cervical ROM: Other (Decreased ROM d/t cervical surgery) Mallampati: Class III Dentition: full Comments: Comments: Dysphagia/odynophagia History/ROS No significant history except as noted and No significant complaints Pulmonary Asthma and Exertional Dyspnea CV/HEM Anemia Katherin filter Chronic Renal Failure Hepatic None reported GI Gastroesophageal Reflux Disease (No issues this morning) and Hiatal Hernia Gastric bypass 26 years ago Metabolic Diabetes Mellitus and Thyroid Disease Musc/skel Lower Back Pain, Osteoarthritis/DJD and Rheumatoid Arthritis Cervical fusion and lumbar fusion Neuropsych Anxiety, Depression and Headache (Migraines) Anesthetic Plan ASA status: 3 Anesthesia: Anesthesia Evaluation, General and MAC Risk of > 500 ml blood loss (7ml/kg in children): No Medications/Allergies Home Medications ?Medication ?Instructions ?Recorded ?Confirmed ?Last Taken ?Type E0748 Bone growth stimulator #1 ea 02/06/21 06/12/24 06/19/24 Rx Aquatic Therapy #1 ea 05/17/22 06/12/24 06/19/24 Rx mupirocin 2 % topical ointment 1 applic topical BID #22 grams 08/10/22 06/18/24 06/19/24 Rx lidocaine 4 % topical cream 1 applic topical BID PRN hand pain 03/02/23 06/18/24 06/19/24 Rx #30 grams fluticasone propionate 44 1 puff inhalation BID asthma #10.6 05/28/23 06/18/24 06/19/24 Rx mcg/actuation HFA aerosol inhaler [facility] .Route 07/13/23 06/12/24 06/19/24 History triamcinolone acetonide 0.1 % 1 applic topical BID #15 grams 08/12/23 06/18/24 06/19/24 Rx topical ointment epinephrine 0.3 mg/0.3 mL 0.3 mg (0.3 mL) IM Q4H PRN 12/07/23 06/20/24 Unknown Rx injection, auto-injector (EpiPen anaphylaxis #2 ea 2-David) ergocalciferol (vitamin D2) 1,250 See Rx Instructions .Route 01/31/24 06/18/24 06/19/24 Rx mcg (50,000 unit) capsule .COMPLEX #12 caps levothyroxine 137 mcg tablet 137 mcg PO DAILY #90 tabs 01/31/24 06/18/24 06/19/24 Rx metformin 500 mg tablet 500 mg PO BID DM #180 tabs 01/31/24 06/18/24 06/19/24 Rx folic acid 1 mg tablet 1 mg PO QDAY RA 30 days #30 tabs 02/07/24 06/18/24 06/19/24 Rx methotrexate sodium 2.5 mg tablet 12.5 mg (5 x 2.5 mg) PO .WEEKLY RA 02/07/24 06/20/24 Unknown Rx #25 tabs prednisolone 5 mg tablet 5 mg PO QDAY RA #90 tabs 02/07/24 06/18/24 06/19/24 Rx hydroxychloroquine 200 mg tablet See Rx Instructions .Route 02/22/24 06/18/24 06/19/24 Rx .COMPLEX #45 tabs hydroxyzine pamoate 50 mg capsule 50 mg PO QID PRN anxeity, itching 03/11/24 06/18/24 06/19/24 Rx #120 caps magnesium citrate 300 ml PO DAILY PRN constipation 04/23/24 06/18/24 06/19/24 Rx #296 mL pantoprazole 40 mg tablet,delayed 40 mg PO BID #60 tabs 05/10/24 06/18/24 06/19/24 Rx release clonazepam 1 mg tablet 1 mg PO TID PRN anxiety #90 tabs 05/15/24 06/18/24 06/19/24 Rx ondansetron 8 mg disintegrating 8 mg PO Q8H PRN nausea and 06/07/24 06/18/24 06/19/24 Rx tablet vomiting #20 tabs oxycodone-acetaminophen 7.5 mg-325 1 tab PO Q4-5H PRN Pain 06/12/24 06/18/24 06/19/24 History mg tablet Allergies Allergy/AdvReac Type Severity Reaction Status Date / Time NSAIDS (Non-Steroidal Allergy Mild Unknown Verified 06/12/24 09:27 Anti-Inflamma Sulfa (Sulfonamide Allergy Mild Unknown Verified 06/12/24 09:27 Antibiotics) Alpha-Gal Allergy ALGY-Anaphy Verified 06/18/24 09:05 (Wrbdvzwjr-Dpwfa-3,3-Gala laxis Beef Containing Products Allergy ALGY-Anaphy Verified 06/12/24 09:27 laxis Pork/Porcine Containing Allergy nausea and Verified 06/12/24 09:27 Products vomiting gabapentin AdvReac mental Verified 06/12/24 09:27 status change [facility] Anesthesia Medical History Iron deficiency anemia Neurodermatitis TRALI (transfusion related acute lung injury) Near syncope Stress Secondary hyperparathyroidism Hypertension Delusions of parasitosis Osteoarthritis of hands, bilateral Positive ANTONETTE (antinuclear antibody) Inflammatory arthritis Chronic idiopathic constipation C. difficile diarrhea Depression with anxiety Hypothyroidism Chronic kidney disease, stage 3b Cervical disc disorder with myelopathy of mid-cervical region Spondylolisthesis of cervical region Diabetes Allergy to alpha-gal Thyroid disease Chronic migraine without aura, intractable, with status migrainosus Surgical History Katherin filter in place 2001 Hx of hernia repair Status post colonoscopy (08/26/21) History of colonoscopy 2018 History of esophagogastroduodenoscopy (EGD) (08/26/21) 2019 Hx of hysterectomy H/O gastric bypass History of carpal tunnel surgery of left wrist Dr. Orlando Richter 11/18/2016 History of carpal tunnel surgery of right wrist Dr. Richter 01/13/2017 History of back surgery Dr. Richter 08/08/17 L4-L5 laminectomy/fusion/fixation 2008 [facility] Lumbar decompression History of neck surgery Dr. Richter 06/29/2018 C6-C7 ACDFF Family History Grandfather CAD (coronary artery disease) Stroke Grandmother CAD (coronary artery disease) Sister CAD (coronary artery disease) Hypertension Family/Other Cancer Mother Hypertension Father Hypertension Brother Hypertension Other Diabetes Social History Smoking and tobacco/nicotine status: never used tobacco/nicotine Alcohol intake: never Substance/Drug Use: current Substance/Drug use frequency: few times a week Household members: family Marital status: Single Current occupational status: disabled Data Anesthesia Cardiac Studies: No Data to Display
[2024-06-20] MEDS: sodium chloride 0.9% 500 ML 15 ML IV (08:42)
--- NOTE | 2024-06-20 08:44 | W.PM.OPSUD ---
Surgery/Procedure H&P Update DATE OF PROCEDURE: June 20, 2024 DATE H&P PERFORMED: 05/28/24 H&P UPDATE INFORMATION: I have reviewed H&P completed within last 30 days, I have examined patient prior to procedure and No changes to prior documentation PLANNED PROCEDURE: Operation Date: 06/20/24 08:45 Proposed Procedures p colonoscopy with random biopsies, [id number], [id number], K52.9, R10.84(Not Applicable) - Kurt Lopez, DO
[2024-06-20 09:02] LABS: Glucose Point of Care 115 mg/dL (70-110)
[2024-06-20 09:09] VITALS: BP 92/61; PULSE 98; RESP 18; TEMP 36.3; O2SAT 98
[2024-06-20 09:18] VITALS: BP 101/61; PULSE 82; RESP 18; TEMP 36.2; O2SAT 98
--- NOTE | 2024-06-20 09:37 | ANE.PACU2 ---
Inpatient post-anesthesia follow up: Airway intact: Yes Vital signs: Temperature 97.2 F Pulse Rate 82 Respiratory Rate 18 Blood Pressure 101/61 Pulse Oximetry 98 Oxygen Delivery Me thod Room Air Oxygen Flow Rate Fraction of Inspir ed Oxygen Hydration adequate: Yes Nausea and vomiting: No Pain level: 1 Mental status: Baseline
[2024-06-20 11:02] LABS: C.Diff PCR (Lab) NEGATIVE (Negative)
== END 2024-06-20 09:37 | disposition home or self-care (01) ==
PROVIDERS: PCP Family Medicine; Visit Provider Surgery
PROC: 0DJD8ZZ Inspection of Lower Intestinal Tract, Via Natural or Artificial Opening Endoscopic (ICD-10-PCS; CPT 45378; principal; 2024-06-20 08:45)
DX: K52.9 Noninfective gastroenteritis and colitis, unspecified (principal); R10.84 Generalized abdominal pain; R13.19 Other dysphagia; K21.9 Gastro-esophageal reflux disease without esophagitis; Z98.84 Bariatric surgery status; M06.9 Rheumatoid arthritis, unspecified; K44.9 Diaphragmatic hernia without obstruction or gangrene; F41.9 Anxiety disorder, unspecified; F32.A Depression, unspecified; Z79.899 Other long term (current) drug therapy; Z79.890 Hormone replacement therapy; Z88.2 Allergy status to sulfonamides; Z88.8 Allergy status to other drugs, medicaments and biological substances; Z91.014 Allergy to mammalian meats; E11.22 Type 2 diabetes mellitus with diabetic chronic kidney disease; N18.32 Chronic kidney disease, stage 3b; G43.911 Migraine, unspecified, intractable, with status migrainosus; I12.9 Hypertensive chronic kidney disease with stage 1 through stage 4 chronic kidney disease, or unspecified chronic kidney disease; N25.81 Secondary hyperparathyroidism of renal origin
CPT/HCPCS: 36416; 45380; 82274; 82962; 83630; 87045; 87177; 87209; 87427; 87449; 87493; 88305; J7040

== ENCOUNTER 2024-08-01 16:34 | Outpatient (CLI) | payer MEDICAID, SELFPAY ==
[2024-08-01 17:38] LABS: Basophils % 0.3 %; Eosinophils % 0.2 %; Hematocrit 38.2 % (36-47); Lymphocytes # 0.5 10^3/uL (0.8-4.8); Lymphocytes % 7.7 %; Mean Corpuscular HGB Conc 31.9 g/dL (30-55); Mean Corpuscular Hemoglobin 31.7 pg (27-33); Mean Corpuscular Volume 99.2 fl (85-98); Mean Platelet Volume 9.7 fL (7.4-10.4); Monocytes # 0.2 10^3/uL (0.2-0.9); Monocytes % 3.1 %; Neutrophils # 5.74 10^3/uL (1.8-7.7); Neutrophils % 88.5 %; Nucleated Red Blood Cells % 0 %; Platelet Count 313 10^3/cmm (157-399); Red Blood Count 3.85 10^6/uL (3.85-5.65); Red Cell Distribution Width 12.6 % (12.1-15.1); White Blood Count 6.48 10^3/uL (3.29-11.43)
[2024-08-01 17:39] LABS: Bilirubin Urine Negative (Negative); Blood Urine Negative (Negative); Glucose Urine UA Negative (Normal); Ketones Urine Trace (Negative); Leukocyte Esterase Urine Negative (Negative); Nitrate Urine Negative (Negative); Protein Urine 2+ (Negative); Urine Appearance Clear (CLEAR); Urine Color Yellow (Yellow)
[2024-08-01 17:43] LABS: Add Urine Microscopic? YES; Bacteria Urine None Seen /hpf; Hyaline Casts Urine 47.99 /lpf; RBC Urine 0-2 /hpf (0-2); WBC Urine 0-5 /hpf (0-5)
[2024-08-01 17:54] LABS: Add Urine Culture? No; Specific Gravity, Urine 1.038 (1.005-1.030); UA Slide Review UA Slide Review Perf
[2024-08-01 17:55] LABS: Fine Granular Casts Urine 0-4 /lpf
[2024-08-01 18:01] LABS: Alanine Aminotransferase 60 U/L (0-33); Albumin Level 4.1 g/dL (3.5-5.2); Alkaline Phosphatase 71 U/L (35-105); Anion Gap 17.3 (5-19); Aspartate Amino Transferase 55 U/L (0-32); Blood Urea Nitrogen 23 mg/dL (6-20); Calcium 8.8 mg/dL (8.5-10.5); Carbon Dioxide 19 mmol/L (22-29); Chloride 110 mmol/L (98-107); Ferritin 34 ng/mL (15-150); Globulin 2.1 g/dL (1.3-4.6); Glomerular Filtration Rate 51.6 mL/min (90-130); Glucose 92 mg/dL (65-115); Iron 81 ug/dL (37-145); Osmolality Calculated 297 mOsm/kg (285-295); Percent Saturation 28.3 % (20-50); Potassium 4.3 mmol/L (3.5-5.1); Sodium 142 mmol/L (136-145); Total Bilirubin 0.2 mg/dL (0.15-1.2); Total Iron Binding Capacity 286 mcg/dl; Total Protein 6.2 g/dL (6.6-8.7); Unsaturated Iron Binding 205 ug/dL (112-347)
== END 2024-08-01 16:35 | disposition home or self-care (01) ==
LOC: LAB 16:35
PROVIDERS: Internal Medicine Rheumatology; Nurse Practitioner Family; PCP Family Medicine; Visit Provider Nurse Practitioner Family
DX: L81.4 Other melanin hyperpigmentation (principal); D22.5 Melanocytic nevi of trunk; F42.4 Excoriation (skin-picking) disorder; L30.9 Dermatitis, unspecified; L57.0 Actinic keratosis; M19.90 Unspecified osteoarthritis, unspecified site; M19.041 Primary osteoarthritis, right hand; M19.042 Primary osteoarthritis, left hand; F22 Delusional disorders; D64.9 Anemia, unspecified; D50.9 Iron deficiency anemia, unspecified
CPT/HCPCS: 17000; 36415; 80053; 81001; 82248; 82728; 83540; 83550; 85025; 86140; 99213

== ENCOUNTER → 2024-08-02 15:11 | Outpatient (BNVA) | payer MEDICAID, SELFPAY | PROVIDERS: PCP Family Medicine; Visit Provider Orthopaedic Surgery | DX: Z98.1 Arthrodesis status (principal); M54.2 Cervicalgia; Z98.890 Other specified postprocedural states | CPT/HCPCS: 99214 ==

== ENCOUNTER 2024-08-03 21:37 | Emergency (ER) | payer MEDICAID, SELFPAY ==
[2024-08-03 21:43] VITALS: BP 112/73; PULSE 104; RESP 18; TEMP 36.7; O2SAT 97; BMI 17.6
--- NOTE | 2024-08-03 21:59 | ED_ITS ---
HPI - Extremity Problem General: Chief complaint: Extremity Problem,Nontraumatic Stated complaint: Fell on 07/30/24 hurt both L&R legs Time Seen by Provider: 08/03/24 21:40 Source: patient Mode of arrival: ambulatory Limitations: no limitations History of Present Illness: Patient is a very nice 53-year-old female presents to ED today with a complaint of pain to her left leg but is also having some discomfort to her right as well. She states 3 days ago, two of her large dogs were running together and accidentally smacked into her legs. She states she fell and sustained several abrasions to her legs from the metal fence. Last tetanus is unknown. She has been ambulatory on the extremities since the injury. She did get seen 2 days ago at a walk-in clinic for the abrasions and was placed on doxycycline for concerns of developing infection. Patient states she has had approximately 3 doses of this antibiotic. Patient noticed ecchymosis to the anterior aspect of her left leg that has since gravitated downward. She is concerned about a possible DVT. Patient has not noticed any edema to the lower extremity. She has not noticed any redness or warmth. She is not complaining of any calf pain. Patient denies shortness of breath or chest pain. MD Complaint: extremity pain Onset (ago): day(s) Pain Consistency: constant Location: left, right and lower extremity Radiation: none Relieving factors: nothing Exacerbating factors: nothing Associated symptoms: Reports no associated symptoms; Deny chest pain or fever(s) Related Data Home Medications ?Medication ?Instructions ?Recorded ?Confirmed medical zara .Route 07/13/23 08/02/24 oxycodone-acetaminophen 7.5 mg-325 1 tab PO Q4-5H PRN Pain 06/12/24 08/02/24 mg tablet Previous Rx's ?Medication ?Instructions ?Recorded [id number] Bone growth stimulator #1 ea 02/06/21 Aquatic Therapy #1 ea 05/17/22 mupirocin 2 % topical ointment 1 applic topical BID #2 2 grams 08/10/22 lidocaine 4 % topical cream 1 applic topical BID PRN h and pain 03/02/23 #30 grams fluticasone propionate 44 1 puff inhalation BID asthma #10.6 05/28/23 mcg/actuation HFA aerosol inhaler grams triamcinolone acetonide 0.1 % 1 applic topical BID #15 grams 08/12/23 topical ointment epinephrine 0.3 mg/0.3 mL 0.3 mg (0.3 mL) IM Q4H PRN 0 12/07/23 injection, auto-injector (EpiPen anaphylaxis #2 ea 2-David) ergocalciferol (vitamin D2) 1,250 See Rx Instructions .Route 01/31/24 mcg (50,000 unit) capsule .COMPLEX #12 caps levothyroxine 137 mcg tablet 137 mcg PO DAILY #90 tabs 01/31/24 metformin 500 mg tablet 500 mg PO BID DM #180 tabs 0 01/31/24 folic acid 1 mg tablet 1 mg PO QDAY RA 30 days #30 tabs 02/07/24 methotrexate sodium 2.5 mg tablet 12.5 mg (5 x 2.5 mg) PO .WEEKLY RA 02/07/24 #25 tabs prednisolone 5 mg tablet 5 mg PO QDAY RA #90 tabs 06/01 magnesium citrate 300 ml PO DAILY PRN constipa tion 04/23/24 #296 mL ondansetron 8 mg disintegrating 8 mg PO Q8H PRN nausea and 06/07/24 tablet vomiting #20 tabs hydroxychloroquine 200 mg tablet See Rx Instructions . Route 06/28/24 .COMPLEX #45 tabs pantoprazole 40 mg tablet,delayed 40 mg PO BID #60 tab s 06/28/24 release hydroxyzine pamoate 50 mg capsule 50 mg PO QID PRN anx eity, itching 07/02/24 #120 caps clonazepam 1 mg tablet 1 mg PO TID PRN anxiety #90 tabs 07/09/24 Allergies Allergy/AdvReac Type Severity Reaction Status Date / Time NSAIDS (Non-Steroidal Allergy Mild Unknown Verified 08/03/24 21:46 Anti-Inflamma Sulfa (Sulfonamide Allergy Mild Unknown Verified 08/03/24 21:46 Antibiotics) Alpha-Gal Allergy ALGY-Anaphy Verified 08/03/24 21:46 (Dcpmbkjrk-Lvhxy-4,3-Gala laxis Beef Containing Products Allergy ALGY-Anaphy Verified 08/03/24 21:46 laxis Pork/Porcine Containing Allergy nausea and Verified 08/03/24 21:46 Products vomiting gabapentin AdvReac mental Verified 08/03/24 21:46 status change Review of Systems Const: Denies: fever(s), chills, body aches, fatigue or malaise Card: Denies: chest pain Resp: Denies: dyspnea or hemoptysis Musc: Reports: extremity pain; Denies: extremity swelling, joint pain, joint swelling or joint redness Skin/Breast: Reports: other (several mild LE abrasions) Neuro: Denies: numbness in extremities, weakness in extremities, sensory changes or difficulty walking PFSH ED PFSH: Medical History Iron deficiency anemia Neurodermatitis TRALI (transfusion related acute lung injury) Near syncope Stress Secondary hyperparathyroidism Hypertension Delusions of parasitosis Osteoarthritis of hands, bilateral Positive ANTONETTE (antinuclear antibody) Inflammatory arthritis Chronic idiopathic constipation C. difficile diarrhea Depression with anxiety Hypothyroidism Chronic kidney disease, stage 3b Cervical disc disorder with myelopathy of mid-cervical region Spondylolisthesis of cervical region Diabetes Allergy to alpha-gal Thyroid disease Chronic migraine without aura, intractable, with status migrainosus Surgical History Katherin filter in place 2001 Hx of hernia repair Status post colonoscopy (08/26/21) History of colonoscopy 2018 History of esophagogastroduodenoscopy (EGD) (08/26/21) 2019 Hx of hysterectomy H/O gastric bypass History of carpal tunnel surgery of left wrist Dr. Orlando Richter 11/18/2016 History of carpal tunnel surgery of right wrist Dr. Richter 01/13/[address] Richter 08/08/17 L4-L5 laminectomy/fusion/fixation 2008 [facility] Lumbar decompression History of neck surgery Dr. Richter 06/29/2018 C6-C7 ACDFF Family History Grandfather CAD (coronary artery disease) Stroke Grandmother CAD (coronary artery disease) Sister CAD (coronary artery disease) Hypertension Family/Other Cancer Mother Hypertension Father Hypertension Brother Hypertension Other Diabetes Social History Smoking and tobacco/nicotine status: never used tobacco/nicotine Alcohol intake: never Substance/Drug Use: current Substance/Drug use frequency: few times a week Household members: family Marital status: Single Current occupational status: disabled Physical Exam Const: COMMON NORMALS: no acute distress, patient oriented x3, no limitations and alert GENERAL APPEARANCE: cooperative NUTRITIONAL APPEARANCE: thin ORIENTATION/CONSCIOUSNESS: Yes awake, Yes oriented to person, Yes oriented to place and Yes oriented to time Resp: COMMON NORMALS: normal respiratory effort and clear to auscultation bilaterally AUSCULTATION: clear to auscultation bilaterally Cardio: COMMON NORMALS: regular rhythm RATE: tachycardic RHYTHM: regular rhythm Extremity: COMMON NORMALS: full ROM, capillary refill normal, no joint enlargement, no clubbing, cyanosis or edema, no calf tenderness and no pedal edema GENERAL: Yes normal exam except as noted OTHER: bilateral LEs have mild scattered abrasions-some with erythema localized to wound edges; no cellulitis, streaking, drainage there is no edema to either extremity; she has no calf pain to either leg and negative Khris's; DP/PT pulses palpable bilaterally; cap refill and sensation are normal bilaterally mild gravitating ecchymosis anterior L LE Neuro: COMMON NORMALS: patient oriented x3, moves all extremities, no focal motor deficits and no sensory deficits noted SENSORIUM/ORIENTATION: Yes alert, Yes oriented to person, Yes oriented to place and Yes oriented to time Course Vital Signs: Vital signs: Vital Signs Temperature 98.1 F 08/03/24 21:43 Pulse Rate 104 H 08/03/24 21:43 Respiratory Rate 18 08/03/24 21:43 Blood Pressure 112/73 08/03/24 21:43 Pulse Oximetry 97 08/03/24 21:43 Oxygen Delivery Me thod Room Air 08/03/24 21:43 MDM - Extremity (Nontraumatic) Medical Decision Making Patient has no erythema or edema. Calf circumference is identical bilaterally. Lower extremities are neurovascularly intact. At this time I do not have any suspicion for DVT. No palpable cords to suggest superficial thrombophlebitis. Recommend she continue her doxycycline. Her tetanus will be updated. Signs and symptoms that should prompt a medical re-evaluation were discussed. She has been ambulatory on the extremities without difficulty or assistance. I do not see any emergent indication for XRs or US today. Of note she was tachycardic- looking at previous documentation, this is normal for patient. Medical Records I reviewed the patient's medical records. No radiology studies performed this visit Discharge Plan Discharge Patient Disposition: Home Clinical Impression: Acute leg pain Qualifiers: Laterality: left Qualified Code(s): M79.605 - Pain in left leg Condition: Stable Prescriptions: No Action mupirocin 2 % ointment 1 applic TOPICAL BID Qty: 22 3RF triamcinolone acetonide 0.1 % ointment 1 applic topical BID Qty: 15 0RF magnesium citrate Solution 300 ml PO DAILY PRN (Reason: constipation) Qty: 296 0RF Rx Instructions: take as directed for colonoscopy lidocaine 4 % cream 1 applic topical BID PRN (Reason: hand pain) Qty: 30 1RF medical marijana .Route Rx Instructions: unknown prednisolone 5 mg tablet 5 mg PO QDAY Qty: 90 1RF methotrexate sodium 2.5 mg tablet 12.5 mg PO .WEEKLY Qty: 25 4RF folic acid 1 mg tablet 1 mg PO QDAY 30 Days Qty: 30 5RF oxycodone-acetaminophen 7.5-325 mg tablet 1 tab PO Q4-5H PRN (Reason: Pain) Rx Instructions: 4-6 hours prn (DME) E0748 Bone growth stimulator See Rx Instructions .Route .MEDSUPPLY Qty: 1 0RF Rx Instructions: As directed (DME) Aquatic Therapy See Rx Instructions .Route .MEDSUPPLY Qty: 1 0RF Rx Instructions: As directed fluticasone propionate 44 mcg/actuation HFA aerosol inhaler 1 puff inhalation BID Qty: 10.6 0RF epinephrine [EpiPen 2-David] 0.3 mg/0.3 mL auto-injector 0.3 mg IM Q4H PRN (Reason: anaphylaxis) Qty: 2 0RF ergocalciferol (vitamin D2) 1,250 mcg (50,000 unit) capsule See Rx Instructions .ROUTE .COMPLEX Qty: 12 3RF Dose Instruction: TAKE 1 CAPSULE BY MOUTH ONCE A WEEK Rx Instructions: TAKE 1 CAPSULE BY MOUTH ONCE A WEEK metformin 500 mg tablet 500 mg PO BID Qty: 180 3RF levothyroxine 137 mcg tablet 137 mcg PO DAILY Qty: 90 1RF ondansetron 8 mg tablet,disintegrating 8 mg PO Q8H PRN (Reason: nausea and vomiting) Qty: 20 0RF pantoprazole 40 mg tablet,delayed release (DR/EC) 40 mg PO BID Qty: 60 1RF hydroxychloroquine 200 mg tablet See Rx Instructions .ROUTE .COMPLEX Qty: 45 0RF Dose Instruction: alternate taking ONE TABLET BY MOUTH today, THEN take TWO TABLETS BY MOUTH tomorrow Rx Instructions: alternate taking ONE TABLET BY MOUTH today, THEN take TWO TABLETS BY MOUTH tomorrow hydroxyzine pamoate 50 mg capsule 50 mg PO QID PRN (Reason: anxeity, itching) Qty: 120 3RF clonazepam 1 mg tablet 1 mg PO TID PRN (Reason: anxiety) Qty: 90 3RF Discharge Orders: Discharge ED (Routine); Ordered 08/03/24 Ordered By: Deborah Ayala Referrals: Syed Landaverde, [Primary Care Provider] - Activity Restrictions/Additional Instructions: As we discussed, I did not appreciate any swelling, redness, or warmth involving your leg. Clinically I do not suspect a DVT (blood clot). As we discussed, continue your antibiotics for the small abrasions to your bilateral lower extremities. These do not appear acutely infected at this time. You may follow-up with primary care next week if symptoms are not improving. You may return to the emergency department at anytime for worsening pain, swelling, redness, warmth, significant calf pain, or any other concerns you may have. Print Language: Wolof Coding Level of Care Code ED Brick Machine Operator for Kiet Pardo
[2024-08-03] MEDS: tetanus-dipt-pertussis 0.5 mL SDV IM (22:07)
== END 2024-08-03 22:26 | disposition home or self-care (01) ==
PROVIDERS: Emergency Provider Physician Assistant; PCP Family Medicine
DX: M79.605 Pain in left leg (principal); Z79.84 Long term (current) use of oral hypoglycemic drugs; E11.22 Type 2 diabetes mellitus with diabetic chronic kidney disease; I12.9 Hypertensive chronic kidney disease with stage 1 through stage 4 chronic kidney disease, or unspecified chronic kidney disease; N18.32 Chronic kidney disease, stage 3b; Z23 Encounter for immunization
CPT/HCPCS: 90471; 90715; 99283

== ENCOUNTER → 2024-08-28 15:51 | Outpatient (BNVA) | payer MEDICAID, SELFPAY | PROVIDERS: PCP Family Medicine; Visit Provider Orthopaedic Surgery | DX: M54.50 Low back pain, unspecified (principal); M54.2 Cervicalgia | CPT/HCPCS: 72050; 72110; 99213 ==

== ENCOUNTER → 2024-09-21 10:18 | Outpatient (BNVA) | payer MEDICAID, SELFPAY | PROVIDERS: PCP Family Medicine; Visit Provider Nurse Practitioner Family | DX: L23.9 Allergic contact dermatitis, unspecified cause (principal); L29.89 Other pruritus; R23.3 Spontaneous ecchymoses; L30.8 Other specified dermatitis; L81.4 Other melanin hyperpigmentation | CPT/HCPCS: 99213 ==

== ENCOUNTER 2024-09-26 13:59 | Outpatient (CLI) | payer MEDICAID, SELFPAY ==
[2024-09-26 14:40] LABS: Basophils % 0.6 %; Eosinophils # 0.1 10^3/uL (0.0-0.8); Eosinophils % 1.3 %; Lymphocytes # 1.3 10^3/uL (0.8-4.8); Lymphocytes % 20.6 %; Mean Corpuscular HGB Conc 31.4 g/dL (30-55); Mean Corpuscular Volume 98.9 fl (85-98); Mean Platelet Volume 9.6 fL (7.4-10.4); Monocytes # 0.7 10^3/uL (0.2-0.9); Monocytes % 10.7 %; Neutrophils # 4.12 10^3/uL (1.8-7.7); Neutrophils % 66.6 %; Nucleated Red Blood Cells % 0 %; Platelet Count 299 10^3/cmm (157-399); Red Blood Count 3.64 10^6/uL (3.85-5.65); Red Cell Distribution Width 12.8 % (12.1-15.1); White Blood Count 6.18 10^3/uL (3.29-11.43)
[2024-09-26 14:58] LABS: Albumin Level 3.9 g/dL (3.5-5.2); Anion Gap 17.2 (5-19); Blood Urea Nitrogen 24 mg/dL (6-20); Calcium 9.1 mg/dL (8.5-10.5); Calcium 9.4 mg/dL (8.5-10.5); Carbon Dioxide 23 mmol/L (22-29); Chloride 104 mmol/L (98-107); Glomerular Filtration Rate 74.5 mL/min (90-130); Glucose 86 mg/dL (65-115); Phosphorus 3.8 mg/dL (2.5-4.5); Potassium 4.2 mmol/L (3.5-5.1); Sodium 140 mmol/L (136-145)
[2024-09-26 15:04] LABS: Parathyroid Hormone 59.8 pg/mL (15-65)
[2024-09-26 15:09] LABS: Creatinine Urine, Random 34 mg/dL (28-217); Microalbumin Random Urine 8 ug/dL (0-20)
[2024-09-26 15:14] LABS: 25 Hydroxy Vitamin D 73 ng/mL (30-100)
[2024-09-26 15:15] LABS: Microalbum Creatinine Ratio Ur 235 mg/dL (0-20)
== END 2024-09-26 14:00 | disposition home or self-care (01) ==
LOC: LAB 14:05
PROVIDERS: PCP Family Medicine; Visit Provider Nurse Practitioner
DX: N18.32 Chronic kidney disease, stage 3b (principal)
CPT/HCPCS: 36415; 80069; 82044; 82306; 82310; 83970; 85025

== ENCOUNTER 2024-10-29 13:07 | Outpatient (CLI) | payer MEDICAID, SELFPAY ==
--- NOTE | 2024-10-29 13:14 | CTR_ITS ---
PROCEDURE INFORMATION: Exam: CT Lumbar Spine Without Contrast Exam date and time: 10/29/2024 1:28 PM Age: 53 years old Clinical indication: Injury or trauma; Fall; Blunt trauma (contusions or hematomas); Injury date: 3 weeks ago; Prior surgery; Surgery date: 6+ months; Surgery type: Back, hyst, gb; Additional info: Lumbar pain TECHNIQUE: Imaging protocol: Computed tomography of the lumbar spine without contrast. Radiation optimization: All CT scans at this facility use at least one of these dose optimization techniques: automated exposure control; mA and/or kV adjustment per patient size (includes targeted exams where dose is matched to clinical indication); or iterative reconstruction. COMPARISON: MR lumbar spine wo con* [id number] 12/03/2020 10:30 AM RADIATION DOSE METRICS: Total DLP (mGy-cm): 268.3 FINDINGS: Bones/joints: There has been surgical fusion at the L3-S1 level(s). Bony alignment is normal and the hardware is in good position. I see no evidence of hardware loosening.There is no acute fracture.The bony structures demonstrate diffuse osteopenia. Vasculature: An IVC filter is noted in good position. Soft tissues: Unremarkable. CT/CT lumbar spine wo con* [id number] IMPRESSION: 1. No acute findings. 2. Intact multilevel fusion with osteoporosis
--- NOTE | 2024-10-29 13:14 | CTR_ITS ---
PROCEDURE INFORMATION: Exam: CT Pelvis Without Contrast, Skeleton Exam date and time: 10/29/2024 1:25 PM Age: 53 years old Clinical indication: Injury or trauma; Fall; Blunt trauma (contusions or hematomas); Bilateral; Pelvic region; Prior surgery; Surgery date: 6+ months; Surgery type: Back, hyst, gb; PT fell 3 weeks ago, left hip popped, pain; Additional info: Hip pain TECHNIQUE: Imaging protocol: Computed tomography of the pelvis without contrast. Exam focused on the skeleton. Radiation optimization: All CT scans at this facility use at least one of these dose optimization techniques: automated exposure control; mA and/or kV adjustment per patient size (includes targeted exams where dose is matched to clinical indication); or iterative reconstruction. COMPARISON: CT abdomen pelvis w con* [id number] 04/17/2024 4:48 PM RADIATION DOSE METRICS: Total DLP (mGy-cm): 185.28 FINDINGS: Bones/joints: The bony structures demonstrate diffuse osteopenia. Metallic surgical hardware can be seen in the lumbar spine. No fracture noted. Soft tissues: Unremarkable. CT/CT pelvis wo con [id number] IMPRESSION: No acute findings.
== END 2024-10-29 13:08 | disposition home or self-care (01) ==
PROVIDERS: PCP Family Medicine; Visit Provider Orthopaedic Surgery
DX: M54.50 Low back pain, unspecified (principal); M81.0 Age-related osteoporosis without current pathological fracture; Z98.1 Arthrodesis status
CPT/HCPCS: 72131; 72192

== ENCOUNTER → 2024-11-01 09:40 | Outpatient (BNVA) | payer MEDICAID, SELFPAY | PROVIDERS: PCP Family Medicine; Visit Provider Family Medicine | DX: E03.9 Hypothyroidism, unspecified (principal); R11.0 Nausea; R11.10 Vomiting, unspecified; R63.4 Abnormal weight loss | CPT/HCPCS: 80061; 84436; 84443; 84481 ==

== ENCOUNTER 2024-11-06 14:14 | Outpatient (RCR) | payer MEDICAID, SELFPAY | END 2024-12-06 23:59 | disposition home or self-care (01) | LOC: SPT 14:14 | PROVIDERS: PCP Family Medicine; Visit Provider Orthopaedic Surgery | DX: M47.22 Other spondylosis with radiculopathy, cervical region (principal) | CPT/HCPCS: 97161; 99213 ==

== ENCOUNTER 2024-11-19 20:24 | Emergency (ER) | payer MEDICAID, SELFPAY ==
--- OUTSIDE RECORDS SUMMARY | 2024-11-19 20:29 | XMS_ITS | Encounter Summary ---
Author Organization [facility] Address [address] [place] [address] Care Team Providers Care Low Emission Automobile Designer Name Role Phone Susan Whaley Primary Care Provider [phone] Encounter Details Date Type Department Care Team (Late Contact Info) Description 08/05/2008 Outpatient [facility] [address] [facility] [address] [place] [phone] Mariano Duarte DO NO ADDRESS ON FILE Social History Tobacco Use Types Packs/Day Years Used Date Smoking Tobacco: Never Alcohol Use Standard Drinks/Week Comments No 0 (1 standard drink = 0.6 oz pur e alcohol) Comments No Sex and Gender Information Value Date Recorded Sex Assigned at Not on file Legal Sex Female 5:40 AM RETRIMMER Gender Identity Not on file Sexual Orientation Not on file documented as of this encounter Plan of Treatment Upcoming Encounters Date Type Department Care Team (Late Contact Info) Description 02/25/2025 2:20 PM CDT Office Visit [facility] [place] [address] [phone] Deidra Valdes MD [address] [phone] documented as of this encounter Visit Diagnoses Not on filedocumented in this encounter Care Teams Low Emission Automobile Designer Relationship Specialty Start Date End Date Susan Whaley FNP PCP - General Nurse Practitioner Family 12/30/18 documented as of this encounter
--- OUTSIDE RECORDS SUMMARY | 2024-11-19 20:29 | XMS_ITS | Encounter Summary ---
Author Organization [facility] Address [address] [place] [address] Care Team Providers Care Banquet Prep Cook Name Role Phone Susan Whaley FARM MACHINERY ENGINE MECHANIC Primary Care Provider [phone] Reason for Visit * Reason Comments Medication Refill Lisinopril-hydrochlo rthiazide Encounter Details Date Type Department Care Team (Late st Contact Info) Description 08/07/2012 [facility] [address] [place] [address] [address] [place] [address] Emelia Flowers, MANUFACTURING DIRECTOR [address] [place] [address] [address] [place] [address] Social History Tobacco Use Types Packs/Day Years Used Date Smoking Tobacco: Never Smokeless Tobacco: Never Alcohol Use Standard Drinks/Week Comments Yes 0 (1 standard drink = 0.6 oz pur e alcohol) maybe once a year Comments No Sex and Gender Information Value Date Recorded Sex Assigned at Not on file Legal Sex Female 5:40 AM LEARNING MANAGER Gender Identity Not on file Sexual Orientation Not on file Occupation Industry Job Start Date Job End Date Not on file Not on file Not on file Not on file documented as of this encounter Miscellaneous Notes * Telephone Encounter - Cheryle Knapp RN - 08/07/2012 3:16 PM CDT Chief Complaint Patient presents with ??? Medication Refill Lisinopril-hydrochlorthiazide Interface from [facility] in [place], [place] . Last OV 05/26/12. documented in this encounter Plan of Treatment Upcoming Encounters Date Type Department Care Team (Late st Contact Info) Description 02/25/2025 2:20 PM CDT Office Visit [address] [phone] Deidra Valdes MD [address] [phone] documented as of this encounter Visit Diagnoses Not on filedocumented in this encounter Care Teams Banquet Prep Cook Relationship Specialty Start Date End Date Susan Whaley FNP PCP - General Nurse Practitioner Family 12/30/18 documented as of this encounter
--- OUTSIDE RECORDS SUMMARY | 2024-11-19 20:29 | XMS_ITS | Encounter Summary ---
Author Organization [facility] Address [address] [place] [address] Care Team Providers Care Supervisor Dried Yeast Name Role Phone Susan Whaley KASSY Primary Care Provider [phone] Reason for Visit * Reason Comments Medication Refill Metformin Encounter Details Date Type Department Care Team (Late st Contact Info) Description 08/07/2012 [facility] [address] [place] [address] Ar Mulligan MD [address] [place] [address] DM w/o complication type II, uncontrolled (Primary Dx) Social History Tobacco Use Types Packs/Day Years Used Date Smoking Tobacco: Never Smokeless Tobacco: Never Alcohol Use Standard Drinks/Week Comments Yes 0 (1 standard drink = 0.6 oz pur e alcohol) maybe once a year Comments No Sex and Gender Information Value Date Recorded Sex Assigned at Not on file Legal Sex Female 5:40 AM DIE MOUNTER Gender Identity Not on file Sexual Orientation Not on file Occupation Industry Job Start Date Job End Date Not on file Not on file Not on file Not on file documented as of this encounter Miscellaneous Notes * Telephone Encounter - Cheryle Knapp RN - 08/07/2012 3:18 PM CDT Chief Complaint Patient presents with ??? Medication Refill Metformin Interface from [facility] in [place], [place]. Last OV 05/26/12. Lab Results Component Value Date HEMOGLOBIN A1C 5.4 12/14/2011 documented in this encounter Plan of Treatment Upcoming Encounters Date Type Department Care Team (Late st Contact Info) Description 02/25/2025 2:20 PM CDT Office Visit [address] [phone] Deidra Valdes MD [address] [phone] documented as of this encounter Visit Diagnoses Diagnosis DM w/o complication type II, uncontrolled- Primary Type II or unspecified type diabetes mellitus without mention of complication, uncontrolled documented in this encounter Care Teams Supervisor Dried Yeast Relationship Specialty Start Date End Date Susan Whaley FNP PCP - General Nurse Practitioner Family 12/30/18 documented as of this encounter
--- OUTSIDE RECORDS SUMMARY | 2024-11-19 20:29 | XMS_ITS | Encounter Summary ---
Author Organization [facility] Address [address] [place] [address] Care Team Providers Care Adjunct Mathematics Instructor Name Role Phone Susan Whaley Primary Care Provider [phone] Encounter Details Date Type Department Care Team (Latest Contact Info) Description 08/05/2008 Outpatient [facility] Mariano Duarte DO NO ADDRESS ON FILE DM w/o Complication Type II, Uncontrolled Social History Tobacco Use Types Packs/Day Years Used Date Smoking Tobacco: Never Alcohol Use Standard Drinks/Week Comments No 0 (1 standard drink = 0.6 oz pur e alcohol) Comments No Sex and Gender Information Value Date Recorded Sex Assigned at Not on file Legal Sex Female 5:40 AM BESSEMER CONVERTER OPERATOR Gender Identity Not on file Sexual Orientation Not on file documented as of this encounter Plan of Treatment Upcoming Encounters Date Type Department Care Team (Late st Contact Info) Description 02/25/2025 2:20 PM CDT Office Visit [facility] Family Medicine [address] [phone] Deidra Valdes MD [address] [phone] documented as of this encounter Visit Diagnoses Diagnosis Type II or unspecified type diabetes mellitus without mention of complication, uncontrolled documented in this encounter Care Teams Adjunct Mathematics Instructor Relationship Specialty Start Date End Date Susan Whaley FNP PCP - General Nurse Practitioner Family 12/30/18 documented as of this encounter
--- OUTSIDE RECORDS SUMMARY | 2024-11-19 20:29 | XMS_ITS | Encounter Summary ---
Author Organization [facility] Address [address] [place] [address] Care Team Providers Care Marina Porter Name Role Phone Susan Whaley Primary Care Provider [phone] Encounter Details Date Type Department Care Team (Late st Contact Info) Description 08/05/2008 Outpatient Historical [facility] [address] [facility] [address] [place] [phone] Mariano Duarte DO NO ADDRESS ON FILE Social History Tobacco Use Types Packs/Day Years Used Date Smoking Tobacco: Never Assessed Comments No Sex and Gender Information Value Date Recorded Sex Assigned at Not on file Legal Sex Female 5:40 AM FIELD HORTICULTURAL SPECIALTY GROWER Gender Identity Not on file Sexual Orientation Not on file documented as of this encounter Plan of Treatment Upcoming Encounters Date Type Department Care Team (Late Contact Info) Description 02/25/2025 2:20 PM CDT Office Visit [facility] [place] [address] [phone] Deidra Valdes MD [address] [phone] documented as of this encounter Visit Diagnoses Not on filedocumented in this encounter Care Teams Marina Porter Relationship Specialty Start Date End Date Susan Whaley FNP PCP - General Nurse Practitioner Family 12/30/18 documented as of this encounter
--- OUTSIDE RECORDS SUMMARY | 2024-11-19 20:29 | XMS_ITS | Encounter Summary ---
Author Organization [facility] Address [address] [place] [address] Care Team Providers Care Job Placement Specialist Name Role Phone Susan Whaley FUEL CELL DESIGNER Primary Care Provider [phone] Reason for Visit * Reason Comments Medication Refill Flexeril Encounter Details Date Type Department Care Team (Late st Contact Info) Description 09/07/2012 [facility] [address] [place] [id number] Ar Mulligan MD [address] [place] [address] Social History Tobacco Use Types Packs/Day Years Used Date Smoking Tobacco: Never Smokeless Tobacco: Never Alcohol Use Standard Drinks/Week Comments Yes 0 (1 standard drink = 0.6 oz pur e alcohol) maybe once a year Comments No Sex and Gender Information Value Date Recorded Sex Assigned at Not on file Legal Sex Female 5:40 AM AUTOMATIC EQUIPMENT TECHNICIAN Gender Identity Not on file Sexual Orientation Not on file Occupation Industry Job Start Date Job End Date Not on file Not on file Not on file Not on file documented as of this encounter Miscellaneous Notes * Telephone Encounter - Cheryle Knapp RN - 09/07/2012 3:33 PM CDT Chief Complaint Patient presents with ??? Medication [facility] [place], [place] requesting refill for medication. Last OV 05/26/12. documented in this encounter Plan of Treatment Upcoming Encounters Date Type Department Care Team (Late st Contact Info) Description 02/25/2025 2:20 PM CDT Office Visit [facility] [place] [address] [address] Deidra Valdes MD [address] [address] documented as of this encounter Visit Diagnoses Not on filedocumented in this encounter Care Teams Job Placement Specialist Relationship Specialty Start Date End Date Susan Whaley FNP PCP - General Nurse Practitioner Family 12/30/18 documented as of this encounter
--- OUTSIDE RECORDS SUMMARY | 2024-11-19 20:30 | XMS_ITS | Encounter Summary ---
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 Primary Care Provider [phone] Encounter Details Date Type Department Care Team (Late st Contact Info) Description 07/29/2014 Lab Requisition [facility] [address] [place] [phone] Castro Beth, DO NO ADDRESS ON FILE Social History Tobacco Use Types Packs/Day Years Used Date Smoking Tobacco: Never Alcohol Use Standard Drinks/Week Comments No 0 (1 standard drink = 0.6 oz pur e alcohol) Comments No Sex and Gender Information Value Date Recorded Sex Assigned at Not on file Legal 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 AVG GLUCOSE, A1C 134 mg/dL 07/30/2014 12:20 AM CDT [facility] Blood 07/29/2014 10:4 9 PM CDT 07/29/2014 10:49 PM CDT us Castro Beth DO CHEMISTRY ORDERABLES Final Resu lt [facility] CLIA # [id number] [address] [place] [id number] documented in this encounter Visit Diagnoses Not on filedocumented in this encounter Care Teams Sports Administrator Relationship Specialty Start Date End Date Susan Whaley FNP PCP - General Nurse Practitioner Family 12/30/18 documented as of this encounter
--- OUTSIDE RECORDS SUMMARY | 2024-11-19 20:30 | XMS_ITS | Patient Health Record ---
Author Organization [facility] Address [address] [place] [address] Care Team Providers Care Channel Sales Manager Name Role Phone Syed Landaverde Primary Care Provider UnavailClara Ocampo Unavailable Migration, Provider Unavailable Unavailable Alanna Howe Unavailable [phone] Allergies Allergen (clinical drug ingredient) Drug/Non Drug Allergy documented on EMR Reaction Allergy Type Onset Date Status Non-steroidal anti-inflammatory agent (FN) NSAIDs Unknown Drug Allergy Active Substance with sulfonamide structure and antibacterial mechanism of action (substance) Sulfa Antibiotics Unknown Drug Allergy Active Results Component Value Reference Range Flag Notes zzzUrine Drug Screen (confir mation by instrument) - [id number] Reviewed date:05/15/2024 01:55:29 PM Interpretation: Performing Lab: Notes/Report: Tox Results Reviewed date:08/07/2024 02:19:14 PM Interpretation: Performing Lab: Notes/Report: Urine Confirmation Panel (in strument) - [id number] Reviewed date:08/07/2024 02:17:34 PM Interpretation: Performing Lab: Notes/Report: 6-Acetylmorphine 0 <6 ng/mL N This tra t was developed and its performance characteristics determined by [facility]. It has not been cleared or approved by the U.S. Food and Drug Administration. 7-Aminoclonazepam 622 <60 ng/mL H This te st was developed and its performance characteristics determined by [facility]. It has not been cleared or approved by the U.S. Food and Drug Administration. Alprazolam 0 <60 ng/mL N This test was developed and its performance characteristics determined by [facility]. It has not been cleared or approved by the U.S. Food and Drug Administration. Amphetamine 0 <75 ng/mL N This test was developed and its performance characteristics determined by [facility]. It has not been cleared or approved by the U.S. Food and Drug Administration. aOH-Alprazolam 0 <60 ng/mL N This test was developed and its performance characteristics determined by [facility]. It has not been cleared or approved by the U.S. Food and Drug Administration. Buprenorphine 0.0 <7.5 ng/mL N This test w as developed and its performance characteristics determined by [facility]. It has not been cleared or approved by the U.S. Food and Drug Administration. Norbuprenorphine 0.0 <37.5 ng/mL N This te st was developed and its performance characteristics determined by [facility]. It has not been cleared or approved by the U.S. Food and Drug Administration. Carisoprodol 0 <75 ng/mL N This test wa s developed and its performance characteristics determined by [facility]. It has not been cleared or approved by the U.S. Food and Drug Administration. Codeine 0 <75 ng/mL N This test was developed and its performance characteristics determined by [facility]. It has not been cleared or approved by the U.S. Food and Drug Administration. EDDP 0 <75 ng/mL N This test was developed and its performance characteristics determined by [facility]. It has not been cleared or approved by the U.S. Food and Drug Administration. Fentanyl 0 <6 ng/mL N This test was developed and its performance characteristics determined by [facility]. It has not been cleared or approved by the U.S. Food and Drug Administration. Hydrocodone 14 <75 ng/mL N This test was developed and its performance characteristics determined by [facility]. It has not been cleared or approved by the U.S. Food and Drug Administration. Hydromorphone 0 <75 ng/mL N This test w as developed and its performance characteristics determined by [facility]. It has not been cleared or approved by the U.S. Food and Drug Administration. Lorazepam 0 <60 ng/mL N This test was developed and its performance characteristics determined by [facility]. It has not been cleared or approved by the U.S. Food and Drug Administration. MDMA 0 <75 ng/mL N This test was developed and its performance characteristics determined by [facility]. It has not been cleared or approved by the U.S. Food and Drug Administration. Meperidine 0.0 <37.5 ng/mL N This test was developed and its performance characteristics determined by [facility]. It has not been cleared or approved by the U.S. Food and Drug Administration. Meprobamate 0 <75 ng/mL N This test was developed and its performance characteristics determined by [facility]. It has not been cleared or approved by the U.S. Food and Drug Administration. Methamphetamine 0 <75 ng/mL N This test was developed and its performance characteristics determined by [facility]. It has not been cleared or approved by the U.S. Food and Drug Administration. Methadone 0 <75 ng/mL N This test was developed and its performance characteristics determined by [facility]. It has not been cleared or approved by the U.S. Food and Drug Administration. Morphine 0 <75 ng/mL N This test was developed and its performance characteristics determined by [facility]. It has not been cleared or approved by the U.S. Food and Drug Administration. Nordiazepam 0 <60 ng/mL N This test was developed and its performance characteristics determined by [facility]. It has not been cleared or approved by the U.S. Food and Drug Administration. Norfentanyl 0 <6 ng/mL N This test was developed and its performance characteristics determined by [facility]. It has not been cleared or approved by the U.S. Food and Drug Administration. Normeperidine 0.0 <37.5 ng/mL N This test was developed and its performance characteristics determined by [facility]. It has not been cleared or approved by the U.S. Food and Drug Administration. O-desmethyltramadol 0 <75 ng/mL N This test was developed and its performance characteristics determined by [facility]. It has not been cleared or approved by the U.S. Food and Drug Administration. Oxazepam 0 <60 ng/mL N This test was developed and its performance characteristics determined by [facility]. It has not been cleared or approved by the U.S. Food and Drug Administration. Oxycodone 1441.0 <37.5 ng/mL H This test was developed and its performance characteristics determined by [facility]. It has not been cleared or approved by the U.S. Food and Drug Administration. Oxymorphone 229 <75 ng/mL H This test was developed and its performance characteristics determined by [facility]. It has not been cleared or approved by the U.S. Food and Drug Administration. Phencyclidine 0.0 <7.5 ng/mL N This test w as developed and its performance characteristics determined by [facility]. It has not been cleared or approved by the U.S. Food and Drug Administration. Tapentadol 0.0 <37.5 ng/mL N This test was developed and its performance characteristics determined by [facility]. It has not been cleared or approved by the U.S. Food and Drug Administration. Temazepam 1 <60 ng/mL N This test was developed and its performance characteristics determined by [facility]. It has not been cleared or approved by the U.S. Food and Drug Administration. Tramadol 0 <75 ng/mL N This test was developed and its performance characteristics determined by [facility]. It has not been cleared or approved by the U.S. Food and Drug Administration. Norhydrocodone 0 <75 ng/mL N This test was developed and its performance characteristics determined by [facility]. It has not been cleared or approved by the U.S. Food and Drug Administration. Noroxycodone >2500 <38 ng/mL > This test wa s developed and its performance characteristics determined by [facility]. It has not been cleared or approved by the U.S. Food and Drug Administration. Pregabalin 0 <225 ng/mL N This test was developed and its performance characteristics determined by [facility]. It has not been cleared or approved by the U.S. Food and Drug Administration. Gabapentin 0 <225 ng/mL N This test was developed and its performance characteristics determined by [facility]. It has not been cleared or approved by the U.S. Food and Drug Administration. Benzoylecgonine 0.0 <37.5 ng/mL N This tra t was developed and its performance characteristics determined by [facility]. It has not been cleared or approved by the U.S. Food and Drug Administration. 4-Hydroxy Xylazine 0 <25 ng/mL N This t est was developed and its performance characteristics determined by [facility]. It has not been cleared or approved by the U.S. Food and Drug Administration. Urine Drug Screen (cup read) - [id number] Reviewed date:07/31/2024 02:05:37 PM Interpretation:Positive Performing Lab: Notes/Report: Positive BZO + OXY + Urine Drug Screen (cup read) - [id number] Reviewed date:05/07/2024 12:40:41 PM Interpretation: Performing Lab: Notes/Report: BUP + BZO + OXY + Reason For Referral No Information Medications Medication SIG (Take, Route, Frequency, Duration) Notes Start Date End Date Status hydrOXYzine HCl Acti ve Hydroxychloroquine Sulfate Active LORazepam Unknown Levothyroxine Sodium Active oxyCODONE HCl 10 MG Tablet 1 capsule as needed Orally every 6 hours; Duration: 30 days As needed, not to exceed 2.5 day Fill date 11/02/24 09/25/2024 12/02/2024 Active metFORMIN HCl Active Lisinopril Active Baclofen 10 MG Tablet 1 tablet as needed Orally Twice a day Active Pantoprazole Sodium Active Ondansetron 8 MG Tablet Disintegrating 1 tablet on the tongue and allow to dissolve as needed Orally Once a day Active Dicyclomine HCl Acti ve Vitamin D2 Active clonazePAM Active EPINEPHrine Active Doxycycline Hyclate 100 MG Capsule 1 capsule Orally Once a day Active Social History Section Notes: denies alcohol non smoker single denies rehab/detox currently not working not on disability denies alcohol non smoker single denies rehab/detox currently not working not on disability denies alcohol non smoker single denies rehab/detox currently not working not on disability denies alcohol non smoker single denies rehab/detox currently not working not on disability Problems Problem Type SNOMED Code ICD Code Onset Dates Problem Status W/U Status Risk Notes Problem Chronic pain syndrome (076405118) Chronic pain syndrome (G89.4) Active confirmed Problem High 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 drug 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 (831746006) 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) Active 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 Problem Muscle pain (60365461) Myalgia, other site (M79.18) Active confirmed Problem History of gastric bypass (383939550) S/P gastric bypass (Z98.84) Active confirmed Problem Cervical spondylosis (809870233) Cervical spondylosis (M47.812) Active confirmed Problem Post-laminectomy syndrome (43103151) Post laminectomy syndrome (M96.1) Active confirmed Problem Lumbosacral spondylosis (409798656) Lumbosacral spondylosis (M47.817) Active confirmed Vital Signs Height-cm 152.4 cm 07/31/2024 Weight-kg 44 kg 07/31/2024 Height 60 in 07/31/2024 Weight 97 lbs 07/31/2024 BMI 18.94 kg/m2 07/31/2024 Encounters Encounter Location Date Provider Diagnosis Migrated_Facility 0 0 03/03/2024 Provider Migration Migrated_Facility 0 0 03/04/2024 Provider Migration [facility] [address] [place] [place] [address] 04/02/2024 Clara Lyuksyutova-Pric e [facility] [address] [place] [place] [address] 04/09/2024 Clara Lyuksyutova-Pric e [facility] [address] [place] [address] 04/09/2024 Clara Lyuksyutova-Pric e [facility] [address] [place] [address] 04/09/2024 Clara Lyuksyutova-Pric e [facility] [address] [place] [address] 09/04/2024 Clara Lyuksyutova-Pric e Myalgia, other site M79.18 [facility] [place] [place] [address] 03/27/2024 Clara Lyuksyutova-Pric e Chronic pain syndrome G89.4 ; Myalgia, other site M79.18 and 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 Z79.891 [facility] [address] [place] [address] 04/17/2024 Clara Gilesuksyutova-Pric e Chronic pain syndrome G89.4 ; Low back pain M54.50 ; Myalgia, other site M79.18 ; Abdominal pain R10.9 and 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 Z79.899 [facility] [address] [address] 05/08/2024 Clara Melgarsykaley-Pric e Chronic pain syndrome G89.4 ; Low back pain M54.50 ; Myalgia, other site M79.18 ; Abdominal pain R10.9 and 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 Z79.899 [facility] [address] [place] [address] 06/05/2024 Clara Taliasykaley-Pric e Chronic pain syndrome G89.4 ; Other low back pain M54.59 ; Abdominal pain R10.9 ; Cervical spondylosis M47.812 ; Lumbosacral spondylosis M47.817 ; Myalgia, other site M79.18 and 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 Z79.891 [facility] [address] [address] 07/31/2024 Clara Melgarsykaley-Pric e Chronic pain syndrome G89.4 ; Other low back pain M54.59 ; Abdominal pain R10.9 ; Cervical spondylosis M47.812 ; Lumbosacral spondylosis M47.817 ; Myalgia, other site M79.18 ; [facility] (current) use of opiate analgesic Z79.891 ; Post laminectomy syndrome M96.1 and History of benzodiazepine use Z87.898 [facility] [address] [address] 09/25/2024 Clara Melgarsyutova-Pric e Chronic pain syndrome G89.4 ; Other low back pain M54.59 ; Abdominal pain R10.9 ; Cervical spondylosis M47.812 ; Lumbosacral spondylosis M47.817 ; Myalgia, other site M79.18 ; Post laminectomy syndrome M96.1 ; 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 [address] 01/10/2024 Alanna Howe Assessments Encounter Date Diagnosis (ICD Code) Assessment Notes Treatment Notes Treatment Clinical Notes Section Notes 03/27/2024 Chronic pain syndrome (ICD-10 - G89.4) Ms. Youssef is a pleasant patient with history and physical exam suggestive of cervical spondylosis and lumbosacral spondylosis as well as visceral abdominal pain with a component of somatic pain. I had transitioned her from tramadol to oxycodone. Unfortuantely her pharmacy dispensed a tramadol refill from her previous physician one day prior to my oxycodone prescription. 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 She understands and will not do this again. I encouraged her to follow the oxycodone plan, in the future will discuss and plan transitioning to long acting medication but she was not interested at this time. I will see her back in one month. 03/27/2024 Myalgia, other site (ICD-10 - M79.18) 04/17/2024 Chronic pain syndrome (ICD-10 - G89.4) Ms. Youssef is a very pleasant patient with history and physical exam suggestive of cervical spondylosis and lumbosacral spondylosis as well as visceral abdominal pain with a component of somatic pain. She is extremely apologetic for misunderstanding regarding the Tramadol and Oxycodone. She reports that her current regimen of just taking the Oxycodone 5 mg up to four times a day. She feels like whenever she was just taking the Oxycodone, she was doing much better, especially within the last 9 days. She is hoping for a dose increase today. We discussed extensively coming down to only 3 tablets as needed per day if we're increasing from 5 mg to 7.5 mg. I will see her back in about 3 weeks to evaluate this regimen further. 04/17/2024 Low back pain (ICD-10 - M54.50) 05/08/2024 Chronic pain syndrome (ICD-10 - G89.4) Ms. Youssef is a very pleasant patient with history and physical exam suggestive of cervical spondylosis and lumbosacral spondylosis as well as visceral abdominal pain with a component of somatic pain. She is doing much better overall on the regimen of Oxycodone. She reports that this is the greatest ease she has had with her activities of daily living. PDMP reviewed. Last UDS reviewed. She will additionally bring in her CT A/P to review. Can consider in the future a splanchnic nerve block, she politely declines at this time. 05/08/2024 Low back pain (ICD-10 - M54.50) 06/05/2024 Chronic pain syndrome (ICD-10 - G89.4) Ms. Youssef is a very pleasant patient with history and physical exam suggestive of cervical spondylosis, lumbosacral spondylosis, as well as visceral abdominal pain with a component of abdominal pain. Overall, she is doing much better on her current regiemn of Oxycodone with Tylenol. When she was taking multiple Tramadol tablets pet day, she reports that she had the greatest ease of activities of daily living. She is obtaining imaging of her C-spine and L-spine as well as her CT abdomen pelvis that she will bring on a disc so that I can review these. In the future, we can consider a splanchnic nerve block. She is having a colonoscopy here in the next couple of weeks and seeming a hemologist oncologist. The options for treatment were explained in detail, this included PT, medications, injections, lifestyle modifications and exercise. The patient presents to clinic for medication evaluation and management. The patient is stable on their current medication regimen and endorses adequate analgesia, increased ADLs, denies abuse and side effects. The RELINER was reviewed with no untoward events noted. UDS reviewed and is as expected. A bowel regimen was discussed with the patient. 06/05/2024 Other low back pain (ICD-10 - M54.59) 07/31/2024 Chronic pain syndrome (ICD-10 - G89.4) Ms. Youssef is a very pleasant patient with history and physical exam of cervical spondylosis, lumbosacral spondylosis, a developmental lumbosacral radiculopathy, post laminectomy syndrome, and some visceral abdominal pain. She's doing okay on her current regimen of Oxycodone with Tylenol. She does have frequent vomiting and thus, loses tablets. She was wondering if she could have an additional 10 tablets so that she could still take medication even though she does vomit so frequently for her body to process it. I reviewed her CT abdominal pelvis with her today. She wants to defer her splanchnic nerve block at this time. She's also seeing a medical detailist and her gastroenterology specialist. Given her prior hardware as well as her history and physical, it's suggestive of post-laminectomy syndrome. It is medically necessary to obtain an MRI L-spine to evaluate her low back pain further. Her last CT of her lower back was from 2019. She continues her home exercise program that she's learned from physical therapy in the past. 09/04/2024 Myalgia, other site (ICD-10 - M79.18) 09/25/2024 Chronic pain syndrome (ICD-10 - G89.4) Ms. Youssef is a very pleasant patient with history and physical exam of cervical spondylosis, lumbosacral spondylosis, lumbosacral radiculopathy, post laminectomy syndrome, and visceral abdominal pain. She feels like the Tylenol is making her sick. We'll switch her back to Oxycodone 10/325 mg up to 2.5 tablets daily. I discussed with her considering a splanchnic nerve block for her abdominal pain. She wants to hold off on this at this time. She's still pending getting her lumbar MRI from [facility], and I encouraged her to contact them and give me the disc whenever she can. PDMP reviewed with no untoward events. The patient was informed that the combination of benzodiazepines with opiates may cause serious health problems. These problems can be life-threatening. Patient was advised to never to take these two medications together. They have been prescribed Narcan. The options for treatment were explained in detail, this included PT, medications, injections, lifestyle modifications and exercise. The patient presents to clinic for medication evaluation and management. The patient is stable on their current medication regimen and endorses adequate analgesia, increased ADLs, denies abuse and side effects. A bowel regimen was discussed with the patient. Last UDS 07/31/24 was consistent with prescribed medication. I'll see her back in 2 months. 09/25/2024 Other low back pain (ICD-10 - M54.59) 09/25/2024 Abdominal pain (ICD-10 - R10.9) 07/31/2024 Other low back pain (ICD-10 - M54.59) 06/05/2024 Abdominal pain (ICD-10 - R10.9) 05/08/2024 Myalgia, other site (ICD-10 - M79.18) 04/17/2024 Myalgia, other site (ICD-10 - M79.18) 03/27/2024 [facility] (current) use of opiate analgesic (ICD-10 - Z79.891) 04/17/2024 Abdominal pain (ICD-10 - R10.9) 05/08/2024 Abdominal pain (ICD-10 - R10.9) 06/05/2024 Cervical spondylosis (ICD-10 - M47.812) 07/31/2024 Abdominal pain (ICD-10 - R10.9) 09/25/2024 Cervical spondylosis (ICD-10 - M47.812) 09/25/2024 Lumbosacral spondylosis (ICD-10 - M47.817) 07/31/2024 Cervical spondylosis (ICD-10 - M47.812) 06/05/2024 Lumbosacral spondylosis (ICD-10 - M47.817) 05/08/2024 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 (ICD-10 - Z79.899) 04/17/2024 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 (ICD-10 - Z79.899) 07/31/2024 Lumbosacral spondylosis (ICD-10 - M47.817) 06/05/2024 Myalgia, other site (ICD-10 - M79.18) 09/25/2024 Myalgia, other site (ICD-10 - M79.18) 09/25/2024 Post laminectomy syndrome (ICD-10 - M96.1) 07/31/2024 Myalgia, other site (ICD-10 - M79.18) 06/05/2024 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 We will monitor with in-office testing (rapid testing) today and review the results prior to dispensing prescription. All positive results will be sent for quantitative analysis to ensure accuracy and quantify amounts. Any expected positive results that return negative will also be sent for quantitative analysis. Any questionable read or any medication we cannot test for in the office confidently will be sent for quantitative analysis, as well. Patient has been made aware of this policy and agrees to abide by our urine testing policy. 09/25/2024 [facility] (current) use of opiate analgesic (ICD-10 - Z79.891) 09/25/2024 History of benzodiazepine use (ICD-10 - Z87.898) 07/31/2024 Post laminectomy syndrome (ICD-10 - M96.1) 07/31/2024 History of benzodiazepine use (ICD-10 - Z87.898) The patient was informed that the combination of benzodiazepines with opiates may cause serious health problems. These problems can be life-threatening. Patient was advised to never to take these two medications together. 03/27/2024 Other Total time spent caring for the patient today was greater than 40 minutes. This includes time spent before the visit reviewing the chart, time spent during the visit, and time spent after the visit on documentation 04/17/2024 Other Total time spent caring for the patient today was greater than 40 minutes. This includes time spent before the visit reviewing the chart, time spent during the visit, and time spent after the visit on documentation Joan Pineda am scribing for Dr. Baum. Dr. Bautista Pineda, personally performed the services described in this documentation, as scribed by Joan Carrillo, and it is both accurate and complete. The patient was informed that the combination of benzodiazepines with opiates may cause serious health problems. These problems can be life-threatening. Patient was advised to never to take these two medications together. 05/08/2024 Other Joan Pineda am scribing for Dr. Baum. Dr. Bautista Pineda, personally performed the services described in this documentation, as scribed by Joan Carrillo, and it is both accurate and complete. Total time spent caring for the patient today was greater than 25 minutes. This includes time spent before the visit reviewing the chart, time spent during the visit, and time spent after the visit on documentation The patient was informed that the combination of benzodiazepines with opiates may cause serious health problems. These problems can be life-threatening. Patient was advised to never to take these two medications together. 06/05/2024 Joan Jung am scribing for Dr. Baum. Dr. Bautista Pineda, personally performed the services described in this documentation, as scribed by Joan Carrillo, and it is both accurate and complete. 07/31/2024 Joan Jung am scribing for Dr. Baum. Dr. Bautista Pineda, personally performed the services described in this documentation, as scribed by Joan Carrillo, and it is both accurate and complete. 09/25/2024 Other Joan Pineda am scribing for Dr. Baum. Dr. Bautista Pineda, personally performed the services described in this documentation, as scribed by Joan Carrillo, and it is both accurate and complete. Plan Of Treatment Pending Test Test Name Order Date MRI Lumbar Spine w/o Cont-[id number] 08/01/19 MRI Lumbar Spine w/o Cont-[id number] 09/27/19 Next Appt Details Provider Name:Evelyne Lizzy velasco, 11/29/2024 01:20:00 PM, [address] [place], [address], Insurance Providers Payer Name Payer Address Payer Phone Subscriber Number Group Number Insured Name Patient Relationship to Insured Coverage Start Date Coverage End Date [place] Medicaid [address] [place] [address] [id number] Marcie Youssef Self - patient is the insured Medical (General) History Medical History History ICD Code Arthritis Thyroid disease Depression anxiety migraines Surgical History Surgery Date(Month/Year) cervical fusion spinal fusion gastric bypass carpal tunnel release hernia repair Hospitalization History Reason Date(Month/Year) See surgical Hx
--- OUTSIDE RECORDS SUMMARY | 2024-11-19 20:30 | XMS_ITS | Encounter Summary ---
Author Organization [facility] Address [address] [place] [address] Care Team Providers Care Desktop Specialist Name Role Phone Susan Whaley Primary Care Provider [phone] Encounter Details Date Type Department Care Team ([facility] Contact Info) Description 09/17/2008 Outpatient [facility] [address] [facility] [address] [place] [phone] Mariano Duarte DO NO ADDRESS ON FILE Social History Tobacco Use Types Packs/Day Years Used Date Smoking Tobacco: Never Alcohol Use Standard Drinks/Week Comments No 0 (1 standard drink = 0.6 oz pur e alcohol) Comments No Sex and Gender Information Value Date Recorded Sex Assigned at Not on file 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 Sex 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 Gender Identity Not on file Sexual Orientation Not on file documented as of this encounter Plan of Treatment Upcoming Encounters Date Type Department Care Team (Late Contact Info) Description 02/25/2025 2:20 PM CDT Office Visit [facility] Family Medicine [place] [address] [phone] Deidra Valdes MD [address] [address] documented as of this encounter Visit Diagnoses Not on filedocumented in this encounter Care Teams Desktop Specialist Relationship Specialty Start Date End Date Susan Whaley FNP PCP - General Nurse Practitioner Family 12/30/18 documented as of this encounter
--- OUTSIDE RECORDS SUMMARY | 2024-11-19 20:30 | XMS_ITS | Clinical Summary ---
Author Organization [address] Address [address] [place] [address] Care Team Providers Care Public Address System Operator Name Role Phone Susan Whaley REHAB TRAINER Primary Care Provider [phone] Allergies Active Allergy Reactions Criticality Noted Date Comments Ketorolac Unknown 08/27/2014 Nsaids (Non-Steroidal Anti-Inflammatory Drug) Renal Dysfunctions Medium 08/27/2014 Penicillins Other (See Comments) 06/19/2012 Renal failure Sulfa (Sulfonamide Antibiotics) Renal Dysfunctions Medium 08/27/2014 Medications levothyroxine 125 mcg Oral tablet Take 137 mcg by mouth daily in the morning. Synthroid brand name. Generic caused problems with K levels Active metFORMIN (GLUCOPHAGE) 500 mg tablet Take 500 mg by mouth 2 times daily with meals. Active LORazepam (ATIVAN) 1 mg tablet Take 1 mg by mouth 3 times daily as needed for Anxiety. Active traMADol (ULTRAM) 50 mg tablet Take 50 mg by mouth 1 time daily as needed for Pain (At bedtime). Active mupirocin (BACTROBAN) 2 % Ointment Apply to affected area daily. 30 Gram 9 Active hydrOXYzine pamoate (VISTARIL) 100 mg capsule Take 50 mg by mouth 4 times daily as needed for Itching. Active venlafaxine (EFFEXOR) 75 mg tablet Take 75 mg by mouth daily at bedtime. Take with 100mg dose. Active rizatriptan (MAXALT) 10 mg Tablet Take 10 mg by mouth every 2 hours as needed for Migraine. may repeat in 2 hours; max dose 20mg in 24 hours Active lovastatin (MEVACOR) 10 mg tablet Take 20 mg by mouth daily with supper. Active cyanocobalamin (VITAMIN B-12) 1,000 mcg/mL Solution Inject 1,000 mcg by intramuscular injection every 2 weeks. Active OTHER daily. Liquid IV hydration multiplier immune support drink mix Active nystatin (MYCOSTATIN) 500,000 unit Tablet Take 1 Tablet by mouth daily. Active progesterone micronized (PROMETRIUM) 100 mg Capsule Take 200 mg by mouth daily. Active montelukast (SINGULAIR) 10 mg tablet Take 10 mg by mouth daily at bedtime. Active pot bicarb/sod bicarb/cit ac (BETTINA-SELTZER GOLD ORAL) Take by mouth daily. Active baclofen (LIORESAL) 10 mg tablet Take 5 mg by mouth 3 times daily as needed for Pain. Active OTHER Bio-identical hormone cream, compound. Testosterone mix and estradiol mix Active cholestyramine aspartame (PREVALITE,QUE STRAN LIGHT) 4 gram Powder in Packet Take 4 Grams by mouth 2 times daily with meals. 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 Diarrhea 08/14/2014 Status post gastric bypass for obesity 5 Overview (08/14/2014): Done in [place] about 2000 Emesis 06/19/2012 Immunizations Immunization Administration Dates Next Due INFLUENZA VACCINE QUADRIVALENT 3 YR UP PF IM Influenza Seasonal Unspecified Formulation IM Pneumococcal conjugate, unspecified formulation 12/08/2011 Social History Tobacco Use Types Packs/Day Years Used Date Smoking Tobacco: Never Smokeless Tobacco: Never Alcohol Use Standard Drinks/Week Comments No 0 (1 standard drink = 0.6 oz pur e alcohol) Comments No Sex and Gender Information Value Date Recorded Sex Assigned at Not on file Legal Sex Female 1:26 PM STEWARD/STEWARDESS BANQUET Gender Identity Not on file Sexual Orientation Not on file Occupation Industry Job Start Date Job End Date Not on file Not on file Not on file Not on file Last Filed Vital Signs Vital Sign Reading Time Taken Comments Blood Pressure 98/72 10/17/2020 3:57 PM CDT Pulse 121 10/17/2020 3:57 PM CDT Temperature 35 C (95 F) 10/17/2020 3:57 PM CDT Respiratory Rate 20 01/01/2019 2:46 PM CDT Oxygen Saturation 95% 10/17/2020 3:57 PM CDT Inhaled Oxygen Concentration - - Weight 58.1 kg (128 lb) 10/17/2020 3:57 PM CDT Height 154.9 cm (5' 1 ) 10/17/2020 3:57 PM CDT Body Mass Index 24.19 10/17/2020 3:57 PM CDT Plan of Treatment Health Maintenance Due Date Last Done Comments DIABETES MICROALBUMIN ANNUAL SCREEN 1986 LDL CHOLESTEROL ANNUAL 1986 DTAP/TDAP/TD VACCINES (1 - Tdap) 11/21/1987 HEPATITIS B VACCINES (1 of 3 - 19+ 3-dose series) 11/21/1987 HPV/Cotest (21-29) 1989 CERVICAL CANCER SCREENING 1998 HPV/Cotest (30-65) 1998 PAP SMEAR 1998 BREAST CANCER SCREENING 2008 DIABETES ANNUAL RETINAL EXAM 03/25/2010 03/25/2009 DIABETES ANNUAL FOOT EXAM 12/13/2012 12/14/2011 FIT-DNA Q 3 years 2013 FIT/FOBT Q 1 year 2013 Flex Sig/CT Colonography Q 5 years 2013 DIABETES HBA1C Q 6 MONTHS 11/13/20182018, 07/29/2014, 06/20/2012 ZOSTER VACCINE (1 of 2) 2018 COLORECTAL SCREENING 08/27/2024 08/27/2014 Colorectal Cancer Screening 08/27/2024 INFLUENZA VACCINE (#1) 2024 0, 06/20/2018, 03/23/2012, Additional history exists Procedures Procedure Name Priority Date/Time Associated Diagnosis Comments HEMOGLOBIN A1C Routine 07/29/2014 10:49 PM CDT from Last 3 Months or Most Recently Relevant to Health Maintenance Results * (ABNORMAL) HEMOGLOBIN A1C (07/29/2014 10:49 PM CDT) HEMOGLOBIN A1C 6.3(H) 4.5 - 6.2 % 07/30/2014 12:20 AM CDT Explain My Surgery [facility] EST. AVG GLUCOSE, A1C 134 mg/dL 07/30/2014 12:20 AM CDT [facility] Blood 07/29/2014 10:4 9 PM CDT 07/29/2014 10:49 PM CDT us Castro Beth DO CHEMISTRY ORDERABLES Final Resu lt [facility] CLIA # [id number] [address] [facility] [address] [place] [address] from Last 3 Months or Most Recently Relevant to Health Maintenance Insurance MEDICAID [place] Care Teams Public Address System Operator Relationship Specialty Start Date End Date Susan Whaley FNP PCP - General Nurse Practitioner Family 12/30/18
--- OUTSIDE RECORDS SUMMARY | 2024-11-19 20:30 | XMS_ITS | Encounter Summary ---
Author Organization [facility] Address [address] [place] [address] Care Team Providers Care Public Transit Bus Driver Name Role Phone Susan Whaley Primary Care Provider [phone] Encounter Details Date Type Department Care Team (Late st Contact Info) Description 04/19/2008 Outpatient Historical [facility] Darnell Gray MD [address] [place] [address] [address] [place] [phone] Unspecified Hypothyroidism Social History Tobacco Use Types Packs/Day Years Used Date Smoking Tobacco: Never Alcohol Use Standard Drinks/Week Comments No 0 (1 standard drink = 0.6 oz pur e alcohol) Comments No Sex and Gender Information Value Date Recorded Sex Assigned at Not on file 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 Gender Identity Not on file Sexual Orientation Not on file documented as of this encounter Plan of Treatment Upcoming Encounters Date Type Department Care Team (Late Contact Info) Description 02/25/2025 2:20 PM CDT Office Visit [facility] Medicine [address] [phone] Deidra Valdes MD [facility] [address] [address] documented as of this encounter Visit Diagnoses Diagnosis Unspecified hypothyroidism documented in this encounter Care Teams Public Transit Bus Driver Relationship Specialty Start Date End Date Susan Whaley FNP PCP - General Nurse Practitioner Family 12/30/18 documented as of this encounter
--- OUTSIDE RECORDS SUMMARY | 2024-11-19 20:30 | XMS_ITS | Encounter Summary ---
Author Organization [facility] Address [address] [place] [address] Care Team Providers Care Wildlife Refuge Specialist Name Role Phone Susan Whaley LIQUOR MAKER Primary Care Provider [phone] Encounter Details Date Type Department Care Team (Late st Contact Info) Description 08/02/2008 Outpatient Historical HIS [facility] Er, Authorized P NO ADDRESS ON FILE To Taylor MD [facility] [place] [address] Social History Tobacco Use Types Packs/Day Years Used Date Smoking Tobacco: Never Alcohol Use Standard Drinks/Week Comments No 0 (1 standard drink = 0.6 oz pur e alcohol) Comments No Sex and Gender Information Value Date Recorded Sex Assigned at Not on file 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 Gender Identity Not on file Sexual Orientation Not on file documented as of this encounter Plan of Treatment Upcoming Encounters Date Type Department Care Team (Late st Contact Info) Description 02/25/2025 2:20 PM CDT Office Visit [facility] Medicine [place] [address] [phone] Deidra Valdes MD [address] [phone] documented as of this encounter Procedures Procedure Name Priority Date/Time Associated Diagnosis Comments URINALYSIS WITH REFLEX CULTURE Stat 08/02/2008 3:58 PM CDT URINALYSIS W/REFLEX MICROSCOPIC Stat 08/02/2008 3:58 PM CDT XR CHEST PA AND LATERAL 2 VW Stat 08/02/2008 3:27 PM CDT CARDIAC ENZYMES Stat 08/02/2008 2:50 PM CDT CBC WITH DIFFERENTIAL Stat 08/02/2008 2:50 PM CDT TSH Stat 08/02/2008 2:50 PM CDT LIPASE Stat 08/02/2008 2:50 PM CDT HEMOGLOBIN A1C Stat 08/02/2008 2:50 PM CDT HEPATIC FUNCTION PANEL Stat 08/02/2008 2:50 PM CDT BASIC METABOLIC PANEL Stat 08/02/2008 2:50 PM CDT POC GLUCOSE Routine 08/02/2008 2:46 PM CDT documented in this encounter Results * (ABNORMAL) URINALYSIS (08/02/2008 3:58 PM CDT) COLOR UA Yellow [facility] NITRITE UA Negative Negative [facility] BILIRUBIN UA Negative Negative [facility] PH UA 5.0 5.0 - 8.0 [facility] KETONES UA Negative Negative [facility] CLARITY UA Clear Clear [facility] BLOOD UA Negative Negative [facility] PROTEIN UA Negative Negative [facility] LEUKOCYTE ESTERASE UA Negative Negative [facility] UROBILINOGEN UA <1 <1 mg/dL [facility] SPECIFIC GRAVITY UA 1.025 1.001 - 1.035 [facility] GLUCOSE UA 4+(A) Negative [facility] WBC UA 0-5 0 - 5 /HPF [facility] EPITHELIAL CELLS, URINE 0-2 /HPF [facility] RBC UA 0-2 0 - 2 /HPF [facility] BACTERIA UA Trace None Seen /HPF [facility] 08/02/2008 3:58 PM CDT 08/02/2008 4:02 PM CDT To Taylor MD URINE ORDERABLES Edited Performing Organization Address [facility] Phone Number INTERFACE SYSTEM Refer to clinic/hospital department [facility] CLIA# [id number] [address] [place] [address] * URINALYSIS WITH REFLEX CULTURE (08/02/2008 3:58 PM CDT) URINE CULTURE ORDER Not indicated [facility] Comment: Criteria for a reflex culture include one or more of the following: Abnormal WBCs, RBCs or bacteria. Lack of qualifying criteria does not exclude the possibility of a urinary tract infection. Dilute urine, drug interference, etc. may decrease the sensitivity of the criteria analytes. Urine specimen (specimen) 08/02/2008 3:58 PM CDT 08/02/2008 4:02 PM CDT To Taylor MD URINE ORDERABLES Final Result Performing Organization Address [facility] Phone Number INTERFACE SYSTEM Refer to clinic/hospital department [facility] CLIA# [id number] [address] [place] [address] * XR CHEST PA AND LATERAL (08/02/2008 3:27 PM CDT) Anatomical Region Laterality Modality Chest Other 08/02/2008 3:27 PM CDT Narrative 08/03/2008 9:28 AM CDT [facility] [address] [place] [id number] Admit Date: 08/02/2008 MARCIE SIU Sex: F Admit Prov: TO TAYLOR Date: 1970 Primary Care Prov: PCP, NONE CMRN: [id number] Room: [facility] SSN: [id number] IMAGING SERVICES Ordering Prov: N/A Accession Number: [id number] Interpretation CHEST 2 VIEWS, 08/02/2008 Indication: Elevated blood sugar. Findings: There is a well-defined rounded 1.5 cm pulmonary nodule within the lingula of the left upper lobe which demonstrates central calcification. Otherwise the lungs are clear. There is no pleural effusion, pneumothorax, or pulmonary edema. Heart size and mediastinal silhouette are normal. There are no acute osseous abnormalities. A deformity of the left lateral chest wall may be related to prior surgery or trauma. Surgical clips at the epigastric region are noted. Impression: No acute abnormality. . Dictated by: VIKTOR HECK 08/02/2008 15:32 Electronically signed by: VIKTOR HECK 08/03/2008 09:27 Transcribed: 08/02/2008 18:52 SJ Procedure Note Viktor Heck MD - 08/03/2008 [facility] [address] [place] [id number] Admit Date: 08/02/2008 SALBADORGERALDOSA Sex: F Admit Prov: TO TAYLOR Date: 1970 Primary Care Prov: PCP, NONE CMRN: [id number] Room: [facility] SSN: [address] [place] [address] IMAGING SERVICES Ordering Prov: N/A Interpretation CHEST 2 VIEWS, 08/02/2008 Indication: Elevated blood sugar. Findings: There is a well-defined rounded 1.5 cm pulmonary nodulewithin the lingula of the left upper lobe which demonstrates central calcification. Otherwise the lungs are clear. There is no pleuraleffusion, pneumothorax, or pulmonary edema. Heart size and mediastinalsilhouette are normal. There are no acute osseous abnormalities. A deformity of theleft lateral chest wall may be related to prior surgery or trauma.Surgical clips at the epigastric region are noted. Impression: No acute abnormality. . Dictated by: VIKTOR HECK 08/02/2008 15:32 Electronically signed by: VIKTOR HECK 08/03/2008 09:27 Transcribed: 08/02/2008 18:52 SJ To Taylor MD DIAGNOSTIC IMAGING ORDERABLES F inal Result * (ABNORMAL) TSH (08/02/2008 2:50 PM CDT) [facility] TSH 0.03(L) 0.27 - 4.20 uU/mL [facility] Blood specimen (specimen) 08/02/2008 2:50 PM CDT 08/02/2008 3:00 PM CDT To Taylor MD CHEMISTRY ORDERABLES Final Resu lt Performing Organization Address [facility] de Phone Number INTERFACE SYSTEM Refer to clinic/hospital department [facility] CLIA# [id number] [address] [place] [address] * CARDIAC ENZYMES (08/02/2008 2:50 PM CDT) [facility] TROPONIN T 0.01 <=0.02 ng/mL [facility] TROPONIN T INTERP Negative [facility] Blood specimen (specimen) 08/02/2008 2:50 PM CDT 08/02/2008 3:00 PM CDT us To Taylor MD CHEMISTRY ORDERABLES Edited Performing Organization Address [facility] de Phone Number INTERFACE SYSTEM Refer to clinic/hospital department [facility] CLIA# [id number] [address] [place] [address] * (ABNORMAL) BASIC METABOLIC PANEL (08/02/2008 2:50 PM CDT) [facility] CHLORIDE 103 96 - 108 mmol/L [facility] BUN 15 6 - 20 mg/dL [facility] CREATININE 1.17(H) 0.51 - 0.95 mg/dL [facility] SODIUM 138 135 - 145 mmol/L [facility] CO2 26 22 - 30 mmol/L [facility] CALCIUM 9.1 8.6 - 10.2 mg/dL [facility] POTASSIUM 3.9 3.5 - 4.9 mmol/L [facility] GLUCOSE 111(H) 65 - 99 mg/dL [facility] GFR, >60 >=60 mL/min/1. 7 sq meter [facility] GFR 52(L) >=60 mL/min/1. 7 sq meter [facility] Comment: Modification of Diet in Renal Disease (MDRD) study formula. Estimated GFR rate interpretative information for both Americans and non- Americans is available on the [facility] Intranet at: [email or web address] Select: Lab Policies and Procedures Select: Reference Ranges - GFR Blood specimen (specimen) 08/02/2008 2:50 PM CDT 08/02/2008 3:00 PM CDT us To Taylor MD CHEMISTRY ORDERABLES Edited INTERFACE SYSTEM Refer to clinic/hospital department [facility] CLIA# [id number] [address] [place] [address] * CBC WITH DIFFERENTIAL (08/02/2008 2:50 PM CDT) HEMATOCRIT 37.2 35.5 - 44.0 % [facility] RDW-STDEV 39.7 37.1 - 48.7 fL [facility] RBC 4.19 3.90 - 4.90 M/uL [facility] MCHC 33.3 31.5 - 35.5 % [facility] PLATELETS 199 140 - 350 K/uL [facility] MCV 88.8 82.0 - 99.0 fL [facility] HEMOGLOBIN 12.4 11.8 - 14.8 g/dL [facility] RDW 12.4 11.5 - 14.5 % [facility] WBC 7.1 4.0 - 9.8 K/uL [facility] MCH 29.6 27.2 - 32.6 pg [facility] MPV 10.8 9.3 - 12.4 fL [facility] LYMPHOCYTES 20 16 - 45 % [facility] LYMPHOCYTE ABSOLUTE 1.41 0.70 - 4.50 K/uL [facility] BASOPHILS 0 0 - 2 % [facility] BASOPHILS ABSOLUTE 0.02 0.00 - 0.20 K/uL [facility] MONOCYTES 10 3 - 13 % [facility] MONOCYTE ABSOLUTE 0.71 0.10 - 1.30 K/uL [facility] NEUTROPHILS 67 45 - 70 % [facility] NEUTROPHIL ABSOLUTE 4.76 1.90 - 7.00 K/uL [facility] EOSINOPHILS 3 0 - 7 % [facility] EOSINOPHIL ABSOLUTE 0.21 0.00 - 0.70 K/uL [facility] Blood specimen (specimen) 08/02/2008 2:50 PM CDT 08/02/2008 3:00 PM CDT To Taylor MD HEMATOLOGY ORDERABLES Edited INTERFACE SYSTEM Refer to clinic/hospital department [facility] CLIA# [id number] [address] [place] [address] * (ABNORMAL) HEMOGLOBIN A1C (08/02/2008 2:50 PM CDT) GLUCOSE, MEAN BLOOD 143 mg/dL [facility] HEMOGLOBIN A1C 6.2(H) 4.8 - 5.9 % of Hgb [facility] Blood specimen (specimen) 08/02/2008 2:50 PM CDT 08/02/2008 3:00 PM CDT To Taylor MD CHEMISTRY ORDERABLES Final Resu lt Performing Organization Address [facility] de Phone Number INTERFACE SYSTEM Refer to clinic/hospital department [facility] CLIA# [id number] [address] [place] [address] * LIPASE (08/02/2008 2:50 PM CDT) LIPASE 33 13 - 60 U/L [facility] Blood specimen (specimen) 08/02/2008 2:50 PM CDT 08/02/2008 3:00 PM CDT To Taylor MD CHEMISTRY ORDERABLES Final Resu lt Performing Organization Address [facility] Phone Number INTERFACE SYSTEM Refer to clinic/hospital department [facility] CLIA# [id number] [address] [place] [address] * HEPATIC FUNCTION PANEL (08/02/2008 2:50 PM CDT) BILIRUBIN TOTAL 0.2 0.2 - 1.0 mg/dL [facility] ALT 29 0 - 31 U/L [facility] ALBUMIN 4.2 3.4 - 4.8 g/dL [facility] AST 29 12 - 32 U/L [facility] BILIRUBIN DIRECT <0.2 0.0 - 0.3 mg/dL [facility] ALKALINE PHOSPHATASE 60 35 - 104 U/L [facility] TOTAL PROTEIN 7.1 6.0 - 8.3 g/dL [facility] Blood specimen (specimen) 08/02/2008 2:50 PM CDT 08/02/2008 3:00 PM CDT To Taylor MD CHEMISTRY ORDERABLES Final Resu lt Performing Organization Address [facility] de Phone Number INTERFACE SYSTEM Refer to clinic/hospital department [facility] CLIA# [id number] [address] [place] [address] * (ABNORMAL) POC GLUCOSE (08/02/2008 2:46 PM CDT) COMMENT, GLU POC Notified RN [facility] GLUCOSE POC 125(H) 65 - 99 mg/dL [facility] Capillary blood specimen (specimen) 08/02/2008 2:46 PM CDT 08/02/2008 2:46 PM CDT us Authorized P Er POINT OF CARE TESTING Final Resu lt INTERFACE SYSTEM Refer to clinic/hospital department [facility] CLIA# [id number] [address] [place] [address] documented in this encounter Visit Diagnoses Not on filedocumented in this encounter Care Teams Wildlife Refuge Specialist Relationship Specialty Start Date End Date Susan Whaley, KASSY PCP - General Nurse Practitioner Family 12/30/18 documented as of this encounter
--- OUTSIDE RECORDS SUMMARY | 2024-11-19 20:30 | XMS_ITS | Encounter Summary ---
Author Organization [facility] Address [address] [place] [address] Care Team Providers Care Tip Cementer Name Role Phone Susan Whaley SCISSORS SHARPENER Primary Care Provider [phone] Encounter Details Date Type Department Care Team (Late st Contact Info) Description 09/17/2008 Outpatient Historical [facility] Charisse Brewer NP NO ADDRESS ON FILE Pain in Soft Tissues of Limb Social History Tobacco Use Types Packs/Day Years Used Date Smoking Tobacco: Never Alcohol Use Standard Drinks/Week Comments No 0 (1 standard drink = 0.6 oz pur e alcohol) Comments No Sex and Gender Information Value Date Recorded Sex Assigned at Not on file 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 Gender Identity Not on file Sexual Orientation Not on file documented as of this encounter Plan of Treatment Upcoming Encounters Date Type Department Care Team (Late st Contact Info) Description 02/25/2025 2:20 PM CDT Office Visit [facility] Medicine [address] [address] Deidra Valdes MD [address] [address] documented as of this encounter Procedures Procedure Name Priority Date/Time Associated Diagnosis Comments XR WRIST 3+ VW LEFT Routine 09/17/2008 1 1:44 AM CDT XR FOREARM 2 VW LEFT Routine 09/17/2008 11:44 AM CDT documented in this encounter Results * XR FOREARM 2 VW LEFT (09/17/2008 11:44 AM CDT) Anatomical Region Laterality Modality Upper Extremity Other 09/17/2008 11:4 4 AM CDT Narrative 09/17/2008 12:30 PM CDT [address] [address] Admit Date: 09/17/2008 MARCIE SIU Sex: F Admit Prov: CHARISSE BREWER Date: 1970 Primary Care Prov: CHARISSE BREWER CMRN: [id number] [id number] [facility] Ordering Prov: N/A Accession Number: [id number] Interpretation Exam: Left forearm, 2 views on 09/17/2008. History: Pain. The bones are normally developed and mineralized. No evidence of acute or old bony trauma is seen. No lytic or blastic lesions are identified. No significant articular abnormalities are identified. The adjacent soft tissues are unremarkable. Conclusion: Radiographically negative exam. . Dictated by: RUTH BUSTILLOS 09/17/2008 12:28 Electronically signed by: RUTH BUSTILLOS 09/17/2008 12:28 Procedure Note Ruth Bustillos MD - 09/17/[address] [address] Admit Date: 09/17/2008 MARCIE SIU Sex: F Admit Prov: CHARISSE BREWER Date: 1970 Primary Care Prov: CHARISSE BREWER CMRN: [id number] [facility] [id number] [facility] Ordering Prov: N/A Interpretation Exam: Left forearm, 2 views on 09/17/2008. History: Pain. The bones are normally developed and mineralized. No evidence ofacute or old bony trauma is seen. No lytic or blastic lesions are identified.No significant articular abnormalities are identified. The adjacentsoft tissues are unremarkable. Conclusion: Radiographically negative exam. . Dictated by: RUTH BUSTILLOS 09/17/2008 12:28 Electronically signed by: RUTH BUSTILLOS 09/17/2008 12:28 Charisse Brewer VACUUM WORKER DIAGNOSTIC IMAGING ORDER FROREST Final Result * XR WRIST 3+ VW LEFT (09/17/2008 11:44 AM CDT) Anatomical Region Laterality Modality Wrist / Hand Other 09/17/2008 11:4 4 AM CDT Narrative 09/17/2008 12:31 PM CDT [address] [address] Admit Date: 09/17/2008 MARCIE SIU Sex: F Admit Prov: CHARISSE BREWER Date: 1970 Primary Care Prov: CHARISSE BREWER CMRN: [id number] Room: [facility]: [id number] IMAGING SERVICES Ordering Prov: N/A Accession Number: [id number] Interpretation Exam: Left wrist, 3 views and 09/17/2008. History: Pain. The bones are normally developed and mineralized. No evidence of acute or old bony trauma is seen. No lytic or blastic lesions are identified. No significant articular abnormalities are identified. The adjacent soft tissues are unremarkable. Conclusion: Radiographically negative exam. . Dictated by: RUTH BUSTILLOS 09/17/2008 12:29 Electronically signed by: RUTH BUSTILLOS 09/17/2008 12:29 Procedure Note Ruth Bustillos MD - 09/17/[address] [address] Admit Date: 09/17/2008 MARCIE SIU Sex: F Admit Prov: CHARISSE BREWER Date: 1970 Primary Care Prov: CHARISSE BREWER CMRN: [id number] [facility] [id number] IM[facility]ING SERVICES Ordering Prov: N/A Interpretation Exam: Left wrist, 3 views and 09/17/2008. History: Pain. The bones are normally developed and mineralized. No evidence ofacute or old bony trauma is seen. No lytic or blastic lesions are identified.No significant articular abnormalities are identified. The adjacentsoft tissues are unremarkable. Conclusion: Radiographically negative exam. . Dictated by: RUTH BUSTILLOS 09/17/2008 12:29 Electronically signed by: RUTH BUSTILLOS 09/17/2008 12:29 Charisse Brewer NP DIAGNOSTIC IMAGING ORDER FORREST Final Result documented in this encounter Visit Diagnoses Diagnosis Pain in limb documented in this encounter Care Teams Tip Cementer Relationship Specialty Start Date End Date Susan Whaley FNP PCP - General Nurse Practitioner Family 12/30/18 documented as of this encounter
--- OUTSIDE RECORDS SUMMARY | 2024-11-19 20:30 | XMS_ITS | Encounter Summary ---
Author Organization [facility] Address [address] [place] [address] Care Team Providers Care Tractor Distributor Name Role Phone Susan Whaley Primary Care Provider [phone] Encounter Details Date Type Department Care Team (Late Contact Info) Description 09/17/2008 Outpatient [facility] [address] [facility] [address] [place] [phone] Charisse Monteiro NP NO ADDRESS ON FILE Social History Tobacco Use Types Packs/Day Years Used Date Smoking Tobacco: Never Alcohol Use Standard Drinks/Week Comments No 0 (1 standard drink = 0.6 oz pur e alcohol) Comments No Sex and Gender Information Value Date Recorded Sex Assigned at Not on file 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 Family Medicine [address] [address] Deidra Valdes MD [address] [address] documented as of this encounter Visit Diagnoses Not on filedocumented in this encounter Care Teams Tractor Distributor Relationship Specialty Start Date End Date Susan Whaley FNP PCP - General Nurse Practitioner Family 12/30/18 documented as of this encounter
--- OUTSIDE RECORDS SUMMARY | 2024-11-19 20:30 | XMS_ITS | Encounter Summary ---
Author Organization [facility] Address [address] [place] [address] Care Team Providers Care Associate Dean Name Role Phone Susan Whaley ADZ WORKER Primary Care Provider [phone] Reason for Referral * Outpatient Services (Routine) - Closed Specialty Diagnoses / Procedures Referred By Bryant castaneda Referred To Contact Radiology Diagnoses Abdominal pain Procedures CT ABDOMEN PELVIS WO CONTRAST CT ABDOMEN PELVIS W CONTRAST Castro Beth DO [facility] CT Scan Stuart [address] [place] [address] Phone: tel: fax: Referral ID Status Reason Start Date Expiration Date V isits Requested Visits Authorized [id number] Closed [facility] CTS to Schedule (SGF) 07/25/2014 08/25/2015 1 1 Encounter Details Date Type Department Care Team (Latest Contact Info) Description 07/23/2014 Ancillary Orders [facility] Centralized Scheduling [address] [facility] [address] [place] [address] Castro Beth DO NO ADDRESS ON FILE Anemia (Primary Dx); Abdominal pain Social History Tobacco Use Types Packs/Day Years Used Date Smoking Tobacco: Never Alcohol Use Standard Drinks/Week Comments No 0 (1 standard drink = 0.6 oz pur e alcohol) Comments No Sex and Gender Information Value Date Recorded Sex Assigned at Not on file 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 Gender Identity Not on file Sexual Orientation Not on file Occupation Industry Job Start Date Job End Date Not on file Not on file Not on file Not on file documented as of this encounter Plan of Treatment Not on file documented as of this encounter Results * CT ABDOMEN PELVIS WO CONTRAST (07/26/2014 11:10 AM CDT) Anatomical Region Laterality Modality Abdomen Computed Tomogra phy 07/26/2014 11:0 1 AM CDT Narrative 08/19/2014 2:[address] ABDOMEN and PELVIS, non-contrast, 26 July 2014 TECHNIQUE After oral administration of contrast material, with the patient supine in the scanning gantry, with no IV contrast administered, helical axial imaging was obtained from above the diaphragm through the pelvis at 5 mm increments for 86 axial images. Sagittal and coronal reconstructions are also obtained. DESCRIPTION The heart appears normal in size by estimated cardiothoracic ratio. The lung bases appear unremarkable to the extent visualized. There are postoperative changes of the left upper quadrant consistent with gastric bypass. Liver appears unremarkable. Gallbladder is resected. Spleen appears unremarkable. Pancreas and adrenal glands appear unremarkable. Kidneys appear unremarkable for hydronephrosis or nephrolithiasis. There is mild distention of the proximal small bowel with gas and fluid and contrast material with mild caliber change in the mid to distal small bowel suggesting possibility of partial obstruction from adhesions. There is contrast material in the distal small bowel be on the suspected caliber change. Otherwise the small bowel appears unremarkable. Appendix is identified without inflammatory change seen. Colon shows moderate gas and fecal artifact without pericolic induration. Urinary bladder and pelvic structures appear unremarkable, status post hysterectomy. Postoperative changes of anterior abdominal wall are noted with mesh artifact and carri anteriorly. There is vena cava umbrella filter noted. No abdominal or pelvic mass is seen. No free fluid, free air, or adenopathy are seen. There is mild left arthritis of the spine loss of height of the disc at L4-L5 and grade 1 L4-L5 spondylolisthesis. IMPRESSION 1. possible partial obstruction of the mid small bowel 2. no ascites or pneumoperitoneum seen 3. postoperative changes as noted Procedure Note Milton Crump MD - 08/19/[address] ABDOMEN and PELVIS, non-contrast, 26 July 2014 TECHNIQUE After oral administration of contrast material, with the patient supine in the scanning gantry, with no IV contrast administered, helical axial imaging was obtained from above the diaphragm through the pelvis at 5 mm increments for 86 axial images. Sagittal and coronal reconstructions are also obtained. DESCRIPTION The heart appears normal in size by estimated cardiothoracic ratio. The lung bases appear unremarkable to the extent visualized. There are postoperative changes of the left upper quadrant consistent with gastric bypass. Liver appears unremarkable. Gallbladder is resected. Spleen appears unremarkable. Pancreas and adrenal glands appear unremarkable. Kidneys appear unremarkable for hydronephrosis or nephrolithiasis. There is mild distention of the proximal small bowel with gas and fluid and contrast material with mild caliber change in the mid to distal small bowel suggesting possibility of partial obstruction from adhesions. There is contrast material in the distal small bowel be on the suspected caliber change. Otherwise the small bowel appears unremarkable. Appendix is identified without inflammatory change seen. Colon shows moderate gas and fecal artifact without pericolic induration. Urinary bladder and pelvic structures appear unremarkable, status post hysterectomy. Postoperative changes of anterior abdominal wall are noted with mesh artifact and carri anteriorly. There is vena cava umbrella filter noted. No abdominal or pelvic mass is seen. No free fluid, free air, or adenopathy are seen. There is mild left arthritis of the spine loss of height of the disc at L4-L5 and grade 1 L4-L5 spondylolisthesis. IMPRESSION 1. possible partial obstruction of the mid small bowel 2. no ascites or pneumoperitoneum seen 3. postoperative changes as noted us Castro Beth DO CT ORDERABLES Final Result documented in this encounter Visit Diagnoses Diagnosis Anemia- Primary Anemia, unspecified Abdominal pain Abdominal pain, unspecified site Anemia Anemia, unspecified Abdominal pain Abdominal pain, unspecified site documented in this encounter Care Teams Associate Dean Relationship Specialty Start Date End Date Susan Whaley FNP PCP - General Nurse Practitioner Family 12/30/18 documented as of this encounter
--- OUTSIDE RECORDS SUMMARY | 2024-11-19 20:30 | XMS_ITS | Encounter Summary ---
Author Organization [facility] Address [address] [place] [address] Care Team Providers Care Building Code Inspector Name Role Phone Susan Whaley STUDENT SERVICES REPRESENTATIVE Primary Care Provider [phone] Encounter Details Date Type Department Care Team (Late st Contact Info) Description 10/15/2013 Ancillary Orders [facility] General Laboratory Services [place] [address] [place] [address] Acute bronchitis; Renal failure, unspecified Social History Tobacco Use Types Packs/Day Years Used Date Smoking Tobacco: Never Alcohol Use Standard Drinks/Week Comments No 0 (1 standard drink = 0.6 oz pur e alcohol) Comments No Sex and Gender Information Value Date Recorded Sex Assigned at Not on file Legal Sex Female 1:26 PM SEWER HAND Gender Identity Not on file Sexual Orientation Not on file Occupation Industry Job Start Date Job End Date Not on file Not on file Not on file Not on file documented as of this encounter Plan of Treatment Not on file documented as of this encounter Procedures Procedure Name Priority Date/Time Associated Diagnosis Comments CBC WITH DIFFERENTIAL Routine 10/15/2013 10:31 PM CDT Acute bronchitis [ICD-9-CM] Renal failure, unspecified [ICD-9-CM] BASIC METABOLIC PANEL Routine 10/15/2013 10:31 PM CDT Acute bronchitis [ICD-9-CM] Renal failure, unspecified [ICD-9-CM] documented in this encounter Results * (ABNORMAL) CBC WITH DIFFERENTIAL (10/15/2013 10:31 PM CDT) WBC 5.9 4.0 - 10.0 K/uL 10/15/2013 11:09 PM CDT [facility] [place] RBC 3.47(L) 3.93 - 5.22 M/uL 10/15/2013 11:09 PM CDT [facility] [place] HEMOGLOBIN 10.8(L) 11.2 - 15.7 g/dL 10/15/2013 11:09 PM CDT [facility] [place] HEMATOCRIT 32.6(L) 34.1 - 44.9 % 10/15/2013 11:09 PM CDT [facility] [place] MCV 93.9 79.4 - 94.8 fL 10/15/2013 11:09 PM CDT [facility] [place] MCH 31.1 25.6 - 32.2 pg 10/15/2013 11:09 PM CDT [facility] [place] MCHC 33.1 32.2 - 35.5 g/dL 10/15/2013 11:[address] [facility] [place] RDW 13.4 11.0 - 14.5 % 10/15/2013 11:09 PM T [facility] [place] RDW-STDEV 43.7 36.9 - 56.9 fL 10/15/2013 11:09 PM CDT [facility] [place] PLATELETS 265 163 - 337 K/uL 10/15/2013 11:09 PM T [facility] [place] MPV 11.4 10.0 - 14.8 fL 10/15/2013 11:09 PM CDT [facility] [place] NEUTROPHILS 60 34 - 71 % 10/15/2013 11:[address] [facility] [place] LYMPHOCYTES 25 19 - 52 % 10/15/2013 11:09 PM CDT [facility] [place] MONOCYTES 12 5 - 13 % 10/15/2013 11:09 PM CDT [facility] [place] EOSINOPHILS 3 1 - 6 % 10/15/2013 11:09 PM CDT [facility] [place] BASOPHILS 1 0 - 1 % 10/15/2013 11:09 PM CDT [facility] [place] NEUTROPHIL ABSOLUTE 3.53 1.56 - 6.13 K/uL 10/15/2013 11:09 PM CDT [facility] [place] LYMPHOCYTE ABSOLUTE 1.47 1.20 - 3.40 K/uL 10/15/2013 11:09 PM CDT [facility] [place] MONOCYTE ABSOLUTE 0.69(H) 0.24 - 0.36 K/uL 10/15/2013 11:09 PM CDT [facility] [place] EOSINOPHIL ABSOLUTE 0.18 0.04 - 0.36 K/uL 10/15/2013 11:09 PM CDT [facility] [place] BASOPHILS ABSOLUTE 0.03 0.01 - 0.08 K/uL 10/15/2013 11:09 PM CDT [facility] [place] IMMATURE GRANULOCYTES 0 % 10/15/2013 11:09 PM CDT [facility] [place] IMMATURE GRANULOCYTES ABSOLUTE 0.01 K/uL 10/15/2013 11:09 PM T [facility] [place] Blood 10/15/2013 10:3 1 PM CDT 10/15/2013 10:31 PM CDT us External Provider Mtnv HEMATOLOGY ORDERABLES Fin al Result [facility] CLIA # [id number] [address] [place] [address] * (ABNORMAL) BASIC METABOLIC PANEL (10/15/2013 10:31 PM CDT) SODIUM 138 136 - 145 mmol/L 10/15/2013 11:09 PM T [facility] [place] POTASSIUM 4.6 3.5 - 5.1 mmol/L 10/15/2013 11:09 PM T [facility] CHLORIDE 107 98 - 107 mmol/L 10/15/2013 11:09 PM T [facility] CO2 21 21 - 32 mmol/L 10/15/2013 11:09 PM CDT [facility] [place] CALCIUM 8.9 8.5 - 10.1 mg/dL 10/15/2013 11:09 PM T [facility] [place] BUN 25(H) 7 - 18 mg/dL 10/15/2013 11:09 PM CDT [facility] [place] CREATININE 1.40(H) 0.60 - 1.30 mg/dL 10/15/2013 11:09 PM T [facility] GLUCOSE 65(L) 74 - 106 mg/dL 10/15/2013 11:09 PM CDT [facility] GFR 41(L) >=60 mL/min/1.7 3 sq meter 10/15/2013 11:09 PM CDT [facility] Comment: eGFR has not been validated for use in the elderly (> 70 years of age), women, patients with serious co-morbid conditions, or persons with extremes of body size or muscle mass and should also be interpreted with caution in patients with acute kidney failure, dialysis dependent patients, patients reporting exceptional dietary intake (e.g. vegetarian diet, high protein diets, creatine supplementation), and patients with severe liver disease. Based on National Kidney Disease Education Program If patient is , please refer to the GFR result. GFR, 50(L) >=60 mL/min/1.7 3 sq meter 10/15/2013 11:09 PM CDT [facility] [employer] [facility] Blood 10/15/2013 10:3 1 PM CDT 10/15/2013 10:31 PM CDT us External Provider Mtnv CHEMISTRY ORDERABLES Mady l Result [facility] [employer] [facility] CLIA # [id number] [address] [place] [address] documented in this encounter Visit Diagnoses Diagnosis Acute bronchitis Renal failure, unspecified documented in this encounter Care Teams Building Code Inspector Relationship Specialty Start Date End Date Susan Whaley FNP PCP - General Nurse Practitioner Family 12/30/18 documented as of this encounter
--- OUTSIDE RECORDS SUMMARY | 2024-11-19 20:30 | XMS_ITS | Encounter Summary ---
Author Organization [facility] Address [address] [place] [address] Care Team Providers Care Health Advisor Name Role Phone Susan Whaley Primary Care Provider Encounter Details Date Type Department Care Team (Late Contact Info) Description 09/19/2008 Outpatient [facility] [address] [facility] [address] [place] [phone] Mariano Duarte DO NO ADDRESS ON FILE Social History Tobacco Use Types Packs/Day Years Used Date Smoking Tobacco: Never Alcohol Use Standard Drinks/Week Comments No 0 (1 standard drink = 0.6 oz pur e alcohol) Comments No Sex and Gender Information Value Date Recorded Sex Assigned at Not on file 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 Gender Identity Not on file Sexual Orientation Not on file documented as of this encounter Plan of Treatment Upcoming Encounters Date Type Department Care Team (Late Contact Info) Description 02/25/2025 2:20 PM CDT Office Visit [facility] [place] [address] [address] Deidra Valdes MD [address] [address] documented as of this encounter Visit Diagnoses Not on filedocumented in this encounter Care Teams Health Advisor Relationship Specialty Start Date End Date Susan Whaley FNP PCP - General Nurse Practitioner Family 12/30/18 documented as of this encounter
--- OUTSIDE RECORDS SUMMARY | 2024-11-19 20:30 | XMS_ITS | Encounter Summary ---
Author Organization [facility] Address [address] [place] [address] Care Team Providers Care Clinical Research Management Associate Name Role Phone Susan Whaley TURRET LATHE SET UP OPERATOR Primary Care Provider [phone] Encounter Details Date Type Department Care Team (Late Contact Info) Description 09/17/2008 Outpatient [facility] Charisse Monteiro NP NO ADDRESS ON FILE Mariano Duarte DO NO ADDRESS ON FILE Insect Bite NEC-Infected Social History Tobacco Use Types Packs/Day Years Used Date Smoking Tobacco: Never Alcohol Use Standard Drinks/Week Comments No 0 (1 standard drink = 0.6 oz pur e alcohol) Comments No Sex and Gender Information Value Date Recorded Sex Assigned at Not on file 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 Gender Identity Not on file Sexual Orientation Not on file documented as of this encounter Plan of Treatment Upcoming Encounters Date Type Department Care Team ([facility] Contact Info) Description 02/25/2025 2:20 PM CDT Office Visit [facility] Family Medicine [address] [address] Deidra Valdes MD [facility] [address] [address] documented as of this encounter Visit Diagnoses Diagnosis Other, multiple, and unspecified sites, insect bite, nonvenomous, infected(919.5) Other, multiple, and unspecified sites, insect bite, nonvenomous, infected documented in this encounter Care Teams Clinical Research Management Associate Relationship Specialty Start Date End Date Susan Whaley, TURRET LATHE SET UP OPERATOR PCP - General Nurse Practitioner Family 12/30/18 documented as of this encounter
--- OUTSIDE RECORDS SUMMARY | 2024-11-19 20:30 | XMS_ITS | Encounter Summary ---
Author Organization [facility] Address [address] [place] [address] Care Team Providers Care Nurse Transplant Name Role Phone Susan Whaley EYE CARE PROFESSIONAL Primary Care Provider [phone] Encounter Details Date Type Department Care Team (Late st Contact Info) Description 07/22/2014 Lab Requisition [facility] [place] [address] [place] [id number] Castro Beth, DO NO ADDRESS ON FILE Social History Tobacco Use Types Packs/Day Years Used Date Smoking Tobacco: Never Alcohol Use Standard Drinks/Week Comments No 0 (1 standard drink = 0.6 oz pur e alcohol) Comments No Sex and Gender Information Value Date Recorded Sex Assigned at Not on file Legal Sex Female 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 Gender Identity Not on file Sexual Orientation Not on file Occupation Industry Job Start Date Job End Date Not on file Not on file Not on file Not on file documented as of this encounter Plan of Treatment Not on file documented as of this encounter Procedures Procedure Name Priority Date/Time Associated Diagnosis Comments VITAMIN B12 AND FOLATE Routine 5 10:07 PM CDT CBC WITH DIFFERENTIAL Routine 07/22/2014 10:07 PM CDT MAGNESIUM LEVEL Routine 07/22/2014 10:07 PM CDT IRON LEVEL Routine 07/22/2014 10:07 PM CDT AMYLASE Routine 07/22/2014 10:07 PM CDT COMPREHENSIVE METABOLIC PANEL Routine 07/22/2014 10:07 PM CDT documented in this encounter Results * MAGNESIUM LEVEL (07/22/2014 10:07 PM CDT) MAGNESIUM 2.0 1.8 - 2.4 mg/dL 07/22/2014 11:38 PM CDT [facility] [place] Blood 07/22/2014 10:0 7 PM CDT 07/22/2014 10:07 PM CDT Castro Beth DO CHEMISTRY ORDERABLES Final Resu lt Performing Organization Address [facility]/ZIP Co de Phone Number [facility] [place] CLIA # [id number] [address] [place] [id number] * (ABNORMAL) IRON LEVEL (07/22/2014 10:07 PM CDT) IRON 46(L) 50 - 170 ug/dL 07/22/2014 11:39 PM CDT [facility] [place] Blood 07/22/2014 10:0 7 PM CDT 07/22/2014 10:07 PM CDT Castro Beth DO CHEMISTRY ORDERABLES Final Resu lt Performing Organization Address City/[facility]/ZIP Co de Phone Number [facility] CLIA # [id number] [address] [place] [address] * (ABNORMAL) COMPREHENSIVE METABOLIC PANEL (07/22/2014 10:07 PM CDT) SODIUM 137 136 - 145 mmol/L 07/22/2014 11:38 PM CDT [facility] [place] POTASSIUM 5.2(H) 3.5 - 5.1 mmol/L 07/22/2014 11:38 PM CDT [facility] [place] CHLORIDE 105 98 - 107 mmol/L 07/22/2014 11:38 PM CDT [facility] [place] CO2 23 21 - 32 mmol/L 07/22/2014 11:38 PM CDT [facility] [place] CALCIUM 8.7 8.5 - 10.1 mg/dL 07/22/2014 11:38 PM [facility] [place] BUN 26(H) 7 - 18 mg/dL 07/22/2014 11:38 PM [facility] CREATININE 1.40(H) 0.60 - 1.30 mg/dL 07/22/2014 11:38 PM [facility] [place] [facility] GLUCOSE 86 74 - 106 mg/dL 07/22/2014 11:38 PM [facility] [employer] [facility] [place] TOTAL PROTEIN 7.6 6.4 - 8.2 g/dL 07/22/2014 11:38 PM [facility] ALBUMIN 3.7 3.4 - 5.0 g/dL 07/22/2014 11:38 PM [facility] BILIRUBIN TOTAL 0.2 0.2 - 1.0 mg/dL 07/22/2014 11:38 PM [facility] [employer] [facility] ALKALINE PHOSPHATASE 98 46 - 116 U/L 07/22/2014 11:38 PM [facility] AST 34 15 - 37 U/L 07/22/2014 11:38 PM [facility] [place] ALT 31 30 - 65 U/L 07/22/2014 11:38 PM [facility] [employer] [facility] GFR 41(L) >=60 mL/min/1.7 3 sq meter 07/22/2014 11:38 PM [facility] [employer] [facility] Comment: eGFR has not been validated for [...] please refer to the GFR result. GFR, 49(L) >=60 mL/min/1.7 3 sq meter 07/22/2014 11:38 PM [facility] [employer] LABORATORY [facility] [place] ANION GAP 9(L) 12 - 20 mmol/L 07/22/2014 11:38 PM CDT [facility] [employer] [facility] Blood 07/22/2014 10:0 7 PM CDT 07/22/2014 10:07 PM CDT Narrative [facility]ATORY [facility] [place] - 07/22/2014 11:38 PM CDT Effective 01/10/2014, the Alkaline Phosphatase test method and reference range have changed. Please take this into consideration when interpreting results prior to or after this date. us Castro Beth DO CHEMISTRY ORDERABLES Final Resu lt [facility] CLIA # [id number] [address] [place] [id number] * (ABNORMAL) CBC WITH DIFFERENTIAL (07/22/2014 10:07 PM CDT) WBC 6.6 4.0 - 10.0 K/uL 07/22/2014 10:49 PM CDT [facility] RBC 3.66(L) 3.93 - 5.22 M/uL 07/22/2014 10:49 PM CDT [facility] HEMOGLOBIN 10.8(L) 11.2 - 15.7 g/dL 07/22/2014 10:49 PM CDT [facility] [place] HEMATOCRIT 33.9(L) 34.1 - 44.9 % 07/22/2014 10:49 PM [facility] MCV 92.6 79.4 - 94.8 fL 07/22/2014 10:49 PM CDT [facility] MCH 29.5 25.6 - 32.2 pg 07/22/2014 10:49 PM [facility] MCHC 31.9(L) 32.2 - 35.5 g/dL 07/22/2014 10:49 PM CDT [facility] RDW 14.9(H) 11.0 - 14.5 % 07/22/2014 10:49 PM [facility] [employer] [facility] RDW-STDEV 48.2 36.9 - 56.9 fL 07/22/2014 10:49 PM CDT [facility] [place] PLATELETS 338(H) 163 - 337 K/uL 07/22/2014 10:49 PM CDT [facility] [place] MPV 11.7 10.0 - 14.8 fL 07/22/2014 10:49 PM CDT [facility] [place] NEUTROPHILS 63 34 - 71 % 07/22/2014 10:49 PM CDT [facility] [place] LYMPHOCYTES 24 19 - 52 % 07/22/2014 10:49 PM CDT [facility] [place] MONOCYTES 9 5 - 13 % 07/22/2014 10:49 PM CDT [facility] [place] EOSINOPHILS 3 1 - 6 % 07/22/2014 10:49 PM CDT [facility] [place] BASOPHILS 0 0 - 1 % 07/22/2014 10:49 PM CDT [facility] [place] NEUTROPHIL ABSOLUTE 4.20 1.56 - 6.13 K/uL 07/22/2014 10:49 PM CDT [facility] [place] LYMPHOCYTE ABSOLUTE 1.60 1.20 - 3.40 K/uL 07/22/2014 10:49 PM CDT [facility] [place] MONOCYTE ABSOLUTE 0.61(H) 0.24 - 0.36 K/uL 07/22/2014 10:49 PM CDT [facility] [place] EOSINOPHIL ABSOLUTE 0.19 0.04 - 0.36 K/uL 07/22/2014 10:49 PM CDT [facility] [place] BASOPHILS ABSOLUTE 0.02 0.01 - 0.08 K/uL 07/22/2014 10:49 PM CDT [facility] [place] IMMATURE GRANULOCYTES 0 % 07/22/2014 10:49 PM CDT [facility] [place] IMMATURE GRANULOCYTES ABSOLUTE 0.01 K/uL 07/22/2014 10:49 PM CDT [facility] [place] Blood 07/22/2014 10:0 7 PM CDT 07/22/2014 10:07 PM CDT us Castro Beth DO HEMATOLOGY ORDERABLES Final Res ult [facility] [place] CLIA # [id number] [address] [place] [address] * VITAMIN B12 AND FOLATE (07/22/2014 10:07 PM CDT) FOLATE, SERUM 25.13 >=5.38 ng/mL 07/23/2014 10:25 PM CDT [facility] VITAMIN B12 222 211 - 911 pg/mL 07/23/2014 10:25 PM CDT [facility] Blood specimen (specimen) 07/22/2014 10:07 PM CDT 07/22/2014 10:07 PM CDT Castro Beth DO CHEMISTRY ORDERABLES Final Resu lt Performing Organization Address City/[facility]/ZIP Co de Phone Number [facility] [employer] [facility] CLIA# [id number] [address] [place], [place] [id number] [place] [address] CLIA# [id number] [address] [place] [address] * (ABNORMAL) AMYLASE (07/22/2014 10:07 PM CDT) Pathologist [facility] AMYLASE 122.0(H) 25.0 - 115.0 U/L 07/22/2014 11:38 PM CDT [facility] [employer] [facility] Blood 07/22/2014 10:0 7 PM CDT 07/22/2014 10:07 PM CDT Castro Beth DO CHEMISTRY ORDERABLES Final Resu lt [facility] [employer] [facility] CLIA # [id number] [address] [place] [address] documented in this encounter Visit Diagnoses Not on filedocumented in this encounter Care Teams Nurse Transplant Relationship Specialty Start Date End Date Susan Whaley FNP PCP - General Nurse Practitioner Family 12/30/18 documented as of this encounter
--- OUTSIDE RECORDS SUMMARY | 2024-11-19 20:30 | XMS_ITS | Encounter Summary ---
Author Organization [facility] Address [address] [place] [address] Care Team Providers Care Professor Of Voice Name Role Phone Susan Whaley ATHLETICS TEACHER Primary Care Provider Encounter Details Date Type Department Care Team (Late st Contact Info) Description 08/06/2008 Outpatient Historical [facility] [address] [place] [address] [address] [place] [address] Emelia Flowers, YOKO [address] [place] [address] [address] [place] [address] Social History Tobacco Use Types Packs/Day Years Used Date Smoking Tobacco: Never Alcohol Use Standard Drinks/Week Comments No 0 (1 standard drink = 0.6 oz pur e alcohol) Comments No Sex and Gender Information Value Date Recorded Sex Assigned at Not on file 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 Gender Identity Not on file Sexual Orientation Not on file documented as of this encounter Plan of Treatment Upcoming Encounters Date Type Department Care Team (Late st Contact Info) Description 02/25/2025 2:20 PM CDT Office Visit [facility] [place] [address] [address] Deidra Valdes MD [address] [address] documented as of this encounter Visit Diagnoses Not on filedocumented in this encounter Care Teams Professor Of Voice Relationship Specialty Start Date End Date Susan Whaley, ATHLETICS TEACHER PCP - General Nurse Practitioner Family 12/30/18 documented as of this encounter
--- OUTSIDE RECORDS SUMMARY | 2024-11-19 20:30 | XMS_ITS | Clinical Summary ---
Author Organization [facility] [address] [place] [address] Address [address] [place] [address] Care Team Providers Care Car Hostler Name Role Phone Susan Whaley ANALYSIS LEAD Primary Care Provider [phone] Allergies Active Allergy Reactions Criticality Noted Date Comments Homeopathic Products Other (See Comments) 04/19 Unable to take NSAID's due to previous gastric bypass. Nsaids (Non-Steroidal Anti-Inflammatory Drug) Renal Dysfunctions Medium 08/27/2014 Penicillins Other (See Comments) 06/19/2012 Renal failure Sulfa (Sulfonamide Antibiotics) Renal Dysfunctions Medium 08/27/2014 Medications polyethylene glycol 3350 (MIRALAX) 17 gram/dose Oral Powd Take 1 SCOOP by mouth daily. Dissolve in 8 ounces of fluid and drink entire liquid 1 Container 0 03/08/20 10 Active Additional Information Patient not taking.Reported on 07/30/2024 bisacodyl (DULCOLAX) 10 mg Rectal Supp Insert 1 Suppository by rectum daily. 10 Suppository 2 03/08/20 10 Active diphenhydrAMINE (BENADRYL) 25 mg Oral capsule Take 50 mg by mouth Daily LATE. Active promethazine (PHENERGAN) 25 mg Oral tabletIndications: Back pain Take 1 Tab by mouth every 6 hours as needed for Nausea. 30 Tab 1 06/17/19 12 Active pravastatin (PRAVACHOL) 40 mg Oral tabletIndications: Other and unspecified hyperlipidemia Take 1 Tab by mouth Daily LATE. 30 Tab 5 11/02/19 12 Active Additional Information Patient not taking.Reported on 07/30/2024 QUEtiapine (SEROQUEL) 25 mg Oral tabletIndications: Bipolar disorder, unspecified (CMS/HCC),PTSD (post-traumatic stress disorder) Take 2 Tabs by mouth 2 times daily. 1 Tab 0 01/25/20 12 Active Additional Information Patient not taking.Reported on 07/30/2024 traMADol (ULTRAM) 50 mg Oral tabletIndications: Spinal stenosis, lumbar Take 1-2 Tabs by mouth every 12 hours as needed for Pain. 100 Tab 0 05/26/19 13 Active Additional Information Patient not taking.Reported on 07/30/2024 cyclobenzaprine (FLEXERIL) 10 mg Oral tabletIndications: Spinal stenosis, lumbar Take 1 Tab by mouth 3 times daily as needed for Spasm. Muscle spasms 90 Tab 0 05/26/19 13 Active Additional Information Patient not taking.Reported on 07/30/2024 meloxicam (MOBIC) 7.5 mg Oral tabletIndications: Spinal stenosis, lumbar,Back pain Take 1 Tab by mouth 2 times daily as needed for Pain. 60 Tab 1 05/26/19 13 Active Additional Information Patient not taking.Reported on 07/30/2024 levothyroxine (SYNTHROID) 100 mcg Oral tabletIndications: Unspecified hypothyroidism Take 1 Tab by mouth daily pail bailer. With only water with 1 hr before eating. 30 Tab 5 05/29/19 13 Active metFORMIN (GLUCOPHAGE) 500 mg Oral tablet TAKE ONE TABLET BY MOUTH EVERY DAY LATE 30 Tab 5 08/08/19 13 Active lisinopril-hydroch lorothiazide (ZESTORETIC) 20-12.5 mg Oral tablet TAKE ONE TABLET BY MOUTH IN THE EVENING 30 Tab 5 08/08/19 13 Active Additional Information Patient not taking.Reported on 07/30/2024 cyclobenzaprine (FLEXERIL) 10 mg Oral tablet TAKE ONE TABLET BY MOUTH THREE TIMES DAILY NEEDED FOR SPASM 90 Tab 0 10/18/19 13 Active Additional Information Patient not taking.Reported on 07/30/2024 traMADoL (ULTRAM) 50 mg tablet Take 50 mg by mouth 1 time daily as needed for Pain (At bedtime). 12/31/19 19 Active LORazepam (ATIVAN) 1 mg tablet Take 1 mg by mouth 3 times daily as needed for Anxiety. 12/31/19 19 Active mupirocin (BACTROBAN) 2 % Ointment Apply to affected area daily. 30 Gram 0 01/02/20 Active Additional Information Patient not taking.Reported on 07/30/2024 carisoprodoL (SOMA) 250 mg tablet Take 250 mg by mouth every 6 hours as needed for Spasm. Active testosterone (ANDROGEL) 1 % (25 mg/2.5gram) Gel in Packet Apply to skin as directed daily. Active ESTRADIOL TRANSDERMAL Apply to skin as directed. Active progesterone micronized (PROMETRIUM) 100 mg Capsule Take 200 mg by mouth daily. Active CLONAZEPAM ORAL Take by mouth. Active PREDNISOLONE ORAL Take by mouth. Active hydroxychloroquine sulfate (HYDROXYCHLOROQUIN E ORAL) Take by mouth. Activ e pantoprazole sodium (PANTOPRAZOLE ORAL) Take by mouth. Activ e HYDROXYZINE HCL ORAL Take by mouth. 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 Diarrhea 08/14/2014 Status post gastric bypass for obesity 5 Overview (11/12/2020): Done in [place] about 2000 Emesis 06/19/2012 Bipolar disorder, unspecified 04/14/2010 PTSD (post-traumatic stress disorder) 04/14/2010 Cocaine dependence, in remission 04/14/2010 Assessment & Plan (01/13/2011 8:29 AM CDT): Last took in 2005 Bariatric surgery status 04/07/2010 Spinal stenosis, lumbar 04/07/2010 Essential hypertension, benign 11/19/2009 Unspecified viral hepatitis C without hepatic co ma 02/12/2009 Assessment & Plan (01/13/2011 8:29 AM CDT): 01/2011 in remission Other and unspecified hyperlipidemia 09/17/2008 Type II or unspecified type diabetes mellitus without mention of complication, uncontrolled 08/05/2008 Hypothyroidism 08/05/2008 Resolved Problems Problem Noted Date Diagnosed Date Resolved Date HNP (herniated nucleus pulposus) 05/05/2010 07/11/2010 Back pain 03/16/2010 10/05/2010 Spasm of muscle 03/16/2010 08/25/2010 Pain in the abdomen 03/11/2010 03/25/20 10 Constipation 03/11/2010 03/25/2010 Hematuria 03/11/2010 03/25/2010 Flank pain 03/11/2010 03/25/2010 Abnormal clinical finding 09/30/2009 Myalgia and myositis 09/22/2009 010 UTI (lower urinary tract infection) 09/22/2009 11/19/2009 Acute sinusitis 09/22/2009 11/19/2009 Pain in limb 09/17/2008 02/12/2009 Other, multiple, and unspeci fied sites, insect bite, nonvenomous, infected(919.5) 09/17/2008 02/12/2009 Unspecified essential hypertension 09/17/2008 11/19/2009 Major depressive disorder, r ecurrent episode, in full remission 09/17/2008 02/12/2009 Major depressive disorder, r ecurrent episode, unspecified 09/17/2008 04/14/2010 HTN (hypertension) 0 HTN (hypertension) 0 Diabetes mellitus 11/19/2009 Encounters Date Type Department Care Team Description 11/06/2024 External Device Data [facility] ABSTRACTION Provider, Abstract 10/24/2024 External Device Data [facility] ABSTRACTION Provider, Abstract 09/27/2024 External Device Data [facility] ABSTRACTION Provider, Abstract 09/26/2024 External Device Data [facility] ABSTRACTION Provider, Abstract 09/25/2024 External Device Data [facility] ABSTRACTION Provider, Abstract 09/11/2024 External Device Data [facility] ABSTRACTION Provider, Abstract from Last 3 Months Immunizations Immunization Administration Dates Next Due (PNEUMOVAX 23)(50 YRS UP) PN EUMOCOCCAL POLYSACCHARIDE (PPV23) 0.5 ML, IM 06/24/2011 INFLUENZA VACCINE QUADRIVALENT 3 YR UP PF IM Influenza Seasonal Unspecified Formulation IM Influenza Vaccine Split 3+ Yrs IM 03/23/2012,09/2009 Influenza Vaccine Split 3+ Yrs PF IM 03/23/2011 Pneumococcal conjugate, unspecified formulation 12/08/2011 Family History Medical History Relation Name Comments Hypertension Brother HAILEE Other Brother HAILEE PANIC ATTACKS Heart Disease Father ESTEFANY Other Mother SUE PE Healthy Sister 1 STELLA Other Sister 1 STELLA BULEMIA Diabetes Sister 2 JULIEN Hypertension Sister 2 JULIEN Other Sister 2 JULIEN OBESITY Relation Name Status Comments Brother HAILEE Alive Father ESTEFANY Maternal Grandfather Maternal Grandmother Mother SUE pulmonary embol ism Paternal Grandfather Paternal Grandmother Sister 1 STELLA Alive Sister 2 JULIEN Social History Tobacco Use Types Packs/Day Years Used Date Smoking Tobacco: Never Smokeless Tobacco: Never Alcohol Use Standard Drinks/Week Comments No 0 (1 standard drink = 0.6 oz pur e alcohol) maybe once a year Comments No Sex and Gender Information Value Date Recorded Sex Assigned at Not on file 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 Gender Identity Not on file Sexual Orientation Not on file Occupation Industry Job Start Date Job End Date Not on file Not on file Not on file Not on file Last Filed Vital Signs Vital Sign Reading Time Taken Comments Blood Pressure 113/83 07/30/2024 2:32 PM CDT Pulse 112 07/30/2024 2:32 PM CDT Temperature 37.7 C (99.8 F) 07/30/2024 2:32 PM CDT Respiratory Rate 16 07/30/2024 2:32 PM CDT Oxygen Saturation 98% 07/30/2024 2:32 PM CDT Inhaled Oxygen Concentration - - Weight 43.4 kg (95 lb 9.6 oz) 07/30/2024 2:32 PM CDT Height 154.9 cm (5' 1 ) 07/30/2024 2:32 PM CDT Body Mass Index 18.06 07/30/2024 2:32 PM CDT Plan of Treatment Upcoming Encounters Date Type Department Care Team (Late st Contact Info) Description 02/25/2025 2:20 PM CDT Office Visit [facility] [address] [address] Deidra Valdes MD [address] [address] Health Maintenance Due Date Last Done Comments DTAP/TDAP/TD VACCINES (1 - Tdap) 11/21/1987 HEPATITIS B VACCINES (1 of 3 - 19+ 3-dose series) 11/21/1987 ZOSTER VACCINE (1 of 2) 11/21/1987 BREAST CANCER SCREENING 2008 DIABETES ANNUAL RETINAL EXAM 03/25/2010 03/25/2009 DIABETES ANNUAL FOOT EXAM 12/13/2012 12/14/2011 DIABETES MICROALBUMIN ANNUAL SCREEN 12/13/2012 12/14/2011, 09/22/2009, 04/19/2008 LDL CHOLESTEROL ANNUAL 05/26/2013 3, 01/06/2011, 09/22/2009, Additional history exists FIT-DNA Q 3 years 2013 FIT/FOBT Q 1 year 2013 Flex Sig/CT Colonography Q 5 years 2013 DIABETES HBA1C Q 6 MONTHS 11/13/20182018, 07/29/2014, 07/29/2014, Additional history exists COLORECTAL SCREENING 08/27/2024 08/27/2014 Colorectal Cancer Screening 08/27/2024 INFLUENZA VACCINE (#1) 2024 5, 01/28/2020, 03/23/2012, Additional history exists Procedures Procedure Name Priority Date/Time Associated Diagnosis Comments HEMOGLOBIN A1C Routine 07/29/2014 10:49 PM CDT LIPID PANEL Routine 05/26/2012 3:45 PM FRAMING MILL SUPERVISOR Other and unspecified hyperlipidemia MICROALBUMIN/CREATI NINE RATIO, RANDOM UR Routine 12/14/2011 3:35 PM CDT DM w/o complication type II, uncontrolled from Last 3 Months or Most Recently Relevant to Health Maintenance Results * (ABNORMAL) HEMOGLOBIN A1C (07/29/2014 10:49 PM CDT) HEMOGLOBIN A1C 6.3(H) 4.5 - 6.2 % 07/30/2014 12:20 AM CDT [facility] EST. AVG GLUCOSE, A1C 134 mg/dL 07/30/2014 12:20 AM CDT [facility] Blood 07/29/2014 10:4 9 PM CDT 07/29/2014 10:49 PM CDT us Castro Beth DO CHEMISTRY ORDERABLES Final Resu lt [facility] CLIA # [id number] [address] [address] [facility] CLIA # [id number] [address] [address] * LIPID PANEL (05/26/2012 3:45 PM FRAMING MILL SUPERVISOR) CHOLESTEROL 150 100 - 199 mg/dL [facility] TRIGLYCERIDE 115 10 - 149 mg/dL [facility] HDL 46 40 - 59 mg/dL [facility] LDL CALCULATED 81 <=99 mg/dL [facility] CHOL/HDL RATIO 3.3 2.0 - 5.0 [facility] LIPID PANEL COMMENT See Below [facility] Comment: The adult ATP and pediatric NCEP classifications for lipids are available in the Laboratory Services Policy Manual on the [facility] Intranet at: [email or web address]/ Blood specimen (specimen) 05/26/2012 3:45 PM FRAMING MILL SUPERVISOR 05/26/2012 4:47 PM FRAMING MILL SUPERVISOR us Lisa Valente ANALYSIS LEAD CHEMISTRY ORDERABLES E dited [facility] CLIA# [id number] [address] [place] [address] * MICROALBUMIN/CREATININE RATIO, RANDOM UR (12/14/2011 3:35 PM CDT) MICROALBUMIN/ CREAT RATIO, UR See Separate Comment 0 - 29 [facility] Comment:Microalbumin<1.2mg/d l; unable to calculate microalbumin/creat ratio Urine specimen (specimen) 12/14/2011 3:35 PM CDT 12/14/2011 4:00 PM CDT Comment:URINE us Ar Mulligan MD URINE ORDERABLES Final Result [facility] CLIA# [id number] [address] [place] [address] from Last 3 Months or Most Recently Relevant to Health Maintenance Insurance MEDICAID [place] Advance Directives For more information, please contact: [phone] * Full Code (Latest Code Status on File) Date Activated Date Inactivated Comments 05/05/2010 10:42 AM 05/06/2010 2:33 AM Care Teams Car Hostler Relationship Specialty Start Date End Date Susan Whaley FNP PCP - General Nurse Practitioner Family 12/30/18
--- OUTSIDE RECORDS SUMMARY | 2024-11-19 20:30 | XMS_ITS | Encounter Summary ---
Author Organization [facility] Address [address] [place] [address] Care Team Providers Care Heel Molder Name Role Phone Susan Whaley [facility] Primary Care Provider [phone] Encounter Details Date Type Department Care Team (Late st Contact Info) Description 07/15/2014 Lab Requisition [facility] Laboratory Services [place] [address] [place] [phone] Sarah Blanc FNP [address] [place] [address] Sick Social History Tobacco Use Types Packs/Day Years Used Date Smoking Tobacco: Never Alcohol Use Standard Drinks/Week Comments No 0 (1 standard drink = 0.6 oz pur e alcohol) Comments No Sex and Gender Information Value Date Recorded Sex Assigned at Not on file 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 Gender Identity Not on file Sexual Orientation Not on file Occupation Industry Job Start Date Job End Date Not on file Not on file Not on file Not on file documented as of this encounter Plan of Treatment Not on file documented as of this encounter Procedures Procedure Name Priority Date/Time Associated Diagnosis Comments CBC WITH DIFFERENTIAL Routine 07/15/2014 9:14 PM CDT Sick [ICD-9-CM] COMPREHENSIVE METABOLIC PANEL Routine 07/15/2014 9:14 PM CDT Sick [ICD-9-CM] documented in this encounter Results * (ABNORMAL) COMPREHENSIVE METABOLIC PANEL (07/15/2014 9:14 PM CDT) SODIUM 136 136 - 145 mmol/L 07/15/2014 10:[address] [facility] POTASSIUM 4.5 3.5 - 5.1 mmol/L 07/15/2014 10:[address] [facility] CHLORIDE 104 98 - 107 mmol/L 07/15/2014 10:[address] [facility] CO2 24 21 - 32 mmol/L 07/15/2014 10:[address] [facility] CALCIUM 9.1 8.5 - 10.1 mg/dL 07/15/2014 10:[address] [facility] BUN 26(H) 7 - 18 mg/dL 07/15/2014 10:[address] [facility] CREATININE 1.40(H) 0.60 - 1.30 mg/dL 07/15/2014 10:[address] [facility] GLUCOSE 129(H) 74 - 106 mg/dL 07/15/2014 10:[address] [facility] TOTAL PROTEIN 7.7 6.4 - 8.2 g/dL 07/15/2014 10:[address] [facility] ALBUMIN 3.6 3.4 - 5.0 g/dL 07/15/2014 10:[address] [facility] BILIRUBIN TOTAL 0.3 0.2 - 1.0 mg/dL 07/15/2014 10:[address] [facility] ALKALINE PHOSPHATASE 101 46 - 116 U/L 07/15/2014 10:[address] [facility] AST 31 15 - 37 U/L 07/15/2014 10:[address] [facility] ALT 30 30 - 65 U/L 07/15/2014 10:02 PM [facility] [employer] [facility] GFR 41(L) >=60 mL/min/1.7 3 sq meter 07/15/2014 10:02 PM [facility] [employer] [facility] Comment: eGFR has not been validated for [...] GFR, 49(L) >=60 mL/min/1.7 3 sq meter 07/15/2014 10:02 PM CDT [facility] ANION GAP 8(L) 12 - 20 mmol/L 07/15/2014 10:02 PM CDT [facility] Blood Collection / Unknown 07/15/2014 9:14 PM CDT 07/15/2014 9:14 PM CDT Narrative [facility] - 07/15/2014 10:02 PM CDT Effective 01/10/2014, the Alkaline Phosphatase test method and reference range have changed. Please take this into consideration when interpreting results prior to or after this date. Sarah Blanc PULP DRIER FIRER CHEMISTRY ORDERABLE S Final Result [facility] CLIA # [id number] [address] [place] [address] * (ABNORMAL) CBC WITH DIFFERENTIAL (07/15/2014 9:14 PM CDT) WBC 4.8 4.0 - 10.0 K/uL 07/15/2014 9:42 PM CDT [facility] RBC 3.59(L) 3.93 - 5.22 M/uL 07/15/2014 9:42 PM CDT [facility] HEMOGLOBIN 10.4(L) 11.2 - 15.7 g/dL 07/15/2014 9:42 PM CDT [facility] HEMATOCRIT 33.0(L) 34.1 - 44.9 % 07/15/2014 9:42 PM CDT [facility] MCV 91.9 79.4 - 94.8 fL 07/15/2014 9:42 PM CDT [facility] MCH 29.0 25.6 - 32.2 pg 07/15/2014 9:42 PM CDT [facility] [place] [place] MCHC 31.5(L) 32.2 - 35.5 g/dL 07/15/2014 9:42 PM CDT [facility] RDW 15.7(H) 11.0 - 14.5 % 07/15/2014 9:42 PM CDT [facility] RDW-STDEV 50.4 36.9 - 56.9 fL 07/15/2014 9:42 PM CDT [facility] PLATELETS 271 163 - 337 K/uL 07/15/2014 9:42 PM CDT [facility] [place] MPV 11.6 10.0 - 14.8 fL 07/15/2014 9:42 PM CDT [facility] [place] NEUTROPHILS 70 34 - 71 % 07/15/2014 9:42 PM CDT [facility] [place] LYMPHOCYTES 17(L) 19 - 52 % 07/15/2014 9:42 PM CDT [facility] [place] MONOCYTES 9 5 - 13 % 07/15/2014 9:42 PM CDT [facility] [place] EOSINOPHILS 3 1 - 6 % 07/15/2014 9:42 PM CDT [facility] BASOPHILS 0 0 - 1 % 07/15/2014 9:42 PM CDT [facility] [place] NEUTROPHIL ABSOLUTE 3.34 1.56 - 6.13 K/uL 07/15/2014 9:42 PM CDT [facility] [place] LYMPHOCYTE ABSOLUTE 0.83(L) 1.20 - 3.40 K/uL 07/15/2014 9:42 PM CDT [facility] [place] MONOCYTE ABSOLUTE 0.44(H) 0.24 - 0.36 K/uL 07/15/2014 9:42 PM CDT [facility] [place] EOSINOPHIL ABSOLUTE 0.15 0.04 - 0.36 K/uL 07/15/2014 9:42 PM CDT [facility] [place] BASOPHILS ABSOLUTE 0.02 0.01 - 0.08 K/uL 07/15/2014 9:42 PM CDT [facility] [place] IMMATURE GRANULOCYTES 0 % 07/15/2014 9:42 PM CDT [facility] [place] IMMATURE GRANULOCYTES ABSOLUTE 0.00 K/uL 07/15/2014 9:42 PM CDT [facility] Blood Collection / Unknown 07/15/2014 9:14 PM CDT 07/15/2014 9:14 PM CDT us Sarah KEENP HEMATOLOGY ORDERABL ES Final Result [facility] CLIA # [id number] [address] [place] [address] documented in this encounter Visit Diagnoses Diagnosis Sick Other unknown and unspecified cause of morbidity or mortality documented in this encounter Care Teams Heel Molder Relationship Specialty Start Date End Date Susan Whaley FNP PCP - General Nurse Practitioner Family 12/30/18 documented as of this encounter
--- OUTSIDE RECORDS SUMMARY | 2024-11-19 20:30 | XMS_ITS | Encounter Summary ---
Author Organization [facility] Address [address] [place] [address] Care Team Providers Care Uniforms Sales Representative Name Role Phone Susan Whaley Primary Care Provider [phone] Encounter Details Date Type Department Care Team (Late Contact Info) Description 08/05/2008 Outpatient [facility] [address] [facility] [address] [place] [phone] Mariano Duarte DO NO ADDRESS ON FILE Social History Tobacco Use Types Packs/Day Years Used Date Smoking Tobacco: Never Alcohol Use Standard Drinks/Week Comments No 0 (1 standard drink = 0.6 oz pur e alcohol) Comments No Sex and Gender Information Value Date Recorded Sex Assigned at Not on file 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 Gender Identity Not on file Sexual Orientation Not on file documented as of this encounter Plan of Treatment Upcoming Encounters Date Type Department Care Team (Late Contact Info) Description 02/25/2025 2:20 PM CDT Office Visit [facility] [place] [address] [phone] Deidra Valdes MD [address] [address] documented as of this encounter Visit Diagnoses Not on filedocumented in this encounter Care Teams Uniforms Sales Representative Relationship Specialty Start Date End Date Susan Whaley FNP PCP - General Nurse Practitioner Family 12/30/18 documented as of this encounter
[2024-11-19 21:03] VITALS: BP 100/67; PULSE 113; RESP 20; TEMP 36.8; O2SAT 98; BMI 17.4
[2024-11-19 22:37] VITALS: BP 110/61; PULSE 78; RESP 16; O2SAT 98
--- NOTE | 2024-11-19 22:46 | W.ED.EXTPRO ---
HPI - Extremity Problem General: Chief complaint: Extremity Injury, Lower Stated complaint: Left Leg Injury Time Seen by Provider: 11/19/24 22:32 Source: patient Mode of arrival: ambulatory Limitations: no limitations History of Present Illness: 53-year-old female who presents to the ED with left leg pain-onset 1 week ago. Patient reports that about a week ago her dog ran over her and caused her to fall. She has had throbbing pain and bruising to her left calf since then. Yesterday she experienced worsening pain to her left calf and new onset pain to the back of her left thigh. She states she is able to ambulate but is limited due to pain. Denies any fever, chest pain, or shortness of breath. She has a history of IVC filter but denies history of DVT or PE and states that the filter was placed because of her strong family history of blood clots. No other complaints at this time. MD Complaint: extremity pain Onset (ago): week(s) (1) Location: left and lower extremity Quality: other (throbbing) Radiation: none Relieving factors: nothing Exacerbating factors: weight bearing and palpation Associated symptoms: Reports short of breath; Deny chest pain or fever(s) Related Data Home Medications ?Medication ?Instructions ?Recorded ?Confirmed medical zara .Route 07/13/23 11/15/24 oxycodone 10 mg tablet 10 mg PO TID PRN 11/06/24 11/15/24 Previous Rx's ?Medication ?Instructions ?Recorded [id number] Bone growth stimulator #1 ea 02/06/21 Aquatic Therapy #1 ea 05/17/22 mupirocin 2 % topical ointment 1 applic topical BID #22 grams 08/10/22 lidocaine 4 % topical cream 1 applic topical BID PRN hand pain 03/02/23 #30 grams fluticasone propionate 44 1 puff inhalation BID asthma #10.6 05/28/23 mcg/actuation HFA aerosol inhaler grams triamcinolone acetonide 0.1 % 1 applic topical BID #15 grams 08/12/23 topical ointment epinephrine 0.3 mg/0.3 mL 0.3 mg (0.3 mL) IM Q4H PRN 12/07/23 injection, auto-injector (EpiPen anaphylaxis #2 ea 2-David) ergocalciferol (vitamin D2) 1,250 See Rx Instructions .Route 01/31/24 mcg (50,000 unit) capsule .COMPLEX #12 caps metformin 500 mg tablet 500 mg PO BID DM #180 tabs 01/31/24 methotrexate sodium 2.5 mg tablet 12.5 mg (5 x 2.5 mg) PO .WEEKLY RA 02/07/24 #25 tabs magnesium citrate 300 ml PO DAILY PRN constipation 04/23/24 #296 mL ondansetron 8 mg disintegrating 8 mg PO Q8H PRN nausea and 06/07/24 tablet vomiting #20 tabs clonazepam 1 mg tablet 1 mg PO TID PRN anxiety #90 tabs 07/09/24 folic acid 1 mg tablet 1 mg PO QDAY RA 30 days #30 tabs 08/06/24 prednisolone 5 mg tablet 5 mg PO QDAY RA #90 tabs 09/03/24 hydroxychloroquine 200 mg tablet See Rx Instructions .Route 09/27/24 .COMPLEX #45 tabs pantoprazole 40 mg tablet,delayed 40 mg PO BID #60 tabs 10/31/24 release hydroxyzine pamoate 50 mg capsule 50 mg PO QID PRN anxeity, itching 11/01/24 #120 caps levothyroxine 112 mcg tablet 112 mcg PO DAILY thyroid #30 tabs 11/19/24 Allergies Allergy/AdvReac Type Severity Reaction Status Date / Time NSAIDS (Non-Steroidal Allergy Mild Unknown Verified 11/15/24 14:13 Anti-Inflamma Sulfa (Sulfonamide Allergy Mild Unknown Verified 11/15/24 14:13 Antibiotics) Alpha-Gal Allergy ALGY-Anaphy Verified 11/15/24 14:13 (Bmmweftbj-Kxerh-3,3-Gala laxis Beef Containing Products Allergy ALGY-Anaphy Verified 11/15/24 14:13 laxis Pork/Porcine Containing Allergy nausea and Verified 11/15/24 14:13 Products vomiting gabapentin AdvReac mental Verified 11/15/24 14:13 status change Review of Systems Const: Denies: fever(s) Card: Denies: chest pain Resp: Denies: dyspnea GI: Denies: abdominal pain Musc: Reports: extremity pain; Denies: neck pain, back pain, extremity swelling, joint pain, joint swelling, joint redness or joint warmth Neuro: Reports: difficulty walking (due to pain); Denies: numbness in extremities, weakness in extremities or sensory changes PFSH ED PFSH: Medical History Iron deficiency anemia Neurodermatitis TRALI (transfusion related acute lung injury) Near syncope Stress Secondary hyperparathyroidism Hypertension Delusions of parasitosis Osteoarthritis of hands, bilateral Positive ANTONETTE (antinuclear antibody) Inflammatory arthritis Chronic idiopathic constipation C. difficile diarrhea Depression with anxiety Hypothyroidism Chronic kidney disease, stage 3b Cervical disc disorder with myelopathy of mid-cervical region Spondylolisthesis of cervical region Diabetes Allergy to alpha-gal Thyroid disease Chronic migraine without aura, intractable, with status migrainosus Surgical History [place] filter in place 2001 Hx of hernia repair Status post colonoscopy (08/26/21) History of colonoscopy 2018 History of esophagogastroduodenoscopy (EGD) (08/26/21) 2019 Hx of hysterectomy H/O gastric bypass History of carpal tunnel surgery of left wrist Dr. Orlando Richter 11/18/2016 History of carpal tunnel surgery of right wrist Dr. Richter 01/13/[address] Richter 08/08/17 L4-L5 laminectomy/fusion/fixation 2008 [facility] Lumbar decompression History of neck surgery Dr. Richter 06/29/2018 C6-C7 ACDFF Family History Grandfather CAD (coronary artery disease) Stroke Grandmother CAD (coronary artery disease) Sister CAD (coronary artery disease) Hypertension Family/Other Cancer Mother Hypertension Father Hypertension Brother Hypertension Other Diabetes Social History Smoking and tobacco/nicotine status: never used tobacco/nicotine Alcohol intake: never Substance/Drug Use: current Substance/Drug use frequency: few times a week Household members: family Marital status: Single Current occupational status: disabled Physical Exam Const: COMMON NORMALS: no limitations, alert and well nourished GENERAL APPEARANCE: cooperative and appears older than stated age NUTRITIONAL APPEARANCE: thin Resp: COMMON NORMALS: normal respiratory effort and clear to auscultation bilaterally AUSCULTATION: clear to auscultation bilaterally Cardio: COMMON NORMALS: regular rate and regular rhythm RATE: regular rate RHYTHM: regular rhythm Extremity: COMMON NORMALS: capillary refill normal, no joint enlargement, no clubbing, cyanosis or edema and no pedal edema GENERAL: Yes normal exam except as noted and Yes calf tenderness OTHER: pt has pain to posterior L thigh and calf; there is healing ecchymosis to L calf; no obvious edema to extremity; no palpable cords; DP/PT pulses are easily palpable; cap refill is brisk; sensation seemingly normal Neuro: COMMON NORMALS: moves all extremities, no focal motor deficits and no sensory deficits noted SENSORIUM/ORIENTATION: Yes alert Skin: NARRATIVE SKIN EXAM: see above for pertinent skin findings Course Vital Signs: Vital signs: Vital Signs Temperature 98.2 F 11/19/24 21:03 Pulse Rate 68 11/19/24 23:30 Respiratory Rate 16 11/19/24 23:30 Blood Pressure 111/73 11/19/24 23:30 Pulse Oximetry 97 11/19/24 23:30 Oxygen Delivery Me thod Room Air 11/19/24 23:30 MDM - Extremity (Nontraumatic) Medical Decision Making LE NV intact. US prelim report showing no DVT. Patient will be allowed discharge with return precautions. Otherwise she can follow up with PCP. Medical Records I reviewed the patient's medical records. XR interpretation done by ED provider, pending radiology final review Discharge Plan Discharge Patient Disposition: Home Clinical Impression: Acute pain of left lower extremity Condition: Stable Prescriptions: No Action mupirocin 2 % ointment 1 applic TOPICAL BID Qty: 22 3RF triamcinolone acetonide 0.1 % ointment 1 applic topical BID Qty: 15 0RF magnesium citrate Solution 300 ml PO DAILY PRN (Reason: constipation) Qty: 296 0RF Rx Instructions: take as directed for colonoscopy oxycodone 10 mg tablet 10 mg PO TID PRN lidocaine 4 % cream 1 applic topical BID PRN (Reason: hand pain) Qty: 30 1RF medical marijana .Route Rx Instructions: unknown methotrexate sodium 2.5 mg tablet 12.5 mg PO .WEEKLY Qty: 25 4RF (DME) E0748 Bone growth stimulator See Rx Instructions .Route .MEDSUPPLY Qty: 1 0RF Rx Instructions: As directed (DME) Aquatic Therapy See Rx Instructions .Route .MEDSUPPLY Qty: 1 0RF Rx Instructions: As directed fluticasone propionate 44 mcg/actuation HFA aerosol inhaler 1 puff inhalation BID Qty: 10.6 0RF epinephrine [EpiPen 2-David] 0.3 mg/0.3 mL auto-injector 0.3 mg IM Q4H PRN (Reason: anaphylaxis) Qty: 2 0RF ergocalciferol (vitamin D2) 1,250 mcg (50,000 unit) capsule See Rx Instructions .ROUTE .COMPLEX Qty: 12 3RF Dose Instruction: TAKE 1 CAPSULE BY MOUTH ONCE A WEEK Rx Instructions: TAKE 1 CAPSULE BY MOUTH ONCE A WEEK metformin 500 mg tablet 500 mg PO BID Qty: 180 3RF ondansetron 8 mg tablet,disintegrating 8 mg PO Q8H PRN (Reason: nausea and vomiting) Qty: 20 0RF clonazepam 1 mg tablet 1 mg PO TID PRN (Reason: anxiety) Qty: 90 3RF folic acid 1 mg tablet 1 mg PO QDAY 30 Days Qty: 30 5RF prednisolone 5 mg tablet 5 mg PO QDAY Qty: 90 0RF hydroxychloroquine 200 mg tablet See Rx Instructions .ROUTE .COMPLEX Qty: 45 1RF Dose Instruction: alternate taking ONE TABLET BY MOUTH today, THEN take TWO TABLETS BY MOUTH tomorrow Rx Instructions: alternate taking ONE TABLET BY MOUTH today, THEN take TWO TABLETS BY MOUTH tomorrow pantoprazole 40 mg tablet,delayed release (DR/EC) 40 mg PO BID Qty: 60 1RF hydroxyzine pamoate 50 mg capsule 50 mg PO QID PRN (Reason: anxeity, itching) Qty: 120 3RF levothyroxine 112 mcg tablet 112 mcg PO DAILY Qty: 30 1RF Discharge Orders: Discharge ED (Routine); Ordered 11/20/24 Ordered By: Deborah Ayala Referrals: Syed Landaverde DO [Primary Care Provider, Family Practice] Patient Instructions: Patient Portal & Jorge Instructions Activity Restrictions/Additional Instructions: As we discussed, ultrasound imaging was negative for DVT. Please follow-up with primary care later this week for reevaluation. Print Language: Urdu Coding Level of Care Code ED Program Schedule Clerk for Kiet Pardo
[2024-11-19 23:06] VITALS: RESP 16; O2SAT 97
[2024-11-19] MEDS: morphine 4 mg/mL SDV 1 mL IM (23:06)
[2024-11-19] MEDS: orphenadrine 30 mg/mL Inj 2 mL 60 MG IM (23:08)
[2024-11-19] MEDS: ondansetron 2 mg/ML SDV 2 mL 4 MG IM (23:11)
--- NOTE | 2024-11-19 23:15 | USR_ITS ---
PROCEDURE INFORMATION: Exam: US Duplex Left Lower Extremity Veins, Limited Exam date and time: 11/19/2024 11:59 PM Age: 53 years old Clinical indication: Injury or trauma; Other: Left calf pain and ecchymosis S/P fall and mauled by dog. Blunt trauma (contusions or hematomas); Lower extremity, lower leg level; Vessel not specified; Additional info: Pain, recent injury TECHNIQUE: Imaging protocol: Real-time duplex ultrasound of the left extremity with 2-D loomis scale, color Doppler flow and spectral waveform analysis including responses to compression and other maneuvers (when performed) with image documentation. Limited exam focused on the left lower extremity veins. COMPARISON: CT pelvis wo con [id number] 10/29/2024 1:25 PM FINDINGS: Left deep veins: Unremarkable. The common femoral, femoral, proximal profunda femoral and popliteal veins are patent without thrombus. Normal Doppler waveforms. Normal compressibility and/or augmentation response. Superficial veins: Greater saphenous vein at the saphenofemoral junction is patent without thrombus. Soft tissues: Unremarkable. US/CV venous duplex [facility] [id number] IMPRESSION: No evidence of deep vein thrombosis.
[2024-11-19 23:30] VITALS: BP 111/73; PULSE 68; RESP 16; O2SAT 97
[2024-11-20 00:53] VITALS: BP 110/75; PULSE 80; RESP 16; O2SAT 97
== END 2024-11-20 00:54 | disposition home or self-care (01) ==
PROVIDERS: Emergency Provider Physician Assistant; PCP Family Medicine
DX: M79.662 Pain in left lower leg (principal); M79.652 Pain in left thigh; W18.39XA Other fall on same level, initial encounter; E03.9 Hypothyroidism, unspecified; I12.9 Hypertensive chronic kidney disease with stage 1 through stage 4 chronic kidney disease, or unspecified chronic kidney disease; N18.32 Chronic kidney disease, stage 3b; E11.22 Type 2 diabetes mellitus with diabetic chronic kidney disease; Z79.899 Other long term (current) drug therapy; Z79.84 Long term (current) use of oral hypoglycemic drugs; Z79.890 Hormone replacement therapy; Z88.2 Allergy status to sulfonamides; Z82.49 Family history of ischemic heart disease and other diseases of the circulatory system
CPT/HCPCS: 93971; 96372; 99284; J2270; J2360; J2405

== ENCOUNTER 2024-11-28 15:03 | Oncology outpatient (recurring) (ONCR) | payer MEDICAID, SELFPAY ==
[2024-11-15 14:14] LABS: Hematocrit 31.1 % (36-47); Hemoglobin 9.90 g/dL (11.27-16.99); Mean Corpuscular HGB Conc 31.8 g/dL (30-55); Mean Corpuscular Hemoglobin 31.8 pg (27-33); Mean Corpuscular Volume 100.0 fl (85-98); Nucleated Red Blood Cells % 0 %; Platelet Count 225 10^3/cmm (157-399); Red Blood Count 3.11 10^6/uL (3.85-5.65); White Blood Count 6.62 10^3/uL (3.29-11.43)
[2024-11-15 14:29] LABS: Alanine Aminotransferase 30 U/L (0-33); Albumin Level 3.6 g/dL (3.5-5.2); Alkaline Phosphatase 72 U/L (35-105); Anion Gap 17.9 (5-19); Aspartate Amino Transferase 31 U/L (0-32); Blood Urea Nitrogen 20 mg/dL (6-20); Calcium 8.5 mg/dL (8.5-10.5); Carbon Dioxide 21 mmol/L (22-29); Chloride 109 mmol/L (98-107); Creatinine Clr Calc Pharmacy 43.9629; Ferritin 42 ng/mL (15-150); Globulin 2.1 g/dL (1.3-4.6); Glucose 105 mg/dL (65-115); Iron 39 ug/dL (37-145); Osmolality Calculated 299 mOsm/kg (285-295); Potassium 4.9 mmol/L (3.5-5.1); Sodium 143 mmol/L (136-145); Total Iron Binding Capacity 269 mcg/dl; Total Protein 5.7 g/dL (6.6-8.7); Unsaturated Iron Binding 230 ug/dL (112-347)
--- NOTE | 2024-11-28 15:00 | CT_ITS ---
WS: [id number] CT ANGIOGRAPHY ABDOMEN HISTORY: abdominal pain after meals, significant weight loss TECHNIQUE: CT angiogram is performed during IV injection. Reformation images reviewed. All CT scans at [facility] use at least one of these dose optimization techniques: automated exposure control; mA and/or kV adjustment per patient size (includes targeted exams where dose is matched to clinical indication); or iterative reconstruction. CONTRAST: Omnipaque 350; 100 mL IV. DLP: 93.01 mGy.cm COMPARISON: CT abdomen and pelvis 04/17/2024 Significant artifact through the abdomen due to surgical clips and hardware related to the gastric bypass, gallbladder surgery and extensive lumbar spine surgery. Lung bases are clear. Heart size is normal. Small hiatal hernia. Stable appearance of the surgical changes near the GE junction. Abdominal aorta: Normal size abdominal aorta. There is mild scattered atherosclerotic plaque. No aneurysm. No high-grade stenosis. The bifurcation of the aorta is intact. Very minimal narrowing proximal celiac axis. Hepatic and splenic arteries are well-opacified. Normal SMA. No significant stenosis or plaque. MATTHEW is patent also. Renal arteries are both well opacified. No high- grade stenosis. IVC filter is in good position at the level of the renal veins. Gallbladder has been surgically removed. Liver is unremarkable. Normal size spleen. No pancreatic duct dilatation. Normal common bile duct. Kidneys are very slightly atrophic with mild cortical surface irregularity. No renal obstruction or mass. No GI tract obstruction visualized. There is diffuse constipation within colon through the abdomen. No ascites or adenopathy. Extensive artifact in the lumbar region from prior posterior fusion hardware. CT/CT angio abdomen [id number] IMPRESSION: 1. Mild atherosclerosis abdominal aorta. 2. No aortic aneurysm or stenosis. 3. Very mild narrowing of the proximal celiac axis. 4. No high-grade stenosis involving the mesenteric arteries. 5. Mild renal atrophy with no high-grade renal artery stenosis. 6. Prior gastric bypass and cholecystectomy. 7. IVC filter remains in good position.
[2024-11-28] MEDS: iohexol 350 mg/mL 500 mL Btl (per mL) IV (15:47)
== END 2024-12-06 23:59 | disposition home or self-care (01) ==
LOC: ONCMED 15:04 → RAD 11-29 → ONCMED 11-29 09:58
PROVIDERS: PCP Family Medicine; Visit Provider Nurse Practitioner Family
DX: R10.84 Generalized abdominal pain; R63.4 Abnormal weight loss; I70.0 Atherosclerosis of aorta; N26.1 Atrophy of kidney (terminal); Z90.49 Acquired absence of other specified parts of digestive tract; Z98.84 Bariatric surgery status; Z98.890 Other specified postprocedural states; K44.9 Diaphragmatic hernia without obstruction or gangrene; K59.00 Constipation, unspecified; Z53.9 Procedure and treatment not carried out, unspecified reason
CPT/HCPCS: 36415; 74175; 80053; 82728; 83540; 83550; 85025; 99214

== ENCOUNTER 2024-11-28 16:14 | Emergency (ER) | payer MEDICAID, SELFPAY ==
--- OUTSIDE RECORDS SUMMARY | 2024-11-28 16:18 | XMS_ITS | Encounter Summary ---
Author Organization [facility] Address [address] [place] [address] Care Team Providers Care Band Leader Name Role Phone Susan Whaley METAL TANK ERECTOR Primary Care Provider [phone] Encounter Details Date Type Department Care Team (Late st Contact Info) Description 07/22/2014 Lab Requisition [facility] Laboratory Services [place] [address] [place] [phone] Castro Beth, DO NO ADDRESS ON FILE Social History Tobacco Use Types Packs/Day Years Used Date Smoking Tobacco: Never Alcohol Use Standard Drinks/Week Comments No 0 (1 standard drink = 0.6 oz pur e alcohol) Comments No Sex and Gender Information Value Date Recorded Sex Assigned at Not on file Legal Sex Female 1:26 PM NATIONAL COVERAGE SPECIALIST Gender Identity Not on file Sexual Orientation [...] - 2.4 mg/dL 07/22/2014 11:38 PM CDT [facility] [facility] [place] Blood 07/22/2014 10:0 7 PM CDT 07/22/2014 10:07 PM CDT Castro Beth DO CHEMISTRY ORDERABLES Final Resu lt Performing Organization Address [facility]/ZIP Co de Phone Number [facility] [place] CLIA # [id number] [address] [place] [address] * (ABNORMAL) IRON LEVEL (07/22/2014 10:07 PM CDT) IRON 46(L) 50 - 170 ug/dL 07/22/2014 11:39 PM CDT [facility] [place] Blood 07/22/2014 10:0 7 PM CDT 07/22/2014 10:07 PM CDT Castro Beth DO CHEMISTRY ORDERABLES Final Resu lt Performing Organization Address City/[facility]/ZIP Co de Phone Number [facility] Doctor Evidence [facility] CLIA # [id number] [address] [place] [address] * (ABNORMAL) COMPREHENSIVE METABOLIC PANEL (07/22/2014 10:07 PM CDT) SODIUM 137 136 - 145 mmol/L 07/22/2014 11:38 PM CDT [facility] [place] POTASSIUM 5.2(H) 3.5 - 5.1 mmol/L 07/22/2014 11:38 PM CDT [facility] [place] CHLORIDE 105 98 - 107 mmol/L 07/22/2014 11:38 PM CDT [facility] [place] CO2 23 21 - 32 mmol/L 07/22/2014 11:38 PM CDT [facility] [place] CALCIUM 8.7 8.5 - 10.1 mg/dL 07/22/2014 11:38 PM [facility] [employer] LABORATORY [facility] [place] BUN 26(H) 7 - 18 mg/dL 07/22/2014 11:38 PM [facility] Doctor Evidence [facility] [place] CREATININE 1.40(H) 0.60 - 1.30 mg/dL 07/22/2014 11:38 PM [facility] [employer] LABORATORY [facility] [place] GLUCOSE 86 74 - 106 mg/dL 07/22/2014 11:38 PM [facility] Doctor Evidence [facility] TOTAL PROTEIN 7.6 6.4 - 8.2 g/dL 07/22/2014 11:38 PM [facility] Doctor Evidence [facility] ALBUMIN 3.7 3.4 - 5.0 g/dL 07/22/2014 11:38 PM [facility] Doctor Evidence [facility] BILIRUBIN TOTAL 0.2 0.2 - 1.0 mg/dL 07/22/2014 11:38 PM [facility] [employer] Doctor Evidence [facility] ALKALINE PHOSPHATASE 98 46 - 116 U/L 07/22/2014 11:38 PM [facility] Doctor Evidence [facility] AST 34 15 - 37 U/L 07/22/2014 11:38 PM [facility] Doctor Evidence [facility] ALT 31 30 - 65 U/L 07/22/2014 11:38 PM [facility] Master Route [facility] GFR 41(L) >=60 mL/min/1.7 3 sq meter 07/22/2014 11:38 PM [facility] Master Route [facility] Comment: eGFR has not been validated [...] mL/min/1.7 3 sq meter 07/22/2014 11:38 PM [facility] [employer] LABORATORY [facility] ANION GAP 9(L) 12 - 20 mmol/L 07/22/2014 11:38 PM CDT [facility] Doctor Evidence [facility] Blood 07/22/2014 10:0 7 PM CDT 07/22/2014 10:07 PM CDT Narrative [facility] LABORATORY [facility] - 07/22/2014 11:38 PM CDT Effective 01/10/2014, the Alkaline Phosphatase test method and reference range have changed. Please take this into consideration when interpreting results prior to or after this date. us Castro Beth DO CHEMISTRY ORDERABLES Final Resu lt [facility] CLIA # [id number] [address] [place] [address] * (ABNORMAL) CBC WITH DIFFERENTIAL (07/22/2014 10:07 PM CDT) WBC 6.6 4.0 - 10.0 K/uL 07/22/2014 10:49 PM CDT [facility] RBC 3.66(L) 3.93 - 5.22 M/uL 07/22/2014 10:49 PM CDT [facility] HEMOGLOBIN 10.8(L) 11.2 - 15.7 g/dL 07/22/2014 10:49 PM CDT [facility] [place] HEMATOCRIT 33.9(L) 34.1 - 44.9 % 07/22/2014 10:49 PM [facility] MCV 92.6 79.4 - 94.8 fL 07/22/2014 10:49 PM CDT [facility] MCH 29.5 25.6 - 32.2 pg 07/22/2014 10:49 PM [facility] MCHC 31.9(L) 32.2 - 35.5 g/dL 07/22/2014 10:49 PM CDT [facility] RDW 14.9(H) 11.0 - 14.5 % 07/22/2014 10:49 PM [facility] Evidence [facility] RDW-STDEV 48.2 36.9 - 56.9 fL 07/22/2014 10:49 PM CDT [facility] [place] PLATELETS 338(H) 163 - 337 K/uL 07/22/2014 10:49 PM CDT [employer] [facility] [place] MPV 11.7 10.0 - 14.8 fL 07/22/2014 10:49 PM CDT [facility] [place] NEUTROPHILS 63 34 - 71 % 07/22/2014 10:49 PM CDT [facility] [place] LYMPHOCYTES 24 19 - 52 % 07/22/2014 10:49 PM CDT [facility] [place] MONOCYTES 9 5 - 13 % 07/22/2014 10:49 PM CDT [facility] [place] EOSINOPHILS 3 1 - 6 % 07/22/2014 10:49 PM CDT [facility] [place] BASOPHILS 0 0 - 1 % 07/22/2014 10:49 PM CDT [facility] [place] NEUTROPHIL ABSOLUTE 4.20 1.56 - 6.13 K/uL 07/22/2014 10:49 PM CDT [facility] [place] LYMPHOCYTE ABSOLUTE 1.60 1.20 - 3.40 K/uL 07/22/2014 10:49 PM CDT [facility] [place] MONOCYTE ABSOLUTE 0.61(H) 0.24 - 0.36 K/uL 07/22/2014 10:49 PM CDT [facility] [place] EOSINOPHIL ABSOLUTE 0.19 0.04 - 0.36 K/uL 07/22/2014 10:49 PM CDT [facility] [place] BASOPHILS ABSOLUTE 0.02 0.01 - 0.08 K/uL 07/22/2014 10:49 PM CDT [employer] [facility] [place] IMMATURE GRANULOCYTES 0 % 07/22/2014 10:49 PM CDT [facility] [place] IMMATURE GRANULOCYTES ABSOLUTE 0.01 K/uL 07/22/2014 10:49 PM CDT [facility] [place] Blood 07/22/2014 10:0 7 PM CDT 07/22/2014 10:07 PM CDT us Castro Beth DO HEMATOLOGY ORDERABLES Final Res ult [facility] [place] CLIA # [id number] [address] [place] [address] * VITAMIN B12 AND FOLATE (07/22/2014 10:07 PM CDT) FOLATE, SERUM 25.13 >=5.38 ng/mL 07/23/2014 10:25 PM CDT [facility] VITAMIN B12 222 211 - 911 pg/mL 07/23/2014 10:25 PM CDT [facility] Blood specimen (specimen) 07/22/2014 10:07 PM CDT 07/22/2014 10:07 PM CDT Castro Beth DO CHEMISTRY ORDERABLES Final Resu lt Performing Organization Address City/[facility]/ZIP Co de Phone Number [facility] Doctor Evidence [facility] CLIA# [id number] [address] [place], [place] [address] [place] [address] CLIA# [id number] [address] [place] [address] * (ABNORMAL) AMYLASE (07/22/2014 10:07 PM CDT) Pathologist [facility] AMYLASE 122.0(H) 25.0 - 115.0 U/L 07/22/2014 11:38 PM CDT [facility] Doctor Evidence [facility] Blood 07/22/2014 10:0 7 PM CDT 07/22/2014 10:07 PM CDT Castro Beth DO CHEMISTRY ORDERABLES Final Resu lt [facility] Doctor Evidence [facility] CLIA # [id number] [address] [place] [address] documented in this encounter Visit Diagnoses Not on filedocumented in this encounter Care Teams Band Leader Relationship Specialty Start Date End Date Susan Whaley FNP PCP - General Nurse Practitioner Family 12/30/18 documented as of this encounter
--- OUTSIDE RECORDS SUMMARY | 2024-11-28 16:18 | XMS_ITS | Encounter Summary ---
Author Organization [facility] Address [address] [place] [address] Care Team Providers Care Pharmacy Associate Name Role Phone Susan Whaley Primary Care Provider [phone] Encounter Details Date Type Department Care Team (Late Contact Info) Description 09/17/[address] [facility] [address] [facility] [address] [place] [phone] Charisse Monteiro NP NO ADDRESS ON FILE Social History Tobacco Use Types Packs/Day Years Used Date Smoking Tobacco: Never Alcohol Use Standard Drinks/Week Comments No 0 (1 standard drink = 0.6 oz pur e alcohol) Comments No Sex and Gender Information Value Date Recorded Sex Assigned at Not on file Legal Sex Female 5:40 AM CRYPTOZOOLOGIST Gender Identity Not on file Sexual Orientation Not on file documented as of this encounter Plan of Treatment Upcoming Encounters Date Type Department Care Team (Late Contact Info) Description 02/25/2025 2:20 PM CDT Office Visit [facility] Family Medicine [address] [phone] Deidra Valdes MD [address] [phone] documented as of this encounter Visit Diagnoses Not on filedocumented in this encounter Care Teams Pharmacy Associate Relationship Specialty Start Date End Date Susan Whaley FNP PCP - General Nurse Practitioner Family 12/30/18 documented as of this encounter
--- OUTSIDE RECORDS SUMMARY | 2024-11-28 16:18 | XMS_ITS | Encounter Summary ---
Author Organization [facility] Address [address] [place] [address] Care Team Providers Care Support Service Tech Name Role Phone Susan Whaley GARBAGE PICK UP WORKER Primary Care Provider [phone] Encounter Details Date Type Department Care Team (Late st Contact Info) Description 08/02/2008 Emergency [facility], Authorized P NO ADDRESS ON FILE To Taylor MD [facility] [place] [address] Social History Tobacco Use Types Packs/Day Years Used Date Smoking Tobacco: Never Alcohol Use Standard Drinks/Week Comments No 0 (1 standard drink = 0.6 oz pur e alcohol) Comments No Sex and Gender Information Value Date Recorded Sex Assigned at Not on file Legal Sex Female 5:40 AM HEAD NURSE Gender Identity Not on file Sexual Orientation Not on file documented as of this encounter Plan of Treatment Upcoming Encounters Date Type Department Care Team (Late st Contact Info) Description 02/25/2025 2:20 PM CDT Office Visit [facility] Medicine [place] [address] [phone] Deidra Valdes MD [address] [address] documented as of this encounter [...] (08/02/2008 3:58 PM CDT) COLOR UA Yellow [facility] NITRITE UA Negative Negative [facility] BILIRUBIN UA Negative Negative [facility] PH UA 5.0 5.0 - 8.0 [facility] KETONES UA Negative Negative [facility] CLARITY UA Clear Clear [facility] BLOOD UA Negative Negative [facility] PROTEIN UA Negative Negative [facility] LEUKOCYTE ESTERASE UA Negative Negative [facility] UROBILINOGEN UA <1 <1 mg/dL [facility] SPECIFIC GRAVITY UA 1.025 1.001 - 1.035 [facility] GLUCOSE UA 4+(A) Negative [facility] WBC UA 0-5 0 - 5 /HPF [facility] EPITHELIAL CELLS, URINE 0-2 /HPF [facility] RBC UA 0-2 0 - 2 /HPF [facility] BACTERIA UA Trace None Seen /HPF [facility] 08/02/2008 3:58 PM CDT 08/02/2008 4:02 PM CDT To Taylor MD URINE ORDERABLES Edited Performing Organization Address [facility] Phone Number INTERFACE SYSTEM Refer to clinic/hospital department [facility] CLIA# [id number] [address] [place] [address] * URINALYSIS WITH REFLEX CULTURE (08/02/2008 3:58 PM CDT) URINE CULTURE ORDER Not indicated [facility] Comment: Criteria for a reflex culture [...] URINE ORDERABLES Final Result Performing Organization Address [facility] Phone Number INTERFACE SYSTEM Refer to clinic/hospital department [facility] CLIA# [id number] [address] [place] [address] * XR CHEST PA AND LATERAL (08/02/2008 3:27 PM CDT) Anatomical Region Laterality Modality Chest Other 08/02/2008 3:27 PM CDT Narrative 08/03/2008 9:28 AM CDT [facility] [address] [place] [address] Admit Date: 08/02/2008 MARCIE SIU Sex: F Admit Prov: TO TAYLOR Date: 1970 Primary Care Prov: PCP, NONE CMRN: [id number] Room: [facility] SSN: [id number] IMAGING SERVICES Ordering Prov: N/A Accession Number: [id number] Interpretation CHEST 2 VIEWS, 08/02/2008 Indication: Elevated [...] Procedure Note Viktor Heck MD - 08/03/2008 [facility] [address] [place] [address] Admit Date: 08/02/2008 SALBADORGERALDOSA Sex: F Admit Prov: TO TAYLOR Date: 1970 Primary Care Prov: PCP, NONE CMRN: [id number] Room: [facility] SSN: [address] [place] [address] IMAGING SERVICES Ordering Prov: N/A Interpretation CHEST [...] * (ABNORMAL) TSH (08/02/2008 2:50 PM CDT) [facility] TSH 0.03(L) 0.27 - 4.20 uU/mL [facility] Blood specimen (specimen) 08/02/2008 2:50 PM CDT 08/02/2008 3:00 PM CDT To Taylor MD CHEMISTRY ORDERABLES Final Resu lt Performing Organization Address [facility] de Phone Number INTERFACE SYSTEM Refer to clinic/hospital department [facility] CLIA# [id number] [address] [place] [address] * CARDIAC ENZYMES (08/02/2008 2:50 PM CDT) [facility] TROPONIN T 0.01 <=0.02 ng/mL [facility] TROPONIN T INTERP Negative [facility] Blood specimen (specimen) 08/02/2008 2:50 PM CDT 08/02/2008 3:00 PM CDT us To Taylor MD CHEMISTRY ORDERABLES Edited Performing Organization Address [facility] de Phone Number INTERFACE SYSTEM Refer to clinic/hospital department [facility] CLIA# [id number] [address] [place] [address] * (ABNORMAL) BASIC METABOLIC PANEL (08/02/2008 2:50 PM CDT) [facility] CHLORIDE 103 96 - 108 mmol/L [facility] BUN 15 6 - 20 mg/dL [facility] CREATININE 1.17(H) 0.51 - 0.95 mg/dL [facility] SODIUM 138 135 - 145 mmol/L [facility] CO2 26 22 - 30 mmol/L [facility] CALCIUM 9.1 8.6 - 10.2 mg/dL [facility] POTASSIUM 3.9 3.5 - 4.9 mmol/L [facility] GLUCOSE 111(H) 65 - 99 mg/dL [facility] GFR, >60 >=60 mL/min/1. 7 sq meter [facility] GFR 52(L) >=60 mL/min/1. 7 sq meter [facility] Comment: Modification of Diet in Renal Disease (MDRD) study formula. Estimated GFR rate interpretative information for both Americans and non- Americans is available on the [facility] Intranet at: [email or web address] Select: Lab Policies and Procedures Select: Reference Ranges - GFR Blood specimen (specimen) 08/02/2008 2:50 PM CDT 08/02/2008 3:00 PM CDT us To Taylor MD CHEMISTRY ORDERABLES Edited INTERFACE SYSTEM Refer to clinic/hospital department [facility] CLIA# [id number] [address] [place] [address] * CBC WITH DIFFERENTIAL (08/02/2008 2:50 PM CDT) HEMATOCRIT 37.2 35.5 - 44.0 % [facility] RDW-STDEV 39.7 37.1 - 48.7 fL [facility] RBC 4.19 3.90 - 4.90 M/uL [facility] MCHC 33.3 31.5 - 35.5 % [facility] PLATELETS 199 140 - 350 K/uL [facility] MCV 88.8 82.0 - 99.0 fL [facility] HEMOGLOBIN 12.4 11.8 - 14.8 g/dL [facility] RDW 12.4 11.5 - 14.5 % [facility] WBC 7.1 4.0 - 9.8 K/uL [facility] MCH 29.6 27.2 - 32.6 pg [facility] MPV 10.8 9.3 - 12.4 fL [facility] LYMPHOCYTES 20 16 - 45 % [facility] LYMPHOCYTE ABSOLUTE 1.41 0.70 - 4.50 K/uL [facility] BASOPHILS 0 0 - 2 % [facility] BASOPHILS ABSOLUTE 0.02 0.00 - 0.20 K/uL [facility] MONOCYTES 10 3 - 13 % [facility] MONOCYTE ABSOLUTE 0.71 0.10 - 1.30 K/uL [facility] NEUTROPHILS 67 45 - 70 % [facility] NEUTROPHIL ABSOLUTE 4.76 1.90 - 7.00 K/uL [facility] EOSINOPHILS 3 0 - 7 % [facility] EOSINOPHIL ABSOLUTE 0.21 0.00 - 0.70 K/uL [facility] Blood specimen (specimen) 08/02/2008 2:50 PM CDT 08/02/2008 3:00 PM CDT To Taylor MD HEMATOLOGY ORDERABLES Edited INTERFACE SYSTEM Refer to clinic/hospital department [facility] CLIA# [id number] [address] [place] [address] * (ABNORMAL) HEMOGLOBIN A1C (08/02/2008 2:50 PM CDT) GLUCOSE, MEAN BLOOD 143 mg/dL [facility] HEMOGLOBIN A1C 6.2(H) 4.8 - 5.9 % of Hgb [facility] Blood specimen (specimen) 08/02/2008 2:50 PM CDT 08/02/2008 3:00 PM CDT To Taylor MD CHEMISTRY ORDERABLES Final Resu lt Performing Organization Address City/[facility] de Phone Number INTERFACE SYSTEM Refer to clinic/hospital department [facility] CLIA# [id number] [address] [place] [address] * LIPASE (08/02/2008 2:50 PM CDT) LIPASE 33 13 - 60 U/L [facility] Blood specimen (specimen) 08/02/2008 2:50 PM CDT 08/02/2008 3:00 PM CDT To Taylor MD CHEMISTRY ORDERABLES Final Resu lt Performing Organization Address [facility] Phone Number INTERFACE SYSTEM Refer to clinic/hospital department [facility] CLIA# [id number] [address] [place] [address] * HEPATIC FUNCTION PANEL (08/02/2008 2:50 PM CDT) BILIRUBIN TOTAL 0.2 0.2 - 1.0 mg/dL [facility] ALT 29 0 - 31 U/L [facility] ALBUMIN 4.2 3.4 - 4.8 g/dL [facility] AST 29 12 - 32 U/L [facility] BILIRUBIN DIRECT <0.2 0.0 - 0.3 mg/dL [facility] ALKALINE PHOSPHATASE 60 35 - 104 U/L [facility] TOTAL PROTEIN 7.1 6.0 - 8.3 g/dL [facility] Blood specimen (specimen) 08/02/2008 2:50 PM CDT 08/02/2008 3:00 PM CDT To Taylor MD CHEMISTRY ORDERABLES Final Resu lt Performing Organization Address City/[facility] de Phone Number INTERFACE SYSTEM Refer to clinic/hospital department [facility] CLIA# [id number] [address] [place] [address] * (ABNORMAL) POC GLUCOSE (08/02/2008 2:46 PM CDT) COMMENT, GLU POC Notified RN [facility] GLUCOSE POC 125(H) 65 - 99 mg/dL [facility] Capillary blood specimen (specimen) 08/02/2008 2:46 PM CDT 08/02/2008 2:46 PM CDT us Authorized P Er POINT OF CARE TESTING Final Resu lt INTERFACE SYSTEM Refer to clinic/hospital department [facility] CLIA# [id number] [address] [place] [address] documented in this encounter Visit Diagnoses Not on filedocumented in this encounter Care Teams Support Service Tech Relationship Specialty Start Date End Date Susan Whaley FNP PCP - General Nurse Practitioner Family 12/30/18 documented as of this encounter
--- OUTSIDE RECORDS SUMMARY | 2024-11-28 16:18 | XMS_ITS | Encounter Summary ---
Author Organization [facility] Address [address] [place] [address] Care Team Providers Care Manager Lean Name Role Phone Susan Whaley DRUG REGULATORY AFFAIRS SPECIALIST Primary Care Provider [phone] Encounter Details Date Type Department Care Team (Late st Contact Info) Description 07/29/2014 Lab Requisition [facility] Laboratory Services [place] [address] [place] [phone] Castro Beth, DO NO ADDRESS ON FILE Social History Tobacco Use Types Packs/Day Years Used Date Smoking Tobacco: Never Alcohol Use Standard Drinks/Week Comments No 0 (1 standard drink = 0.6 oz pur e alcohol) Comments No Sex and Gender Information Value Date Recorded Sex Assigned at Not on file Legal Sex Female 1:26 PM MATERIALS HANDLER Gender Identity Not on file Sexual Orientation [...] - 6.2 % 07/30/2014 12:20 AM CDT [facility] EST. AVG GLUCOSE, A1C 134 mg/dL 07/30/2014 12:20 AM CDT [facility] Blood 07/29/2014 10:4 9 PM CDT 07/29/2014 10:49 PM CDT us Castro Beth DO CHEMISTRY ORDERABLES Final Resu lt [facility] [place] CLIA # [id number] [address] [place] [address] documented in this encounter Visit Diagnoses Not on filedocumented in this encounter Care Teams Manager Lean Relationship Specialty Start Date End Date Susan Whaley FNP PCP - General Nurse Practitioner Family 12/30/18 documented as of this encounter
--- OUTSIDE RECORDS SUMMARY | 2024-11-28 16:18 | XMS_ITS | Encounter Summary ---
Author Organization [facility] Address [address] [place] [address] Care Team Providers Care Hairmasters Manager Name Role Phone Susan Whaley Primary Care Provider [phone] Encounter Details Date Type Department Care Team ([facility] Contact Info) Description 09/19/2008 Outpatient [facility] [address] [facility] [address] [place] [phone] Mariano Duarte DO NO ADDRESS ON FILE Social History Tobacco Use Types Packs/Day Years Used Date Smoking Tobacco: Never Alcohol Use Standard Drinks/Week Comments No 0 (1 standard drink = 0.6 oz pur e alcohol) Comments No Sex and Gender Information Value Date Recorded Sex Assigned at Not on file Legal Sex Female 5:40 AM HEALTH CARE CONSULTANT Gender Identity Not on file Sexual Orientation Not on file documented as of this encounter Plan of Treatment Upcoming Encounters Date Type Department Care Team (Late Contact Info) Description 02/25/2025 2:20 PM CDT Office Visit [facility] Family Medicine [place] [address] [phone] Deidra Valdes MD [address] [phone] documented as of this encounter Visit Diagnoses Not on filedocumented in this encounter Care Teams Hairmasters Manager Relationship Specialty Start Date End Date Susan Whaley FNP PCP - General Nurse Practitioner Family 12/30/18 documented as of this encounter
--- OUTSIDE RECORDS SUMMARY | 2024-11-28 16:18 | XMS_ITS | Encounter Summary ---
Author Organization [facility] Address [address] [place] [address] Care Team Providers Care Field Test Engineer Name Role Phone Susan Whaley DIRECTOR DATA MANAGEMENT Primary Care Provider [phone] Encounter Details Date Type Department Care Team [...] on file Legal Sex Female 5:40 AM WARP WORKER Gender Identity Not on file Sexual Orientation Not on file documented as of this encounter Plan of Treatment Upcoming Encounters Date Type Department Care Team ([facility] Contact Info) Description 02/25/2025 2:20 PM CDT Office Visit [facility] Family Medicine [address] [phone] Deidra Valdes MD [facility] [address] [address] documented as of this encounter Visit Diagnoses Diagnosis Other, multiple, and unspecified sites, insect bite, nonvenomous, infected(919.5) Other, multiple, and unspecified sites, insect bite, nonvenomous, infected documented in this encounter Care Teams Field Test Engineer Relationship Specialty Start Date End Date Susan Whaley, DIRECTOR DATA MANAGEMENT PCP - General Nurse Practitioner Family 12/30/18 documented as of this encounter
--- OUTSIDE RECORDS SUMMARY | 2024-11-28 16:18 | XMS_ITS | Encounter Summary ---
Author Organization [facility] Address [address] [place] [address] Care Team Providers Care Tail End Rider Name Role Phone Susan Whaley Primary Care Provider [phone] Encounter Details Date Type Department Care Team [...] on file Legal Sex Female 5:40 AM TANNING CONSULTANT Gender Identity Not on file Sexual Orientation Not on file documented as of this encounter Plan of Treatment Upcoming Encounters Date Type Department Care Team (Late st Contact Info) Description 02/25/2025 2:20 PM CDT Office Visit [facility] Family Medicine [address] [phone] Deidra Valdes MD [address] [address] documented as of this encounter Visit Diagnoses Diagnosis Type II or unspecified type diabetes mellitus without mention of complication, uncontrolled documented in this encounter Care Teams Tail End Rider Relationship Specialty Start Date End Date Susan Whaley FNP PCP - General Nurse Practitioner Family 12/30/18 documented as of this encounter
--- OUTSIDE RECORDS SUMMARY | 2024-11-28 16:18 | XMS_ITS | Encounter Summary ---
Author Organization [facility] Address [address] [place] [address] Care Team Providers Care Health Occupations Teacher Name Role Phone Susan Whaley EMERGENCY MEDICINE PHYSICIAN Primary Care Provider [phone] Reason for Visit * Reason Comments Medication Refill Flexeril Encounter Details Date Type Department Care Team (Late st Contact Info) Description 09/07/2012 [facility] [address] [place] [phone] Ar Mulligan MD [address] [place] [address] Social History Tobacco Use Types Packs/Day Years Used Date Smoking Tobacco: Never Smokeless Tobacco: Never Alcohol Use Standard Drinks/Week Comments Yes 0 (1 standard drink = 0.6 oz pur e alcohol) maybe once a year Comments No Sex and Gender Information Value Date Recorded Sex Assigned at Not on file Legal Sex Female 5:40 AM LICENSING DIRECTOR Gender Identity Not on file Sexual Orientation Not on file Occupation Industry Job Start Date Job End Date Not on file Not on file Not on file Not on file documented as of this encounter Miscellaneous Notes * Telephone Encounter - Cheryle Knapp RN - 09/07/2012 3:33 PM CDT Chief Complaint Patient presents with ??? Medication Refill Flexeril Interface from [facility] in [place], [place] requesting refill for medication. Last OV 05/26/12. documented in this encounter Plan of Treatment Upcoming Encounters Date Type Department Care Team (Late st Contact Info) Description 02/25/2025 2:20 PM CDT Office Visit [facility] Medicine [place] [address] [phone] Deidra Valdes MD [address] [address] documented as of this encounter Visit Diagnoses Not on filedocumented in this encounter Care Teams Health Occupations Teacher Relationship Specialty Start Date End Date Susan Whaley FNP PCP - General Nurse Practitioner Family 12/30/18 documented as of this encounter
--- OUTSIDE RECORDS SUMMARY | 2024-11-28 16:18 | XMS_ITS | Encounter Summary ---
Author Organization [facility] Address [address] [place] [address] Care Team Providers Care Helpdesk Technician Name Role Phone Susan Whaley FLIGHT ENGINEER INSPECTOR Primary Care Provider [phone] Reason for Referral * Outpatient Services (Routine) - Closed Specialty Diagnoses / Procedures Referred By Bryant castaneda Referred To Contact Radiology Diagnoses Abdominal pain Procedures CT ABDOMEN PELVIS WO CONTRAST CT ABDOMEN PELVIS W CONTRAST Castro Beth DO [facility] CT Scan [place] [address] [place] [address] Phone: tel: fax: Referral ID Status Reason Start Date Expiration Date V isits Requested Visits Authorized [id number] Closed [facility] CTS to Schedule (SGF) 07/25/2014 08/25/2015 1 1 Encounter Details Date Type Department Care Team (Latest Contact Info) Description 07/23/2014 Ancillary Orders [facility] Centralized Scheduling [address] [facility] [address] [place] [address] Castro Beth DO NO ADDRESS ON FILE Anemia (Primary Dx); Abdominal pain Social History Tobacco Use Types Packs/Day Years Used Date Smoking Tobacco: Never Alcohol Use Standard Drinks/Week Comments No 0 (1 standard drink = 0.6 oz pur e alcohol) Comments No Sex and Gender Information Value Date Recorded Sex Assigned at Not on file Legal Sex Female 1:26 PM WET CHAR CONVEYOR TENDER Gender Identity Not on file Sexual Orientation [...] site documented in this encounter Care Teams Helpdesk Technician Relationship Specialty Start Date End Date Susan Whaley FNP PCP - General Nurse Practitioner Family 12/30/18 documented as of this encounter
--- OUTSIDE RECORDS SUMMARY | 2024-11-28 16:18 | XMS_ITS | Encounter Summary ---
Author Organization [facility] Address [address] [place] [address] Care Team Providers Care Fuel Efficient Aircraft Designer Name Role Phone Susan Whaley Primary Care Provider [phone] Encounter Details Date Type Department Care Team (Late st Contact Info) Description 04/19/2008 Outpatient Historical [facility] Darnell Gray MD [address] [place] [address] [address] [place] [phone] Unspecified Hypothyroidism Social History Tobacco Use Types Packs/Day Years Used Date Smoking Tobacco: Never Alcohol Use Standard Drinks/Week Comments No 0 (1 standard drink = 0.6 oz pur e alcohol) Comments No Sex and Gender Information Value Date Recorded Sex Assigned at Not on file Legal Sex Female 5:40 AM PRINCIPAL QUALITY ENGINEER Gender Identity Not on file Sexual Orientation Not on file documented as of this encounter Plan of Treatment Upcoming Encounters Date Type Department Care Team (Late Contact Info) Description 02/25/2025 2:20 PM CDT Office Visit [facility] Medicine [address] [phone] Deidra Valdes MD [facility] [address] [address] documented as of this encounter Visit Diagnoses Diagnosis Unspecified hypothyroidism documented in this encounter Care Teams Fuel Efficient Aircraft Designer Relationship Specialty Start Date End Date Susan Whaley FNP PCP - General Nurse Practitioner Family 12/30/18 documented as of this encounter
--- OUTSIDE RECORDS SUMMARY | 2024-11-28 16:18 | XMS_ITS | Encounter Summary ---
Author Organization [facility] Address [address] [place] [address] Care Team Providers Care Recoil Spring Winder Name Role Phone Susan Whaley ASSOCIATE MANAGER AFFILIATE MARKETING Primary Care Provider [phone] Reason for Visit * Reason Comments Medication Refill Lisinopril-hydrochlo rthiazide Encounter Details Date Type Department Care Team (Late st Contact Info) Description 08/07/2012 [facility] [address] [place] [address] [address] [place] [address] Emelia Flowers, GRAB JACK WORKER [address] [place] [address] [address] [place] [address] Social History Tobacco Use Types Packs/Day Years Used Date Smoking Tobacco: Never Smokeless Tobacco: Never Alcohol Use Standard Drinks/Week Comments Yes 0 (1 standard drink = 0.6 oz pur e alcohol) maybe once a year Comments No Sex and Gender Information Value Date Recorded Sex Assigned at Not on file Legal Sex Female 5:40 AM SENIOR MARKETING ANALYST Gender Identity Not on file Sexual Orientation Not on file Occupation Industry Job Start Date Job End Date Not on file Not on file Not on file Not on file documented as of this encounter Miscellaneous Notes * Telephone Encounter - Cheryle Knapp RN - 08/07/2012 3:16 PM CDT Chief Complaint Patient presents with ??? Medication Refill Lisinopril-[facility]lorthiazide [facility] [place] [place] . Last OV 05/26/12. documented in this encounter Plan of Treatment Upcoming Encounters Date Type Department Care Team (Late st Contact Info) Description 02/25/2025 2:20 PM CDT Office Visit [address] [phone] Deidra Valdes MD [address] [address] documented as of this encounter Visit Diagnoses Not on filedocumented in this encounter Care Teams Recoil Spring Winder Relationship Specialty Start Date End Date Susan Whaley FNP PCP - General Nurse Practitioner Family 12/30/18 documented as of this encounter
--- OUTSIDE RECORDS SUMMARY | 2024-11-28 16:18 | XMS_ITS | Encounter Summary ---
Author Organization [facility] Address [address] [place] [address] Care Team Providers Care Batter Out Name Role Phone Susan Whaley COMPOSITION MIXER Primary Care Provider [phone] Encounter Details Date Type Department Care Team (Late st Contact Info) Description 10/15/2013 Ancillary Orders [facility] General Laboratory Services [place] [address] [place] [address] Acute bronchitis; Renal failure, unspecified Social History Tobacco Use Types Packs/Day Years Used Date Smoking Tobacco: Never Alcohol Use Standard Drinks/Week Comments No 0 (1 standard drink = 0.6 oz pur e alcohol) Comments No Sex and Gender Information Value Date Recorded Sex Assigned at Not on file Legal Sex Female 1:26 PM EXCAVATING MACHINE OPERATOR Gender Identity Not on file Sexual [...] - 10.0 K/uL 10/15/2013 11:09 PM CDT [facility] [place] RBC 3.47(L) 3.93 - 5.22 M/uL 10/15/2013 11:09 PM CDT [facility] [place] HEMOGLOBIN 10.8(L) 11.2 - 15.7 g/dL 10/15/2013 11:09 PM CDT [facility] [place] HEMATOCRIT 32.6(L) 34.1 - 44.9 % 10/15/2013 11:09 PM CDT [facility] [place] MCV 93.9 79.4 - 94.8 fL 10/15/2013 11:09 PM CDT [facility] [place] MCH 31.1 25.6 - 32.2 pg 10/15/2013 11:09 PM CDT [facility] [place] MCHC 33.1 32.2 - 35.5 g/dL 10/15/2013 11:09 PM [facility] [place] RDW 13.4 11.0 - 14.5 % 10/15/2013 11:09 PM T [facility] [place] RDW-STDEV 43.7 36.9 - 56.9 fL 10/15/2013 11:09 PM CDT [facility] [place] PLATELETS 265 163 - 337 K/uL 10/15/2013 11:09 PM T [facility] [place] MPV 11.4 10.0 - 14.8 fL 10/15/2013 11:09 PM CDT [facility] [place] NEUTROPHILS 60 34 - 71 % 10/15/2013 11:09 PM [facility] [place] LYMPHOCYTES 25 19 - 52 % 10/15/2013 11:09 PM CDT [facility] [place] MONOCYTES 12 5 - 13 % 10/15/2013 11:09 PM CDT [facility] [place] EOSINOPHILS 3 1 - 6 % 10/15/2013 11:09 PM CDT [facility] [place] BASOPHILS 1 0 - 1 % 10/15/2013 11:09 PM CDT [facility] [place] NEUTROPHIL ABSOLUTE 3.53 1.56 - 6.13 K/uL 10/15/2013 11:09 PM CDT [facility] [place] LYMPHOCYTE ABSOLUTE 1.47 1.20 - 3.40 K/uL 10/15/2013 11:09 PM CDT [facility] [place] [place] MONOCYTE ABSOLUTE 0.69(H) 0.24 - 0.36 K/uL 10/15/2013 11:09 PM CDT [facility] [place] EOSINOPHIL ABSOLUTE 0.18 0.04 - 0.36 K/uL 10/15/2013 11:09 PM CDT [facility] [place] BASOPHILS ABSOLUTE 0.03 0.01 - 0.08 K/uL 10/15/2013 11:09 PM CDT [facility] [place] IMMATURE GRANULOCYTES 0 % 10/15/2013 11:09 PM CDT [facility] [place] IMMATURE GRANULOCYTES ABSOLUTE 0.01 K/uL 10/15/2013 11:09 PM T [facility] [place] Blood 10/15/2013 10:3 1 PM CDT 10/15/2013 10:31 PM CDT us External Provider Mtnv HEMATOLOGY ORDERABLES Fin al Result [facility] CLIA # [id number] [address] [place] [address] * (ABNORMAL) BASIC METABOLIC PANEL (10/15/2013 10:31 PM CDT) SODIUM 138 136 - 145 mmol/L 10/15/2013 11:09 PM T [facility] [place] [place] POTASSIUM 4.6 3.5 - 5.1 mmol/L 10/15/2013 11:09 PM T [facility] CHLORIDE 107 98 - 107 mmol/L 10/15/2013 11:09 PM T [facility] CO2 21 21 - 32 mmol/L 10/15/2013 11:09 PM CDT [facility] [place] CALCIUM 8.9 8.5 - 10.1 mg/dL 10/15/2013 11:09 PM T [facility] [place] BUN 25(H) 7 - 18 mg/dL 10/15/2013 11:09 PM CDT [facility] [place] CREATININE 1.40(H) 0.60 - 1.30 mg/dL 10/15/2013 11:09 PM T [facility] GLUCOSE 65(L) 74 - 106 mg/dL 10/15/2013 11:09 PM CDT [facility] GFR 41(L) >=60 mL/min/1.7 3 sq meter 10/15/2013 11:09 PM CDT [facility] Comment: eGFR has not been validated [...] 3 sq meter 10/15/2013 11:09 PM CDT [facility] [employer] [facility] Blood 10/15/2013 10:3 1 PM CDT 10/15/2013 10:31 PM CDT us External Provider Mtnv CHEMISTRY ORDERABLES Mady l Result [facility] [employer] [facility] CLIA # [id number] [address] [place] [address] documented in this encounter Visit Diagnoses Diagnosis Acute bronchitis Renal failure, unspecified documented in this encounter Care Teams Batter Out Relationship Specialty Start Date End Date Susan Whaley FNP PCP - General Nurse Practitioner Family 12/30/18 documented as of this encounter
--- OUTSIDE RECORDS SUMMARY | 2024-11-28 16:18 | XMS_ITS | Encounter Summary ---
Author Organization [facility] Address [address] [place] [address] Care Team Providers Care Early Breastfeeding Care Specialist Name Role Phone Susan Whaley Primary Care Provider [phone] Encounter Details Date Type Department Care Team (Late Contact Info) Description 08/05/2008 Outpatient [facility] [address] [facility] [address] [place] [phone] Mariano Duarte DO NO ADDRESS ON FILE Social History Tobacco Use Types Packs/Day Years Used Date Smoking Tobacco: Never Alcohol Use Standard Drinks/Week Comments No 0 (1 standard drink = 0.6 oz pur e alcohol) Comments No Sex and Gender Information Value Date Recorded Sex Assigned at Not on file Legal Sex Female 5:40 AM PATIENT ACCESS COORDINATOR Gender Identity Not on file Sexual Orientation Not on file documented as of this encounter Plan of Treatment Upcoming Encounters Date Type Department Care Team (Late Contact Info) Description 02/25/2025 2:20 PM CDT Office Visit [facility] Family Medicine [place] [address] [phone] Deidra Valdes MD [address] [address] documented as of this encounter Visit Diagnoses Not on filedocumented in this encounter Care Teams Early Breastfeeding Care Specialist Relationship Specialty Start Date End Date Susan Whaley FNP PCP - General Nurse Practitioner Family 12/30/18 documented as of this encounter
--- OUTSIDE RECORDS SUMMARY | 2024-11-28 16:18 | XMS_ITS | Encounter Summary ---
Author Organization [facility] Address [address] [place] [address] Care Team Providers Care Electric Motorman Name Role Phone Susan Whaley Primary Care Provider [phone] Encounter Details Date Type Department Care Team (Late Contact Info) Description 08/05/2008 Outpatient [facility] [address] [facility] [address] [place] [phone] Mariano Duarte DO NO ADDRESS ON FILE Social History Tobacco Use Types Packs/Day Years Used Date Smoking Tobacco: Never Alcohol Use Standard Drinks/Week Comments No 0 (1 standard drink = 0.6 oz pur e alcohol) Comments No Sex and Gender Information Value Date Recorded Sex Assigned at Not on file Legal Sex Female 5:40 AM DRAPERY OPERATOR Gender Identity Not on file Sexual Orientation Not on file documented as of this encounter Plan of Treatment Upcoming Encounters Date Type Department Care Team (Late Contact Info) Description 02/25/2025 2:20 PM CDT Office Visit [facility] Family Medicine [place] [address] [phone] Deidra Valdes MD [address] [phone] documented as of this encounter Visit Diagnoses Not on filedocumented in this encounter Care Teams Electric Motorman Relationship Specialty Start Date End Date Susan Whaley FNP PCP - General Nurse Practitioner Family 12/30/18 documented as of this encounter
--- OUTSIDE RECORDS SUMMARY | 2024-11-28 16:18 | XMS_ITS | Encounter Summary ---
Author Organization [facility] Address [address] [place] [address] Care Team Providers Care Dynamite Cartridge Crimper Name Role Phone Susan Whaley Primary Care Provider Encounter Details Date Type Department Care Team ([facility] Contact Info) Description 09/17/2008 Outpatient [facility] [address] [facility] [address] [place] [phone] Mariano Duarte DO NO ADDRESS ON FILE Social History Tobacco Use Types Packs/Day Years Used Date Smoking Tobacco: Never Alcohol Use Standard Drinks/Week Comments No 0 (1 standard drink = 0.6 oz pur e alcohol) Comments No Sex and Gender Information Value Date Recorded Sex Assigned at Not on file Legal Sex Female 5:40 AM COMPLIANCE INTERN Gender Identity Not on file Sexual Orientation Not on file documented as of this encounter Plan of Treatment Upcoming Encounters Date Type Department Care Team (Late Contact Info) Description 02/25/2025 2:20 PM CDT Office Visit [facility] Family Medicine [place] [address] [phone] Deidra Valdes MD [address] [phone] documented as of this encounter Visit Diagnoses Not on filedocumented in this encounter Care Teams Dynamite Cartridge Crimper Relationship Specialty Start Date End Date Susan Whaley FNP PCP - General Nurse Practitioner Family 12/30/18 documented as of this encounter
--- OUTSIDE RECORDS SUMMARY | 2024-11-28 16:18 | XMS_ITS | Encounter Summary ---
Author Organization [facility] Address [address] [place] [address] Care Team Providers Care Publications Inspector Name Role Phone Susan Whaley KASYS Primary Care Provider Reason for Visit * Reason Comments Medication Refill Metformin Encounter Details Date Type Department Care Team (Late st Contact Info) Description [facility] [facility] [address] [place] [address] Ar Mulligan MD [address] [place] [address] DM w/o complication type II, [...] on file Legal Sex Female 5:40 AM THUMB SEWER Gender Identity Not on file Sexual Orientation Not on file Occupation Industry Job Start Date Job End Date Not on file Not on file Not on file Not on file documented as of this encounter Miscellaneous Notes * Telephone Encounter - Cheryle Knapp RN - 08/07/2012 3:18 PM CDT Chief Complaint Patient presents with ??? Medication Refill Metformin Interface from [facility] in [place], [place]. Last OV 05/26/12. Lab Results Component Value Date HEMOGLOBIN A1C 5.4 12/14/2011 documented in this encounter Plan of Treatment Upcoming Encounters Date Type Department Care Team (Late st Contact Info) Description 02/25/2025 2:20 PM CDT Office Visit [address] [phone] Deidra Valdes MD [address] [phone] documented as of this encounter Visit Diagnoses Diagnosis DM w/o complication type II, uncontrolled- Primary Type II or unspecified type diabetes mellitus without mention of complication, uncontrolled documented in this encounter Care Teams Publications Inspector Relationship Specialty Start Date End Date Susan Whaley FNP PCP - General Nurse Practitioner Family 12/30/18 documented as of this encounter
--- OUTSIDE RECORDS SUMMARY | 2024-11-28 16:18 | XMS_ITS | Encounter Summary ---
Author Organization [facility] Address [address] [place] [address] Care Team Providers Care Tabulating Machine Mechanic Name Role Phone Susan Whaley [facility] Primary Care Provider [phone] Encounter Details Date Type Department Care Team (Late st Contact Info) Description 07/15/2014 Lab Requisition [facility] Services [place] [address] [place] [phone] Sarah Blanc FNP [address] [place] [address] Sick Social History Tobacco Use Types Packs/Day Years Used Date Smoking Tobacco: Never Alcohol Use Standard Drinks/Week Comments No 0 (1 standard drink = 0.6 oz pur e alcohol) Comments No Sex and Gender Information Value Date Recorded Sex Assigned at Not on file Legal Sex Female 1:26 PM COLOR BLENDER Gender Identity Not on file Sexual Orientation [...] 136 - 145 mmol/L 07/15/2014 10:02 PM [facility] POTASSIUM 4.5 3.5 - 5.1 mmol/L 07/15/2014 10:02 PM [facility] CHLORIDE 104 98 - 107 mmol/L 07/15/2014 10:02 PM [facility] CO2 24 21 - 32 mmol/L 07/15/2014 10:02 PM [facility] CALCIUM 9.1 8.5 - 10.1 mg/dL 07/15/2014 10:02 PM [facility] BUN 26(H) 7 - 18 mg/dL 07/15/2014 10:02 PM [facility] CREATININE 1.40(H) 0.60 - 1.30 mg/dL 07/15/2014 10:02 PM [facility] GLUCOSE 129(H) 74 - 106 mg/dL 07/15/2014 10:02 PM [facility] TOTAL PROTEIN 7.7 6.4 - 8.2 g/dL 07/15/2014 10:02 PM [facility] ALBUMIN 3.6 3.4 - 5.0 g/dL 07/15/2014 10:02 PM [facility] BILIRUBIN TOTAL 0.3 0.2 - 1.0 mg/dL 07/15/2014 10:02 PM [facility] ALKALINE PHOSPHATASE 101 46 - 116 U/L 07/15/2014 10:02 PM [facility] AST 31 15 - 37 U/L 07/15/2014 10:02 PM [facility] ALT 30 30 - 65 U/L 07/15/2014 10:02 PM [facility] [facility] GFR 41(L) >=60 mL/min/1.7 3 sq meter 07/15/2014 10:02 PM [facility] [employer] [facility] Comment: eGFR has not been validated for [...] 3 sq meter 07/15/2014 10:02 PM CDT [facility] ANION GAP 8(L) 12 - 20 mmol/L 07/15/2014 10:02 PM CDT [facility] Blood Collection / Unknown 07/15/2014 9:14 PM CDT 07/15/2014 9:14 PM CDT Narrative [facility] - 07/15/2014 10:02 PM CDT Effective 01/10/2014, the Alkaline Phosphatase test method and reference range have changed. Please take this into consideration when interpreting results prior to or after this date. Sarah Blanc BROOMCORN PRESS FEEDER CHEMISTRY ORDERABLE S Final Result [facility] CLIA # [id number] [address] [place] [address] * (ABNORMAL) CBC WITH DIFFERENTIAL (07/15/2014 9:14 PM CDT) WBC 4.8 4.0 - 10.0 K/uL 07/15/2014 9:42 PM CDT [facility] RBC 3.59(L) 3.93 - 5.22 M/uL 07/15/2014 9:42 PM CDT [facility] HEMOGLOBIN 10.4(L) 11.2 - 15.7 g/dL 07/15/2014 9:42 PM CDT [facility] HEMATOCRIT 33.0(L) 34.1 - 44.9 % 07/15/2014 9:42 PM CDT [facility] MCV 91.9 79.4 - 94.8 fL 07/15/2014 9:42 PM CDT [facility] MCH 29.0 25.6 - 32.2 pg 07/15/2014 9:42 PM CDT [facility] [place] [place] MCHC 31.5(L) 32.2 - 35.5 g/dL 07/15/2014 9:42 PM CDT [facility] RDW 15.7(H) 11.0 - 14.5 % 07/15/2014 9:42 PM CDT [facility] [place] RDW-STDEV 50.4 36.9 - 56.9 fL 07/15/2014 9:42 PM CDT [facility] PLATELETS 271 163 - 337 K/uL 07/15/2014 9:42 PM CDT [facility] MPV 11.6 10.0 - 14.8 fL 07/15/2014 9:42 PM CDT [facility] [place] NEUTROPHILS 70 34 - 71 % 07/15/2014 9:42 PM CDT [facility] [place] LYMPHOCYTES 17(L) 19 - 52 % 07/15/2014 9:42 PM CDT [facility] [place] MONOCYTES 9 5 - 13 % 07/15/2014 9:42 PM CDT [facility] [place] EOSINOPHILS 3 1 - 6 % 07/15/2014 9:42 PM CDT [facility] BASOPHILS 0 0 - 1 % 07/15/2014 9:42 PM CDT [facility] [place] NEUTROPHIL ABSOLUTE 3.34 1.56 - 6.13 K/uL 07/15/2014 9:42 PM CDT [facility] [place] LYMPHOCYTE ABSOLUTE 0.83(L) 1.20 - 3.40 K/uL 07/15/2014 9:42 PM CDT [facility] [place] MONOCYTE ABSOLUTE 0.44(H) 0.24 - 0.36 K/uL 07/15/2014 9:42 PM CDT [facility] [place] EOSINOPHIL ABSOLUTE 0.15 0.04 - 0.36 K/uL 07/15/2014 9:42 PM CDT [facility] [place] BASOPHILS ABSOLUTE 0.02 0.01 - 0.08 K/uL 07/15/2014 9:42 PM CDT [facility] [place] IMMATURE GRANULOCYTES 0 % 07/15/2014 9:42 PM CDT [facility] [place] IMMATURE GRANULOCYTES ABSOLUTE 0.00 K/uL 07/15/2014 9:42 PM CDT [facility] Blood Collection / Unknown 07/15/2014 9:14 PM CDT 07/15/2014 9:14 PM CDT us Sarah KEENP HEMATOLOGY ORDERABL ES Final Result [facility] CLIA # [id number] [address] [place] [address] documented in this encounter Visit Diagnoses Diagnosis Sick Other unknown and unspecified cause of morbidity or mortality documented in this encounter Care Teams Tabulating Machine Mechanic Relationship Specialty Start Date End Date Susan Whaley FNP PCP - General Nurse Practitioner Family 12/30/18 documented as of this encounter
--- OUTSIDE RECORDS SUMMARY | 2024-11-28 16:18 | XMS_ITS | Encounter Summary ---
Author Organization [facility] Address [address] [place] [address] Care Team Providers Care Developer Evangelist Name Role Phone Susan Whaley LINING INSERTER Primary Care Provider [phone] Encounter Details Date Type Department Care Team (Late st Contact Info) Description 08/06/2008 Outpatient Historical [facility] [address] [place] [address] [address] [place] [address] Emelia Flowers, YOKO [address] [place] [address] [address] [place] [address] Social History Tobacco Use Types Packs/Day Years Used Date Smoking Tobacco: Never Alcohol Use Standard Drinks/Week Comments No 0 (1 standard drink = 0.6 oz pur e alcohol) Comments No Sex and Gender Information Value Date Recorded Sex Assigned at Not on file Legal Sex Female 5:40 AM MEDICAL SAFETY DIRECTOR Gender Identity Not on file Sexual Orientation Not on file documented as of this encounter Plan of Treatment Upcoming Encounters Date Type Department Care Team (Late st Contact Info) Description 02/25/2025 2:20 PM CDT Office Visit [facility] Family Medicine [place] [address] [address] Deidra Valdes MD [address] [address] documented as of this encounter Visit Diagnoses Not on filedocumented in this encounter Care Teams Developer Evangelist Relationship Specialty Start Date End Date Susan Whaley, LINING INSERTER PCP - General Nurse Practitioner Family 12/30/18 documented as of this encounter
--- OUTSIDE RECORDS SUMMARY | 2024-11-28 16:18 | XMS_ITS | Encounter Summary ---
Author Organization [facility] Address [address] [place] [address] Care Team Providers Care Typing Section Chief Name Role Phone Susan Whaley SUPERVISOR VENEER Primary Care Provider [phone] Encounter Details Date Type Department Care Team [...] on file Legal Sex Female 5:40 AM DANCE STUDIO MANAGER Gender Identity Not on file Sexual Orientation Not on file documented as of this encounter Plan of Treatment Upcoming Encounters Date Type Department Care Team (Late st Contact Info) Description 02/25/2025 2:20 PM CDT Office Visit [facility] [address] [address] Deidra Valdes MD [address] [address] documented as of this encounter [...] AM CDT Narrative 09/17/2008 12:30 PM CDT [address] [address] Admit Date: 09/17/2008 [facility] Sex: F Admit Prov: CHARISSE BREWER Date: 1970 Primary Care Prov: CHARISSE BREWER CMRN: [id number] [id number] [facility] Ordering Prov: N/A Accession Number: [id number] Interpretation Exam: Left forearm, 2 views on [...] Procedure Note Ruth Bustillos MD - 09/17/[address] [address] Admit Date: 09/17/2008 [facility] Sex: F Admit Prov: CHARISSE BREWER Date: 1970 Primary Care Prov: CHARISSE BREWER CMRN: [id number] [facility] [id number] IM[facility] Ordering Prov: N/A Interpretation Exam: [...] by: RUTH BUSTILLOS 09/17/2008 12:28 Charisse Brewer SCRUBBER OPERATOR DIAGNOSTIC IMAGING ORDER FORREST Final Result * XR WRIST 3+ VW LEFT (09/17/2008 11:44 AM CDT) Anatomical Region Laterality Modality Wrist / Hand Other 09/17/2008 11:4 4 AM CDT Narrative 09/17/2008 12:31 PM CDT [address] [address] Admit Date: 09/17/2008 [facility] Sex: F Admit Prov: CHARISSE BREWER Date: 1970 Primary Care Prov: CHARISSE BREWER CMRN: [id number] Room: [facility]: [id number] IMAGING SERVICES Ordering Prov: N/A Accession Number: [id number] Interpretation Exam: Left wrist, 3 views and [...] Procedure Note Ruth Bustillos MD - 09/17/[address] [address] Admit Date: 09/17/2008 [facility] Sex: F Admit Prov: CHARISSE BREWER Date: 1970 Primary Care Prov: CHARISSE BREWER CMRN: [id number] [facility] [id number] IM[facility] Ordering Prov: N/A Interpretation Exam: [...] limb documented in this encounter Care Teams Typing Section Chief Relationship Specialty Start Date End Date Susan Whaley FNP PCP - General Nurse Practitioner Family 12/30/18 documented as of this encounter
--- OUTSIDE RECORDS SUMMARY | 2024-11-28 16:18 | XMS_ITS | Encounter Summary ---
Author Organization [facility] Address [address] [place] [address] Care Team Providers Care Sew On Operator Name Role Phone Susan Whaley Primary Care Provider [phone] Encounter Details Date Type Department Care Team (Late st Contact Info) Description 08/05/2008 Outpatient Historical [facility] [address] 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 Gender Identity Not on file Sexual Orientation Not on file documented as of this encounter Plan of Treatment Upcoming Encounters Date Type Department Care Team (Late Contact Info) Description 02/25/2025 2:20 PM CDT Office Visit [facility] Family Medicine [place] [address] [address] Deidra Valdes MD [address] [address] documented as of this encounter Visit Diagnoses Not on filedocumented in this encounter Care Teams Sew On Operator Relationship Specialty Start Date End Date Susan Whaley FNP PCP - General Nurse Practitioner Family 12/30/18 documented as of this encounter
--- OUTSIDE RECORDS SUMMARY | 2024-11-28 16:19 | XMS_ITS | Patient Health Record ---
Author Organization [facility] Address [address] [place] [address] Care Team Providers Care Healthcare Prof Name Role Phone Syed Landaverde Primary Care Provider UnavailClara Ocampo Unavailable Migration, Provider Unavailable Unavailable Alanna Hoew Unavailable [phone] Allergies Allergen (clinical drug ingredient) Drug/Non Drug Allergy documented on EMR Reaction Allergy Type Onset Date Status Non-steroidal anti-inflammatory agent (FN) NSAIDs Unknown Drug Allergy Active Substance with sulfonamide structure and antibacterial mechanism of action (substance) Sulfa Antibiotics Unknown Drug Allergy Active Results Component Value Reference Range Flag Notes Urine Drug Screen (cup read) - 40690 Reviewed date:05/07/2024 12:40:41 PM Interpretation: Performing Lab: Notes/Report: BUP + BZO + OXY + zzzUrine Drug Screen (confir mation by instrument) - 70114 Reviewed date:05/15/2024 01:55:29 PM Interpretation: Performing Lab: Notes/Report: Tox Results Reviewed date:08/07/2024 02:19:14 PM Interpretation: Performing Lab: Notes/Report: Urine Confirmation Panel (in strument) - [id number] Reviewed date:08/07/2024 02:17:34 PM Interpretation: Performing Lab: [...] Food and Drug Administration. Urine Drug Screen ([facility]) - 96348 Reviewed date:07/31/2024 02:05:37 PM Interpretation:Positive Performing Lab: Notes/Report: Positive BZO + OXY + Reason For Referral [...] Status Risk Notes Problem Chronic pain syndrome (135605438) Chronic pain syndrome (G89.4) Active confirmed Problem High risk drug 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 (304171471) correction (current) use of opiate analgesic (Z79.891) Active confirmed Problem Muscle pain (32489086) Myalgia, other site (M79.18) Active confirmed Problem History of gastric bypass (678590770) S/P gastric bypass (Z98.84) Active confirmed Problem Cervical spondylosis (687647464) Cervical spondylosis (M47.812) Active confirmed Problem Post-laminectomy syndrome (22189984) Post laminectomy syndrome (M96.1) Active confirmed Problem Lumbosacral spondylosis (503997931) Lumbosacral spondylosis (M47.817) Active confirmed Vital Signs Height-cm 152.4 cm 07/31/2024 Weight-kg 44 kg 07/31/2024 Height 60 in 07/31/2024 Weight 97 lbs 07/31/2024 BMI 18.94 kg/m2 07/31/2024 Encounters Encounter Location Date Provider Diagnosis [facility] Inter[facility] [address] [facility] [place] [address] 01/10/2024 Alanna Howe [facility] [address] [address] 02/21/2024 Clara Lyuksyutova-Pric e [facility] [address] [address] 03/27/2024 Clara Lyuksyutova-Pric e Chronic pain syndrome G89.4 ; Myalgia, other site M79.18 and correction (current) use of opiate analgesic Z79.891 [facility] [address] [address] 04/17/2024 Clara Lyuksyutova-Pric e Chronic pain syndrome G89.4 ; Low back pain M54.50 ; Myalgia, other site M79.18 ; Abdominal pain R10.9 and Other longterm (current) drug therapy Z79.899 [facility] [address] [address] 05/08/2024 Clara Lyuksyutova-Pric e Chronic pain syndrome G89.4 ; Low back pain M54.50 ; Myalgia, other site M79.18 ; Abdominal pain R10.9 and Other longterm (current) drug therapy Z79.899 [facility] [address] [facility] [place] [address] 06/05/2024 Clara Lyuksyutova-Pric e Chronic pain syndrome G89.4 ; Other low back pain M54.59 ; Abdominal pain R10.9 ; Cervical spondylosis M47.812 ; Lumbosacral spondylosis M47.817 ; Myalgia, other site M79.18 and assistant 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 (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) use of opiate analgesic Z79.891 [facility] Inter[facility] Management [place] [address] [place] [address] 07/31/2024 Clara Lyuksyutova-Pric e Chronic pain syndrome G89.4 ; Other low back pain M54.59 ; Abdominal pain R10.9 ; Cervical spondylosis M47.812 ; Lumbosacral spondylosis M47.817 ; Myalgia, other site M79.18 ; correction (current) use of opiate analgesic Z79.891 ; Post laminectomy syndrome M96.1 and History of benzodiazepine use Z87.898 [facility] [address] [address] 09/25/2024 Clara Lyuksyutova-Pric e Chronic pain syndrome G89.4 ; Other low back pain M54.59 ; Abdominal pain R10.9 ; Cervical spondylosis M47.812 ; Lumbosacral spondylosis M47.817 ; Myalgia, other site M79.18 ; Post laminectomy syndrome M96.1 ; assistant 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 (current) use of opiate analgesic Z79.891 and History of benzodiazepine use Z87.898 [facility] 0 03/03/2024 Provider Migration [facility] 0 03/04/2024 Provider Migration [facility] [address] [address] 04/02/2024 Clara Gilesuksyutova-Pric e [facility] [address] [address] 04/09/2024 Clara Gilesuksyutova-Pric e [facility] [address] [address] 04/09/2024 Clara Tishauksyutova-Pric e [facility] [address] [place] [address] 04/09/2024 Clara Lyuksyutova-Pric e [facility] [address] [facility] [place] [address] 09/04/2024 Clara HurstEmily e Myalgia, other site M79.18 Assessments Encounter Date Diagnosis (ICD Code) Assessment [...] a violation of her pain contract to picker operator both 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 She understands [...] ADLs, denies abuse and side effects. The TRANSITION MANAGER was reviewed with no untoward events noted. [...] at this time. She's also seeing a game developer and her gastroenterology specialist. Given her prior [...] still pending getting her lumbar MRI from [facility], and I encouraged her to contact them [...] Myalgia, other site (ICD-10 - M79.18) 03/27/2024 correction (current) use of opiate analgesic (ICD-10 - Z79.891) 04/17/2024 Abdominal pain (ICD-10 - R10.9) 05/08/2024 Abdominal pain (ICD-10 - R10.9) 06/05/2024 Cervical spondylosis (ICD-10 - M47.812) 07/31/2024 Abdominal pain (ICD-10 - R10.9) 09/25/2024 Cervical spondylosis (ICD-10 - M47.812) 09/25/2024 Lumbosacral spondylosis (ICD-10 - M47.817) 07/31/2024 Cervical spondylosis (ICD-10 - M47.812) 06/05/2024 Lumbosacral spondylosis (ICD-10 - M47.817) 05/08/2024 Other longterm (current) drug therapy (ICD-10 - Z79.899) 04/17/2024 Other longterm (current) drug therapy (ICD-10 - Z79.899) 07/31/2024 Lumbosacral spondylosis (ICD-10 - M47.817) 06/05/2024 Myalgia, other site (ICD-10 - M79.18) 09/25/2024 Myalgia, other site (ICD-10 - M79.18) 09/25/2024 Post laminectomy syndrome (ICD-10 - M96.1) 07/31/2024 Myalgia, other site (ICD-10 - M79.18) 06/05/2024 correction (current) use of opiate analgesic (ICD-10 - Z79.891) 07/31/2024 correction (current) use of opiate analgesic (ICD-10 - [...] abide by our urine testing policy. 09/25/2024 correction (current) use of opiate analgesic (ICD-10 - [...] Name Order Date MRI Lumbar Spine w/o Cont-[id number] 08/01/19 MRI Lumbar Spine w/o [id number] 09/27/19 Next Appt Details Provider Name:Evelyne Lizzy velasco, 11/29/2024 01:20:00 PM, [address] [place], [address], Insurance Providers Payer Name Payer Address Payer Phone Subscriber Number Group Number Insured Name Patient Relationship to Insured Coverage Start Date Coverage End Date [place] Medicaid [address] [place] [address] [id number] Marcie Youssef Self - patient is the insured Medical (General) History Medical History History ICD Code Arthritis Thyroid disease Depression anxiety migraines Surgical History Surgery Date(Month/Year) cervical fusion spinal fusion gastric bypass carpal tunnel release hernia repair Hospitalization History Reason Date(Month/Year) See surgical Hx
--- OUTSIDE RECORDS SUMMARY | 2024-11-28 16:19 | XMS_ITS | Encounter Summary ---
Author Organization [facility] Address [address] [place] [address] Care Team Providers Care Employee Operations Examiner Name Role Phone Susan Whaley Primary Care Provider [phone] Encounter Details Date Type Department Care Team (Late st Contact Info) Description 11/21/2024 External Device Data [facility] ABSTRACTION Provider, Abstract NO ADDRESS ON FILE Social History Tobacco Use Types Packs/Day Years Used Date Smoking Tobacco: Never Smokeless Tobacco: Never Alcohol Use Standard Drinks/Week Comments No 0 (1 standard drink = 0.6 oz pur e alcohol) maybe once a year Comments No Sex and Gender Information Value Date Recorded Sex Assigned at Not on file 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 Gender Identity Not on file Sexual Orientation Not on file Occupation Industry Job Start Date Job End Date Not on file Not on file Not on file Not on file documented as of this encounter Plan of Treatment Upcoming Encounters Date Type Department Care Team (Late st Contact Info) Description 02/25/2025 2:20 PM CDT Office Visit [facility] Medicine [address] [address] Deidra Valdes MD [address] [address] documented as of this encounter Visit Diagnoses Not on filedocumented in this encounter Care Teams Employee Operations Examiner Relationship Specialty Start Date End Date Susan Whaley FNP PCP - General Nurse Practitioner Family 12/30/18 documented as of this encounter
--- OUTSIDE RECORDS SUMMARY | 2024-11-28 16:19 | XMS_ITS | Encounter Summary ---
Author Organization [facility] Address [address] [facility] [address] [place] [address] Phone Care Team Providers Care Road Machine Operator Name Role Phone Saima Syed Primary Care Provider [phone] Encounter Details Date Type Department Care Team (Late st Contact Info) Description 01/14/2019 Orders Only [facility] [address] [place], [place] [address] Stanford Winchester MD [address] [place] [address] Chronic kidney disease stage 3 Social History Tobacco Use Types Packs/Day Years Used Date Smoking Tobacco: Never Smokeless Tobacco: Never Alcohol Use Standard Drinks/Week Comments Not Currently 0 (1 standard drink = 0.6 oz pur e alcohol) AUDIT-C Answer Date Recorded Frequency of Alcohol Consumption Never 09/04/2018 Average Number of Drinks Not on file 019 Frequency of Binge Drinking Not on file 08/08 Comments Unknown Sex and Gender Information Value Date Recorded Sex Assigned at Not on file Legal Sex Female 11:48 AM EST Gender Identity Not on file Sexual Orientation Not on file documented as of this encounter Plan of Treatment Not on file documented as of this encounter Procedures Procedure Name Priority Date/Time Associated Diagnosis Comments PTH, INTACT Routine 03/12/2019 12:02 PM TRACK GRINDER OPERATOR Chronic kidney disease stage 3 (HCC) RENAL FUNCTION PANEL Routine 03/12/2019 12:02 PM TRACK GRINDER OPERATOR Chronic kidney disease stage 3 (HCC) documented in this encounter Results * PTH, intact (03/12/2019 12:02 PM TRACK GRINDER OPERATOR) Parathyroid Hormone, Intact 101.2 pg/mL Blood specimen (specimen) Venous blood / Unknown 03/12/2019 12:02 PM TRACK GRINDER OPERATOR Sadaf Newman MA - 03/12/2019 12:05 PM TRACK GRINDER OPERATOR [facility] [address] [place], [place] [address] Stanford Winchester MD LAB BLOOD ORDERABLES Final Result * (ABNORMAL) Renal function panel (03/12/2019 12:02 PM TRACK GRINDER OPERATOR) Pathologist [facility] Albumin 4.9 3.5 - 5.0 g/dL BUN 25(A) 4 - 21 mg/dL Calcium 9.7 8.7 - 10.7 mg/dL Chloride 99 99 - 108 Bicarbonate (CO2) 25 22 - 30 mmol/L Creatinine 1.30(A) 0.50 - 1.10 mg/dL eGFR Non- 43.4 mL/min/1.7 3m*2 Glucose 68 Phosphorus, Serum 4.2 Potassium 4.8 3.4 - 5.5 Sodium 135(A) 137 - 147 Blood specimen (specimen) Venous blood / Unknown 03/12/2019 12:02 PM TRACK GRINDER OPERATOR Sadaf Newman MA - 03/12/2019 12:05 PM [facility] [address] [place], [place] [address] Stanford Winchester MD LAB BLOOD ORDERABLES Final Result documented in this encounter Visit Diagnoses Diagnosis Chronic kidney disease stage 3 (HCC) documented in this encounter Care Teams Road Machine Operator Relationship Specialty Start Date End Date Syed Landaverde DO [address] [place] [id number] PCP - General Family Medicine 01/18/23 documented as of this encounter
--- OUTSIDE RECORDS SUMMARY | 2024-11-28 16:19 | XMS_ITS | Clinical Summary ---
Author Organization [facility] [address] [place] [address] Address [address] [place] [address] Care Team Providers Care Hospice Social Worker Name Role Phone Susan Whaley FIRE HYDRANT MECHANIC Primary Care Provider [phone] Allergies Active Allergy Reactions Criticality Noted Date [...] hypothyroidism Take 1 Tab by mouth daily business broker. With only water with 1 hr before [...] for obesity 5 Overview (11/12/2020): Done in [place] about 2000 Emesis 06/19/2012 Bipolar disorder, unspecified [...] Encounters Date Type Department Care Team Description 11/21/2024 External Device Data ST[facility] ABSTRACTION Provider, Abstract 2024 External Device Data [facility] ABSTRACTION Provider, Abstract 11/06/2024 External Device Data [facility] ABSTRACTION Provider, [...] on file Legal Sex Female 5:40 AM TREAD CUTTER Gender Identity Not on file Sexual Orientation [...] Description 02/25/2025 2:20 PM CDT Office Visit [facility] [place] [address] [address] Deidra Valdes MD [address] [address] Health Maintenance Due Date Last [...] CDT LIPID PANEL Routine 05/26/2012 3:45 PM TREAD CUTTER Other and unspecified hyperlipidemia MICROALBUMIN/CREATI NINE RATIO, RANDOM UR Routine 12/14/2011 3:35 PM CDT DM w/o complication type II, uncontrolled from Last 3 Months or Most Recently Relevant to Health Maintenance Results * (ABNORMAL) HEMOGLOBIN A1C (07/29/2014 10:49 PM CDT) HEMOGLOBIN A1C 6.3(H) 4.5 - 6.2 % 07/30/2014 12:20 AM CDT [facility] EST. AVG GLUCOSE, A1C 134 mg/dL 07/30/2014 12:20 AM CDT [facility] Blood 07/29/2014 10:4 9 PM CDT 07/29/2014 10:49 PM CDT us Castro W Beth DO CHEMISTRY ORDERABLES Final Resu lt Performing Organization Address [facility]/ZIP Co de Phone Number [facility] CLIA # [id number] [address] [address] [facility] CLIA # [id number] [address] [address] * LIPID PANEL (05/26/2012 3:45 PM TREAD CUTTER) CHOLESTEROL 150 100 - 199 mg/dL [facility] TRIGLYCERIDE 115 10 - 149 mg/dL [facility] HDL 46 40 - 59 mg/dL [facility] LDL CALCULATED 81 <=99 mg/dL [facility] CHOL/HDL RATIO 3.3 2.0 - 5.0 [facility] LIPID PANEL COMMENT See Below [facility] Comment: The adult ATP and pediatric NCEP classifications for lipids are available in the Laboratory Services Policy Manual on the [facility] Intranet at: http://Beacon Reader-intranet.[facility]/ Blood specimen (specimen) 05/26/2012 3:45 PM TREAD CUTTER 05/26/2012 4:47 PM TREAD CUTTER Result [facility] Lisa KEENP CHEMISTRY ORDERABLES E dited Performing Organization Address [facility] Co de Phone Number [facility] CLIA# [id number] [address] [place] [address] * MICROALBUMIN/CREATININE RATIO, RANDOM UR (12/14/2011 3:35 PM CDT) MICROALBUMIN/ CREAT RATIO, UR See Separate Comment 0 - 29 [facility] Comment:Microalbumin<1.2mg/d l; unable to calculate microalbumin/creat ratio Urine specimen (specimen) 12/14/2011 3:35 PM CDT 12/14/2011 4:00 PM CDT Comment:URINE Ar Mulligan MD URINE ORDERABLES Final Result [facility] CLIA# [id number] [address] [place] [address] from Last 3 Months or Most Recently Relevant to Health Maintenance Insurance MEDICAID [place] Advance Directives For more information, please contact: [phone] * Full Code (Latest Code Status on File) Date Activated Date Inactivated Comments 05/05/2010 10:42 AM 05/06/2010 2:33 AM Care Teams Hospice Social Worker Relationship Specialty Start Date End Date Susan Whaley FNP PCP - General Nurse Practitioner Family 12/30/18
--- OUTSIDE RECORDS SUMMARY | 2024-11-28 16:19 | XMS_ITS | Clinical Summary ---
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 AVG GLUCOSE, A1C 134 mg/dL 07/30/2014 12:20 AM CDT [facility] [employer] [facility] Blood 07/29/2014 10:4 9 PM CDT 07/29/2014 10:49 PM CDT us Castro Beth DO CHEMISTRY ORDERABLES Final Resu lt [facility] CLIA # [id number] 100 [facility] [address] [place] [address] from Last 3 Months or Most Recently Relevant to Health Maintenance Insurance MEDICAID [place] Care Teams Genetic Physician Relationship Specialty Start Date End Date Susan Whaley FNP PCP - General Nurse Practitioner Family 12/30/18
--- OUTSIDE RECORDS SUMMARY | 2024-11-28 16:19 | XMS_ITS | Clinical Summary ---
Author Organization [facility] Facility Address [address] [place] [address] Care Team Providers Care Produce Team Member Name Role Phone Syed Landaverde DO Primary Care Provider [phone] Allergies Active Allergy Reactions Criticality Noted Date Comments Homeopathic Products 04/19/2008 Unable to take NSAID's due to previous gastric bypass. Ketorolac 08/27/2014 Meat Extract 09/04/2019 No Beef (Tick borne illness) Nsaids 08/27/2014 Penicillins 06/19/2012 Renal failure Sulfa Antibiotics 08/27/2014 Medications * This document contains information received from the source organization and may not represent a complete record from that organization. metFORMIN (GLUCOPHAGE) 500 MG tablet Take 500 mg by mouth 2 (two) times a day with meals Active baclofen (LIORESAL) 10 MG tablet Take 1 tablet by mouth 3 (three) times a day if needed 6 09/05/19 19 Active FeroSul 220 (44 Fe) MG/5ML solution Take 1 tablet by mouth 2 (two) times a day 11 12/26/19 19 Active levothyroxine (SYNTHROID, LEVOTHROID) 137 MCG tablet Take 137 mcg by mouth 1 (one) time each day 01/29/20 21 Active pantoprazole (PROTONIX) 40 MG EC tablet Take 40 mg by mouth 1 (one) time each day 01/29/20 21 Active diphenhydrAMINE (BENADRYL) 25 MG capsule Take 25 mg by mouth 2 (two) times a day Active Multiple Minerals (CALCIUM/MAGNESIU M/ZINC PO) Take 1 capsule by mouth 1 (one) time each day Active hydroxychloroquin e (PLAQUENIL) 200 MG tablet Take 1.5 tablets by mouth See administration instructions Take 1 tab daily alternating with 2 tabs daily 08/05/19 23 Active dicyclomine (BENTYL) 20 MG tablet Take 20 mg by mouth every 6 (six) hours Active bismuth subsalicylate (PEPTO BISMOL) 262 MG chewable tablet Chew 524 mg 4 (four) times a day (before meals and nightly) Active aspirin 81 MG chewable tablet Chew 81 mg 1 (one) time each day Active clonazePAM (KlonoPIN) 1 MG tablet Take 1 mg by mouth 3 (three) times a day if needed for anxiety 01/12/20 24 Active folic acid (FOLVITE) 1 MG tablet Take 1 mg by mouth 1 (one) time each day 02/08/20 24 Active hydrOXYzine (VISTARIL) 50 MG capsule Take 50 mg by mouth 4 (four) times a day if needed for itching, allergies or anxiety 02/02/20 24 Active prednisoLONE 5 MG tablet Take 1 tablet by mouth 1 (one) time each day 02/07/20 24 Active oxyCODONE (ROXICODONE) 10 MG immediate release tablet Take 10 mg by mouth every 6 hours 09/26/19 25 025 Active aspirin-acetamino phen-caffeine (EXCEDRIN MIGRAINE) 250-250-65 MG per tablet Take 1 tablet by mouth 1 (one) time each day Active cetirizine (ZyrTEC) 10 MG tablet Take 10 mg by mouth 1 (one) time each day Active promethazine (PHENERGAN) 25 MG tablet Take 25 mg by mouth every 6 (six) hours if needed for nausea or vomiting Active Active Problems Problem Noted Date Diagnosed Date Microalbuminuria 04/28/2021 Secondary hyperparathyroidism of renal origin Anemia in chronic kidney disease 03/25/2020 Metabolic acidosis 03/25/2020 Stage 3b chronic kidney disease 09/13/2018 Overview (05/12/2020): Update for Diagnosis Load Type 2 diabetes mellitus wit h diabetic chronic kidney disease 09/13/2018 Essential (primary) hypertension 09/13/2018 History of bypass of stomach 08/14/2014 Overview (07/30/2020): Done in [place] about 2001 Encounters Date Type Department Care Team Description 09/28/2024 Documentation Only [facility] [address] [place] [phone] Yesenia Lombardi MA 09/27/2024 2:00 PM CDT Office Visit [facility] [address] [place], [place] [phone] Michelle Morton NP Stage 3b chronic kidney disease (HCC) (Primary Dx); Essential (primary) hypertension; Anemia in chronic kidney disease; Type 2 diabetes mellitus with diabetic chronic kidney disease (HCC) 09/27/2024 Documentation Only [facility], [facility] [address] [place] [address] Yesenia Lombardi MA 09/26/2024 Telephone [facility], [facility] [address] [place] [phone] Stanford Winchester MD 09/21/2024 Telephone [facility] [address] [place] [phone] Brown Butler 09/06/2024 Telephone [facility] [address] [place] [phone] Lisa Delgado from Last 3 Months Immunizations Immunization Administration Dates Next Due Influenza (IM) Preservative Free 03/23/2011 Influenza TIV (IM) 06/20/2018,03/07/2012 Influenza, Quadrivalent, Preservative Free 01/27 Influenza, Unspecified 03/23/2012,03/13/2010 Pneumococcal Conjugate 12/08/2011,12/08/2011 Pneumococcal Polysaccharide 06/24/2011 Family History Medical History Relation Comments Diabetes Brother Heart disease Brother Hypertension Brother Heart disease Father Hypertension Father Stroke Father Heart disease Mother Hypertension Mother Relation Status Comments Brother Alive Father Mother Social History Tobacco Use Types Packs/Day Years Used Date Smoking Tobacco: Never Passive Smoke Exposure: Never Smokeless Tobacco: Never Tobacco Cessation:Counseling Given: Not Answered Alcohol Use Standard Drinks/Week Comments Not Currently 0 (1 standard drink = 0.6 oz pur e alcohol) AUDIT-C Answer Date Recorded Frequency of Alcohol Consumption Never 09/04/2018 Average Number of Drinks Not on file 019 Frequency of Binge Drinking Not on file 08/08 Comments No Sex and Gender Information Value Date Recorded Sex Assigned at Not on file Legal Sex Female 11:48 AM EST Gender Identity Not on file Sexual Orientation Not on file Last Filed Vital Signs Vital Sign Reading Time Taken Comments Blood Pressure 102/78 09/27/2024 2:09 PM CDT Pulse 112 09/27/2024 2:09 PM CDT Temperature 36.9 C (98.5 F) 07/30/2020 3:02 PM CDT Respiratory Rate - - Oxygen Saturation 98% 09/27/2024 2:09 PM CDT Inhaled Oxygen Concentration - - Weight 42.5 kg (93 lb 11.2 oz) 09/27/2024 2:09 P M CDT Height 161.3 cm (5' 3.5 ) 09/27/2024 2:09 PM CDT Body Mass Index 16.34 09/27/2024 2:09 PM CDT Plan of Treatment Health Maintenance Due Date Last Done Comments Breast Cancer Screening 1970 Hepatitis B Vaccine (1 of 3 - 19+ 3-dose series) 11/21/1987 Pneumococcal Vaccine: 50+ Ye ars (2 of 2 - PCV) 12/07/2012 12/08/2011, 12/08/2011, 06/24/2011 Colorectal Cancer Screening: Annual FOBT 2017 Colorectal Cancer Screening: Colonoscopy 2017 Colorectal Cancer Screening: Sigmoidoscopy 2017 Diabetes: Hemoglobin A1C 09/20/2018 05/16/2018, 07/08 Diabetes: Ophthalmology Exam 09/20/2018 Diabetes: Pedal Pulse Checked 09/20/2018 Diabetes: Sensory Foot Exam 09/20/2018 Diabetes: Visual Foot Exam 09/20/2018 Influenza Vaccine (#1) 2025 0, 06/20/2018, 03/23/2012, Additional history exists Pneumococcal Vaccine: Peds ( 0 to 5 Years) and At-Risk Patients (6 to 49 Years) Discontinued 12/08/2011, 12/08/2011, 06/24/2011 Procedures Procedure Name Priority Date/Time Associated Diagnosis Comments VITAMIN D 25 HYDROXY Routine 09/26/2024 2:25 PM CDT Stage 3b chronic kidney disease (HCC) PTH, INTACT Routine 09/26/2024 2:25 PM CDT Stage 3b chronic kidney disease (HCC) PROTEIN / CREATININE RATIO, URINE Routine 09/26/2024 2:25 PM CDT Stage 3b chronic kidney disease (HCC) RENAL FUNCTION PANEL Routine 09/26/2024 2:25 PM CDT Stage 3b chronic kidney disease (HCC) CBC AND DIFFERENTIAL Routine 09/26/2024 2:25 PM CDT Stage 3b chronic kidney disease (HCC) HEMOGLOBIN A1C Routine 05/16/2018 from Last 3 Months or Most Recently Relevant to Health Maintenance Results * Protein / creatinine ratio, urine (09/26/2024 2:25 PM CDT) Creatinine, Urine Random 34.0 mg/dL PRINT/EXTERNA L (NON-INTERFAC ED LABS) Microalbumin 8.0 PRINT/E XTERNA L (NON-INTERFAC ED LABS) Microalbumin/Crea tinine Ratio 235.0 PRINT/EXTERNA L (NON-INTERFAC ED LABS) Urine Urine specimen obtained by clean catch procedure / Unknown 09/26/2024 2:25 PM CDT Narrative PRINT/EXTERNAL (NON-INTERFACED LABS) - 09/27/2024 8:29 AM CDT [facility] Clinical Laboratory [address] [place] [address] [address] [address] Aaron Sanchez, Benefits Manager America Mcfarland NP LAB URINE ORDERABLES Final Resul t PRINT/EXTERNAL (NON-INTERFACED LABS) * Vit D 25 hydroxy (09/26/2024 2:25 PM CDT) Vitamin D, 25-OH, Total 73.0 ng/mL PRINT/EXTERNAL (NON-INTERFACE D LABS) Blood Venous blood / Unknown 09/26/2024 2:25 PM CDT Narrative PRINT/EXTERNAL (NON-INTERFACED LABS) - 09/27/2024 8:29 AM CDT [facility] Clinical Laboratory [address] [place] [address] [address] [address] Aaron Sanchez, Benefits Manager us America Mcfarland CAMPAIGN MANAGEMENT SENIOR MANAGER LAB BLOOD ORDERABLES Final Resul t PRINT/EXTERNAL (NON-INTERFACED LABS) * CBC and Differential (09/26/2024 2:25 PM CDT) [facility] WBC 6.18 K/uL PRINT/EXTE RNAL (NON-INTERFACE D LABS) Red Blood Cell Count 3.64 PRINT/EXTERNAL (NON-INTERFACE D LABS) Hemoglobin 11.30 g/dL PRINT/EXT ERNAL (NON-INTERFACE D LABS) Hematocrit 36.0 % PRINT/EXT ERNAL (NON-INTERFACE D LABS) MCV 98.9 PRINT/EXTE RNAL (NON-INTERFACE D LABS) MCH 31.0 PRINT/EXTE RNAL (NON-INTERFACE D LABS) MCHC 31.4 PRINT/EXTE RNAL (NON-INTERFACE D LABS) RDW 12.8 PRINT/EXTE RNAL (NON-INTERFACE D LABS) Platelet Count 299.0 PRINT /EXTERNAL (NON-INTERFACE D LABS) MPV 9.6 PRINT/EXTE RNAL (NON-INTERFACE D LABS) Absolute Neutrophils 4.12 PRINT/EXTERNAL (NON-INTERFACE D LABS) Absolute Lymphocytes 1.3 PRINT/EXTERNAL (NON-INTERFACE D LABS) Absolute Monocytes 0.7 PRINT/EXTERNAL (NON-INTERFACE D LABS) Absolute Eosinophils 0.1 PRINT/EXTERNAL (NON-INTERFACE D LABS) Absolute Basophils 0.0 PRINT/EXTERNAL (NON-INTERFACE D LABS) Neutrophils 66.6 K/uL PRINT/EX TERNAL (NON-INTERFACE D LABS) Lymphocytes 20.6 PRINT/EX TERNAL (NON-INTERFACE D LABS) Monocytes 10.7 PRINT/EXTE RNAL (NON-INTERFACE D LABS) Eosinophils 1.3 PRINT/EX TERNAL (NON-INTERFACE D LABS) Basophils 0.6 PRINT/EXTE RNAL (NON-INTERFACE D LABS) Blood Venous blood / Unknown 09/26/2024 2:25 PM CDT Narrative PRINT/EXTERNAL (NON-INTERFACED LABS) - 09/27/2024 8:29 AM CDT [facility] Clinical Laboratory [address] [place] [address] Dr. Aaron Sanchez, Benefits Manager us America Mcfarland NP LAB BLOOD ORDERABLES Final Resul t Performing Organization Address [facility] de Phone Number PRINT/EXTERNAL (NON-INTERFACED LABS) * PTH, intact (09/26/2024 2:25 PM CDT) Parathyroid Hormone, Intact 59.8 pg/mL PRINT/DULITE MACHINE BLUER AL (NON-INTERFACE D LABS) Blood Venous blood / Unknown 09/26/2024 2:25 PM CDT Narrative PRINT/EXTERNAL (NON-INTERFACED LABS) - 09/27/2024 8:29 AM CDT [facility] Clinical Laboratory [address] [place], [place] [phone] Dr. Aaron Sanchez, Benefits Manager us America Mcfarland NP LAB BLOOD ORDERABLES Final Resul t Performing Organization Address [facility] de Phone Number PRINT/EXTERNAL (NON-INTERFACED LABS) * Renal function panel (09/26/2024 2:25 PM CDT) Glucose 86.0 mg/dL PRINT/EXTE RNAL (NON-INTERFACE D LABS) BUN 24.0 mg/dL PRINT/EXTE RNAL (NON-INTERFACE D LABS) Creatinine 0.58 mg/dL PRINT/EXT ERNAL (NON-INTERFACE D LABS) Sodium 140 mEq/L PRINT/EXTE RNAL (NON-INTERFACE D LABS) Potassium 4.2 mEq/L PRINT/EXTE RNAL (NON-INTERFACE D LABS) Chloride 104.0 PRINT/EXTE RNAL (NON-INTERFACE D LABS) Carbon Dioxide 23.0 mmol/L PRINT /EXTERNAL (NON-INTERFACE D LABS) Calcium 9.1 mg/dL PRINT/EXTE RNAL (NON-INTERFACE D LABS) Phosphorus, Serum 3.8 mg/dL PRINT/EXTERNAL (NON-INTERFACE D LABS) Albumin (Blood) 3.9 g/dL PRIN T/EXTERNAL (NON-INTERFACE D LABS) eGFR 74.5 PRINT/EXTE RNAL (NON-INTERFACE D LABS) Blood Venous blood / Unknown 09/26/2024 2:25 PM CDT Narrative PRINT/EXTERNAL (NON-INTERFACED LABS) - 09/27/2024 8:29 AM CDT [facility] Laboratory [address] [place] [address] [address] [address] Aaron Sanchez, Benefits Manager America Mcfarland CAMPAIGN MANAGEMENT SENIOR MANAGER LAB BLOOD ORDERABLES Final Resul t PRINT/EXTERNAL (NON-INTERFACED LABS) * Hemoglobin A1c (05/16/2018) Hemoglobin A1C 5.6 4.0 - 6.0 Blood specimen (specimen) Venous blood / Unknown 05/16/2018 Narrative Aminah Herndon MA - 08/08/2018 4:55 PM CDT NEW PT [facility] [address] [facility] [address] DIRECTOR: Shahbaz Lang DO, MPH CLIA: [id number] Generic Provider Scan LAB BLOOD ORDERABLES Final Result from Last 3 Months or Most Recently Relevant to Health Maintenance Insurance Medicaid [place] ([id number]) Care Teams Produce Team Member Relationship Specialty Start Date End Date Syed Landaverde DO [address] [place] [address] PCP - General Family Medicine 01/18/23
--- OUTSIDE RECORDS SUMMARY | 2024-11-28 16:19 | XMS_ITS | Encounter Summary ---
Author Organization [facility] Address 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 Gender Identity Not on file Sexual Orientation Not on file Occupation Industry Job Start Date Job End Date Not on file Not on file Not on file Not on file documented as of this encounter Plan of Treatment Upcoming Encounters Date Type Department Care Team (Late st Contact Info) Description 02/25/2025 2:20 PM CDT Office Visit [facility] Medicine [address] [address] Deidra Valdes MD [address] [address] documented as of this encounter Visit Diagnoses Not on filedocumented in this encounter Care Teams Environmental Construction Engineer Relationship Specialty Start Date End Date Susan Whaley FNP PCP - General Nurse Practitioner Family 12/30/18 documented as of this encounter
--- OUTSIDE RECORDS SUMMARY | 2024-11-28 16:19 | XMS_ITS | Encounter Summary ---
Author Organization [facility] Address [address] [place] [address] Phone Care Team Providers Care Fifth Grade Teacher Name Role Phone Syed Ladnaverde DO Primary Care Provider Encounter Details Date Type Department Care Team (Late st Contact Info) Description 06/21/2018 Orders Only [facility] [address] [place] [address] Chronic kidney disease, stage 3 (moderate) Social History Tobacco Use Types Packs/Day Years Used Date Smoking Tobacco: Never Assessed Comments Unknown Sex and Gender Information Value Date Recorded Sex Assigned at Not on file Legal Sex Female 11:48 AM EST Gender Identity Not on file Sexual Orientation Not on file documented as of this encounter Plan of Treatment Not on file documented as of this encounter Visit Diagnoses Diagnosis Chronic kidney disease, stage 3 (moderate) documented in this encounter Care Teams Fifth Grade Teacher Relationship Specialty Start Date End Date Syed Landaverde DO [address] [place] [address] PCP - General Family Medicine 01/18/23 documented as of this encounter
[2024-11-28 16:20] VITALS: BP 157/79; PULSE 98; TEMP 36.4; O2SAT 100
--- NOTE | 2024-11-28 16:36 | ECG_ITS ---
[facility]: 2024-11-28 Pat Name: Marcie Youssef Department: Room: Gender: Female Foreclosure Field Inspector: : 1970 Requested By: Robb Shoemaker Order Number: [id number] Anjelica MD: José Guerrero M.D. Measurements Intervals [place]rama Rate: 70 P: 79 MT: 133 QRS: 79 QRSD: 81 T: 69 QT: 404 QTc: 438 Interpretive Statements SINUS RHYTHM POSSIBLE LEFT ATRIAL ENLARGEMENT [-0.1mV P-WAVE IN V1/V2] SEPTAL MYOCARDIAL INFARCTION , OF INDETERMINATE AGE [40+ ms Q WAVE IN V1/V2] Compared to ECG 06/14/2023 14:21:03 Myocardial infarct finding now present Sinus tachycardia no longer present Short MT interval no longer present ST (T wave) deviation no longer present Electronically Signed On 11-29-2024 09:02:18 CDT by José Guerrero M.D. [email or web address]
--- NOTE | 2024-11-28 16:51 | W.ED.GENADLT ---
Documented by User: Robb Vegas DO 11/30/24 00:51 HPI - General Adult General: Chief complaint: General Medical Stated complaint: weakness, unable to eat Time Seen by Provider: 11/28/24 16:36 History of Present Illness: 54-year-old female presents to the emergency room with complaints of difficulty eating and weight loss over the last several years. She states she previously was up for a # to gastric bypass now she is down to 80 pounds she has had extensive workup prior to today including 2 CTs within the last year and then a third today that was done as a CTA which he had been read. She has also had EGD and colonoscopy done. She denies any hematochezia or melena no persistent vomiting. Tenderness to her gastric bypass she has had cholecystectomy appendectomy several revisions for abdominal wall mesh. She not having any chest pain no no dysuria urgency or frequency. Associated symptoms: Deny chest pain, dyspnea or rash Related Data Home Medications ?Medication ?Instructions ?Recorded ?Confirmed medical marijana 1 dose inhalation DAILY 07/13/23 11/28/24 oxycodone 10 mg tablet 10 mg PO Q6H PRN Pain 11/28/24 11/28/24 Previous Rx's ?Medication ?Instructions ?Recorded E0748 Bone growth stimulator #1 ea 02/06/21 Aquatic Therapy #1 ea 05/17/22 ergocalciferol (vitamin D2) 1,250 See Rx Instructions .Route 01/31/24 mcg (50,000 unit) capsule .COMPLEX #12 caps metformin 500 mg tablet 500 mg PO BID DM #180 tabs 01/31/24 clonazepam 1 mg tablet 1 mg PO TID PRN anxiety #90 tabs 07/09/24 folic acid 1 mg tablet 1 mg PO QDAY RA 30 days #30 tabs 08/06/24 prednisolone 5 mg tablet 5 mg PO QDAY RA #90 tabs 09/03/24 pantoprazole 40 mg tablet,delayed 40 mg PO BID #60 tabs 10/31/24 release hydroxyzine pamoate 50 mg capsule 50 mg PO QID PRN anxeity, itching 11/01/24 #120 caps levothyroxine 112 mcg tablet 112 mcg PO DAILY thyroid #30 tabs 11/19/24 hydroxychloroquine 200 mg tablet See Rx Instructions .Route 11/26/24 .COMPLEX #45 tabs Allergies Allergy/AdvReac Type Severity Reaction Status Date / Time NSAIDS (Non-Steroidal Allergy Mild Unknown Verified 11/28/24 16:27 Anti-Inflamma Sulfa (Sulfonamide Allergy Mild Unknown Verified 11/28/24 16:27 Antibiotics) Alpha-Gal Allergy ALGY-Anaphy Verified 11/28/24 16:27 (Pctnscqud-Qwakv-0,3-Gala laxis Beef Containing Products Allergy ALGY-Anaphy Verified 11/28/24 16:27 laxis Pork/Porcine Containing Allergy nausea and Verified 11/28/24 16:27 Products vomiting gabapentin AdvReac mental Verified 11/28/24 16:27 status change Review of Systems Const: Denies: fever(s) or chills Card: Denies: chest pain Resp: Denies: dyspnea GI: Denies: abdominal pain : Denies: dysuria, urinary frequency or urinary urgency Musc: Denies: neck pain or back pain Skin/Breast: Denies: rash PFSH ED PFSH: Medical History Iron deficiency anemia Neurodermatitis TRALI (transfusion related acute lung injury) Near syncope Stress Secondary hyperparathyroidism Hypertension Delusions of parasitosis Osteoarthritis of hands, bilateral Positive ANTONETTE (antinuclear antibody) Inflammatory arthritis Chronic idiopathic constipation C. difficile diarrhea Depression with anxiety Hypothyroidism Chronic kidney disease, stage 3b Cervical disc disorder with myelopathy of mid-cervical region Spondylolisthesis of cervical region Diabetes Allergy to alpha-gal Thyroid disease Chronic migraine without aura, intractable, with status migrainosus Surgical History Katherin filter in place 2001 Hx of hernia repair Status post colonoscopy (08/26/21) History of colonoscopy 2019 History of esophagogastroduodenoscopy (EGD) (08/26/21) 2019 Hx of hysterectomy H/O gastric bypass History of carpal tunnel surgery of left wrist Dr. Orlando Richter 11/18/2016 History of carpal tunnel surgery of right wrist Dr. Richter 01/13/2017 History of back surgery Dr. Richter 08/08/17 L4-L5 laminectomy/fusion/fixation 2008 [facility] Lumbar decompression History of neck surgery Dr. Richter 06/29/2018 C6-C7 ACDFF Family History Grandfather CAD (coronary artery disease) Stroke Grandmother CAD (coronary artery disease) Sister CAD (coronary artery disease) Hypertension Family/Other Cancer Mother Hypertension Father Hypertension Brother Hypertension Other Diabetes Social History Smoking and tobacco/nicotine status: never used tobacco/nicotine Alcohol intake: never Substance/Drug Use: current Substance/Drug use frequency: few times a week Household members: family Marital status: Single Current occupational status: disabled Physical Exam Const: GENERAL APPEARANCE: cooperative ORIENTATION/CONSCIOUSNESS: Yes awake, Yes oriented to person, Yes oriented to place and Yes oriented to time HENMT: COMMON NORMALS: normocephalic, atraumatic and hearing grossly normal bilaterally HEAD & SCALP: normocephalic and atraumatic Resp: COMMON NORMALS: normal respiratory effort, No retractions, No use of accessory muscles and clear to auscultation bilaterally AUSCULTATION: clear to auscultation bilaterally Cardio: COMMON NORMALS: regular rate, regular rhythm and No murmurs present (Cardio) RATE: regular rate RHYTHM: regular rhythm GI: COMMON NORMALS: Soft to palpation and No hepatosplenomegaly present AUSCULTATION: Yes normoactive bowel sounds PALPATION: Yes Soft to palpation, No Tenderness to palpation present (GI), No Guarding due to palpation present (GI) and Yes No hepatosplenomegaly present Extremity: COMMON NORMALS: normal to inspection, capillary refill normal, no clubbing, cyanosis or edema, no calf tenderness and no pedal edema Neuro: SENSORIUM/ORIENTATION: Yes oriented to person, Yes oriented to place and Yes oriented to time Skin: COMMON NORMALS: no rashes or lesions noted GENERAL SKIN EXAM: no rashes or lesions noted Course Vital Signs: Vital signs: Vital Signs Temperature 97.5 F L 11/28/24 16:20 Pulse Rate 78 11/28/24 20:27 Blood Pressure 138/78 11/28/24 20:27 Pulse Oximetry 96 11/28/24 20:27 Oxygen Delivery Me thod Room Air 11/28/24 20:02 MDM - General Adult Medical Decision Making Care signed out to Dr. Ribera at change of shift. See final notes for diagnosis and disposition. Lab Data 11/28/24 16:46 11/28/24 16:46 Laboratory Results WBC 8.19 10^3/uL (3.29-11.43) 11/28/24 16:46 RBC 3.57 10^6/uL (3.85-5.65) L 11/28/24 16:46 Hgb 11.10 g/dL (11.27-16.99) L 11/28/24 16:46 Hct 35.2 % (36-47) L 11/28/24 16:46 MCV 98.6 fl (85-98) H 11/28/24 16:46 MCH 31.1 pg (27-33) 11/28/24 16:46 MCHC 31.5 g/dL (30-55) 11/28/24 16:46 RDW 13.1 % (12.1-15.1) 11/28/24 16:46 Plt Count 292 10^3/cmm (157-399) 11/28/24 16:46 MPV 9.7 fL (7.4-10.4) 11/28/24 16:46 Neut % (Auto) 79.5 % 11/28/24 16:46 Lymph % (Auto) 12.5 % 11/28/24 16:46 [place] % (Auto) 6.5 % 11/28/24 16:46 Eos % (Auto) 0.6 % 11/28/24 16:46 Baso % (Auto) 0.5 % 11/28/24 16:46 Neut # (Auto) 6.52 10^3/uL (1.8-7.7) 11/28/24 16:46 Lymph # (Auto) 1.0 10^3/uL (0.8-4.8) 11/28/24 16:46 [place]ule[place] # (Auto) 0.5 10^3/uL (0.2-0.9) 11/28/24 16:46 Eos # (Auto) 0.1 10^3/uL (0.0-0.8) 11/28/24 16:46 Baso # (Auto) 0.0 10^3/uL (0.0-0.1) 11/28/24 16:46 Nucleated RBC % (auto) 0 % 11/28/24 16:46 Nucleated RBCs # 0.0 /100WBC 11/28/24 16:46 Sodium 141 mmol/L (136-145) 11/28/24 16:46 Potassium 3.6 mmol/L (3.5-5.1) 11/28/24 16:46 Chloride 106 mmol/L (98-107) 11/28/24 16:46 Carbon Dioxide 20 mmol/L (22-29) L 11/28/24 16:46 Anion Gap 18.6 (5-19) 11/28/24 16:46 BUN 22 mg/dL (6-20) H 11/28/24 16:46 Creatinine 1.0 mg/dL (0.5-0.9) H 11/28/24 16:46 GFR Calculation 57.4 mL/min (90-130) L 11/28/24 16:46 Glucose 100 mg/dL (65-115) 11/28/24 16:46 Calculated Osmolality 295 mOsm/kg (285-295) 11/28/24 16:46 Calcium 9.4 mg/dL (8.5-10.5) 11/28/24 16:46 Total Bilirubin 0.2 mg/dL (0.15-1.2) 11/28/24 16:46 AST 41 U/L (0-32) H 11/28/24 16:46 ALT 44 U/L (0-33) H 11/28/24 16:46 Alkaline Phosphatase 84 U/L (35-105) 11/28/24 16:46 Creatine Kinase 63 U/L (26-192) 11/28/24 16:46 Total Protein 6.5 g/dL (6.6-8.7) L 11/28/24 16:46 Albumin 4.2 g/dL (3.5-5.2) 11/28/24 16:46 Globulin 2.3 g/dL (1.3-4.6) 11/28/24 16:46 Lipase 71 U/L (13-60) H 11/28/24 16:46 Urine Color Yellow (Yellow) 11/28/24 18:24 Urine Appearance Clear (CLEAR) 11/28/24 18:24 Urine pH 5.5 (5-7) 11/28/24 18:24 Ur Specific [place] 1.039 (1.005-1.030) H 11/28/24 18:24 Urine Protein Trace (Negative) A 11/28/24 18:24 Urine Glucose (UA) Negative (Normal) 11/28/24 18:24 Urine Ketones Negative (Negative) 11/28/24 18:24 Urine Blood Negative (Negative) 11/28/24 18:24 Urine Nitrate Negative (Negative) 11/28/24 18:24 Urine Bilirubin Negative (Negative) 11/28/24 18:24 Urine Urobilinogen 0.2 mg/dL (Negative) 11/28/24 18:24 Ur Leukocyte Esterase Negative (Negative) 11/28/24 18:24 Urine RBC 0-2 /hpf (0-2) 11/28/24 18:24 Urine WBC 0-5 /hpf (0-5) 11/28/24 18:24 Ur Squamous Epith Cells 0-5 /hpf (0-5) 11/28/24 18:24 Amorphous Sediment Not Reportable 11/28/24 18:24 Urine Bacteria None seen /hpf (NONE) 11/28/24 18:24 Hyaline Casts 0.40 /lpf 11/28/24 18:24 Discharge Plan Discharge Patient Disposition: Home Clinical Impression: Nausea Abdominal pain Qualifiers: Abdominal location: generalized Qualified Code(s): R10.84 - Generalized abdominal pain Condition: Stable Prescriptions: No Action medical marijana 1 dose inhalation DAILY Rx Instructions: unknown (DME) E0748 Bone growth stimulator See Rx Instructions .Route .MEDSUPPLY Qty: 1 0RF Rx Instructions: As directed (DME) Aquatic Therapy See Rx Instructions .Route .MEDSUPPLY Qty: 1 0RF Rx Instructions: As directed ergocalciferol (vitamin D2) 1,250 mcg (50,000 unit) capsule See Rx Instructions .ROUTE .COMPLEX Qty: 12 3RF Dose Instruction: TAKE 1 CAPSULE BY MOUTH ONCE A WEEK Rx Instructions: TAKE 1 CAPSULE BY MOUTH ONCE A WEEK metformin 500 mg tablet 500 mg PO BID Qty: 180 3RF clonazepam 1 mg tablet 1 mg PO TID PRN (Reason: anxiety) Qty: 90 3RF folic acid 1 mg tablet 1 mg PO QDAY 30 Days Qty: 30 5RF prednisolone 5 mg tablet 5 mg PO QDAY Qty: 90 0RF pantoprazole 40 mg tablet,delayed release (DR/EC) 40 mg PO BID Qty: 60 1RF hydroxyzine pamoate 50 mg capsule 50 mg PO QID PRN (Reason: anxeity, itching) Qty: 120 3RF levothyroxine 112 mcg tablet 112 mcg PO DAILY Qty: 30 1RF hydroxychloroquine 200 mg tablet See Rx Instructions .ROUTE .COMPLEX Qty: 45 3RF Dose Instruction: alternate taking ONE TABLET BY MOUTH today, THEN take TWO TABLETS BY MOUTH tomorrow Rx Instructions: alternate taking ONE TABLET BY MOUTH today, THEN take TWO TABLETS BY MOUTH tomorrow oxycodone 10 mg tablet 10 mg PO Q6H PRN (Reason: Pain) Rx Instructions: do not exceed Discharge Orders: Discharge ED (Routine); Ordered 11/28/24 Ordered By: Alexei Ribera Referrals: Syed Landaverde DO [Primary Care Provider, Family Practice] Discharge Diet: Advance as tolerated Discharge Activity: Resume usual activity Patient Instructions: Abdominal Pain (ED), Opioid Safety, Pain Management, Patient Portal & Jorge Instructions Activity Restrictions/Additional Instructions: 1. Take medications as directed. 2. Follow up with PCP for results of CTA tomorrow. 3. Return for new or worsening symptoms. Print Language: Lao Coding Level of Care Code ED [employer] Operator for Chg Fwd Documented by User: Alexei Ribera DO 11/28/24 20:14 HPI - General Adult General: Chief complaint: General Medical Stated complaint: weakness, unable to eat Time Seen by Provider: 11/28/24 16:36 Related Data Home Medications ?Medication ?Instructions ?Recorded ?Confirmed medical marijana 1 dose inhalation DAILY 07/13/23 11/28/24 oxycodone 10 mg tablet 10 mg PO Q6H PRN Pain 11/28/24 11/28/24 Previous Rx's ?Medication ?Instructions ?Recorded E0748 Bone growth stimulator #1 ea 02/06/21 Aquatic Therapy #1 ea 05/17/22 ergocalciferol (vitamin D2) 1,250 See Rx Instructions .Route 01/31/24 mcg (50,000 unit) capsule .COMPLEX #12 caps metformin 500 mg tablet 500 mg PO BID DM #180 tabs 01/31/24 clonazepam 1 mg tablet 1 mg PO TID PRN anxiety #90 tabs 07/09/24 folic acid 1 mg tablet 1 mg PO QDAY RA 30 days #30 tabs 08/06/24 prednisolone 5 mg tablet 5 mg PO QDAY RA #90 tabs 09/03/24 pantoprazole 40 mg tablet,delayed 40 mg PO BID #60 tabs 10/31/24 release hydroxyzine pamoate 50 mg capsule 50 mg PO QID PRN anxeity, itching 11/01/24 #120 caps levothyroxine 112 mcg tablet 112 mcg PO DAILY thyroid #30 tabs 11/19/24 hydroxychloroquine 200 mg tablet See Rx Instructions .Route 11/26/24 .COMPLEX #45 tabs Allergies Allergy/AdvReac Type Severity Reaction Status Date / Time NSAIDS (Non-Steroidal Allergy Mild Unknown Verified 11/28/24 16:27 Anti-Inflamma Sulfa (Sulfonamide Allergy Mild Unknown Verified 11/28/24 16:27 Antibiotics) Alpha-Gal Allergy ALGY-Anaphy Verified 11/28/24 16:27 (Xghzktphb-Xstnn-5,3-Gala laxis Beef Containing Products Allergy ALGY-Anaphy Verified 11/28/24 16:27 laxis Pork/Porcine Containing Allergy nausea and Verified 11/28/24 16:27 Products vomiting gabapentin AdvReac mental Verified 11/28/24 16:27 status change [facility] ED PFSH: Medical History Iron deficiency anemia Neurodermatitis TRALI (transfusion related acute lung injury) Near syncope Stress Secondary hyperparathyroidism Hypertension Delusions of parasitosis Osteoarthritis of hands, bilateral Positive ANTONETTE (antinuclear antibody) Inflammatory arthritis Chronic idiopathic constipation C. difficile diarrhea Depression with anxiety Hypothyroidism Chronic kidney disease, stage 3b Cervical disc disorder with myelopathy of mid-cervical region Spondylolisthesis of cervical region Diabetes Allergy to alpha-gal Thyroid disease Chronic migraine without aura, intractable, with status migrainosus Surgical History [place] filter in place 2001 Hx of hernia repair Status post colonoscopy (08/26/21) History of colonoscopy 2019 History of esophagogastroduodenoscopy (EGD) (08/26/21) 2019 Hx of hysterectomy H/O gastric bypass History of carpal tunnel surgery of left wrist Dr. Orlando Richter 11/18/2016 History of carpal tunnel surgery of right wrist Dr. Richter 01/13/2017 History of back surgery Dr. Richter 08/08/17 L4-L5 laminectomy/fusion/fixation 2008 [facility] Lumbar decompression History of neck surgery Dr. Richter 06/29/2018 C6-C7 ACDFF Family History Grandfather CAD (coronary artery disease) Stroke Grandmother CAD (coronary artery disease) Sister CAD (coronary artery disease) Hypertension Family/Other Cancer Mother Hypertension Father Hypertension Brother Hypertension Other Diabetes Social History Smoking and tobacco/nicotine status: never used tobacco/nicotine Alcohol intake: never Substance/Drug Use: current Substance/Drug use frequency: few times a week Household members: family Marital status: Single Current occupational status: disabled Course Vital Signs: Vital signs: Vital Signs Temperature 97.5 F L 11/28/24 16:20 Pulse Rate 78 11/28/24 20:27 Blood Pressure 138/78 11/28/24 20:27 Pulse Oximetry 96 11/28/24 20:27 Oxygen Delivery Me thod Room Air 11/28/24 20:02 MDM - General Adult Medical Decision Making Care signed out to Dr. Ribera at change of shift. See final notes for diagnosis and disposition. The patient was turned over to me by previous emergency department physician recheck her labs and determine diagnosis if possible and disposition. Her labs were largely stable as were vital signs when and examined her and she continued to complain of her chronic abdominal pain but it did not appear to be anything significantly new she does have some normocytic anemia the patient's renal function was good her urinalysis was unrevealing vital signs remained stable I discussed that she needs the results of the CTA but does not look like we will going to have those tonight she will need to call and get those tomorrow. The patient does not have appear to have an emergent condition currently. I have recommended medication review she is on multiple different medications some of which may be contributing to some of her symptoms and close follow-up as well as return precautions and she verbalized understanding. Lab Data 11/28/24 16:46 11/28/24 16:46 Laboratory Results WBC 8.19 10^3/uL (3.29-11.43) 11/28/24 16:46 RBC 3.57 10^6/uL (3.85-5.65) L 11/28/24 16:46 Hgb 11.10 g/dL (11.27-16.99) L 11/28/24 16:46 Hct 35.2 % (36-47) L 11/28/24 16:46 MCV 98.6 fl (85-98) H 11/28/24 16:46 MCH 31.1 pg (27-33) 11/28/24 16:46 MCHC 31.5 g/dL (30-55) 11/28/24 16:46 RDW 13.1 % (12.1-15.1) 11/28/24 16:46 Plt Count 292 10^3/cmm (157-399) 11/28/24 16:46 MPV 9.7 fL (7.4-10.4) 11/28/24 16:46 Neut % (Auto) 79.5 % 11/28/24 16:46 Lymph % (Auto) 12.5 % 11/28/24 16:46 [place]ule[place] % (Auto) 6.5 % 11/28/24 16:46 Eos % (Auto) 0.6 % 11/28/24 16:46 Baso % (Auto) 0.5 % 11/28/24 16:46 Neut # (Auto) 6.52 10^3/uL (1.8-7.7) 11/28/24 16:46 Lymph # (Auto) 1.0 10^3/uL (0.8-4.8) 11/28/24 16:46 [place] # (Auto) 0.5 10^3/uL (0.2-0.9) 11/28/24 16:46 Eos # (Auto) 0.1 10^3/uL (0.0-0.8) 11/28/24 16:46 Baso # (Auto) 0.0 10^3/uL (0.0-0.1) 11/28/24 16:46 Nucleated RBC % (auto) 0 % 11/28/24 16:46 Nucleated RBCs # 0.0 /100WBC 11/28/24 16:46 Sodium 141 mmol/L (136-145) 11/28/24 16:46 Potassium 3.6 mmol/L (3.5-5.1) 11/28/24 16:46 Chloride 106 mmol/L (98-107) 11/28/24 16:46 Carbon Dioxide 20 mmol/L (22-29) L 11/28/24 16:46 Anion Gap 18.6 (5-19) 11/28/24 16:46 BUN 22 mg/dL (6-20) H 11/28/24 16:46 Creatinine 1.0 mg/dL (0.5-0.9) H 11/28/24 16:46 GFR Calculation 57.4 mL/min (90-130) L 11/28/24 16:46 Glucose 100 mg/dL (65-115) 11/28/24 16:46 Calculated Osmolality 295 mOsm/kg (285-295) 11/28/24 16:46 Calcium 9.4 mg/dL (8.5-10.5) 11/28/24 16:46 Total Bilirubin 0.2 mg/dL (0.15-1.2) 11/28/24 16:46 AST 41 U/L (0-32) H 11/28/24 16:46 ALT 44 U/L (0-33) H 11/28/24 16:46 Alkaline Phosphatase 84 U/L (35-105) 11/28/24 16:46 Creatine Kinase 63 U/L (26-192) 11/28/24 16:46 Total Protein 6.5 g/dL (6.6-8.7) L 11/28/24 16:46 Albumin 4.2 g/dL (3.5-5.2) 11/28/24 16:46 Globulin 2.3 g/dL (1.3-4.6) 11/28/24 16:46 Lipase 71 U/L (13-60) H 11/28/24 16:46 Urine Color Yellow (Yellow) 11/28/24 18:24 Urine Appearance Clear (CLEAR) 11/28/24 18:24 Urine pH 5.5 (5-7) 11/28/24 18:24 Ur Specific [place] 1.039 (1.005-1.030) H 11/28/24 18:24 Urine Protein Trace (Negative) A 11/28/24 18:24 Urine Glucose (UA) Negative (Normal) 11/28/24 18:24 Urine Ketones Negative (Negative) 11/28/24 18:24 Urine Blood Negative (Negative) 11/28/24 18:24 Urine Nitrate Negative (Negative) 11/28/24 18:24 Urine Bilirubin Negative (Negative) 11/28/24 18:24 Urine Urobilinogen 0.2 mg/dL (Negative) 11/28/24 18:24 Ur Leukocyte Esterase Negative (Negative) 11/28/24 18:24 Urine RBC 0-2 /hpf (0-2) 11/28/24 18:24 Urine WBC 0-5 /hpf (0-5) 11/28/24 18:24 Ur Squamous Epith Cells 0-5 /hpf (0-5) 11/28/24 18:24 Amorphous Sediment Not Reportable 11/28/24 18:24 Urine Bacteria None seen /hpf (NONE) 11/28/24 18:24 Hyaline Casts 0.40 /lpf 11/28/24 18:24 XR interpretation done by ED provider, pending radiology final review Discharge Plan Discharge Patient Disposition: Home Clinical Impression: Nausea Abdominal pain Qualifiers: Abdominal location: generalized Qualified Code(s): R10.84 - Generalized abdominal pain Condition: Stable Prescriptions: No Action medical marijana 1 dose inhalation DAILY Rx Instructions: unknown (DME) E0748 Bone growth stimulator See Rx Instructions .Route .MEDSUPPLY Qty: 1 0RF Rx Instructions: As directed (DME) Aquatic Therapy See Rx Instructions .Route .MEDSUPPLY Qty: 1 0RF Rx Instructions: As directed ergocalciferol (vitamin D2) 1,250 mcg (50,000 unit) capsule See Rx Instructions .ROUTE .COMPLEX Qty: 12 3RF Dose Instruction: TAKE 1 CAPSULE BY MOUTH ONCE A WEEK Rx Instructions: TAKE 1 CAPSULE BY MOUTH ONCE A WEEK metformin 500 mg tablet 500 mg PO BID Qty: 180 3RF clonazepam 1 mg tablet 1 mg PO TID PRN (Reason: anxiety) Qty: 90 3RF folic acid 1 mg tablet 1 mg PO QDAY 30 Days Qty: 30 5RF prednisolone 5 mg tablet 5 mg PO QDAY Qty: 90 0RF pantoprazole 40 mg tablet,delayed release (DR/EC) 40 mg PO BID Qty: 60 1RF hydroxyzine pamoate 50 mg capsule 50 mg PO QID PRN (Reason: anxeity, itching) Qty: 120 3RF levothyroxine 112 mcg tablet 112 mcg PO DAILY Qty: 30 1RF hydroxychloroquine 200 mg tablet See Rx Instructions .ROUTE .COMPLEX Qty: 45 3RF Dose Instruction: alternate taking ONE TABLET BY MOUTH today, THEN take TWO TABLETS BY MOUTH tomorrow Rx Instructions: alternate taking ONE TABLET BY MOUTH today, THEN take TWO TABLETS BY MOUTH tomorrow oxycodone 10 mg tablet 10 mg PO Q6H PRN (Reason: Pain) Rx Instructions: do not exceed Discharge Orders: Discharge ED (Routine); Ordered 11/28/24 Ordered By: Alexei Ribera Referrals: Syed Landaverde DO [Primary Care Provider, [facility]] Discharge Diet: Advance as tolerated Discharge Activity: Resume usual activity Patient Instructions: Abdominal Pain (ED), Opioid Safety, Pain Management, Patient Portal & Jorge Instructions Activity Restrictions/Additional Instructions: 1. Take medications as directed. 2. Follow up with PCP for results of CTA tomorrow. 3. Return for new or worsening symptoms. Print Language: Lao Coding Level of Care Code ED [employer] Radio Operator for Kiet Pardo
[2024-11-28] MEDS: ondansetron 2 mg/ML SDV 2 mL 4 MG IVP (16:54)
[2024-11-28 16:57] LABS: Hematocrit 35.2 % (36-47); Hemoglobin 11.10 g/dL (11.27-16.99); Mean Corpuscular HGB Conc 31.5 g/dL (30-55); Mean Corpuscular Hemoglobin 31.1 pg (27-33); Mean Corpuscular Volume 98.6 fl (85-98); Nucleated Red Blood Cells % 0 %; Platelet Count 292 10^3/cmm (157-399); Red Blood Count 3.57 10^6/uL (3.85-5.65); White Blood Count 8.19 10^3/uL (3.29-11.43)
[2024-11-28 18:22] LABS: Alanine Aminotransferase 44 U/L (0-33); Albumin Level 4.2 g/dL (3.5-5.2); Alkaline Phosphatase 84 U/L (35-105); Anion Gap 18.6 (5-19); Aspartate Amino Transferase 41 U/L (0-32); Blood Urea Nitrogen 22 mg/dL (6-20); Calcium 9.4 mg/dL (8.5-10.5); Carbon Dioxide 20 mmol/L (22-29); Chloride 106 mmol/L (98-107); Creatinine Clr Calc Pharmacy 35.9846; Globulin 2.3 g/dL (1.3-4.6); Glucose 100 mg/dL (65-115); Lipase 71 U/L (13-60); Osmolality Calculated 295 mOsm/kg (285-295); Potassium 3.6 mmol/L (3.5-5.1); Sodium 141 mmol/L (136-145); Total Protein 6.5 g/dL (6.6-8.7)
[2024-11-28 18:27] VITALS: BP 137/119; PULSE 76; O2SAT 99
[2024-11-28 18:36] LABS: Glucose Urine UA Negative (Normal); Nitrate Urine Negative (Negative)
[2024-11-28 18:38] LABS: Add Urine Microscopic? YES
[2024-11-28 18:50] LABS: Specific Gravity, Urine 1.039 (1.005-1.030)
[2024-11-28 20:02] VITALS: BP 143/79; PULSE 88; O2SAT 92
[2024-11-28 20:27] VITALS: BP 138/78; PULSE 78; O2SAT 96
== END 2024-11-28 20:25 | disposition home or self-care (01) ==
PROVIDERS: Family Medicine; Emergency Provider Family Medicine; PCP Family Medicine
DX: R11.0 Nausea (principal); R10.84 Generalized abdominal pain; Z79.84 Long term (current) use of oral hypoglycemic drugs; E11.22 Type 2 diabetes mellitus with diabetic chronic kidney disease; I12.9 Hypertensive chronic kidney disease with stage 1 through stage 4 chronic kidney disease, or unspecified chronic kidney disease; N18.32 Chronic kidney disease, stage 3b
CPT/HCPCS: 36415; 80053; 81001; 82550; 83690; 85025; 93005; 96361; 96374; 99284; J2405; J7030; J9999

== ENCOUNTER 2024-11-29 16:43 | Emergency (ER) | payer MEDICAID, SELFPAY ==
--- OUTSIDE RECORDS SUMMARY | 2024-11-29 16:46 | XMS_ITS | Encounter Summary ---
Author Organization [facility] Address [address] [place] [address] Care Team Providers Care Special Certificate Dictator Name Role Phone Susan Whaley Primary Care Provider [phone] Encounter Details Date Type Department Care Team [...] on file Legal Sex Female 5:40 AM WAITRESS Gender Identity Not on file Sexual Orientation Not on file documented as of this encounter Plan of Treatment Upcoming Encounters Date Type Department Care Team (Late st Contact Info) Description 02/25/2025 2:20 PM CDT Office Visit [facility] [address] [address] Deidra Valdes MD [address] [address] documented as of this encounter Visit Diagnoses Diagnosis Type II or unspecified type diabetes mellitus without mention of complication, uncontrolled documented in this encounter Care Teams Special Certificate Dictator Relationship Specialty Start Date End Date Susan Whaley FNP PCP - General Nurse Practitioner Family 12/30/18 documented as of this encounter
--- OUTSIDE RECORDS SUMMARY | 2024-11-29 16:46 | XMS_ITS | Encounter Summary ---
Author Organization [facility] Address [address] [place] [address] Care Team Providers Care Wind Farm Operations Manager Name Role Phone Susan Whaley PST SUPERVISOR Primary Care Provider [phone] Encounter Details Date Type Department Care Team (Late st Contact Info) Description 08/02/2008 Emergency [facility] Er, Authorized P NO ADDRESS ON FILE To Taylor MD [facility] [place] [address] Social History Tobacco Use Types Packs/Day Years Used Date Smoking Tobacco: Never Alcohol Use Standard Drinks/Week Comments No 0 (1 standard drink = 0.6 oz pur e alcohol) Comments No Sex and Gender Information Value Date Recorded Sex Assigned at Not on file 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 Gender Identity Not on file Sexual Orientation Not on file documented as of this encounter Plan of Treatment Upcoming Encounters Date Type Department Care Team (Late st Contact Info) Description 02/25/2025 2:20 PM CDT Office Visit [facility] [place] [address] [phone] Deidra Valdes MD [address] [phone] documented as of this encounter [...] (08/02/2008 3:58 PM CDT) COLOR UA Yellow [facility] NITRITE UA Negative Negative [facility] BILIRUBIN UA Negative Negative [facility] PH UA 5.0 5.0 - 8.0 [facility] KETONES UA Negative Negative [facility] CLARITY UA Clear Clear [facility] BLOOD UA Negative Negative [facility] PROTEIN UA Negative Negative [facility] LEUKOCYTE ESTERASE UA Negative Negative [facility] UROBILINOGEN UA <1 <1 mg/dL [facility] SPECIFIC GRAVITY UA 1.025 1.001 - 1.035 [facility] GLUCOSE UA 4+(A) Negative [facility] WBC UA 0-5 0 - 5 /HPF [facility] EPITHELIAL CELLS, URINE 0-2 /HPF [facility] RBC UA 0-2 0 - 2 /HPF [facility] BACTERIA UA Trace None Seen /HPF [facility] 08/02/2008 3:58 PM CDT 08/02/2008 4:02 PM CDT To Taylor MD URINE ORDERABLES Edited Performing Organization Address [facility] Phone Number INTERFACE SYSTEM Refer to clinic/hospital department [facility] CLIA# [id number] [address] [place] [address] * URINALYSIS WITH REFLEX CULTURE (08/02/2008 3:58 PM CDT) URINE CULTURE ORDER Not indicated [facility] Comment: Criteria for a reflex culture [...] URINE ORDERABLES Final Result Performing Organization Address [facility] Phone Number INTERFACE SYSTEM Refer to clinic/hospital department [facility] CLIA# [id number] [address] [place] [address] * XR CHEST PA AND LATERAL (08/02/2008 3:27 PM CDT) Anatomical Region Laterality Modality Chest Other 08/02/2008 3:27 PM CDT Narrative 08/03/2008 9:28 AM CDT [facility] [address] [place] [id number] Admit Date: 08/02/2008 MARCIE SIU Sex: F Admit Prov: TO TAYLOR Date: 1970 Primary Care Prov: PCP, NONE CMRN: [id number] Room: [facility] SSN: [id number] IMAGING SERVICES Ordering Prov: N/A Accession Number: [id number] Interpretation CHEST 2 VIEWS, 08/02/2008 Indication: Elevated [...] Procedure Note Viktor Heck MD - 08/03/2008 [facility] [address] [place] [id number] Admit Date: 08/02/2008 SAL[place]ORGERALDOSA Sex: F Admit Prov: TO TAYLOR Date: 1970 Primary Care Prov: PCP, NONE CMRN: [id number] Room: [facility] SSN: [address] [place] [address] IMAGING SERVICES Ordering Prov: N/A Interpretation CHEST [...] * (ABNORMAL) TSH (08/02/2008 2:50 PM CDT) [facility] TSH 0.03(L) 0.27 - 4.20 uU/mL [facility] Blood specimen (specimen) 08/02/2008 2:50 PM CDT 08/02/2008 3:00 PM CDT To Taylor MD CHEMISTRY ORDERABLES Final Resu lt Performing Organization Address [facility] de Phone Number INTERFACE SYSTEM Refer to clinic/hospital department [facility] CLIA# [id number] [address] [place] [address] * CARDIAC ENZYMES (08/02/2008 2:50 PM CDT) [facility] TROPONIN T 0.01 <=0.02 ng/mL [facility] TROPONIN T INTERP Negative [facility] Blood specimen (specimen) 08/02/2008 2:50 PM CDT 08/02/2008 3:00 PM CDT us To Taylor MD CHEMISTRY ORDERABLES Edited Performing Organization Address [facility] de Phone Number INTERFACE SYSTEM Refer to clinic/hospital department [facility] CLIA# [id number] [address] [place] [address] * (ABNORMAL) BASIC METABOLIC PANEL (08/02/2008 2:50 PM CDT) [facility] CHLORIDE 103 96 - 108 mmol/L [facility] BUN 15 6 - 20 mg/dL [facility] CREATININE 1.17(H) 0.51 - 0.95 mg/dL [facility] SODIUM 138 135 - 145 mmol/L [facility] CO2 26 22 - 30 mmol/L [facility] CALCIUM 9.1 8.6 - 10.2 mg/dL [facility] POTASSIUM 3.9 3.5 - 4.9 mmol/L [facility] GLUCOSE 111(H) 65 - 99 mg/dL [facility] GFR, >60 >=60 mL/min/1. 7 sq meter [facility] GFR 52(L) >=60 mL/min/1. 7 sq meter [facility] Comment: Modification of Diet in Renal Disease (MDRD) study formula. Estimated GFR rate interpretative information for both Americans and non- Americans is available on the [facility] Intranet at: [email or web address] Select: Lab Policies and Procedures Select: Reference Ranges - GFR Blood specimen (specimen) 08/02/2008 2:50 PM CDT 08/02/2008 3:00 PM CDT us To Taylor MD CHEMISTRY ORDERABLES Edited INTERFACE SYSTEM Refer to clinic/hospital department [facility] CLIA# [id number] [address] [place] [address] * CBC WITH DIFFERENTIAL (08/02/2008 2:50 PM CDT) HEMATOCRIT 37.2 35.5 - 44.0 % [facility] RDW-STDEV 39.7 37.1 - 48.7 fL [facility] RBC 4.19 3.90 - 4.90 M/uL [facility] MCHC 33.3 31.5 - 35.5 % [facility] PLATELETS 199 140 - 350 K/uL [facility] MCV 88.8 82.0 - 99.0 fL [facility] HEMOGLOBIN 12.4 11.8 - 14.8 g/dL [facility] RDW 12.4 11.5 - 14.5 % [facility] WBC 7.1 4.0 - 9.8 K/uL [facility] MCH 29.6 27.2 - 32.6 pg [facility] MPV 10.8 9.3 - 12.4 fL [facility] LYMPHOCYTES 20 16 - 45 % [facility] LYMPHOCYTE ABSOLUTE 1.41 0.70 - 4.50 K/uL [facility] BASOPHILS 0 0 - 2 % [facility] BASOPHILS ABSOLUTE 0.02 0.00 - 0.20 K/uL [facility] MONOCYTES 10 3 - 13 % [facility] MONOCYTE ABSOLUTE 0.71 0.10 - 1.30 K/uL [facility] NEUTROPHILS 67 45 - 70 % [facility] NEUTROPHIL ABSOLUTE 4.76 1.90 - 7.00 K/uL [facility] EOSINOPHILS 3 0 - 7 % [facility] EOSINOPHIL ABSOLUTE 0.21 0.00 - 0.70 K/uL [facility] Blood specimen (specimen) 08/02/2008 2:50 PM CDT 08/02/2008 3:00 PM CDT To Taylor MD HEMATOLOGY ORDERABLES Edited INTERFACE SYSTEM Refer to clinic/hospital department [facility] CLIA# [id number] [address] [place] [address] * (ABNORMAL) HEMOGLOBIN A1C (08/02/2008 2:50 PM CDT) GLUCOSE, MEAN BLOOD 143 mg/dL [facility] HEMOGLOBIN A1C 6.2(H) 4.8 - 5.9 % of Hgb [facility] Blood specimen (specimen) 08/02/2008 2:50 PM CDT 08/02/2008 3:00 PM CDT To Taylor MD CHEMISTRY ORDERABLES Final Resu lt Performing Organization Address City/[facility] de Phone Number INTERFACE SYSTEM Refer to clinic/hospital department [facility] CLIA# [id number] [address] [place] [address] * LIPASE (08/02/2008 2:50 PM CDT) LIPASE 33 13 - 60 U/L [facility] Blood specimen (specimen) 08/02/2008 2:50 PM CDT 08/02/2008 3:00 PM CDT To Taylor MD CHEMISTRY ORDERABLES Final Resu lt Performing Organization Address [facility] Phone Number INTERFACE SYSTEM Refer to clinic/hospital department [facility] CLIA# [id number] [address] [place] [address] * HEPATIC FUNCTION PANEL (08/02/2008 2:50 PM CDT) BILIRUBIN TOTAL 0.2 0.2 - 1.0 mg/dL [facility] ALT 29 0 - 31 U/L [facility] ALBUMIN 4.2 3.4 - 4.8 g/dL [facility] AST 29 12 - 32 U/L [facility] BILIRUBIN DIRECT <0.2 0.0 - 0.3 mg/dL [facility] ALKALINE PHOSPHATASE 60 35 - 104 U/L [facility] TOTAL PROTEIN 7.1 6.0 - 8.3 g/dL [facility] Blood specimen (specimen) 08/02/2008 2:50 PM CDT 08/02/2008 3:00 PM CDT To Taylor MD CHEMISTRY ORDERABLES Final Resu lt Performing Organization Address [facility] de Phone Number INTERFACE SYSTEM Refer to clinic/hospital department [facility] CLIA# [id number] [address] [place] [address] * (ABNORMAL) POC GLUCOSE (08/02/2008 2:46 PM CDT) COMMENT, GLU POC Notified RN [facility] GLUCOSE POC 125(H) 65 - 99 mg/dL [facility] Capillary blood specimen (specimen) 08/02/2008 2:46 PM CDT 08/02/2008 2:46 PM CDT us Authorized P Er POINT OF CARE TESTING Final Resu lt INTERFACE SYSTEM Refer to clinic/hospital department [facility] CLIA# [id number] [address] [place] [address] documented in this encounter Visit Diagnoses Not on filedocumented in this encounter Care Teams Wind Farm Operations Manager Relationship Specialty Start Date End Date Susan Whaley FNP PCP - General Nurse Practitioner Family 12/30/18 documented as of this encounter
--- OUTSIDE RECORDS SUMMARY | 2024-11-29 16:46 | XMS_ITS | Encounter Summary ---
Author Organization [facility] Address 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 Gender Identity Not on file Sexual Orientation Not on file documented as of this encounter Plan of Treatment Upcoming Encounters Date Type Department Care Team (Late Contact Info) Description 02/25/2025 2:20 PM CDT Office Visit [facility] [place] [address] [phone] Deidra Valdes MD [address] [phone] documented as of this encounter Visit Diagnoses Not on filedocumented in this encounter Care Teams Bingo Clerk Relationship Specialty Start Date End Date Susan Whaley FNP PCP - General Nurse Practitioner Family 12/30/18 documented as of this encounter
--- OUTSIDE RECORDS SUMMARY | 2024-11-29 16:46 | XMS_ITS | Encounter Summary ---
Author Organization [facility] Address [address] [place] [address] Care Team Providers Care Map Editor Name Role Phone Susan Whaley Primary Care Provider [phone] Encounter Details Date Type Department Care Team (Late Contact Info) Description 09/17/2008 [facility] [address] [facility] [address] [place] [phone] Charisse Monteiro NP NO ADDRESS ON FILE Social History Tobacco Use Types Packs/Day Years Used Date Smoking Tobacco: Never Alcohol Use Standard Drinks/Week Comments No 0 (1 standard drink = 0.6 oz pur e alcohol) Comments No Sex and Gender Information Value Date Recorded Sex Assigned at Not on file 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 Sex Female 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 Gender Identity Not on file Sexual Orientation Not on file documented as of this encounter Plan of Treatment Upcoming Encounters Date Type Department Care Team (Late Contact Info) Description 02/25/2025 2:20 PM CDT Office Visit [facility] Family Medicine [address] [phone] Deidra Valdes MD [address] [phone] documented as of this encounter Visit Diagnoses Not on filedocumented in this encounter Care Teams Map Editor Relationship Specialty Start Date End Date Susan Whaley FNP PCP - General Nurse Practitioner Family 12/30/18 documented as of this encounter
--- OUTSIDE RECORDS SUMMARY | 2024-11-29 16:46 | XMS_ITS | Encounter Summary ---
Author Organization [facility] Address [address] [place] [address] Care Team Providers Care Airport Guide Name Role Phone Susan Whaley REPRODUCTION PRODUCTION MANAGER Primary Care Provider [phone] Reason for Visit * Reason Comments Medication Refill Lisinopril-hydrochlo rthiazide Encounter Details Date Type Department Care Team (Late st Contact Info) Description 08/07/2012 [facility] [address] [place] [address] [address] [place] [address] Emelia Flowers, PRODUCTION SUPPORT ENGINEER [address] [place] [address] [address] [place] [address] Social History Tobacco Use Types Packs/Day Years Used Date Smoking Tobacco: Never Smokeless Tobacco: Never Alcohol Use Standard Drinks/Week Comments Yes 0 (1 standard drink = 0.6 oz pur e alcohol) maybe once a year Comments No Sex and Gender Information Value Date Recorded Sex Assigned at Not on file Legal Sex Female 5:40 AM WATER PURIFICATION CHEMIST Gender Identity Not on file Sexual Orientation Not on file Occupation Industry Job Start Date Job End Date Not on file Not on file Not on file Not on file documented as of this encounter Miscellaneous Notes * Telephone Encounter - Cheryle Knapp RN - 08/07/2012 3:16 PM CDT Chief Complaint Patient presents with ??? Medication Refill Lisinopril-hydrochlorthiazide Interface from [facility] in [place], [place] . Last OV 05/26/12. documented in this encounter Plan of Treatment Upcoming Encounters Date Type Department Care Team (Late st Contact Info) Description 02/25/2025 2:20 PM CDT Office Visit [address] [phone] Deidra Valdes MD [address] [phone] documented as of this encounter Visit Diagnoses Not on filedocumented in this encounter Care Teams Airport Guide Relationship Specialty Start Date End Date Susan Whaley FNP PCP - General Nurse Practitioner Family 12/30/18 documented as of this encounter
--- OUTSIDE RECORDS SUMMARY | 2024-11-29 16:46 | XMS_ITS | Encounter Summary ---
Author Organization [facility] Address 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 Medication Refill Metformin Interface from [facility] in [place], [place]. Last OV 05/26/12. Lab Results Component Value Date HEMOGLOBIN A1C 5.4 12/14/2011 documented in this encounter Plan of Treatment Upcoming Encounters Date Type Department Care Team (Late st Contact Info) Description 02/25/2025 2:20 PM CDT Office Visit [address] [phone] Deidra Valdes MD [address] [phone] documented as of this encounter Visit Diagnoses Diagnosis DM w/o complication type II, uncontrolled- Primary Type II or unspecified type diabetes mellitus without mention of complication, uncontrolled documented in this encounter Care Teams Sales Support Administrator Relationship Specialty Start Date End Date Susan Whaley FNP PCP - General Nurse Practitioner Family 12/30/18 documented as of this encounter
--- OUTSIDE RECORDS SUMMARY | 2024-11-29 16:46 | XMS_ITS | Encounter Summary ---
Author Organization [facility] Address [address] [place] [address] Care Team Providers Care Pipe Line Repairer Name Role Phone Susan Whaley Primary Care Provider [phone] Encounter Details Date Type Department Care Team (Late Contact Info) Description 08/05/2008 Outpatient [facility] [address] [facility] [address] [place] [phone] Mariano Duarte DO NO ADDRESS ON FILE Social History Tobacco Use Types Packs/Day Years Used Date Smoking Tobacco: Never Alcohol Use Standard Drinks/Week Comments No 0 (1 standard drink = 0.6 oz pur e alcohol) Comments No Sex and Gender Information Value Date Recorded Sex Assigned at Not on file 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 Gender Identity Not on file Sexual Orientation Not on file documented as of this encounter Plan of Treatment Upcoming Encounters Date Type Department Care Team (Late Contact Info) Description 02/25/2025 2:20 PM CDT Office Visit [facility] [place] [address] [phone] Deidra Valdes MD [address] [phone] documented as of this encounter Visit Diagnoses Not on filedocumented in this encounter Care Teams Pipe Line Repairer Relationship Specialty Start Date End Date Susan Whaley FNP PCP - General Nurse Practitioner Family 12/30/18 documented as of this encounter
--- OUTSIDE RECORDS SUMMARY | 2024-11-29 16:46 | XMS_ITS | Encounter Summary ---
Author Organization [facility] Address [address] [place] [address] Care Team Providers Care Used Car Lot Attendant Name Role Phone Susan Whaley Primary Care Provider [phone] Encounter Details Date Type Department Care Team (Late st Contact Info) Description 04/19/2008 Outpatient Historical [facility] Darnell Gray MD [address] [place] [address] [address] [place] [phone] Unspecified Hypothyroidism Social History Tobacco Use Types Packs/Day Years Used Date Smoking Tobacco: Never Alcohol Use Standard Drinks/Week Comments No 0 (1 standard drink = 0.6 oz pur e alcohol) Comments No Sex and Gender Information Value Date Recorded Sex Assigned at Not on file 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 Gender Identity Not on file Sexual Orientation Not on file documented as of this encounter Plan of Treatment Upcoming Encounters Date Type Department Care Team (Late Contact Info) Description 02/25/2025 2:20 PM CDT Office Visit [facility] [address] [phone] Deidra Valdes MD [facility] [address] [phone] documented as of this encounter Visit Diagnoses Diagnosis Unspecified hypothyroidism documented in this encounter Care Teams Used Car Lot Attendant Relationship Specialty Start Date End Date Susan Whaley FNP PCP - General Nurse Practitioner Family 12/30/18 documented as of this encounter
--- OUTSIDE RECORDS SUMMARY | 2024-11-29 16:46 | XMS_ITS | Encounter Summary ---
Author Organization [facility] Address [address] [place] [address] Care Team Providers Care Acute Care Physical Therapist Name Role Phone Susan Whaley MELTER SUPERVISOR ELECTRIC ARC FURNACE Primary Care Provider [phone] Encounter Details Date Type Department Care Team (Late st Contact Info) Description 08/06/2008 Outpatient Historical [facility] [address] [place] [address] [address] [place] [phone] Emelia Flowers, YOKO [address] [place] [address] 200 [place] [address] Social History Tobacco Use Types Packs/Day Years Used Date Smoking Tobacco: Never Alcohol Use Standard Drinks/Week Comments No 0 (1 standard drink = 0.6 oz pur e alcohol) Comments No Sex and Gender Information Value Date Recorded Sex Assigned at Not on file 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 Gender Identity Not on file Sexual Orientation Not on file documented as of this encounter Plan of Treatment Upcoming Encounters Date Type Department Care Team (Late st Contact Info) Description 02/25/2025 2:20 PM CDT Office Visit [facility] [place] [address] [phone] Deidra Valdes MD [address] [phone] documented as of this encounter Visit Diagnoses Not on filedocumented in this encounter Care Teams Acute Care Physical Therapist Relationship Specialty Start Date End Date Susan Whaley, MELTER SUPERVISOR ELECTRIC ARC FURNACE PCP - General Nurse Practitioner Family 12/30/18 documented as of this encounter
--- OUTSIDE RECORDS SUMMARY | 2024-11-29 16:46 | XMS_ITS | Encounter Summary ---
Author Organization [facility] Address [address] [place] [address] Care Team Providers Care Turbine Engine Assembler Name Role Phone Susan Whaley Primary Care Provider Encounter Details Date Type Department Care Team (Late Contact Info) Description 08/05/[address] [facility] [address] [facility] [address] [place] [phone] Mariano Duarte DO NO ADDRESS ON FILE Social History Tobacco Use Types Packs/Day Years Used Date Smoking Tobacco: Never Alcohol Use Standard Drinks/Week Comments No 0 (1 standard drink = 0.6 oz pur e alcohol) Comments No Sex and Gender Information Value Date Recorded Sex Assigned at Not on file Legal Sex Female 5:40 AM RESIDENT PROGRAM SPECIALIST Gender Identity Not on file Sexual Orientation Not on file documented as of this encounter Plan of Treatment Upcoming Encounters Date Type Department Care Team (Late Contact Info) Description 02/25/2025 2:20 PM CDT Office Visit [facility] Family Medicine [place] [address] [phone] Deidra Valdes MD [address] [phone] documented as of this encounter Visit Diagnoses Not on filedocumented in this encounter Care Teams Turbine Engine Assembler Relationship Specialty Start Date End Date Susan Whaley FNP PCP - General Nurse Practitioner Family 12/30/18 documented as of this encounter
--- OUTSIDE RECORDS SUMMARY | 2024-11-29 16:46 | XMS_ITS | Encounter Summary ---
Author Organization [facility] Address [address] [place] [address] Care Team Providers Care Commissary Steward Name Role Phone Susan Whaley X RAY INSPECTOR Primary Care Provider [phone] Reason for Visit * Reason Comments Medication Refill Flexeril Encounter Details Date Type Department Care Team (Late st Contact Info) Description 09/07/2012 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 Med[facility] [place] [place] requesting refill for medication. Last OV 05/26/12. documented in this encounter Plan of Treatment Upcoming Encounters Date Type Department Care Team (Late st Contact Info) Description 02/25/2025 2:20 PM CDT Office Visit [facility] Medicine [place] [address] [address] Deidra Valdes MD [address] [address] documented as of this encounter Visit Diagnoses Not on filedocumented in this encounter Care Teams Commissary Steward Relationship Specialty Start Date End Date Susan Whaley FNP PCP - General Nurse Practitioner Family 12/30/18 documented as of this encounter
--- OUTSIDE RECORDS SUMMARY | 2024-11-29 16:47 | XMS_ITS | Encounter Summary ---
Author Organization [facility] Address [address] [place] [address] Care Team Providers Care Briar Cutter Name Role Phone Susan Whaley FRACTIONATION PLANT SUPERVISOR Primary Care Provider [phone] Encounter Details Date Type Department Care Team [...] on file Legal Sex Female 5:40 AM CONSULTING SYSTEMS ENGINEER Gender Identity Not on file Sexual Orientation Not on file documented as of this encounter Plan of Treatment Upcoming Encounters Date Type Department Care Team (Late st Contact Info) Description 02/25/2025 2:20 PM CDT Office Visit [facility] Medicine [address] [address] Deidra Valdes MD [address] [address] documented as of this encounter [...] AM CDT Narrative 09/17/2008 12:30 PM CDT [address] [address] Admit Date: 09/17/2008 [facility]E [facility] Sex: F Admit Prov: CHARISSE BREWER Date: 1970 Primary Care Prov: CHARISSE BREWER CMRN: [id number] [id number] Ordering Prov: N/A Accession Number: [id number] Interpretation Exam: Left forearm, 2 views on [...] Procedure Note Ruth Bustillos MD - 09/17/[address] [address] Admit Date: 09/17/2008 [facility] Sex: F Admit Prov: CHARISSE BREWER Date: 1970 Primary Care Prov: CHARISSE BREWER CMRN: [id number] [id number] IM[facility]ING SERVICES Ordering Prov: N/A Interpretation Exam: [...] by: RUTH BUSTILLOS 09/17/2008 12:28 Charisse Brewer OVEN LABORER DIAGNOSTIC IMAGING ORDER FORREST Final Result * XR WRIST 3+ VW LEFT (09/17/2008 11:44 AM CDT) Anatomical Region Laterality Modality Wrist / Hand Other 09/17/2008 11:4 4 AM CDT Narrative 09/17/2008 12:31 PM CDT [address] [address] Admit Date: 09/17/2008 [facility] Sex: F Admit Prov: CHARISSE BREWER Date: 1970 Primary Care Prov: CHARISSE BREWER CMRN: [id number] Room: [facility]: [id number] IMAGING SERVICES Ordering Prov: N/A Accession Number: [id number] Interpretation Exam: Left wrist, 3 views and [...] Procedure Note Ruth Bustillos MD - 09/17/[address] [address] Admit Date: 09/17/2008 [facility] Sex: F Admit Prov: CHARISSE BREWER Date: 1970 Primary Care Prov: CHARISSE BREWER CMRN: [id number] [id number] IM[facility]ING SERVICES Ordering Prov: N/A Interpretation Exam: [...] limb documented in this encounter Care Teams Briar Cutter Relationship Specialty Start Date End Date Susan Whaley FNP PCP - General Nurse Practitioner Family 12/30/18 documented as of this encounter
--- OUTSIDE RECORDS SUMMARY | 2024-11-29 16:47 | XMS_ITS | Encounter Summary ---
Author Organization [facility] Address [address] [place] [address] Care Team Providers Care Material Requisitioner Name Role Phone Susan Whaley ROOF BOLTER Primary Care Provider [phone] Encounter Details Date Type Department Care Team (Late st Contact Info) Description 10/15/2013 Ancillary Orders [facility] Laboratory Services [place] [address] [place] [address] Acute bronchitis; Renal failure, unspecified Social History Tobacco Use Types Packs/Day Years Used Date Smoking Tobacco: Never Alcohol Use Standard Drinks/Week Comments No 0 (1 standard drink = 0.6 oz pur e alcohol) Comments No Sex and Gender Information Value Date Recorded Sex Assigned at Not on file Legal Sex Female 1:26 PM ALCOHOL RUBBER Gender Identity Not on file Sexual Orientation [...] - 10.0 K/uL 10/15/2013 11:09 PM CDT [facility] [place] RBC 3.47(L) 3.93 - 5.22 M/uL 10/15/2013 11:09 PM CDT [employer] [facility] [place] HEMOGLOBIN 10.8(L) 11.2 - 15.7 g/dL 10/15/2013 11:09 PM CDT [employer] [facility] [place] HEMATOCRIT 32.6(L) 34.1 - 44.9 % 10/15/2013 11:09 PM CDT [employer] [facility] [place] MCV 93.9 79.4 - 94.8 fL 10/15/2013 11:09 PM CDT [employer] [facility] [place] MCH 31.1 25.6 - 32.2 pg 10/15/2013 11:09 PM CDT [employer] [facility] [place] MCHC 33.1 32.2 - 35.5 g/dL 10/15/2013 11:09 PM [facility] [employer] [facility] [place] RDW 13.4 11.0 - 14.5 % 10/15/2013 11:09 PM T [employer] [facility] [place] RDW-STDEV 43.7 36.9 - 56.9 fL 10/15/2013 11:09 PM CDT [employer] [facility] [place] PLATELETS 265 163 - 337 K/uL 10/15/2013 11:09 PM T [employer] [facility] [place] MPV 11.4 10.0 - 14.8 fL 10/15/2013 11:09 PM CDT [employer] [facility] [place] NEUTROPHILS 60 34 - 71 % 10/15/2013 11:09 PM [facility] [employer] [facility] [place] LYMPHOCYTES 25 19 - 52 % 10/15/2013 11:09 PM CDT [employer] [facility] [place] MONOCYTES 12 5 - 13 % 10/15/2013 11:09 PM CDT [employer] [facility] [place] EOSINOPHILS 3 1 - 6 % 10/15/2013 11:09 PM CDT [employer] [facility] [place] BASOPHILS 1 0 - 1 % 10/15/2013 11:09 PM CDT [employer] [facility] [place] NEUTROPHIL ABSOLUTE 3.53 1.56 - 6.13 K/uL 10/15/2013 11:09 PM CDT [employer] [facility] [place] LYMPHOCYTE ABSOLUTE 1.47 1.20 - 3.40 K/uL 10/15/2013 11:09 PM CDT [facility] [place] MONOCYTE ABSOLUTE 0.69(H) 0.24 - 0.36 K/uL 10/15/2013 11:09 PM CDT [facility] [place] EOSINOPHIL ABSOLUTE 0.18 0.04 - 0.36 K/uL 10/15/2013 11:09 PM CDT [facility] [place] BASOPHILS ABSOLUTE 0.03 0.01 - 0.08 K/uL 10/15/2013 11:09 PM CDT [facility] [place] IMMATURE GRANULOCYTES 0 % 10/15/2013 11:09 PM CDT [facility] IMMATURE GRANULOCYTES ABSOLUTE 0.01 K/uL 10/15/2013 11:09 PM T [facility] Blood 10/15/2013 10:3 1 PM CDT 10/15/2013 10:31 PM CDT us External Provider [employer] HEMATOLOGY ORDERABLES Fin al Result [facility] CLIA # [id number] [address] [place] [address] * (ABNORMAL) BASIC METABOLIC PANEL (10/15/2013 10:31 PM CDT) SODIUM 138 136 - 145 mmol/L 10/15/2013 11:09 PM T [facility] POTASSIUM 4.6 3.5 - 5.1 mmol/L 10/15/2013 11:09 PM T [facility] CHLORIDE 107 98 - 107 mmol/L 10/15/2013 11:09 PM T [facility] LABORATORY [facility] CO2 21 21 - 32 mmol/L 10/15/2013 11:09 PM CDT [facility] [place] CALCIUM 8.9 8.5 - 10.1 mg/dL 10/15/2013 11:09 PM T [facility] LABORAT[facility] BUN 25(H) 7 - 18 mg/dL 10/15/2013 11:09 PM CDT [facility] CREATININE 1.40(H) 0.60 - 1.30 mg/dL 10/15/2013 11:09 PM T [facility] LABORATORY [facility] GLUCOSE 65(L) 74 - 106 mg/dL 10/15/2013 11:09 PM CDT [facility]OR[facility] GFR 41(L) >=60 mL/min/1.7 3 sq meter 10/15/2013 11:09 PM CDT [facility] LABORATORY [facility] Comment: eGFR has not been validated [...] 3 sq meter 10/15/2013 11:09 PM CDT [facility] [employer] [facility] Blood 10/15/2013 10:3 1 PM CDT 10/15/2013 10:31 PM CDT us External Provider Mtnv CHEMISTRY ORDERABLES Mady l Result [facility] [employer] [facility] CLIA # [id number] [address] [place] [address] documented in this encounter Visit Diagnoses Diagnosis Acute bronchitis Renal failure, unspecified documented in this encounter Care Teams Material Requisitioner Relationship Specialty Start Date End Date Susan Whaley FNP PCP - General Nurse Practitioner Family 12/30/18 documented as of this encounter
--- OUTSIDE RECORDS SUMMARY | 2024-11-29 16:47 | XMS_ITS | Encounter Summary ---
Author Organization [facility] Address [address] [place] [address] Care Team Providers Care Contract Management Specialist Name Role Phone Susan Whaley RESERVATIONS AND TICKETING AGENT Primary Care Provider [phone] Encounter Details Date Type Department Care Team (Late st Contact Info) Description 07/22/2014 Lab Requisition [facility] Laboratory Services [place] [address] [place] [phone] Castro Beth, DO NO ADDRESS ON FILE Social History Tobacco Use Types Packs/Day Years Used Date Smoking Tobacco: Never Alcohol Use Standard Drinks/Week Comments No 0 (1 standard drink = 0.6 oz pur e alcohol) Comments No Sex and Gender Information Value Date Recorded Sex Assigned at Not on file Legal Sex Female 1:26 PM 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 ROOM 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 Gender Identity Not on file Sexual Orientation [...] - 2.4 mg/dL 07/22/2014 11:38 PM CDT [facility] [place] Blood 07/22/2014 10:0 7 PM CDT 07/22/2014 10:07 PM CDT Castro Beth DO CHEMISTRY ORDERABLES Final Resu lt Performing Organization Address [facility]/ZIP Co de Phone Number [facility] [place] CLIA # [id number] [address] [place] [address] * (ABNORMAL) IRON LEVEL (07/22/2014 10:07 PM CDT) IRON 46(L) 50 - 170 ug/dL 07/22/2014 11:39 PM CDT [facility] [place] Blood 07/22/2014 10:0 7 PM CDT 07/22/2014 10:07 PM CDT Castro Beth DO CHEMISTRY ORDERABLES Final Resu lt Performing Organization Address City/[facility]/ZIP Co de Phone Number [facility] [employer] [facility] CLIA # [id number] [address] [place] [address] * (ABNORMAL) COMPREHENSIVE METABOLIC PANEL (07/22/2014 10:07 PM CDT) SODIUM 137 136 - 145 mmol/L 07/22/2014 11:38 PM CDT [facility] [place] POTASSIUM 5.2(H) 3.5 - 5.1 mmol/L 07/22/2014 11:38 PM CDT [facility] [place] CHLORIDE 105 98 - 107 mmol/L 07/22/2014 11:38 PM CDT [facility] [place] CO2 23 21 - 32 mmol/L 07/22/2014 11:38 PM CDT [facility] [place] CALCIUM 8.7 8.5 - 10.1 mg/dL 07/22/2014 11:38 PM [facility][NOTE 2] [employer] LABORATORY [facility] [place] BUN 26(H) 7 - 18 mg/dL 07/22/2014 11:38 PM [facility] [employer] [facility] [place] [place] CREATININE 1.40(H) 0.60 - 1.30 mg/dL 07/22/2014 11:38 PM [facility][NOTE 2] [employer] LABORATORY [facility] [place] GLUCOSE 86 74 - 106 mg/dL 07/22/2014 11:38 PM [facility] [employer] [facility] TOTAL PROTEIN 7.6 6.4 - 8.2 g/dL 07/22/2014 11:38 PM [facility] [employer] [facility] ALBUMIN 3.7 3.4 - 5.0 g/dL 07/22/2014 11:38 PM [facility] [employer] [facility] BILIRUBIN TOTAL 0.2 0.2 - 1.0 mg/dL 07/22/2014 11:38 PM [facility][NOTE 2] [employer] [facility] ALKALINE PHOSPHATASE 98 46 - 116 U/L 07/22/2014 11:38 PM [facility] [employer] [facility] AST 34 15 - 37 U/L 07/22/2014 11:38 PM [facility] [employer] [facility] ALT 31 30 - 65 U/L 07/22/2014 11:38 PM [facility]NOTE 2] [employer] [facility] GFR 41(L) >=60 mL/min/1.7 3 sq meter 07/22/2014 11:38 PM [facility]NOTE 2] [employer] [facility] Comment: eGFR has not been validated for [...] mL/min/1.7 3 sq meter 07/22/2014 11:38 PM [facility][NOTE 2] [employer] LABORATORY [facility] ANION GAP 9(L) 12 - 20 mmol/L 07/22/2014 11:38 PM CDT [facility] [employer] [facility] Blood 07/22/2014 10:0 7 PM CDT 07/22/2014 10:07 PM CDT Narrative [facility] LABORATORY [facility] [place] - 07/22/2014 11:38 PM CDT Effective 01/10/2014, the Alkaline Phosphatase test method and reference range have changed. Please take this into consideration when interpreting results prior to or after this date. us Castro Beth DO CHEMISTRY ORDERABLES Final Resu lt [facility] CLIA # [id number] [address] [place] [address] * (ABNORMAL) CBC WITH DIFFERENTIAL (07/22/2014 10:07 PM CDT) WBC 6.6 4.0 - 10.0 K/uL 07/22/2014 10:49 PM CDT [facility] RBC 3.66(L) 3.93 - 5.22 M/uL 07/22/2014 10:49 PM CDT [facility] HEMOGLOBIN 10.8(L) 11.2 - 15.7 g/dL 07/22/2014 10:49 PM CDT [facility] [place] HEMATOCRIT 33.9(L) 34.1 - 44.9 % 07/22/2014 10:49 PM [facility] MCV 92.6 79.4 - 94.8 fL 07/22/2014 10:49 PM CDT [facility] MCH 29.5 25.6 - 32.2 pg 07/22/2014 10:49 PM [facility] MCHC 31.9(L) 32.2 - 35.5 g/dL 07/22/2014 10:49 PM CDT [facility] RDW 14.9(H) 11.0 - 14.5 % 07/22/2014 10:49 PM [facility] [employer] [facility] RDW-STDEV 48.2 36.9 - 56.9 fL 07/22/2014 10:49 PM CDT [facility] [place] PLATELETS 338(H) 163 - 337 K/uL 07/22/2014 10:49 PM CDT [employer] [facility] [place] MPV 11.7 10.0 - 14.8 fL 07/22/2014 10:49 PM CDT [facility] [place] NEUTROPHILS 63 34 - 71 % 07/22/2014 10:49 PM CDT [facility] [place] LYMPHOCYTES 24 19 - 52 % 07/22/2014 10:49 PM CDT [facility] [place] MONOCYTES 9 5 - 13 % 07/22/2014 10:49 PM CDT [facility] [place] EOSINOPHILS 3 1 - 6 % 07/22/2014 10:49 PM CDT [facility] [place] BASOPHILS 0 0 - 1 % 07/22/2014 10:49 PM CDT [facility] [place] NEUTROPHIL ABSOLUTE 4.20 1.56 - 6.13 K/uL 07/22/2014 10:49 PM CDT [facility] [place] LYMPHOCYTE ABSOLUTE 1.60 1.20 - 3.40 K/uL 07/22/2014 10:49 PM CDT [facility] [place] MONOCYTE ABSOLUTE 0.61(H) 0.24 - 0.36 K/uL 07/22/2014 10:49 PM CDT [facility] [place] EOSINOPHIL ABSOLUTE 0.19 0.04 - 0.36 K/uL 07/22/2014 10:49 PM CDT [facility] [place] BASOPHILS ABSOLUTE 0.02 0.01 - 0.08 K/uL 07/22/2014 10:49 PM CDT [employer] [facility] [place] IMMATURE GRANULOCYTES 0 % 07/22/2014 10:49 PM CDT [facility] [place] IMMATURE GRANULOCYTES ABSOLUTE 0.01 K/uL 07/22/2014 10:49 PM CDT [facility] [place] Blood 07/22/2014 10:0 7 PM CDT 07/22/2014 10:07 PM CDT us Castro Beth DO HEMATOLOGY ORDERABLES Final Res ult [facility] [place] CLIA # [id number] [address] [place] [address] * VITAMIN B12 AND FOLATE (07/22/2014 10:07 PM CDT) FOLATE, SERUM 25.13 >=5.38 ng/mL 07/23/2014 10:25 PM CDT [facility] VITAMIN B12 222 211 - 911 pg/mL 07/23/2014 10:25 PM CDT [facility] Blood specimen (specimen) 07/22/2014 10:07 PM CDT 07/22/2014 10:07 PM CDT Castro Beth DO CHEMISTRY ORDERABLES Final Resu lt Performing Organization Address City/[facility]/ZIP Co de Phone Number [facility] [employer] [facility] CLIA# [id number] [address] [place], [place] [id number] [place] [address] CLIA# [id number] [address] [place] [address] * (ABNORMAL) AMYLASE (07/22/2014 10:07 PM CDT) Pathologist [facility] AMYLASE 122.0(H) 25.0 - 115.0 U/L 07/22/2014 11:38 PM CDT [facility] [employer] [facility] Blood 07/22/2014 10:0 7 PM CDT 07/22/2014 10:07 PM CDT Castro Beth DO CHEMISTRY ORDERABLES Final Resu lt [facility] [employer] [facility] CLIA # [id number] [address] [place] [address] documented in this encounter Visit Diagnoses Not on filedocumented in this encounter Care Teams Contract Management Specialist Relationship Specialty Start Date End Date Susan Whaley FNP PCP - General Nurse Practitioner Family 12/30/18 documented as of this encounter
--- OUTSIDE RECORDS SUMMARY | 2024-11-29 16:47 | XMS_ITS | Encounter Summary ---
Author Organization [facility] Address [address] [place] [address] Care Team Providers Care Well Surveying Engineer Name Role Phone Susan Whaley Primary Care Provider [phone] Encounter Details Date Type Department Care Team ([facility] Contact Info) Description 09/19/2008 [facility] [address] [facility] [address] [place] [phone] Mariano Duarte DO NO ADDRESS ON FILE Social History Tobacco Use Types Packs/Day Years Used Date Smoking Tobacco: Never Alcohol Use Standard Drinks/Week Comments No 0 (1 standard drink = 0.6 oz pur e alcohol) Comments No Sex and Gender Information Value Date Recorded Sex Assigned at Not on file Legal Sex Female 5:40 AM INSURANCE COMMISSIONER Gender Identity Not on file Sexual Orientation Not on file documented as of this encounter Plan of Treatment Upcoming Encounters Date Type Department Care Team (Late Contact Info) Description 02/25/2025 2:20 PM CDT Office Visit [facility] Family Medicine [place] [address] [address] Deidra Valdes MD [address] [address] documented as of this encounter Visit Diagnoses Not on filedocumented in this encounter Care Teams Well Surveying Engineer Relationship Specialty Start Date End Date Susan Whaley FNP PCP - General Nurse Practitioner Family 12/30/18 documented as of this encounter
--- OUTSIDE RECORDS SUMMARY | 2024-11-29 16:47 | XMS_ITS | Encounter Summary ---
Author Organization [facility] Address [address] [place] [address] Care Team Providers Care Marble Worker Name Role Phone Susan Whaley SUPERVISOR COATING Primary Care Provider [phone] Encounter Details Date Type Department Care Team (Late st Contact Info) Description 07/29/2014 Lab Requisition [facility] Laboratory Services [place] [address] [place] [phone] Castro Beth, DO NO ADDRESS ON FILE Social History Tobacco Use Types Packs/Day Years Used Date Smoking Tobacco: Never Alcohol Use Standard Drinks/Week Comments No 0 (1 standard drink = 0.6 oz pur e alcohol) Comments No Sex and Gender Information Value Date Recorded Sex Assigned at Not on file 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 AVG GLUCOSE, A1C 134 mg/dL 07/30/2014 12:20 AM CDT [facility] LABORATORY [facility] Blood 07/29/2014 10:4 9 PM CDT 07/29/2014 10:49 PM CDT us Castro Beth DO CHEMISTRY ORDERABLES Final Resu lt [facility] CLIA # [id number] [address] [place] [address] documented in this encounter Visit Diagnoses Not on filedocumented in this encounter Care Teams Marble Worker Relationship Specialty Start Date End Date Susan Whaley FNP PCP - General Nurse Practitioner Family 12/30/18 documented as of this encounter
--- OUTSIDE RECORDS SUMMARY | 2024-11-29 16:47 | XMS_ITS | Encounter Summary ---
Author Organization [facility] Address [address] [place] [address] Care Team Providers Care Automobile Salesman Name Role Phone Susan Whaley COMPLEX HUMAN RESOURCES MANAGER Primary Care Provider [phone] Reason for Referral * Outpatient Services (Routine) - Closed Specialty Diagnoses / Procedures Referred By Bryant castaneda Referred To Contact Radiology Diagnoses Abdominal pain Procedures CT ABDOMEN PELVIS WO CONTRAST CT ABDOMEN PELVIS W CONTRAST Castro Beth DO [facility] CT Scan [place] [address] [place] [address] Phone: tel: fax: Referral ID Status Reason Start Date Expiration Date V isits Requested Visits Authorized [id number] Closed MIN View CTS to Schedule (SGF) 07/25/2014 08/25/2015 1 1 Encounter Details Date Type Department Care Team (Latest Contact Info) Description 07/23/2014 Ancillary Orders [facility] Centralized Scheduling [address] [address] [place] [address] Castro Beth DO NO ADDRESS ON FILE Anemia (Primary Dx); Abdominal pain Social History Tobacco Use Types Packs/Day Years Used Date Smoking Tobacco: Never Alcohol Use Standard Drinks/Week Comments No 0 (1 standard drink = 0.6 oz pur e alcohol) Comments No Sex and Gender Information Value Date Recorded Sex Assigned at Not on file Legal Sex Female 1:26 PM TELEPHONE APPOINTMENT CLERK Gender Identity Not on file Sexual Orientation [...] site documented in this encounter Care Teams Automobile Salesman Relationship Specialty Start Date End Date Susan Whaley FNP PCP - General Nurse Practitioner Family 12/30/18 documented as of this encounter
--- OUTSIDE RECORDS SUMMARY | 2024-11-29 16:47 | XMS_ITS | Patient Health Record ---
Author Organization [facility] Address [address] [place] [address] Care Team Providers Care Margarine Churn Operator Name Role Phone Syed Landaverde Primary Care Provider UnavailClara Ocampo Unavailable Migration, Provider Unavailable Unavailable Alanna Howe Unavailable [phone] Evelyne Han Unavailable [phone] Allergies Allergen (clinical drug ingredient) Drug/Non Drug Allergy documented on EMR Reaction Allergy Type Onset Date Status Non-steroidal anti-inflammatory agent (FN) NSAIDs Unknown Drug Allergy Active Substance with sulfonamide structure and antibacterial mechanism of action (substance) Sulfa Antibiotics Unknown Drug Allergy Active Results Component Value Reference Range Flag Notes Urine Drug Screen (cup read) - [id number] Reviewed date:11/29/2024 02:34:15 PM Interpretation: Performing Lab: Notes/Report: OXY + Urine Drug Screen (cup read) - 73327 Reviewed date:07/31/2024 02:05:37 PM Interpretation:Positive Performing Lab: Notes/Report: Positive BZO + OXY + Urine Confirmation Panel (in strument) - [id number] Reviewed date:08/07/2024 02:17:34 PM Interpretation: Performing Lab: [...] Administration. Urine Drug Screen (cup read) - 75151 Reviewed date:05/07/2024 12:40:41 PM Interpretation: Performing Lab: Notes/Report: BUP + BZO + OXY + zzzUrine Drug Screen (confir mation by instrument) - [id number] Reviewed date:05/15/2024 01:55:29 PM Interpretation: Performing Lab: Notes/Report: Tox Results Reviewed date:08/07/2024 02:19:14 PM Interpretation: Performing Lab: Notes/Report: Reason For Referral No Information Medications Medication SIG (Take, Route, Frequency, Duration) Notes Start Date End Date Status oxyCODONE HCl 10 MG Tablet 1 capsule as needed Orally every 6 hours; Duration: 30 days As needed, not to exceed 2.5 day Fill date 12-01-24 12/30/2024 01/29/2025 Active oxyCODONE HCl 10 MG Tablet 1 capsule as needed Orally every 6 hours; Duration: 30 days As needed, not to exceed 2.5 day Fill date 12-01-24 11/29/2024 12/29/2024 Active Pantoprazole Sodium Active clonazePAM Active Vitamin D2 Active Dicyclomine HCl Acti ve LORazepam Unknown Doxycycline Hyclate 100 MG Capsule 1 capsule Orally Once a day Active EPINEPHrine Active Hydroxychloroquine Sulfate Active hydrOXYzine HCl Acti ve Levothyroxine Sodium Active Lisinopril Active metFORMIN HCl Active Ondansetron 8 MG Tablet Disintegrating 1 tablet on the tongue and allow to dissolve as needed Orally Once a day Active Baclofen 10 MG Tablet 1 tablet as needed Orally Twice a day Active Social History Section Notes: [...] Status Risk Notes Problem Chronic pain syndrome (654398635) Chronic pain syndrome (G89.4) Active confirmed Problem High risk drug 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 (729830361) 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 analgesic (Z79.891) Active confirmed Problem Muscle pain (03233740) Myalgia, other site (M79.18) Active confirmed Problem History of gastric bypass (545086726) S/P gastric bypass (Z98.84) Active confirmed Problem Cervical spondylosis (410100963) Cervical spondylosis (M47.812) Active confirmed Problem Post-laminectomy syndrome (36105734) Post laminectomy syndrome (M96.1) Active confirmed Problem Lumbosacral spondylosis (666273746) Lumbosacral spondylosis (M47.817) Active confirmed Vital Signs Height-cm 152.4 cm 07/31/2024 Weight-kg 44 kg 07/31/2024 Height 60 in 07/31/2024 Weight 97 lbs 07/31/2024 BMI 18.94 kg/m2 07/31/2024 Encounters Encounter Location Date Provider Diagnosis Migrated_Facility 0 0 03/03/2024 Provider Migration Migrated_Facility 0 0 03/04/2024 Provider Migration [facility] [address] [place] [address] 11/29/2024 Clara Lyuksyutova-Pric e Cervical spondylosis M47.812 [facility] [place] [address] [place] [address] 04/02/2024 Clara Lyuksyutova-Pric e [facility] [place] [address] [place] [address] 04/09/2024 Clara Lyuksyutova-Pric e [facility] [place] [address] [place] [address] 04/09/2024 Clara Lyuksyutova-Pric e [facility] [address] [place] [address] 04/09/2024 Clara Lyuksyutova-Pric e [facility] [address] [place] [address] 09/04/2024 Clara Lyuksyutova-Pric e Myalgia, other site M79.18 [facility] [place] [address] [place] [address] 03/27/2024 Clara Lyuksyutova-Pric e Chronic pain syndrome G89.4 ; Myalgia, other site M79.18 and 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 analgesic Z79.891 [facility] [place] [address] [place] [address] 04/17/2024 Clara Lyuksyutova-Pric e Chronic pain syndrome G89.4 ; Low back pain M54.50 ; Myalgia, other site M79.18 ; Abdominal pain R10.9 and Other jail (current) drug therapy Z79.899 [facility] [address] [address] 05/08/2024 Clara Lyuksyutova-Pric e Chronic pain syndrome G89.4 ; Low back pain M54.50 ; Myalgia, other site M79.18 ; Abdominal pain R10.9 and Other ferry terminal agent (current) drug therapy Z79.899 [facility] [address] [address] 06/05/2024 Clara Lyuksyutova-Pric e Chronic pain syndrome G89.4 ; Other low back pain M54.59 ; Abdominal pain R10.9 ; Cervical spondylosis M47.812 ; Lumbosacral spondylosis M47.817 ; Myalgia, other site M79.18 and USP (current) use of opiate analgesic Z79.891 [facility] [address] [address] 07/31/2024 Clara Lyuksyutova-Pric e Chronic pain syndrome G89.4 ; Other low back pain M54.59 ; Abdominal pain R10.9 ; Cervical spondylosis M47.812 ; Lumbosacral spondylosis M47.817 ; Myalgia, other site M79.18 ; USP (current) use of opiate analgesic Z79.891 ; Post laminectomy syndrome M96.1 and History of benzodiazepine use Z87.898 [facility] [address] [address] 09/25/2024 Clara Billie e Chronic pain syndrome G89.4 ; Other low back pain M54.59 ; Abdominal pain R10.9 ; Cervical spondylosis M47.812 ; Lumbosacral spondylosis M47.817 ; Myalgia, other site M79.18 ; Post laminectomy syndrome M96.1 ; USP (current) use of opiate analgesic Z79.891 and History of benzodiazepine use Z87.898 [facility] [address] [address] 11/29/2024 Evelyne Han Chronic pain syndrom e G89.4 ; Other low back pain M54.59 ; Abdominal pain R10.9 ; Cervical spondylosis M47.812 ; Lumbosacral spondylosis M47.817 ; Myalgia, other site M79.18 ; Post laminectomy syndrome M96.1 ; 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 She [...] ADLs, denies abuse and side effects. The DYE MACHINE TENDER was reviewed with no untoward events noted. [...] at this time. She's also seeing a patient access associate and her gastroenterology specialist. Given her prior [...] still pending getting her lumbar MRI from [facility], and I encouraged her to contact them [...] Other low back pain (ICD-10 - M54.59) 11/29/2024 Chronic pain syndrome (ICD-10 - G89.4) I had a nice discussion with the patient today regarding her chronic pain complaints. She continues with neck, lower back, abdominal pain. She does feel her medication is working reasonably well for her and allows her to function better overall. She states she seen her PCP and went to the ER recently due to severe abdominal pain. She states she had new imaging of her abdomen. She is going to get this for today and we will get this scanned into her chart. She states they think that she may have mesenteric ischemia. She states her PCP is going to be sending a referral and she will let us know when she knows more. She reports she continues with a lot of abdominal pain and weight loss. She states she is down to 80 pounds. She continues to defer any sort of interventional procedures. I did discuss lifestyle modifications as well as a bowel regimen. She will continue her medication at present level and return to clinic in 2 months to monitor for treatment effectiveness and compliance. 11/29/2024 Cervical spondylosis (ICD-10 - M47.812) 11/29/2024 Other low back pain (ICD-10 - M54.59) 09/25/2024 Abdominal pain (ICD-10 - R10.9) 07/31/2024 Other low back pain (ICD-10 - M54.59) 06/05/2024 Abdominal pain (ICD-10 - R10.9) 05/08/2024 Myalgia, other site (ICD-10 - M79.18) 04/17/2024 Myalgia, other site (ICD-10 - M79.18) 03/27/2024 USP (current) use of opiate analgesic (ICD-10 - Z79.891) 04/17/2024 Abdominal pain (ICD-10 - R10.9) 05/08/2024 Abdominal pain (ICD-10 - R10.9) 06/05/2024 Cervical spondylosis (ICD-10 - M47.812) 07/31/2024 Abdominal pain (ICD-10 - R10.9) 09/25/2024 Cervical spondylosis (ICD-10 - M47.812) 11/29/2024 Abdominal pain (ICD-10 - R10.9) 11/29/2024 Cervical spondylosis (ICD-10 - M47.812) 09/25/2024 Lumbosacral spondylosis (ICD-10 - M47.817) 07/31/2024 Cervical spondylosis (ICD-10 - M47.812) 06/05/2024 Lumbosacral spondylosis (ICD-10 - M47.817) 05/08/2024 Other jail (current) drug therapy (ICD-10 - Z79.899) 04/17/2024 Other ferry terminal agent (current) drug therapy (ICD-10 - Z79.899) 07/31/2024 Lumbosacral spondylosis (ICD-10 - M47.817) 06/05/2024 Myalgia, other site (ICD-10 - M79.18) 09/25/2024 Myalgia, other site (ICD-10 - M79.18) 11/29/2024 Lumbosacral spondylosis (ICD-10 - M47.817) 11/29/2024 Myalgia, other site (ICD-10 - M79.18) 09/25/2024 Post laminectomy syndrome (ICD-10 - M96.1) 07/31/2024 Myalgia, other site (ICD-10 - M79.18) 06/05/2024 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 09/25/2024 USP (current) use of opiate analgesic (ICD-10 - Z79.891) 11/29/2024 Post laminectomy syndrome (ICD-10 - M96.1) 11/29/2024 USP (current) use of opiate analgesic (ICD-10 - [...] abide by our urine testing policy. 09/25/2024 History of benzodiazepine use (ICD-10 - Z87.898) 07/31/2024 Post laminectomy syndrome (ICD-10 - M96.1) 07/31/2024 History of benzodiazepine use (ICD-10 - Z87.898) The patient was informed that the combination of benzodiazepines with opiates may cause serious health problems. These problems can be life-threatening. Patient was advised to never to take these two medications together. 11/29/2024 History of benzodiazepine use (ICD-10 - Z87.898) 03/27/2024 Other Total time spent caring for [...] to take these two medications together. 06/05/2024 Other Joan Pineda am scribing for Dr. Baum. Dr. Bautista Pineda, personally performed the services described in this documentation, as scribed by Joan Carrillo, and it is both accurate and complete. 07/31/2024 Other Joan Pineda am scribing for Dr. Baum. Dr. Bautista Pineda, personally performed the services described in this documentation, as scribed by Joan Carrillo, and it is both accurate and complete. 09/25/2024 Other Joan Pineda am scribing for Dr. Baum. I, Dr. Baum, personally performed the services described in this documentation, as scribed by Joan Carrillo, and it is both accurate and complete. Plan Of Treatment Pending Test Test Name Order Date MRI Lumbar Spine w/o Cont-[id number] 08/01/19 MRI Lumbar Spine w/o Cont-[id number] 09/27/19 Urine Confirmation Panel (instrument) - [id number] 11/29/2024 Next Appt Details Provider Name:Evelyne velasco, 01/24/2025 02:20:00 PM, [address] [place], [address], Insurance Providers Payer Name Payer Address Payer Phone Subscriber Number Group Number Insured Name Patient Relationship to Insured Coverage Start Date Coverage End Date [place] Medicaid [address] [place] [address] [id number] Marcie Youssef Self - patient is the insured Medical (General) History Medical History History ICD Code Arthritis Thyroid disease Depression anxiety migraines Surgical History Surgery Date(Month/Year) cervical fusion spinal fusion gastric bypass carpal tunnel release hernia repair Hospitalization History Reason Date(Month/Year) See surgical Hx
--- OUTSIDE RECORDS SUMMARY | 2024-11-29 16:47 | XMS_ITS | Encounter Summary ---
Author Organization [facility] Address 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 Gender Identity Not on file Sexual Orientation Not on file Occupation Industry Job Start Date Job End Date Not on file Not on file Not on file Not on file documented as of this encounter Plan of Treatment Upcoming Encounters Date Type Department Care Team (Late st Contact Info) Description 02/25/2025 2:20 PM CDT Office Visit [facility] Medicine [address] [address] Deidra Valdes MD [address] [address] documented as of this encounter Visit Diagnoses Not on filedocumented in this encounter Care Teams Broiler Chef Or Cook Relationship Specialty Start Date End Date Susan Whaley FNP PCP - General Nurse Practitioner Family 12/30/18 documented as of this encounter
--- OUTSIDE RECORDS SUMMARY | 2024-11-29 16:47 | XMS_ITS | Clinical Summary ---
Author Organization [facility] Address [address] [place] [address] Care Team Providers Care Commercial Sales Manager Name Role Phone Syed Landaverde DO Primary Care Provider [phone] Allergies Active Allergy Reactions Criticality Noted Date [...] of stomach 08/14/2014 Overview (07/30/2020): Done in [place] about 2001 Encounters Date Type Department Care Team Description 09/28/2024 Documentation Only [facility] [address] [place] [address] Yesenia Lombardi MA 09/27/2024 2:00 PM CDT Office Visit [facility] [address] [place], [place] [address] Michelle Morton NP Stage 3b chronic kidney disease (HCC) (Primary Dx); Essential (primary) hypertension; Anemia in chronic kidney disease; Type 2 diabetes mellitus with diabetic chronic kidney disease (HCC) 09/27/2024 Documentation Only [facility], [facility] [address] [place] [address] Yesenia Lombardi MA 09/26/2024 Telephone [facility], [facility] [address] [place] [phone] Stanford Winchester MD 09/21/2024 Telephone [facility] [address] [place] [phone] Brown Butler 09/06/2024 Telephone [facility] [address] [place] [address] Lisa Delgado from Last 3 Months Immunizations [...] (NON-INTERFACED LABS) - 09/27/2024 8:29 AM CDT [facility] [address] [place] [address] Aaron Sanchez, Mess Attendant Crew America Mcfarland NP LAB URINE ORDERABLES Final Resul t PRINT/EXTERNAL (NON-INTERFACED LABS) * Vit D 25 hydroxy (09/26/2024 2:25 PM CDT) Vitamin D, 25-OH, Total 73.0 ng/mL PRINT/EXTERNAL (NON-INTERFACE D LABS) Blood Venous blood / Unknown 09/26/2024 2:25 PM CDT Narrative PRINT/EXTERNAL (NON-INTERFACED LABS) - 09/27/2024 8:29 AM CDT [facility] [address] [place] [address] Aaron Sanchez, Mess Attendant Crew us America Mcfarland SCARFING MACHINE OPERATOR LAB BLOOD ORDERABLES Final Resul t PRINT/EXTERNAL (NON-INTERFACED LABS) * CBC and Differential (09/26/2024 2:25 PM CDT) [facility] WBC 6.18 K/uL PRINT/EXTE RNAL (NON-INTERFACE [...] (NON-INTERFACED LABS) - 09/27/2024 8:29 AM CDT [facility] [address] [place] [address] Dr. Aaron Sanchez, Mess Attendant Crew us America Mcfarland NP LAB BLOOD ORDERABLES Final Resul t Performing Organization Address [facility] de Phone Number PRINT/EXTERNAL (NON-INTERFACED LABS) * PTH, intact (09/26/2024 2:25 PM CDT) Parathyroid Hormone, Intact 59.8 pg/mL PRINT/FIRE PROTECTION FABRICATOR AL (NON-INTERFACE D LABS) Blood Venous blood / Unknown 09/26/2024 2:25 PM CDT Narrative PRINT/EXTERNAL (NON-INTERFACED LABS) - 09/27/2024 8:29 AM CDT [facility] [address] [place], [place] [address] Dr. Aaron Sanchez, Mess Attendant Crew us America Mcfarland NP LAB BLOOD ORDERABLES Final Resul t Performing Organization Address [facility] de Phone Number PRINT/EXTERNAL (NON-INTERFACED LABS) * [...] (NON-INTERFACED LABS) - 09/27/2024 8:29 AM CDT [facility] [address] [place] [address] Aaron Sanchez, Mess Attendant Crew America Mcfarland SCARFING MACHINE OPERATOR LAB BLOOD ORDERABLES Final Resul t PRINT/EXTERNAL (NON-INTERFACED LABS) * Hemoglobin A1c (05/16/2018) Hemoglobin A1C 5.6 4.0 - 6.0 Blood specimen (specimen) Venous blood / Unknown 05/16/2018 Narrative Aminah Herndon MA - 08/08/2018 4:55 PM CDT NEW PT [facility] [address] [facility] [address] DIRECTOR: Shahbaz Lang DO, MPH CLIA: [id number] Generic Provider Scan LAB BLOOD ORDERABLES Final Result from Last 3 Months or Most Recently Relevant to Health Maintenance Insurance Medicaid [place] ([id number]) Care Teams Commercial Sales Manager Relationship Specialty Start Date End Date Syed Landaverde DO [address] [place] [address] PCP - General Family Medicine 01/18/23
--- OUTSIDE RECORDS SUMMARY | 2024-11-29 16:47 | XMS_ITS | Clinical Summary ---
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 Gender Identity Not on file Sexual [...] 02/25/2025 2:20 PM CDT Office Visit [facility] Medicine [place] [address] [address] Deidra Valdes MD [address] [address] Health Maintenance Due Date Last [...] CDT LIPID PANEL Routine 05/26/2012 3:45 PM BUILDING OPERATOR Other and unspecified hyperlipidemia MICROALBUMIN/CREATI NINE RATIO, RANDOM UR Routine 12/14/2011 3:35 PM CDT DM w/o complication type II, uncontrolled from Last 3 Months or Most Recently Relevant to Health Maintenance Results * (ABNORMAL) HEMOGLOBIN A1C (07/29/2014 10:49 PM CDT) HEMOGLOBIN A1C 6.3(H) 4.5 - 6.2 % 07/30/2014 12:20 AM CDT [facility] EST. AVG GLUCOSE, A1C 134 mg/dL 07/30/2014 12:20 AM CDT [facility] Blood 07/29/2014 10:4 9 PM CDT 07/29/2014 10:49 PM CDT us Castro W Beth DO CHEMISTRY ORDERABLES Final Resu lt Performing Organization Address [facility]/ZIP Co de Phone Number [facility] [email or web address] CLIA # [id number] [address] [address] [facility] CLIA # [id number] [address] [address] * LIPID PANEL (05/26/2012 3:45 PM BUILDING OPERATOR) CHOLESTEROL 150 100 - 199 mg/dL [facility] TRIGLYCERIDE 115 10 - 149 mg/dL [facility] HDL 46 40 - 59 mg/dL [facility] LDL CALCULATED 81 <=99 mg/dL [facility] CHOL/HDL RATIO 3.3 2.0 - 5.0 [facility] LIPID PANEL COMMENT See Below [facility] Comment: The adult ATP and pediatric NCEP classifications for lipids are available in the Laboratory Services Policy Manual on the [facility] Intranet at: http://[employer]-intranet.[facility]/ Blood specimen (specimen) 05/26/2012 3:45 PM BUILDING OPERATOR 05/26/2012 4:47 PM BUILDING OPERATOR Result [facility] Lisa KEENP CHEMISTRY ORDERABLES E dited Performing Organization Address [facility] Co de Phone Number [facility] CLIA# [id number] [address] [place] [address] * MICROALBUMIN/CREATININE RATIO, RANDOM UR (12/14/2011 3:35 PM CDT) MICROALBUMIN/ CREAT RATIO, UR See Separate Comment 0 - 29 [facility] Comment:Microalbumin<1.2mg/d l; unable to calculate microalbumin/creat ratio Urine specimen (specimen) 12/14/2011 3:35 PM CDT 12/14/2011 4:00 PM CDT Comment:URINE Ar Mulligan MD URINE ORDERABLES Final Result [facility] CLIA# [id number] [address] [place] [address] from Last 3 Months or Most Recently Relevant to Health Maintenance Insurance MEDICAID [place] Advance Directives For more information, please contact: [phone] * Full Code (Latest Code Status on File) Date Activated Date Inactivated Comments 05/05/2010 10:42 AM 05/06/2010 2:33 AM Care Teams Print Line Inspector Relationship Specialty Start Date End Date Susan Whaley FNP PCP - General Nurse Practitioner Family 12/30/18
--- OUTSIDE RECORDS SUMMARY | 2024-11-29 16:47 | XMS_ITS | Encounter Summary ---
Author Organization [facility] Address 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 Gender Identity Not on file Sexual Orientation Not on file documented as of this encounter Plan of Treatment Upcoming Encounters Date Type Department Care Team ([facility] Contact Info) Description 02/25/2025 2:20 PM CDT Office Visit [facility] Family Medicine [address] [address] Deidra Valdes MD [facility] [address] [address] documented as of this encounter Visit Diagnoses Diagnosis Other, multiple, and unspecified sites, insect bite, nonvenomous, infected(919.5) Other, multiple, and unspecified sites, insect bite, nonvenomous, infected documented in this encounter Care Teams Jewelry Department Supervisor Relationship Specialty Start Date End Date Susan Whaley, EQUAL OPPORTUNITY DIRECTOR PCP - General Nurse Practitioner Family 12/30/18 documented as of this encounter
--- OUTSIDE RECORDS SUMMARY | 2024-11-29 16:47 | XMS_ITS | Encounter Summary ---
Author Organization [facility] Address [address] [place] [address] Phone Care Team Providers Care Ecommerce Merchandising Manager Name Role Phone Syed Landaverde DO Primary Care Provider [phone] Encounter Details Date Type Department Care Team (Late st Contact Info) Description 06/21/2018 Orders Only [facility] [address] [place] [address] Chronic kidney disease, stage 3 [...] (moderate) documented in this encounter Care Teams Ecommerce Merchandising Manager Relationship Specialty Start Date End Date Syed Landaverde DO [address] [place] [id number] PCP - General Family Medicine 01/18/23 documented as of this encounter
--- OUTSIDE RECORDS SUMMARY | 2024-11-29 16:47 | XMS_ITS | Encounter Summary ---
Author Organization [facility] Address 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 Gender Identity Not on file Sexual Orientation Not on file Occupation Industry Job Start Date Job End Date Not on file Not on file Not on file Not on file documented as of this encounter Plan of Treatment Upcoming Encounters Date Type Department Care Team (Late st Contact Info) Description 02/25/2025 2:20 PM CDT Office Visit [facility] Medicine [address] [address] Deidra Valdes MD [address] [address] documented as of this encounter Visit Diagnoses Not on filedocumented in this encounter Care Teams Pit Worker Power Shovel Relationship Specialty Start Date End Date Susan Whaley FNP PCP - General Nurse Practitioner Family 12/30/18 documented as of this encounter
--- OUTSIDE RECORDS SUMMARY | 2024-11-29 16:47 | XMS_ITS | Encounter Summary ---
Author Organization [facility] Address [address] [place] [address] Care Team Providers Care Airline Station Agent Name Role Phone Susan Whaley [facility] Primary Care Provider [phone] Encounter Details Date Type Department Care Team (Late st Contact Info) Description 07/15/2014 Lab Requisition [facility] Laboratory Services [place] [address] [place] [phone] Sarah Blanc FNP [address] [place] [address] Sick Social History Tobacco Use Types Packs/Day Years Used Date Smoking Tobacco: Never Alcohol Use Standard Drinks/Week Comments No 0 (1 standard drink = 0.6 oz pur e alcohol) Comments No Sex and Gender Information Value Date Recorded Sex Assigned at Not on file Legal Sex 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 Gender Identity Not on file Sexual [...] 136 - 145 mmol/L 07/15/2014 10:02 PM [facility] POTASSIUM 4.5 3.5 - 5.1 mmol/L 07/15/2014 10:02 PM [facility] CHLORIDE 104 98 - 107 mmol/L 07/15/2014 10:02 PM [facility] CO2 24 21 - 32 mmol/L 07/15/2014 10:02 PM [facility] CALCIUM 9.1 8.5 - 10.1 mg/dL 07/15/2014 10:02 PM [facility] BUN 26(H) 7 - 18 mg/dL 07/15/2014 10:02 PM [facility] CREATININE 1.40(H) 0.60 - 1.30 mg/dL 07/15/2014 10:02 PM [facility] GLUCOSE 129(H) 74 - 106 mg/dL 07/15/2014 10:02 PM [facility] TOTAL PROTEIN 7.7 6.4 - 8.2 g/dL 07/15/2014 10:02 PM [facility] ALBUMIN 3.6 3.4 - 5.0 g/dL 07/15/2014 10:02 PM [facility] BILIRUBIN TOTAL 0.3 0.2 - 1.0 mg/dL 07/15/2014 10:02 PM [facility] ALKALINE PHOSPHATASE 101 46 - 116 U/L 07/15/2014 10:02 PM [facility] AST 31 15 - 37 U/L 07/15/2014 10:02 PM [facility] ALT 30 30 - 65 U/L 07/15/2014 10:02 PM [facility] GFR 41(L) >=60 mL/min/1.7 3 sq meter 07/15/2014 10:02 PM [facility] [employer] [facility] Comment: eGFR has not been validated for [...] 3 sq meter 07/15/2014 10:02 PM CDT [facility] ANION GAP 8(L) 12 - 20 mmol/L 07/15/2014 10:02 PM CDT [facility] Blood Collection / Unknown 07/15/2014 9:14 PM CDT 07/15/2014 9:14 PM CDT Narrative [facility] - 07/15/2014 10:02 PM CDT Effective 01/10/2014, the Alkaline Phosphatase test method and reference range have changed. Please take this into consideration when interpreting results prior to or after this date. Sarah Blanc INSULATING MACHINE OPERATOR CHEMISTRY ORDERABLE S Final Result [facility] CLIA # [id number] [address] [place] [address] * (ABNORMAL) CBC WITH DIFFERENTIAL (07/15/2014 9:14 PM CDT) WBC 4.8 4.0 - 10.0 K/uL 07/15/2014 9:42 PM CDT [facility] RBC 3.59(L) 3.93 - 5.22 M/uL 07/15/2014 9:42 PM CDT [facility] HEMOGLOBIN 10.4(L) 11.2 - 15.7 g/dL 07/15/2014 9:42 PM CDT [facility] HEMATOCRIT 33.0(L) 34.1 - 44.9 % 07/15/2014 9:42 PM CDT [facility] MCV 91.9 79.4 - 94.8 fL 07/15/2014 9:42 PM CDT [facility] MCH 29.0 25.6 - 32.2 pg 07/15/2014 9:42 PM CDT [facility] [place] MCHC 31.5(L) 32.2 - 35.5 g/dL 07/15/2014 9:42 PM CDT [facility] [place] RDW 15.7(H) 11.0 - 14.5 % 07/15/2014 9:42 PM CDT [facility] [place] RDW-STDEV 50.4 36.9 - 56.9 fL 07/15/2014 9:42 PM CDT [facility] [place] [place] PLATELETS 271 163 - 337 K/uL 07/15/2014 9:42 PM CDT [facility] [place] MPV 11.6 10.0 - 14.8 fL 07/15/2014 9:42 PM CDT [facility] [place] NEUTROPHILS 70 34 - 71 % 07/15/2014 9:42 PM CDT [facility] [place] LYMPHOCYTES 17(L) 19 - 52 % 07/15/2014 9:42 PM CDT [facility] [place] [place] MONOCYTES 9 5 - 13 % 07/15/2014 9:42 PM CDT [facility] [place] [place] EOSINOPHILS 3 1 - 6 % 07/15/2014 9:42 PM CDT [facility] [place] [place] BASOPHILS 0 0 - 1 % 07/15/2014 9:42 PM CDT [facility] [place] NEUTROPHIL ABSOLUTE 3.34 1.56 - 6.13 K/uL 07/15/2014 9:42 PM CDT [facility] [place] LYMPHOCYTE ABSOLUTE 0.83(L) 1.20 - 3.40 K/uL 07/15/2014 9:42 PM CDT [facility] [place] MONOCYTE ABSOLUTE 0.44(H) 0.24 - 0.36 K/uL 07/15/2014 9:42 PM CDT [facility] [place] EOSINOPHIL ABSOLUTE 0.15 0.04 - 0.36 K/uL 07/15/2014 9:42 PM CDT [facility] [place] BASOPHILS ABSOLUTE 0.02 0.01 - 0.08 K/uL 07/15/2014 9:42 PM CDT [facility] [place] IMMATURE GRANULOCYTES 0 % 07/15/2014 9:42 PM CDT [facility] [place] IMMATURE GRANULOCYTES ABSOLUTE 0.00 K/uL 07/15/2014 9:42 PM CDT [facility] Blood Collection / Unknown 07/15/2014 9:14 PM CDT 07/15/2014 9:14 PM CDT us Sarah KEENP HEMATOLOGY ORDERABL ES Final Result [facility] CLIA # [id number] [address] [place] [address] documented in this encounter Visit Diagnoses Diagnosis Sick Other unknown and unspecified cause of morbidity or mortality documented in this encounter Care Teams Airline Station Agent Relationship Specialty Start Date End Date Susan Whaley FNP PCP - General Nurse Practitioner Family 12/30/18 documented as of this encounter
--- OUTSIDE RECORDS SUMMARY | 2024-11-29 16:47 | XMS_ITS | Encounter Summary ---
Author Organization [facility] Address [address] [place] [address] Care Team Providers Care Supervisor Underwriting Clerks Name Role Phone Susan Whaley Primary Care Provider Encounter Details Date Type Department Care Team ([facility] Contact Info) Description 09/17/2008 [facility] [address] [facility] [address] [place] [phone] Mariano Duarte DO NO ADDRESS ON FILE Social History Tobacco Use Types Packs/Day Years Used Date Smoking Tobacco: Never Alcohol Use Standard Drinks/Week Comments No 0 (1 standard drink = 0.6 oz pur e alcohol) Comments No Sex and Gender Information Value Date Recorded Sex Assigned at Not on file Legal Sex 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 Gender Identity Not on file Sexual Orientation Not on file documented as of this encounter Plan of Treatment Upcoming Encounters Date Type Department Care Team (Late Contact Info) Description 02/25/2025 2:20 PM CDT Office Visit [facility] Family Medicine [place] [address] [address] Deidra Valdes MD [address] [address] documented as of this encounter Visit Diagnoses Not on filedocumented in this encounter Care Teams Supervisor Underwriting Clerks Relationship Specialty Start Date End Date Susan Whaley FNP PCP - General Nurse Practitioner Family 12/30/18 documented as of this encounter
--- OUTSIDE RECORDS SUMMARY | 2024-11-29 16:47 | XMS_ITS | Encounter Summary ---
Author Organization [facility] Address [address] [facility] [address] [place] [address] Phone Care Team Providers Care Electron Beam Welder Name Role Phone Saima Syed Primary Care Provider [phone] Encounter Details Date Type Department Care Team (Late st Contact Info) Description 01/14/2019 Orders Only [facility] [address] [place], [place] [id number] Stanford Winchester MD [address] [place] [address] Chronic kidney disease stage 3 [...] Comments PTH, INTACT Routine 03/12/2019 12:02 PM DINKEY ENGINEER Chronic kidney disease stage 3 (HCC) RENAL FUNCTION PANEL Routine 03/12/2019 12:02 PM DINKEY ENGINEER Chronic kidney disease stage 3 (HCC) documented in this encounter Results * PTH, intact (03/12/2019 12:02 PM DINKEY ENGINEER) Parathyroid Hormone, Intact 101.2 pg/mL Blood specimen (specimen) Venous blood / Unknown 03/12/2019 12:02 PM DINKEY ENGINEER Sadaf Newman MA - 03/12/2019 12:05 PM DINKEY ENGINEER [facility] Clinical Laboratory [address] [place], [place] [address] Stanford Winchester MD LAB BLOOD ORDERABLES Final Result * (ABNORMAL) Renal function panel (03/12/2019 12:02 PM DINKEY ENGINEER) Pathologist [facility] Albumin 4.9 3.5 - 5.0 g/dL BUN [...] Venous blood / Unknown 03/12/2019 12:02 PM DINKEY ENGINEER Sadaf Newman MA - 03/12/2019 12:05 PM [facility] [address] [place], [place] [address] Stanford Winchester MD LAB BLOOD ORDERABLES Final Result documented in this encounter Visit Diagnoses Diagnosis Chronic kidney disease stage 3 (HCC) documented in this encounter Care Teams Electron Beam Welder Relationship Specialty Start Date End Date Syed Landaverde DO [address] [place] [phone] PCP - General Family Medicine 01/18/23 documented as of this encounter
--- OUTSIDE RECORDS SUMMARY | 2024-11-29 16:47 | XMS_ITS | Clinical Summary ---
Author Organization [address] Address [address] [place] [address] Care Team Providers Care Ore Mixer Name Role Phone Susan Whaley EXTENSION EDGER Primary Care Provider [phone] Allergies Active Allergy Reactions Criticality Noted Date [...] for obesity 5 Overview (08/14/2014): Done in [place] about 2000 Emesis 06/19/2012 Immunizations Immunization Administration [...] on file Legal Sex Female 1:26 PM SOLE BUFFER Gender Identity Not on file Sexual Orientation [...] - 6.2 % 07/30/2014 12:20 AM CDT [place] [email or web address] [facility] EST. AVG GLUCOSE, A1C 134 mg/dL 07/30/2014 12:20 AM CDT [facility] Blood 07/29/2014 10:4 9 PM CDT 07/29/2014 10:49 PM CDT us Castro Beth DO CHEMISTRY ORDERABLES Final Resu lt [facility] CLIA # [id number] [address] [facility] [address] [place] [address] from Last 3 Months or Most Recently Relevant to Health Maintenance Insurance [place]ID [place] Care Teams Ore Mixer Relationship Specialty Start Date End Date Susan Whaley FNP PCP - General Nurse Practitioner Family 12/30/18
[2024-11-29 16:50] VITALS: BP 180/104; PULSE 130; RESP 20; TEMP 36.7; O2SAT 95; BMI 19.5
--- NOTE | 2024-11-29 16:55 | W.ED.ABDPA2 ---
HPI - Abdominal Pain General: Chief Complaint: Abdominal Pain Stated Complaint: weakness, abdomen pain Time Seen by Provider: 11/29/24 16:47 History of Present Illness: 54-year-old female who presents to the emergency room with right lower quadrant abdominal pain. She presents with by ambulance. She received fentanyl en route. She is extremely tearful on presentation and difficult to obtain a history from. She says she just went to her pain clinic and got her oxycodone refilled. She said she went to get some to eat because she was hungry and she started having severe abdominal pain and her leg started cramping. Related Data Home Medications ?Medication ?Instructions ?Recorded ?Confirmed medical marijana 1 dose inhalation DAILY 07/13/23 11/28/24 oxycodone 10 mg tablet 10 mg PO Q6H PRN Pain 11/28/24 11/28/24 Previous Rx's ?Medication ?Instructions ?Recorded E0748 Bone growth stimulator #1 ea 02/06/21 Aquatic Therapy #1 ea 05/17/22 ergocalciferol (vitamin D2) 1,250 See Rx Instructions .Route 01/31/24 mcg (50,000 unit) capsule .COMPLEX #12 caps metformin 500 mg tablet 500 mg PO BID DM #180 tabs 01/31/24 clonazepam 1 mg tablet 1 mg PO TID PRN anxiety #90 tabs 07/09/24 folic acid 1 mg tablet 1 mg PO QDAY RA 30 days #30 tabs 08/06/24 prednisolone 5 mg tablet 5 mg PO QDAY RA #90 tabs 09/03/24 pantoprazole 40 mg tablet,delayed 40 mg PO BID #60 tabs 10/31/24 release hydroxyzine pamoate 50 mg capsule 50 mg PO QID PRN anxeity, itching 11/01/24 #120 caps levothyroxine 112 mcg tablet 112 mcg PO DAILY thyroid #30 tabs 11/19/24 hydroxychloroquine 200 mg tablet See Rx Instructions .Route 11/26/24 .COMPLEX #45 tabs Allergies Allergy/AdvReac Type Severity Reaction Status Date / Time NSAIDS (Non-Steroidal Allergy Mild Unknown Verified 11/28/24 16:27 Anti-Inflamma Sulfa (Sulfonamide Allergy Mild Unknown Verified 11/28/24 16:27 Antibiotics) Alpha-Gal Allergy ALGY-Anaphy Verified 11/28/24 16:27 (Kgdkfhtcc-Taikm-1,3-Gala laxis Beef Containing Products Allergy ALGY-Anaphy Verified 11/28/24 16:27 laxis Pork/Porcine Containing Allergy nausea and Verified 11/28/24 16:27 Products vomiting gabapentin AdvReac mental Verified 11/28/24 16:27 status change [facility] ED PFSH: Medical History (Updated 11/29/24 @ 19:16 by Sujatha Marshall MD) Iron deficiency anemia Neurodermatitis TRALI (transfusion related acute lung injury) Near syncope Stress Secondary hyperparathyroidism Hypertension Delusions of parasitosis Osteoarthritis of hands, bilateral Positive ANTONETTE (antinuclear antibody) Inflammatory arthritis Chronic idiopathic constipation C. difficile diarrhea Depression with anxiety Hypothyroidism Chronic kidney disease, stage 3b Cervical disc disorder with myelopathy of mid-cervical region Spondylolisthesis of cervical region Diabetes Allergy to alpha-gal Thyroid disease Chronic migraine without aura, intractable, with status migrainosus Surgical History [place] filter in place 2001 Hx of hernia repair Status post colonoscopy (08/26/21) History of colonoscopy 2018 History of esophagogastroduodenoscopy (EGD) (08/26/21) 2019 Hx of hysterectomy H/O gastric bypass History of carpal tunnel surgery of left wrist Dr. Orlando Richter 11/18/2016 History of carpal tunnel surgery of right wrist Dr. Richter 01/13/[address] Richter 08/08/17 L4-L5 laminectomy/fusion/fixation 2008 [facility] Lumbar decompression History of neck surgery Dr. Richter 06/29/2018 C6-C7 ACDFF Family History Grandfather CAD (coronary artery disease) Stroke Grandmother CAD (coronary artery disease) Sister CAD (coronary artery disease) Hypertension Family/Other Cancer Mother Hypertension Father Hypertension Brother Hypertension Other Diabetes Social History Smoking and tobacco/nicotine status: never used tobacco/nicotine Alcohol intake: never Substance/Drug Use: current Substance/Drug use frequency: few times a week Household members: family Marital status: Single Current occupational status: disabled Physical Exam Narrative: EXAM NARRATIVE: General: Alert, no acute distress. Skin: Warm, dry. Head: Normocephalic, atraumatic. Neck: Supple, trachea midline. Eye: Extraocular movements are intact. Ears, nose, mouth and throat: mucosa moist. Cardiovascular: Regular, Normal peripheral perfusion. Respiratory: Lungs are clear to auscultation, respirations are non-labored, breath sounds are equal, Symmetrical chest wall expansion. Gastrointestinal: Soft, Nontender, Non distended Musculoskeletal: Normal ROM, no deformity. Neurological: Alert and oriented, No focal neurological deficit observed. Psychiatric: Cooperative, patient is very tearful. Course Vital Signs: Vital signs: Vital Signs Temperature 98.1 F 11/29/24 16:50 Pulse Rate 85 11/29/24 18:01 Respiratory Rate 15 11/29/24 18:01 Blood Pressure 124/60 11/29/24 18:01 Pulse Oximetry 98 11/29/24 18:01 Oxygen Delivery Me thod Room Air 11/29/24 16:50 MDM - Abdominal Pain Medical Decision Making Medical decision making: Differential diagnosis including but not limited to and based on the above HPI, review of systems and physical exam: Patient with chronic abdominal pain and chronic pain syndrome. She is on oxycodone. She had a full workup yesterday including a CT scan. I will do basic lab work but I am not going to do any more CT scans. Orders placed to evaluate differential diagnosis based on the above differential, HPI and physical exam Lab Review: Laboratory results were reviewed and interpreted by myself the emergency room physician. Lab work is fairly unremarkable. No leukocytosis. No renal failure. I reviewed the patient's medical record. Reexamination: Patient remained stable. No increased work of breathing. No altered mental status. No focal motor deficits. Assessment and plan: Abdominal pain Chronic pain syndrome - Discharged home - Discussed plan with patient. Answered any questions. - Evaluation and treatment of this problem were appropriate in the emergency setting. Lab Data 11/29/24 17:55 11/29/24 17:55 Labs/Radiology: Laboratory Results WBC 6.60 10^3/uL (3.29-11.43) 11/29/24 17:55 RBC 3.20 10^6/uL (3.85-5.65) L 11/29/24 17:55 Hgb 9.80 g/dL (11.27-16.99) L 11/29/24 17:55 Hct 33.8 % (36-47) L 11/29/24 17:55 MCV 105.6 fl (85-98) H 11/29/24 17:55 MCH 30.6 pg (27-33) 11/29/24 17:55 MCHC 29.0 g/dL (30-55) L D 11/29/24 17:55 RDW 13.2 % (12.1-15.1) 11/29/24 17:55 Plt Count 190 10^3/cmm (157-399) D 11/29/24 17:55 MPV 9.6 fL (7.4-10.4) 11/29/24 17:55 Neut % (Auto) 68.8 % 11/29/24 17:55 Lymph % (Auto) 17.7 % 11/29/24 17:55 [place] % (Auto) 12.4 % 11/29/24 17:55 Eos % (Auto) 0.3 % 11/29/24 17:55 Baso % (Auto) 0.5 % 11/29/24 17:55 Neut # (Auto) 4.54 10^3/uL (1.8-7.7) 11/29/24 17:55 Lymph # (Auto) 1.2 10^3/uL (0.8-4.8) 11/29/24 17:55 [place] # (Auto) 0.8 10^3/uL (0.2-0.9) 11/29/24 17:55 Eos # (Auto) 0.0 10^3/uL (0.0-0.8) 11/29/24 17:55 Baso # (Auto) 0.0 10^3/uL (0.0-0.1) 11/29/24 17:55 Nucleated RBC % (auto) 0 % 11/29/24 17:55 Nucleated RBCs # 0.0 /100WBC 11/29/24 17:55 Sodium 143 mmol/L (136-145) 11/29/24 17:55 Potassium 4.5 mmol/L (3.5-5.1) 11/29/24 17:55 Chloride 111 mmol/L (98-107) H 11/29/24 17:55 Carbon Dioxide 16 mmol/L (22-29) L 11/29/24 17:55 Anion Gap 20.5 (5-19) H 11/29/24 17:55 BUN 20 mg/dL (6-20) 11/29/24 17:55 Creatinine 1.2 mg/dL (0.5-0.9) H 11/29/24 17:55 GFR Calculation 46.5 mL/min (90-130) L 11/29/24 17:55 Glucose 44 mg/dL (65-115) L 11/29/24 17:55 Calculated Osmolality 296 mOsm/kg (285-295) H 11/29/24 17:55 Lactic Acid 1.6 mmol/L (0.5-2.2) 11/29/24 17:55 Calcium 8.9 mg/dL (8.5-10.5) 11/29/24 17:55 Total Bilirubin 0.2 mg/dL (0.15-1.2) 11/29/24 17:55 AST 33 U/L (0-32) H 11/29/24 17:55 ALT 40 U/L (0-33) H 11/29/24 17:55 Alkaline Phosphatase 72 U/L (35-105) 11/29/24 17:55 C-Reactive Protein 3.0 mg/L (0.0-4.9) 11/29/24 17:55 Total Protein 6.0 g/dL (6.6-8.7) L 11/29/24 17:55 Albumin 3.8 g/dL (3.5-5.2) 11/29/24 17:55 Globulin 2.2 g/dL (1.3-4.6) 11/29/24 17:55 Lipase 49 U/L (13-60) 11/29/24 17:55 Urine Color Yellow (Yellow) 11/29/24 17:18 Urine Appearance Clear (CLEAR) 11/29/24 17:18 Urine pH 5.0 (5-7) 11/29/24 17:18 Ur Specific [place] 1.029 (1.005-1.030) 11/29/24 17:18 Urine Protein 1+ (Negative) A 11/29/24 17:18 Urine Glucose (UA) Trace (Normal) H 11/29/24 17:18 Urine Ketones Trace (Negative) 11/29/24 17:18 Urine Blood Negative (Negative) 11/29/24 17:18 Urine Nitrate Negative (Negative) 11/29/24 17:18 Urine Bilirubin Negative (Negative) 11/29/24 17:18 Urine Urobilinogen 1.0 mg/dL (Negative) 11/29/24 17:18 Ur Leukocyte Esterase 1+ (Negative) A 11/29/24 17:18 Urine RBC 3-5 /hpf (0-2) 11/29/24 17:18 Urine WBC 0-5 /hpf (0-5) 11/29/24 17:18 Ur Squamous Epith Cells 0-5 /hpf (0-5) 11/29/24 17:18 Amorphous Sediment Not Reportable 11/29/24 17:18 Urine Bacteria None seen /hpf (NONE) 11/29/24 17:18 Hyaline Casts 11.16 /lpf 11/29/24 17:18 Urine Opiates Screen Negative ng/mL (Negative) 11/29/24 17:18 Ur Barbiturates Screen Negative ng/mL (Negative) 11/29/24 17:18 Ur Phencyclidine Scrn Negative ng/mL (Negative) 11/29/24 17:18 Ur Amphetamines Screen Negative ng/mL (Negative) 11/29/24 17:18 U Benzodiazepines Scrn Positive ng/mL (Negative) H 11/29/24 17:18 Urine Cocaine Screen Negative ng/mL (Negative) 11/29/24 17:18 U Marijuana (THC) Screen Positive ng/mL (Negative) H 11/29/24 17:18 No radiology studies performed this visit Discharge Plan Discharge Patient Disposition: Home Clinical Impression: Abdominal pain Qualifiers: Abdominal location: generalized Qualified Code(s): R10.84 - Generalized abdominal pain Condition: Stable Prescriptions: No Action medical marijana 1 dose inhalation DAILY Rx Instructions: unknown (DME) E0748 Bone growth stimulator See Rx Instructions .Route .MEDSUPPLY Qty: 1 0RF Rx Instructions: As directed (DME) Aquatic Therapy See Rx Instructions .Route .MEDSUPPLY Qty: 1 0RF Rx Instructions: As directed ergocalciferol (vitamin D2) 1,250 mcg (50,000 unit) capsule See Rx Instructions .ROUTE .COMPLEX Qty: 12 3RF Dose Instruction: TAKE 1 CAPSULE BY MOUTH ONCE A WEEK Rx Instructions: TAKE 1 CAPSULE BY MOUTH ONCE A WEEK metformin 500 mg tablet 500 mg PO BID Qty: 180 3RF clonazepam 1 mg tablet 1 mg PO TID PRN (Reason: anxiety) Qty: 90 3RF folic acid 1 mg tablet 1 mg PO QDAY 30 Days Qty: 30 5RF prednisolone 5 mg tablet 5 mg PO QDAY Qty: 90 0RF pantoprazole 40 mg tablet,delayed release (DR/EC) 40 mg PO BID Qty: 60 1RF hydroxyzine pamoate 50 mg capsule 50 mg PO QID PRN (Reason: anxeity, itching) Qty: 120 3RF levothyroxine 112 mcg tablet 112 mcg PO DAILY Qty: 30 1RF hydroxychloroquine 200 mg tablet See Rx Instructions .ROUTE .COMPLEX Qty: 45 3RF Dose Instruction: alternate taking ONE TABLET BY MOUTH today, THEN take TWO TABLETS BY MOUTH tomorrow Rx Instructions: alternate taking ONE TABLET BY MOUTH today, THEN take TWO TABLETS BY MOUTH tomorrow oxycodone 10 mg tablet 10 mg PO Q6H PRN (Reason: Pain) Rx Instructions: do not exceed Discharge Orders: Discharge ED (Routine); Ordered 11/29/24 Ordered By: Sujatha Marshall Referrals: Syed Landaverde DO [Primary Care Provider, Family Practice] Patient Instructions: Abdominal Pain (ED), Opioid Safety, Pain Management, Patient Portal & Jorge Instructions Activity Restrictions/Additional Instructions: Thank you for choosing [facility] for your healthcare needs today. You have been screened and evaluated and felt safe for discharge. Health conditions do change or evolve sometimes and as such it is important that you follow up with your Primary Doctor to be re checked, 3-5 days is a general good time frame for follow up. You are always welcome to return to the ED for re assessment if your symptoms are worsening or you have new concerns Print Language: Cypriot Coding Level of Care Code ED Physical Fitness Teacher for Kiet Pardo
--- NOTE | 2024-11-29 16:56 | ECG_ITS ---
[employer] Culture Communication Test Date: 2024-11-29 Pat Name: Marcie Youssef Department: Room: Gender: Female Ride Attendant: : 1970 Requested By: Sujatha Shoemaker Order Number: [id number] Reading MD: Measurements Intervals [place] Rate: 101 P: 68 [place]: 131 QRS: 60 QRSD: 75 T: 55 QT: 330 QTc: 428 Interpretive Statements SINUS TACHYCARDIA LEFT ATRIAL ENLARGEMENT [-0.15mV P-WAVE IN V1/V2] SEPTAL MYOCARDIAL INFARCTION , OF INDETERMINATE AGE [40+ ms Q WAVE IN V1/V2] [email or web address]
[2024-11-29 17:28] VITALS: BP 146/101; PULSE 100; RESP 19; O2SAT 97
[2024-11-29 17:30] LABS: Glucose Urine UA Trace (Normal); Nitrate Urine Negative (Negative); Specific Gravity, Urine 1.029 (1.005-1.030)
[2024-11-29 17:37] LABS: PCP Screen Urine Negative (Negative)
[2024-11-29] MEDS: orphenadrine 30 mg/mL Inj 2 mL 60 MG IVP (17:51)
[2024-11-29] MEDS: acetaminophen 1,000 MG/100 ML PIGGYBACK 400 MG IV (17:53)
[2024-11-29 18:01] VITALS: BP 124/60; PULSE 85; RESP 15; O2SAT 98
[2024-11-29 18:37] LABS: Hematocrit 33.8 % (36-47); Hemoglobin 9.80 g/dL (11.27-16.99); Mean Corpuscular HGB Conc 29.0 g/dL (30-55); Mean Corpuscular Hemoglobin 30.6 pg (27-33); Mean Corpuscular Volume 105.6 fl (85-98); Nucleated Red Blood Cells % 0 %; Platelet Count 190 10^3/cmm (157-399); Red Blood Count 3.20 10^6/uL (3.85-5.65); White Blood Count 6.60 10^3/uL (3.29-11.43)
[2024-11-29 19:06] LABS: Lactic Sepsis W/Reflex 1.6 mmol/L (0.5-2.2)
[2024-11-29 19:07] LABS: Alanine Aminotransferase 40 U/L (0-33); Albumin Level 3.8 g/dL (3.5-5.2); Alkaline Phosphatase 72 U/L (35-105); Aspartate Amino Transferase 33 U/L (0-32); Blood Urea Nitrogen 20 mg/dL (6-20); Calcium 8.9 mg/dL (8.5-10.5); Carbon Dioxide 16 mmol/L (22-29); Chloride 111 mmol/L (98-107); Creatinine Clr Calc Pharmacy 37.5541; Globulin 2.2 g/dL (1.3-4.6); Glucose 44 mg/dL (65-115); Lipase 49 U/L (13-60); Osmolality Calculated 296 mOsm/kg (285-295); Sodium 143 mmol/L (136-145); Total Protein 6.0 g/dL (6.6-8.7)
[2024-11-29 19:08] LABS: Anion Gap 20.5 (5-19); Potassium 4.5 mmol/L (3.5-5.1)
[2024-11-29 19:29] VITALS: BP 130/76; PULSE 76; O2SAT 98
== END 2024-11-29 19:29 | disposition home or self-care (01) ==
PROVIDERS: Emergency Provider Emergency Medicine; PCP Family Medicine
DX: R10.84 Generalized abdominal pain (principal); Z79.84 Long term (current) use of oral hypoglycemic drugs; E11.22 Type 2 diabetes mellitus with diabetic chronic kidney disease; I12.9 Hypertensive chronic kidney disease with stage 1 through stage 4 chronic kidney disease, or unspecified chronic kidney disease; N18.32 Chronic kidney disease, stage 3b
CPT/HCPCS: 36415; 80053; 80306; 81001; 83605; 83690; 85025; 86140; 87040; 93005; 96365; 96375; 99284; J0131; J2360

== ENCOUNTER 2024-12-20 09:34 | Oncology outpatient (recurring) (ONCR) | payer MEDICAID, SELFPAY ==
[2024-12-10] MEDS: iron sucrose 200 MG in sodium chloride 0.9% (100 ml) 100 ML IV (11:33)
[2024-12-10 12:10] VITALS: BP 125/74; PULSE 104; RESP 16; TEMP 36.4; O2SAT 95
[2024-12-12] MEDS: iron sucrose 200 MG in sodium chloride 0.9% (100 ml) 100 ML IV (11:32)
[2024-12-12 14:49] VITALS: BP 112/60; PULSE 58; RESP 16; TEMP 36.6; O2SAT 96
[2024-12-14] MEDS: iron sucrose 200 MG in sodium chloride 0.9% (100 ml) 100 ML IV (11:20)
[2024-12-14 11:53] VITALS: BP 114/63; PULSE 92; RESP 14; TEMP 36.6; O2SAT 94
--- NOTE | 2024-12-14 12:43 | PC.NURSE ---
Patient was found wondering in the the [facility]'s radiology area, after calling and informing registration that she was in the parking lot and on her way to oncology for her scheduled infusion (patient was over 15 minutes late at that time) Patient appeared to be disoriented and unsteady on her feet. The patient was transported to oncology via a wheelchair by this nurse. Patient's vital signs were noted to be stable. Patient requested to receive her scheduled infusion of iron. Patient continued to appear lethargic and disoriented through out her infusion, after multiple attempts to talk with the patient regarding her confusion and lethargy, the patient conveyed after multiple attempts, that she had not taken any new or additional medications, she drove herself to the hospital and her boyfriend who usually drives her was in [facility], that she would be driving herself back home to [place] after her infusion. Patient was unable to stay awake long enough to complete a full sentence, was dropping her phone while talking, spilling her food and drink we offered her, she was unable to stand on her own. Security was called to enquire as to what our options were for her, this nurse voiced concerns for her safety as well as the public if she were to get behind the wheel to drive home. Per Abdelrahman LEONARD security, we have no recourse, we can not detain the patient. Patient's contact (her boyfirend) was called to inquire if there was anyone available to assist the patient in getting home. Reagan called back and explained his son would be coming to pick her up and get her home.
[2024-12-18] MEDS: iron sucrose 200 MG in sodium chloride 0.9% (100 ml) 100 ML IV (11:56)
[2024-12-18 12:38] VITALS: BP 155/76; TEMP 36.6
[2024-12-20] MEDS: iron sucrose 200 MG in sodium chloride 0.9% (100 ml) 100 ML IV (10:24)
[2024-12-20 11:02] VITALS: BP 114/78; PULSE 91; O2SAT 96
== END 2025-01-06 23:59 | disposition home or self-care (01) ==
PROVIDERS: PCP Family Medicine; Visit Provider Nurse Practitioner Family
DX: D50.8 Other iron deficiency anemias; Z79.899 Other long term (current) drug therapy; Z53.9 Procedure and treatment not carried out, unspecified reason
CPT/HCPCS: 96365; J1756

== ENCOUNTER → 2024-12-24 11:19 | Outpatient (BNVA) | payer MEDICAID, SELFPAY | PROVIDERS: PCP Family Medicine; Visit Provider Internal Medicine Rheumatology | DX: M19.041 Primary osteoarthritis, right hand (principal); M19.042 Primary osteoarthritis, left hand; F22 Delusional disorders; M06.041 Rheumatoid arthritis without rheumatoid factor, right hand; M06.042 Rheumatoid arthritis without rheumatoid factor, left hand; Z79.899 Other long term (current) drug therapy; Z71.85 Encounter for immunization safety counseling | CPT/HCPCS: 99214 ==

== ENCOUNTER → 2024-12-28 08:21 | Outpatient (BNVA) | payer MEDICAID, SELFPAY | PROVIDERS: PCP Family Medicine; Referring Provider Family Medicine; Visit Provider Internal Medicine | DX: E03.9 Hypothyroidism, unspecified (principal); E07.9 Disorder of thyroid, unspecified; N25.81 Secondary hyperparathyroidism of renal origin; N18.32 Chronic kidney disease, stage 3b; Z91.014 Allergy to mammalian meats | CPT/HCPCS: 99204 ==

== ENCOUNTER 2025-01-04 15:10 | Outpatient (CLI) | payer MEDICAID, SELFPAY ==
[2025-01-04 15:59] LABS: Hematocrit 33.4 % (36-47); Hemoglobin 10.70 g/dL (11.27-16.99); Mean Corpuscular HGB Conc 32.0 g/dL (30-55); Mean Corpuscular Hemoglobin 31.2 pg (27-33); Mean Corpuscular Volume 97.4 fl (85-98); Nucleated Red Blood Cells % 0 %; Platelet Count 224 10^3/cmm (157-399); Red Blood Count 3.43 10^6/uL (3.85-5.65); White Blood Count 4.56 10^3/uL (3.29-11.43)
[2025-01-04 16:36] LABS: Alanine Aminotransferase 31 U/L (0-33); Albumin Level 4.2 g/dL (3.5-5.2); Alkaline Phosphatase 77 U/L (35-105); Aspartate Amino Transferase 37 U/L (0-32); Globulin 2.3 g/dL (1.3-4.6); Thyroid Stimulating Hormone 11.45 uIU/mL (0.27-4.20); Total Protein 6.5 g/dL (6.6-8.7)
[2025-01-04 17:09] LABS: Free T4 Free Thyroxine 0.46 ng/dL (0.82-1.77)
== END 2025-01-04 15:11 | disposition home or self-care (01) ==
PROVIDERS: Absent Provider Internal Medicine; PCP Family Medicine; Referring Provider Internal Medicine; Visit Provider Internal Medicine Rheumatology
DX: M19.90 Unspecified osteoarthritis, unspecified site (principal); E03.9 Hypothyroidism, unspecified
CPT/HCPCS: 36415; 80076; 82565; 84439; 84443; 85025; 85651; 86140; 86480

== ENCOUNTER 2025-01-24 13:54 | Oncology outpatient (recurring) (ONCR) | payer MEDICAID, SELFPAY ==
[2025-01-24 15:24] LABS: Hematocrit 32.9 % (36-47); Hemoglobin 10.40 g/dL (11.27-16.99); Mean Corpuscular HGB Conc 31.6 g/dL (30-55); Mean Corpuscular Hemoglobin 31.0 pg (27-33); Mean Corpuscular Volume 98.2 fl (85-98); Nucleated Red Blood Cells % 0 %; Platelet Count 309 10^3/cmm (157-399); Red Blood Count 3.35 10^6/uL (3.85-5.65); White Blood Count 7.10 10^3/uL (3.29-11.43)
[2025-01-24 16:10] LABS: Alanine Aminotransferase 40 U/L (0-33); Albumin Level 4.3 g/dL (3.5-5.2); Alkaline Phosphatase 85 U/L (35-105); Anion Gap 15.8 (5-19); Aspartate Amino Transferase 39 U/L (0-32); Blood Urea Nitrogen 24 mg/dL (6-20); Calcium 9.2 mg/dL (8.5-10.5); Carbon Dioxide 24 mmol/L (22-29); Chloride 107 mmol/L (98-107); Creatinine Clr Calc Pharmacy 48.5353; Ferritin 300 ng/mL (15-150); Globulin 2.5 g/dL (1.3-4.6); Glucose 90 mg/dL (65-115); Iron 72 ug/dL (37-145); Osmolality Calculated 300 mOsm/kg (285-295); Potassium 3.8 mmol/L (3.5-5.1); Sodium 143 mmol/L (136-145); Thyroid Stimulating Hormone 16.48 uIU/mL (0.27-4.20); Total Iron Binding Capacity 245 mcg/dl; Total Protein 6.8 g/dL (6.6-8.7); Unsaturated Iron Binding 173 ug/dL (112-347)
[2025-01-24 16:32] LABS: Free T4 Free Thyroxine 0.71 ng/dL (0.82-1.77)
== END 2025-02-05 23:59 | disposition home or self-care (01) ==
PROVIDERS: Internal Medicine; PCP Family Medicine; Visit Provider Nurse Practitioner Family
DX: D50.8 Other iron deficiency anemias (principal); E03.9 Hypothyroidism, unspecified; Z98.84 Bariatric surgery status; Z79.899 Other long term (current) drug therapy
CPT/HCPCS: 36415; 80053; 82728; 83540; 83550; 84439; 84443; 85025; 99213

== ENCOUNTER → 2025-04-29 14:50 | Outpatient (BNVA) | payer MEDICAID, SELFPAY | PROVIDERS: PCP Family Medicine; Visit Provider Internal Medicine Rheumatology | DX: M06.041 Rheumatoid arthritis without rheumatoid factor, right hand (principal); M06.042 Rheumatoid arthritis without rheumatoid factor, left hand; F22 Delusional disorders; Z79.899 Other long term (current) drug therapy; Z71.85 Encounter for immunization safety counseling; Z98.1 Arthrodesis status | CPT/HCPCS: 36415; 80076; 82565; 85025; 85651; 86003; 86008; 86140; 99214 ==